=== PATIENT | female | born 1940 | race Caucasian/White ===

== ENCOUNTER 2022-07-06 14:22 | Observation (INO) | payer MEDICARE, SELFPAY ==
[2022-07-06 14:30] VITALS: BP 134/69; PULSE 54; RESP 18; TEMP 36.1; O2SAT 99; BMI 17.6
--- NOTE | 2022-07-06 14:54 | ED.RN ---
Daughter, who is deaf, utilizes the interpreter and translator for sign language. Gives hx of insurance denying home healthcare, and denies the ability of caring for the patient.
--- NOTE | 2022-07-06 15:09 | EDS_ITS ---
HPI <DINORAH Epps - Last Filed: 07/06/22 16:25> History of Present Illness Chief Complaint: Weakness Narrative Narrative: 81-year-old female with history of dementia hypertension history of falling presents to the emergency department for inability to function at home. Patient lives with her daughter who is deaf, the daughter works, and she is unable to care for her at home. Patient was recently discharged from [facility] on Saturday, they were promised 24-hour care at their house, I believe that there was a communication issue, and there was no way to help them at home. Patient is here today for transfer to a rehab center. [facility] <DINORAH Epps - Last Filed: 07/06/22 16:25> [facility] Medical History (Updated 07/06/22 @ 16:25 by DINORAH Epps) Acute kidney injury Congestive heart failure Coronary artery disease Hip fracture, left Hyperlipidemia Hypertension Impaired ambulation Malnutrition Home Medications D3-2000 2,000 u PO/SL DAILY supplement 07/06/22 [History Last Taken 07/06/22] aspirin 81 mg PO/SL DAILY blood thinner 07/06/22 [History Last Taken 07/06/22] atorvastatin 20 mg tablet 10 mg PO DAILY cholesterol 07/06/22 [History Last Taken 07/06/22] donepezil 10 mg tablet 10 mg PO DAILY alzheimers 07/06/22 [History Last Taken 07/06/22] hydralazine 10 mg tablet 10 mg PO Q8 bp 07/06/22 [History Last Taken 07/06/22] isosorbide mononitrate 60 mg tablet,extended release 24 hr 60 mg PO DAILY heart 07/06/22 [History Last Taken 07/06/22] memantine 10 mg tablet 10 mg PO BID alzheimers 07/06/22 [History Last Taken 07/06/22] nitroglycerin 0.4 mg sublingual tablet 0.4 mg sublingual PRN PRN Chest Pain 07/06/22 [History Last Taken Unknown] ondansetron 1 tab PO/SL Q8 PRN Nausea 07/06/22 [History Last Taken Unknown] ticagrelor 60 mg tablet (Brilinta) 60 mg PO BID blood thinner 07/06/22 [History Last Taken 07/06/22] Allergy/AdvReac Type Severity Reaction Status Date / Time No Known Allergies Allergy Verified 07/06/22 14:30 Social History Smoking Status: Never smoker ROS <DINORAH Epps - Last Filed: 07/06/22 16:25> ROS ED ROS Narrative Constitutional: Negative for fever, chills, weight loss, weakness Eyes: Negative for vision loss, vision change, double vision ENT: Negative for any sore throat, ear pain, congestion Cardiovascular: Negative for any chest pain, tightness, palpitations Respiratory: Negative for any cough, sputum production, hemoptysis, dyspnea, dyspnea on exertion, orthopnea Gastrointestinal: Negative for any abdominal pain, nausea, vomiting, diarrhea, constipation, blood in stool, blood in vomit : Negative for any urinary frequency, dysuria, retention, blood in urine Muscle skeletal: Negative for any muscle joint pain, stiffness, myalgias, arthralgias, neck pain, back pain. Positive right hip pain Neurological: Negative for any headache, syncope, numbness or tingling, dizziness Skin: Negative for any rashes, lumps, itching, abrasions, lacerations Psychiatric: Negative for any depression, anxiety, stress, suicidal ideation, homicidal ideation Hematologic: Negative for any easy bruising, excessive bruising, easy bleeding Allergies: Negative for any eczema, hives, rash EXAM <DINORAH Epps - Last Filed: 07/06/22 16:25> Physical Exam Narrative Exam Narrative: Vital signs reviewed. Patient is alert and orient x1, patient speaks however most of her talk is inappropriate. Entire assessment was completed with a educational sign language interpreter. HEET: Head normocephalic atraumatic, TMs clear bilaterally. Posterior pharynx is clear, moist mucous membranes. Nares clear bilaterally. Neck: Supple with no lymphadenopathy or tenderness. No signs of meningismus, negative jolt sign. Cardiac: Regular rate and rhythm no murmurs gallops or rubs, equal peripheral pulses bilaterally. Respiratory: Lungs clear to auscultation bilaterally. No chest tenderness. Abdomen: Soft, nontender, nondistended. No abdominal bruit or pulsatile masses. No hepatosplenomegaly Extremities: Patient does have pain with any movement to the left hip. No other signs of trauma. Patient is moving all other extremities without any difficulty. Neuro: Cranial nerves II through XII intact, no focal neurological deficits. Skin: Clean dry and intact with no rash, purpura, petechiae, vesicles or pustules. Backs/flank: No CVA tenderness, no midline spinal tenderness, no deformity. Psych: Normal mood and affect. No SI, HI or acute psychosis. Const Vital Signs: 07/06/22 14:30 07/06/22 14:47 Temperature 97.0 F L Temperature Source Temporal Pulse Rate 54 L Respiratory Rate 18 Respiratory Effort Normal Blood Pressure 134/69 H Blood Pressure Mean 90 Pulse Ox 99 Oxygen Delivery Method Room Air Positive well developed General Appearance ED: well developed <Dr. Joselito Cagle DO - Last Filed: 07/06/22 16:47> Physical Exam Const Vital Signs: 07/06/22 14:30 07/06/22 14:47 Temperature 97.0 F L Temperature Source Temporal Pulse Rate 54 L Respiratory Rate 18 Respiratory Effort Normal Blood Pressure 134/69 H Blood Pressure Mean 90 Pulse Ox 99 Oxygen Delivery Method Room Air MDM <DINORAH Epps - Last Filed: 07/06/22 16:25> MDM Lab Data Labs: Laboratory Results - last 24 hr 07/06/22 07/06/22 15:38 15:38 WBC 5.7 RBC 2.67 L Hgb 8.0 L Hct 25.9 L MCV 97.0 MCH 30.0 MCHC 30.9 L RDW Std Deviation 70.8 H RDW Coeff of David 20.4 H Plt Count 174 MPV 9.3 Immature Gran % (Auto) 0.400 Neut % (Auto) 70.5 H Lymph % (Auto) 15.1 L [place] % (Auto) 8.4 Eos % (Auto) 4.9 Baso % (Auto) 0.7 Absolute Neuts (auto) 4.0 Absolute Lymphs (auto) 0.86 Nucleated RBC % 0 Sodium 145 Potassium 4.0 Chloride 116 H Carbon Dioxide 25.0 Anion Gap 4 L BUN 15 Creatinine 0.74 Estim Creat Clear Calc 31.06 Est GFR (MDRD) Af Amer 96 Est GFR (MDRD) Non-Af 79 BUN/Creatinine Ratio 20.2 H Glucose 103 Calcium 8.5 Radiography Diagnostic Testing: Clinical Impression(s) from Imaging Studies Hip/Pelvis X-Ray 07/06/22 15:50 IMPRESSION: 1. Evidence of surgical repair of a now healed left femoral fracture. No evidence for acute fracture is seen. If there is continued concern, CT is offered. 2. Degenerative changes lumbar spine. 3. Evidence of surgical repair of a now healed right hip fracture. Electronically Signed: Ignacio Davis DO at 16:05 EDT Reading Location ID and State: [address] [place] [address] Tel [phone], Service support , Treatment and Re-Evaluation Narrative: Patient presents the emergency department for placement to a rehab center. Patient has dementia, patient daughter is deaf and has difficulty communicating. Patient was discharged in the hospital at [facility] 2 days ago, and she is unable to care for self at home. Social work was consulted, they will look at her insurance, and see if she is able to be placed to a rehab facility or if she needs to be admitted for further work-up and then placed. Patient appears well, patient appears nontoxic, patient is here for placement. I did speak with the attending Dr. Lizama patient will be admitted to the hospital and be placed per insurance. Patient did receive an x-ray interpreted by ER physician of the left hip, this showed evidence of surgical Is now healed left femoral fracture. Patient's laboratory values show some anemia, I am unsure if this is chronic or new. Patient's chemistries were unremarkable. Patient and family are happy with the admission. Patient is stable <Dr. Joselito Cagle DO - Last Filed: 07/06/22 16:47> [facility] Lab Data Attestation: I reviewed the patient's lab results. Labs: Laboratory Results - last 24 hr 07/06/22 07/06/22 15:38 15:38 WBC 5.7 RBC 2.67 L Hgb 8.0 L Hct 25.9 L MCV 97.0 MCH 30.0 MCHC 30.9 L RDW Std Deviation 70.8 H RDW Coeff of David 20.4 H Plt Count 174 MPV 9.3 Immature Gran % (Auto) 0.400 Neut % (Auto) 70.5 H Lymph % (Auto) 15.1 L [place] % (Auto) 8.4 Eos % (Auto) 4.9 Baso % (Auto) 0.7 Absolute Neuts (auto) 4.0 Absolute Lymphs (auto) 0.86 Nucleated RBC % 0 Sodium 145 Potassium 4.0 Chloride 116 H Carbon Dioxide 25.0 Anion Gap 4 L BUN 15 Creatinine 0.74 Estim Creat Clear Calc 31.06 Est GFR (MDRD) Af Amer 96 Est GFR (MDRD) Non-Af 79 BUN/Creatinine Ratio 20.2 H Glucose 103 Calcium 8.5 Radiography Diagnostic Testing: Clinical Impression(s) from Imaging Studies Hip/Pelvis X-Ray 07/06/22 15:50 IMPRESSION: 1. Evidence of surgical repair of a now healed left femoral fracture. No evidence for acute fracture is seen. If there is continued concern, CT is offered. 2. Degenerative changes lumbar spine. 3. Evidence of surgical repair of a now healed right hip fracture. Electronically Signed: Ignacio CoronadoonDO at 16:05 EDT Reading Location ID and State: [address] [place] [address] Tel [phone], Service support , Treatment and Re-Evaluation Narrative: Patient presents the emergency department for placement to a rehab center. Patient has dementia, patient daughter is deaf and has difficulty communicating. Patient was discharged in the hospital at [facility] 2 days ago, and she is unable to care for self at home. Social work was consulted, they will look at her insurance, and see if she is able to be placed to a rehab facility or if she needs to be admitted for further work-up and then placed. Patient appears well, patient appears nontoxic, patient is here for placement. I did speak with the attending Dr. Lizama patient will be admitted to the hospital and be placed per insurance. Patient did receive an x-ray interpreted by ER physician of the left hip, this showed evidence of surgical Is now healed left femoral fracture. Patient's laboratory values show some anemia, I am unsure if this is chronic or new. Patient's chemistries were unremarkable. Patient and family are happy with the admission. Patient is stable I performed a history and physical examination of the patient and discussed management plan with the physician senior executive assistant. I reviewed the physician senior executive assistant's note and agree with the documented findings and plan of care. Patient was recently admitted to [facility] for hip fracture and discharged home. Family states they were expecting 24-hour in-home care and notes that they are unable to care for her. Plan is social admission for placement. Joselito Cagle DO, MS Discharge Plan Dx/Rx/DC Orders Clinical Impression: Unable to care for self, History of fall, History of dementia, Anemia Disposition Disposition: Acute Care Hospital [facility]
[2022-07-06 15:48] LABS: Absolute Lymphocyte Count 0.86 X10^3/uL (0.83-4.51); Basophil# 0.04 X10^3/uL; Basophil% 0.7 % (0-1); Eosinophil# 0.28 X10^3/uL; Eosinophils% 4.9 % (0-5); Hematocrit 25.9 % (37-47); Lymphocyte # 0.86 X10^3/ul (0.83-4.51); Lymphocyte % 15.1 % (19-41); Mean Corp Hgb Conc 30.9 g/dL (32-36); Mean Platelet Vol. 9.3 fl (6.2-12.0); Monocyte# 0.48 X10^3/uL; Monocyte% 8.4 % (0-10); NRBC Flagged by Analyzer 0 % (0-5); Neutrophil # 4.03 X10^3/uL (2.7-7.7); Neutrophil % 70.5 % (47-70); POSITIVE MORPHOLOGY YES; Platelet Count 174 K/mm3 (150-450); RBC Distribution Width CV 20.4 % (11.6-14.6); RBC Distribution Width SD 70.8 fl (35.1-43.9); Red Blood Count 2.67 M/mm3 (4.2-5.4); White Blood Count 5.7 K/mm3 (4.4-11.0)
--- NOTE | 2022-07-06 15:50 | RAD_ITS ---
STUDY: X-RAY - PELVIS AND LEFT HIP REASON FOR EXAM: Female, 81 years old. Left hip fracture. TECHNIQUE: 3 views of the pelvis and hip. COMPARISON: None. FINDINGS: There is a non-specific bowel gas pattern. Normal visualized soft tissue structures. There are multiple calcified phleboliths. Vascular calcifications are noted. Degenerative changes of the lower lumbar spine. Normal bilateral iliac wings, sacroiliac joints and visualized sacrum. Normal bilateral superior and inferior pubic rami. There are degenerative changes of the pubic symphysis with articular narrowing and sclerosis. Normal bilateral ischial tuberosities is evidence of surgical The left right hip fracture without acute abnormality.. There is a medullary brennan in the left femoral shaft with a transfixing gamma nail extending into the femoral head and neck. There is no evidence of acute fracture. There is no evidence of misalignment. Normal left acetabulum. Normal left hip joint. RAD/Hip 1 view with Pelvis IMPRESSION: 1. Evidence of surgical repair of a now healed left femoral fracture. No evidence for acute fracture is seen. If there is continued concern, CT is offered. 2. Degenerative changes lumbar spine. 3. Evidence of surgical repair of a now healed right hip fracture. Electronically Signed: Ignacio Davis DO at 16:05 EDT ,
[2022-07-06 15:57] LABS: Differential Indicated SCAN CRITERIA MET
[2022-07-06 16:01] LABS: Anion Gap 4 (5-15); BUN 15 mg/dL (7-18); BUN/Creat Ratio 20.2 RATIO (10-20); Calcium,Total 8.5 mg/dL (8.5-10.1); Chloride 116 mmol/L (98-107); Creatinine, Serum 0.74 mg/dL (0.55-1.02); EST Glomerular Filtration Rate 79 mL/min (>60); Est Glom Filt Rate - Afr Amer 96 mL/min (>60); Estimated Creatinine Clearance 31.06 ml/min; Glucose 103 mg/dL (74-106); Sodium Level 145 mmol/L (136-145)
--- NOTE | 2022-07-06 16:11 | HP.PCM.HOS_ITS ---
HPI - General General Date of Admission: 07/06/22 Date of Service: 07/06/22 Chief Complaint: weakness and debility HPI Narrative HENRI GRIFFIN, is a 81 F with a PMH as outlined who presents via the ED on 07/06/2022 with a complaint of weakness and debility. She has been falling at home and unable to carry out her activities of daily living. SHe was recently in [facility] for about 5 days recently for a left hip fracture and had surger y done, and was discharged home. It appears daughter believes they were told she would have care at home, but this seemed to be a miscommunication. Patient has not been able to care for herself at home, and family is unable to care for her. Unable to do review of systems as patient is confused. History was taken from her daughter via fulfillment specialist as daughter is deaf Vitals were BP of 134/69, MD of 54, RR of 18 and temp of 97F, and she was saturating at 99% on room air. CBC showed Hb of 8, wbc of 5.7 and platelets of 174. BMP was unremarkable. XRay of the left hip showed evidence of surgical repair of a now healed left femoral fracutre with no evidence of acute fracture. She is being admitted to be managed for debility and weakness due to frequent falls, and will need placement. [facility] Medical History (Updated 07/06/22 @ 16:51 by Gaviota Casas) Acute kidney injury Congestive heart failure Coronary artery disease Dementia Hip fracture, left Hyperlipidemia Hypertension Impaired ambulation Malnutrition Home Medications D3-2000 2,000 u PO/SL DAILY supplement 07/06/22 [History Last Taken 07/06/22] aspirin 81 mg PO/SL DAILY blood thinner 07/06/22 [History Last Taken 07/06/22] atorvastatin 20 mg tablet 10 mg PO DAILY cholesterol 07/06/22 [History Last Taken 07/06/22] donepezil 10 mg tablet 10 mg PO DAILY alzheimers 07/06/22 [History Last Taken 07/06/22] hydralazine 10 mg tablet 10 mg PO Q8 bp 07/06/22 [History Last Taken 07/06/22] isosorbide mononitrate 60 mg tablet,extended release 24 hr 60 mg PO DAILY heart 07/06/22 [History Last Taken 07/06/22] memantine 10 mg tablet 10 mg PO BID alzheimers 07/06/22 [History Last Taken 07/06/22] nitroglycerin 0.4 mg sublingual tablet 0.4 mg sublingual PRN PRN Chest Pain 07/06/22 [History Last Taken Unknown] ondansetron 1 tab PO/SL Q8 PRN Nausea 07/06/22 [History Last Taken Unknown] ticagrelor 60 mg tablet (Brilinta) 60 mg PO BID blood thinner 07/06/22 [History Last Taken 07/06/22] Allergy/AdvReac Type Severity Reaction Status Date / Time No Known Allergies Allergy Verified 07/06/22 14:30 Social History Smoking Status: Never smoker ROS Review of Systems ROS Unobtainable: Denies due to encephalopathy Vital Signs Vital Signs Vital Signs: 07/06/22 14:30 07/06/22 14:47 Temperature 97.0 F L Temperature Source Temporal Pulse Rate 54 L Respiratory Rate 18 Respiratory Effort Normal Blood Pressure 134/69 H Blood Pressure Mean 90 Pulse Ox 99 Oxygen Delivery Method Room Air Weight Weight: 100 lb Body Mass Index (BMI) 17.6 Physical Exam Const alert and no apparent distress General Appearance: cooperative Orientation / Consciousness: confused HEENT normocephalic, head/scalp atraumatic, hearing grossly normal bilaterally and moist oral mucous membranes Mouth: oral and palatal mucosa normal Eyes PERRL, EOMs intact bilaterally and conjunctivae normal Neck no lymphadenopathy, supple and no JVD Resp normal respiratory effort, no retractions, no use of accessory muscles and clear to auscultation bilaterally Cardio regular rate, regular rhythm, S1 normal heart sound, S2 normal heart sound and no murmurs GI normal to inspection, nondistended, normoactive bowel sounds, soft to palpation, non-tender and non-distended Extremity normal to inspection, full ROM and no clubbing, cyanosis or edema Neuro CN's II-XII intact bilaterally, moves all extremities and no focal motor defic its Neuro Narrative: confused Sensorium / Orientation: awake and alert Motor Exam: strength 5/5 throughout Psych Psych Narrative: confused Results Lab / Micro Data Result Diagrams: 07/06/22 15:38 07/06/22 15:38 Labs: Laboratory Results - last 24 hr 07/06/22 15:38: WBC 5.7, RBC 2.67 L, Hgb 8.0 L, Hct 25.9 L, MCV 97.0, MCH 30.0, MCHC 30.9 L, RDW Std Deviation 70.8 H, RDW Coeff of David 20.4 H, Plt Count 174, MPV 9.3, Immature Gran % (Auto) 0.400, Neut % (Auto) 70.5 H, Lymph % (Auto) 15.1 L, [place] % (Auto) 8.4, Eos % (Auto) 4.9, Baso % (Auto) 0.7, Absolute Neuts (auto) 4.0, Absolute Lymphs (auto) 0.86, Nucleated RBC % 0 07/06/22 15:38: Sodium 145, Potassium 4.0, Chloride 116 H, Carbon Dioxide 25.0, Anion Gap 4 L, BUN 15, Creatinine 0.74, Estim Creat Clear Calc 31.06, Est GFR (MDRD) Af Amer 96, Est GFR (MDRD) Non-Af 79, BUN/Creatinine Ratio 20.2 H, Glucose 103, Calcium 8.5 Radiology Impression Hip/Pelvis X-Ray 07/06/22 15:50 IMPRESSION: 1. Evidence of surgical repair of a now healed left femoral fracture. No evidence for acute fracture is seen. If there is continued concern, CT is offered. 2. Degenerative changes lumbar spine. 3. Evidence of surgical repair of a now healed right hip fracture. Electronically Signed: Ignacio Davis DO at 16:05 EDT Reading Location ID and State: [address] [place] [address] Tel [phone], Service support , Assessment & Plan Assessment/Plan (1) Weakness: (2) Debility: (3) Falls: PLAN: Plan #Debility and weakness due to mechanical falls * admit to med surg * hasnt been able to carry out her activities of daily living due to weakness and debility * consult PT/OT * fall precautions * #CAD * on aspirin, brilinta and statin as well as imdur * #Hyperlipidemia: on statin #Dementia: on donepezil and memantine #Hypertension: * on hydralazine. * Appears she was on coreg and lisinopril but these were discontinued at [facility], reason unclear. DVT prophylaxis: lovenox Code status: full code * Patient's daughter counseled extensively about different types of CODE STATUS including full code, DNR CCA and DNR CCA via the sign language interpretor. * Patient elects to be full code. * Total eusk-zl-rkow time 17 minutes. Charges/Coding Visit Charges OBSV E&M: 64006 Initial observation care L2 Procedures Hospitalists Procedures: 59334 Advncd Care Plan 30 Min
[2022-07-06 17:00] LABS: Anisocytosis 1+
[2022-07-06 17:01] LABS: Differential Comment SCANNED; Neutrophil-Band 8.4 % (0-5)
--- NOTE | 2022-07-06 17:13 | CM.ED ---
Social Work Note Reason for Referral: SNF placement JAMESON Parks spoke with this worker regarding pt. Pt has dementia and pt's daughter is deaf. Pt has a hip fracture and was at [facility] and then was discharged home. Pt is at [facility] ED for SNF placement as pt's daughter cannot take care of pt. Pt's daughter works. STEPHAN reviewed pt's insurance. Pt has [place] [employer]. Pt will need PT/OT evaluations and pre-cert to be admitted to SNF. STEPHAN updated JAMESON Parks of this. Pt to be admitted to acute. Plan: Admit to Acute. Pt will need SNF placement. Asmita Flores CD MIXER, CHHA
[2022-07-06 17:26] VITALS: BMI 16.5
[2022-07-06 17:30] VITALS: BP 161/72; PULSE 64; RESP 18; TEMP 36.1; O2SAT 98
--- NOTE | 2022-07-06 17:38 | ED.RN ---
Dispo intervention not present, order was cancelled for some reason, unable to add intervention. Dr Lizama saw pt in ED, admission nurse took pt up to the floor.
[2022-07-06] MEDS: 0.9% Saline Lock 10 ML Syringe IV (17:57)
[2022-07-06] MEDS: 0.9% Normal Saline 1,000 ML 75 ML IV (17:57)
[2022-07-06 21:39] VITALS: BP 109/64; PULSE 81; RESP 18; TEMP 36.4; O2SAT 98
[2022-07-06 21:51] VITALS: BP 109/64; PULSE 81
[2022-07-06] MEDS: Memantine Hydrochloride 10 MG Tablet PO (21:51)
[2022-07-06] MEDS: hydrALAZINE 10 MG Tablet PO (21:51)
[2022-07-06] MEDS: TICAGRELOR 60 MG TABLET PO (21:54)
[2022-07-07] VITALS (7 sets, daily range): BP systolic 138–165; BP diastolic 44–79; PULSE 71–91; RESP 17–18; TEMP 36.5–37.1; O2SAT 95–98
[2022-07-07] MEDS: hydrALAZINE 10 MG Tablet PO ×3 (06:46→20:04)
[2022-07-07 07:51] LABS: Absolute Lymphocyte Count 0.79 X10^3/uL (0.83-4.51); Basophil# 0.05 X10^3/uL; Basophil% 0.9 % (0-1); Eosinophil# 0.36 X10^3/uL; Eosinophils% 6.4 % (0-5); Hematocrit 26.4 % (37-47); Hemoglobin 8.2 g/dL (12.0-15.0); Lymphocyte # 0.79 X10^3/ul (0.83-4.51); Mean Corp Hgb Conc 31.1 g/dL (32-36); Mean Corpuscular Hgb 30.7 pg (27.0-32.0); Mean Corpuscular Volume 98.9 fL (81-99); Mean Platelet Vol. 9.9 fl (6.2-12.0); Monocyte# 0.46 X10^3/uL; Monocyte% 8.2 % (0-10); NRBC Flagged by Analyzer 0 % (0-5); Neutrophil # 3.96 X10^3/uL (2.7-7.7); Neutrophil % 70.3 % (47-70); POSITIVE MORPHOLOGY YES; Platelet Count 174 K/mm3 (150-450); RBC Distribution Width CV 20.2 % (11.6-14.6); RBC Distribution Width SD 71.7 fl (35.1-43.9); Red Blood Count 2.67 M/mm3 (4.2-5.4); White Blood Count 5.6 K/mm3 (4.4-11.0)
[2022-07-07 07:56] LABS: Differential Indicated SCAN CRITERIA MET
[2022-07-07 08:04] LABS: Anion Gap 5 (5-15); BUN 16 mg/dL (7-18); BUN/Creat Ratio 22.3 RATIO (10-20); Calcium,Total 8.4 mg/dL (8.5-10.1); Chloride 116 mmol/L (98-107); Creatinine, Serum 0.72 mg/dL (0.55-1.02); EST Glomerular Filtration Rate 83 mL/min (>60); Est Glom Filt Rate - Afr Amer 100 mL/min (>60); Estimated Creatinine Clearance 28.85 ml/min; Glucose 83 mg/dL (74-106); Potassium 3.9 mmol/L (3.5-5.1); Sodium Level 145 mmol/L (136-145)
[2022-07-07 08:25] LABS: Anisocytosis 1+; Hypochromasia 1+
[2022-07-07] MEDS: Atorvastatin Calcium 10 MG Tablet PO (09:04)
[2022-07-07] MEDS: Donepezil HCl 10 MG Tablet PO (09:04)
[2022-07-07] MEDS: Isosorbide Mononitrate 60 MG Tablet PO (09:04)
[2022-07-07] MEDS: Aspirin 81 MG TAB.CHEW PO (09:04)
[2022-07-07] MEDS: Memantine Hydrochloride 10 MG Tablet PO ×2 (09:04→20:05)
[2022-07-07] MEDS: Cholecalciferol (VIT D3) 25 MCG TABLET (1,000 UNITS) 50 MCG PO (09:04)
[2022-07-07] MEDS: TICAGRELOR 60 MG TABLET PO ×2 (09:05→20:07)
[2022-07-07] MEDS: Acetaminophen 325 MG Tablet 650 MG PO ×2 (11:30→20:05)
--- NOTE | 2022-07-07 11:40 | PN.HOSP_ITS ---
Subjective Subjective Patient seen and examined. She had no complaints today and had an uneventful night. Review of systems is otherwise negative. She was noted to have a firm, nontender swelling on the left hip, at the site of surgery. Objective Data Objective Data Vital Signs: Vital Signs Temp Pulse Resp BP Pulse Ox O2 Del Method 98.4 F 83 17 150/79 H 98 Room Air 07/07/22 09:07 07/07/22 09:07 07/07/22 09:07 07/07/22 09:07 07/07/22 09:07 07/07/22 09:09 Oxygen Delivery Method Room Air Weight: 92 lb 14.4 oz Body Mass Index (BMI) 16.5 Intake & Output: Intake and Output for Last 24 Hours 07/05/22 07/06/22 07/07/22 23:59 23:59 23:59 Intake Total 843.75 / 843.75 Balance 843.75 / 843.75 Lab / Micro Data Result Diagrams: 07/07/22 06:27 07/07/22 06:27 Labs: Laboratory Results - last 24 hr 07/06/22 15:38: WBC 5.7, RBC 2.67 L, Hgb 8.0 L, Hct 25.9 L, MCV 97.0, MCH 30.0, MCHC 30.9 L, RDW Std Deviation 70.8 H, RDW Coeff of David 20.4 H, Plt Count 174, MPV 9.3, Immature Gran % (Auto) 0.400, Neut % (Auto) 70.5 H, Lymph % (Auto) 15.1 L, [place] % (Auto) 8.4, Eos % (Auto) 4.9, Baso % (Auto) 0.7, Absolute Neuts (auto) 4.0, Absolute Lymphs (auto) 0.86, Band Neutrophils % 8.4 H, Nucleated RBC % 0, Differential Comment SCANNED, Anisocytosis 1+ 07/06/22 15:38: Sodium 145, Potassium 4.0, Chloride 116 H, Carbon Dioxide 25.0, Anion Gap 4 L, BUN 15, Creatinine 0.74, Estim Creat Clear Calc 31.06, Est GFR (MDRD) Af Amer 96, Est GFR (MDRD) Non-Af 79, BUN/Creatinine Ratio 20.2 H, Glucose 103, Calcium 8.5 07/07/22 06:27: WBC 5.6, RBC 2.67 L, Hgb 8.2 L, Hct 26.4 L, MCV 98.9, MCH 30.7, MCHC 31.1 L, RDW Std Deviation 71.7 H, RDW Coeff of David 20.2 H, Plt Count 174, MPV 9.9, Immature Gran % (Auto) 0.200, Neut % (Auto) 70.3 H, Lymph % (Auto) 14.0 L, [place] % (Auto) 8.2, Eos % (Auto) 6.4 H, Baso % (Auto) 0.9, Absolute Neuts (auto) 4.0, Absolute Lymphs (auto) 0.79 L, Nucleated RBC % 0, Hypochromasia 1+, Anisocytosis 1+ 07/07/22 06:27: Sodium 145, Potassium 3.9, Chloride 116 H, Carbon Dioxide 24.0, Anion Gap 5, BUN 16, Creatinine 0.72, Estim Creat Clear Calc 28.85, Est GFR (MDRD) Af Amer 100, Est GFR (MDRD) Non-Af 83, BUN/Creatinine Ratio 22.3 H, Glucose 83, Calcium 8.4 L Radiography Diagnostic Testing: Radiology Impression Hip/Pelvis X-Ray 07/06/22 15:50 IMPRESSION: 1. Evidence of surgical repair of a now healed left femoral fracture. No evidence for acute fracture is seen. If there is continued concern, CT is offered. 2. Degenerative changes lumbar spine. 3. Evidence of surgical repair of a now healed right hip fracture. Electronically Signed: Ignacio Davis DO at 16:05 EDT Reading Location ID and State: [address] [place] [address] Tel [phone], Service support , Physical Exam Const alert and no apparent distress General Appearance: cooperative Orientation / Consciousness: confused HEENT normocephalic, head/scalp atraumatic, hearing grossly normal bilaterally and moist oral mucous membranes Head and Scalp: normocephalic Mouth: oral and palatal mucosa normal Eyes PERRL, EOMs intact bilaterally and conjunctivae normal Neck no lymphadenopathy, supple and no JVD Resp normal respiratory effort, no retractions, no use of accessory muscles and clear to auscultation bilaterally Cardio regular rate, regular rhythm, S1 normal heart sound, S2 normal heart sound and no murmurs GI normal to inspection, nondistended, normoactive bowel sounds, soft to palpation, non-tender and non-distended Extremity normal to inspection, full ROM and no clubbing, cyanosis or edema Neuro CN's II-XII intact bilaterally, moves all extremities and no focal motor deficits Neuro Narrative: confused Sensorium / Orientation: awake and alert Motor Exam: strength 5/5 throughout Psych Psych Narrative: confused Assessment & Plan Assessment/Plan (1) Weakness: (2) Debility: (3) Falls: PLAN: Plan #Debility and weakness due to mechanical falls * hasnt been able to carry out her activities of daily living due to weakness and debility * consult PT/OT * fall precautions * #Recent right femoral fracture * s/p right hip surgery at [facility] ~ 2 weeks ago * has a firm swelling on the right hip which may be seroma collection or hematoma * will get xray of the right hip. #CAD * on aspirin, brilinta and statin as well as imdur * #Hyperlipidemia: on statin #Dementia: on donepezil and memantine #Hypertension: * on hydralazine. * Appears she was on coreg and lisinopril but these were discontinued at [facility], reason unclear. DVT prophylaxis: lovenox Code status: full code * Disposition: will need placement Charges/Coding Visit Charges Inpatient E&M: 11559 Subs Hosp L2
--- NOTE | 2022-07-07 12:24 | RAD_ITS ---
STUDY: X-RAY - PELVIS AND RIGHT HIP REASON FOR EXAM: Female, 81 years old. right hip swelling TECHNIQUE: 3 views views of the pelvis and hip. COMPARISON: None. FINDINGS: Status post open reduction and internal fixation of bilateral proximal femoral fractures with intramedullary rods and interlocking nails. Fractures appear well-healed. Mild bilateral hip joint space narrowing. Mild osteitis symphysis. Surgical clips right hemipelvis. RAD/HIP, UNI W/ Pelvis 2-3 Views IMPRESSION: Status post open reduction and internal fixation of bilateral hip fractures. Osteitis symphysis. Electronically Signed: Kirill Diop MD, CATRACHITO at 12:34 EDT ,
--- NOTE | 2022-07-07 13:20 | CASEMGMT ---
Addendum entered by Asmita Shelton 07/07/22 15:20: Daughter still not at bedside. David MARIE CM Original Note: Pt is confused and daughter is deaf and not at bedside at this time. RN CARLA unable to complete KIRKLAND form at this time. David MARIE CM
--- NOTE | 2022-07-07 16:29 | CASEMGMT ---
Social Work SW called daughter to review discharge plan. Daughter Brionna is deaf so when calling it goes to an aircraft body repairer who then calls via video and signs to daughter. SW spoke w/daughter about discharge plan. Daughter in agreement with custodial referral. Daughter plans to get FMLA to care for pt at home eventually, but is agreeable to a custodial referral. SW explained will put a list of nursing homes in pt's room, asked her to review the list and let SW know on Saturday 2-3 choices where SW can send referral. Daughter states understanding. Brionna asked how long pt would be in SNF, SW explained its up to insurance but it is short term. Daughter in agreement with this, she does not want pt going to SNF for longterm. Daughter states she will be in the hospital tomorrow, and will be back Saturday at 12 after work. SW put list of senior living providers printed from the [facility] Guide, that includes quality and resource use data and is consistent w/pt's preferred geographic area, medical needs, and insurance network. The list from [facility] was compared with the list of [place] providers, and the list provided is consistent with facilities that take [place]. Plan: SNF, facility [facility]
--- NOTE | 2022-07-07 17:01 | CASEMGMT ---
As per initial admitting manager library, pt does not have LW/POA. SHAYNE Rasmussen
--- NOTE | 2022-07-07 18:00 | RAD_ITS ---
STUDY: X-RAY - PELVIS AND LEFT HIP REASON FOR EXAM: Female, 81 years old. left hip swelling TECHNIQUE: 3 views of the pelvis and hip. COMPARISON: 07/06/2022 FINDINGS: There is a non-specific bowel gas pattern. Normal visualized soft tissue structures. Normal bilateral iliac wings, sacroiliac joints and visualized sacrum. Normal bilateral superior and inferior pubic rami. Normal pubic symphysis. Normal bilateral ischial tuberosities. Healing fracture of the intertrochanteric femur with a femoral neck compression screw and intramedullary brennan. Normal acetabulum. Normal hip joint. RAD/HIP, UNI W/ Pelvis 2-3 Views IMPRESSION: No change in the healing fracture of the intertrochanteric femur after open reduction internal fixation. Electronically Signed: Kaiser Ang MD at 18:19 EDT ,
[2022-07-08] VITALS (7 sets, daily range): BP systolic 127–174; BP diastolic 66–75; PULSE 71–82; RESP 17–20; TEMP 36.5–37.3; O2SAT 97–98
[2022-07-08] MEDS: hydrALAZINE 10 MG Tablet PO ×3 (04:12→21:27)
[2022-07-08 06:09] LABS: Absolute Lymphocyte Count 0.93 X10^3/uL (0.83-4.51); Absolute Neutrophil Count 5.3 X10^3/uL (2.0-7.7); Basophil# 0.06 X10^3/uL; Basophil% 0.8 % (0-1); Eosinophil# 0.33 X10^3/uL; Eosinophils% 4.6 % (0-5); Hematocrit 26.9 % (37-47); Hemoglobin 8.5 g/dL (12.0-15.0); Lymphocyte # 0.93 X10^3/ul (0.83-4.51); Lymphocyte % 12.9 % (19-41); Mean Corp Hgb Conc 31.6 g/dL (32-36); Mean Corpuscular Hgb 30.9 pg (27.0-32.0); Mean Corpuscular Volume 97.8 fL (81-99); Mean Platelet Vol. 9.8 fl (6.2-12.0); Monocyte# 0.52 X10^3/uL; Monocyte% 7.2 % (0-10); NRBC Flagged by Analyzer 0 % (0-5); Neutrophil # 5.33 X10^3/uL (2.7-7.7); Neutrophil % 74.2 % (47-70); POSITIVE MORPHOLOGY YES; Platelet Count 193 K/mm3 (150-450); RBC Distribution Width CV 20.5 % (11.6-14.6); RBC Distribution Width SD 71.1 fl (35.1-43.9); Red Blood Count 2.75 M/mm3 (4.2-5.4); White Blood Count 7.2 K/mm3 (4.4-11.0)
[2022-07-08 06:27] LABS: Differential Indicated SCAN CRITERIA MET
[2022-07-08 06:37] LABS: Anion Gap 7 (5-15); BUN 15 mg/dL (7-18); BUN/Creat Ratio 21.9 RATIO (10-20); Calcium,Total 8.2 mg/dL (8.5-10.1); Chloride 114 mmol/L (98-107); Creatinine, Serum 0.68 mg/dL (0.55-1.02); EST Glomerular Filtration Rate 87 mL/min (>60); Est Glom Filt Rate - Afr Amer 105 mL/min (>60); Estimated Creatinine Clearance 28.85 ml/min; Glucose 92 mg/dL (74-106); Potassium 3.8 mmol/L (3.5-5.1); Sodium Level 144 mmol/L (136-145)
[2022-07-08 07:09] LABS: Anisocytosis 2+; Macrocytosis 1+
[2022-07-08] MEDS: oxyCODONE 5 MG Tablet PO (08:24)
[2022-07-08] MEDS: Acetaminophen 325 MG Tablet 650 MG PO (08:25)
[2022-07-08] MEDS: Aspirin 81 MG TAB.CHEW PO (08:27)
[2022-07-08] MEDS: Isosorbide Mononitrate 60 MG Tablet PO (08:27)
[2022-07-08] MEDS: Atorvastatin Calcium 10 MG Tablet PO (08:27)
[2022-07-08] MEDS: Memantine Hydrochloride 10 MG Tablet PO ×2 (08:27→21:26)
[2022-07-08] MEDS: Cholecalciferol (VIT D3) 25 MCG TABLET (1,000 UNITS) 50 MCG PO (08:27)
[2022-07-08] MEDS: Donepezil HCl 10 MG Tablet PO (08:27)
[2022-07-08] MEDS: TICAGRELOR 60 MG TABLET PO ×2 (08:27→21:26)
--- NOTE | 2022-07-08 10:19 | PN.HOSP_ITS ---
Subjective Subjective Patient seen and examined. She had no active complaints today and had an uneventful night. She is awaiting placement. Review of systems is otherwise negative. Objective Data Objective Data Vital Signs: Vital Signs Temp Pulse Resp BP Pulse Ox O2 Del Method 99.0 F 82 17 174/75 H 98 Room Air 07/08/22 08:31 07/08/22 08:31 07/08/22 08:31 07/08/22 08:31 07/08/22 08:31 07/08/22 08:31 Oxygen Delivery Method Room Air Weight: 92 lb 14.409 oz Body Mass Index (BMI) 16.5 Intake & Output: Intake and Output for Last 24 Hours 07/06/22 07/07/22 07/08/22 23:59 23:59 23:59 Intake Total 1083.75 / 1183.75 200 / 200 Balance 1083.75 / 1183.75 200 / 200 Lab / Micro Data Result Diagrams: 07/08/22 05:40 07/08/22 05:40 Labs: Laboratory Results - last 24 hr 07/08/22 05:40: WBC 7.2, RBC 2.75 L, Hgb 8.5 L, Hct 26.9 L, MCV 97.8, MCH 30.9, MCHC 31.6 L, RDW Std Deviation 71.1 H, RDW Coeff of David 20.5 H, Plt Count 193, MPV 9.8, Immature Gran % (Auto) 0.300, Neut % (Auto) 74.2 H, Lymph % (Auto) 12.9 L, Brooks % (Auto) 7.2, Eos % (Auto) 4.6, Baso % (Auto) 0.8, Absolute Neuts (auto) 5.3, Absolute Lymphs (auto) 0.93, Nucleated RBC % 0, Differential Comment SCANNEDE, Anisocytosis 2+, Macrocytosis 1+ 07/08/22 05:40: Sodium 144, Potassium 3.8, Chloride 114 H, Carbon Dioxide 23.0, Anion Gap 7, BUN 15, Creatinine 0.68, Estim Creat Clear Calc 28.85, Est GFR (MDRD) Af Amer 105, Est GFR (MDRD) Non-Af 87, BUN/Creatinine Ratio 21.9 H, Glucose 92, Calcium 8.2 L Radiography Diagnostic Testing: Radiology Impression Hip/Pelvis X-Ray 07/07/22 18:00 IMPRESSION: No change in the healing fracture of the intertrochanteric femur after open reduction internal fixation. Electronically Signed: Kaiser Ang MD at 18:19 EDT , Physical Exam Const alert and no apparent distress General Appearance: cooperative Orientation / Consciousness: confused HEENT normocephalic, head/scalp atraumatic, hearing grossly normal bilaterally and moist oral mucous membranes Head and Scalp: normocephalic Mouth: oral and palatal mucosa normal Eyes PERRL, EOMs intact bilaterally and conjunctivae normal Neck no lymphadenopathy, supple and no JVD Resp normal respiratory effort, no retractions, no use of accessory muscles and clear to auscultation bilaterally Cardio regular rate, regular rhythm, S1 normal heart sound, S2 normal heart sound and no murmurs GI normal to inspection, nondistended, normoactive bowel sounds, soft to palpation, non-tender and non-distended Extremity normal to inspection, full ROM and no clubbing, cyanosis or edema Extremity Narrative: mild swelling on the left hip. Neuro CN's II-XII intact bilaterally, moves all extremities and no focal motor deficits Neuro Narrative: confused Sensorium / Orientation: awake and alert Motor Exam: strength 5/5 throughout Psych Psych Narrative: confused Assessment & Plan Assessment/Plan (1) Weakness: (2) Debility: (3) Falls: PLAN: Plan #Debility and weakness due to mechanical falls * hasnt been able to carry out her activities of daily living due to weakness and debility * consult PT/OT * fall precautions * #Recent left femoral fracture * s/p left hip surgery at [facility] ~ 2 weeks ago * has a firm swelling on the left hip which may be seroma collection or hematoma; is nontender * xray of the hip was unremarkable and showed no change in the healing fracture of the intertrochanteric femur after ORIF. * #CAD * on aspirin, brilinta and statin as well as imdur * #Hyperlipidemia: on statin #Dementia: on donepezil and memantine #ANemia: * Hb is 8.5. Hb was 8 on admission * No previous baseline. May also be due to blood loss from recent surgery. * Check iron panel and start oral iron supplements. * #Hypertension: * on hydralazine. * Appears she was on coreg and lisinopril but these were discontinued at [facility], reason unclear. DVT prophylaxis: lovenox Code status: full code * Disposition: awaiting placement Charges/Coding Visit Charges Inpatient E&M: 63130 Subs Hosp L2
[2022-07-08 11:50] LABS: Ferritin 319 ng/mL (8-252); Iron 62 ug/dL (50-170); Iron Binding Capacity,Total 160 ug/dL (250-450); PERCENT IRON SATURATION 38.8 % (15.0-55.0)
--- NOTE | 2022-07-08 14:22 | NURSING ---
spoke with daughter Brionna - wanting pt to go to [facility] as 1st choice. Brionna will be in at 1230 on 06/29 to meet with STEPHAN/CARLA
[2022-07-09] VITALS (7 sets, daily range): BP systolic 151–165; BP diastolic 50–83; PULSE 75–92; RESP 16–18; TEMP 36.8–37.4; O2SAT 94–97
[2022-07-09] MEDS: hydrALAZINE 10 MG Tablet PO ×3 (04:21→21:51)
[2022-07-09 06:14] LABS: Absolute Lymphocyte Count 1.07 X10^3/uL (0.83-4.51); Absolute Neutrophil Count 5.8 X10^3/uL (2.0-7.7); Basophil# 0.05 X10^3/uL; Basophil% 0.6 % (0-1); Eosinophil# 0.31 X10^3/uL; Eosinophils% 3.9 % (0-5); Hematocrit 27.9 % (37-47); Hemoglobin 8.9 g/dL (12.0-15.0); Lymphocyte # 1.07 X10^3/ul (0.83-4.51); Lymphocyte % 13.6 % (19-41); Mean Corp Hgb Conc 31.9 g/dL (32-36); Mean Corpuscular Hgb 31.3 pg (27.0-32.0); Mean Corpuscular Volume 98.2 fL (81-99); Mean Platelet Vol. 9.8 fl (6.2-12.0); Monocyte# 0.66 X10^3/uL; Monocyte% 8.4 % (0-10); NRBC Flagged by Analyzer 0 % (0-5); Neutrophil # 5.77 X10^3/uL (2.7-7.7); Neutrophil % 73.1 % (47-70); POSITIVE MORPHOLOGY YES; Platelet Count 186 K/mm3 (150-450); RBC Distribution Width CV 20.5 % (11.6-14.6); RBC Distribution Width SD 71.6 fl (35.1-43.9); Red Blood Count 2.84 M/mm3 (4.2-5.4); White Blood Count 7.9 K/mm3 (4.4-11.0)
[2022-07-09 06:52] LABS: Differential Indicated SCAN CRITERIA MET
[2022-07-09 07:07] LABS: BUN 16 mg/dL (7-18); Creatinine, Serum 0.66 mg/dL (0.55-1.02); EST Glomerular Filtration Rate 91 mL/min (>60); Estimated Creatinine Clearance 28.85 ml/min; Glucose 99 mg/dL (74-106)
[2022-07-09 07:08] LABS: Anion Gap 5 (5-15); BUN/Creat Ratio 24.3 RATIO (10-20); Calcium,Total 8.5 mg/dL (8.5-10.1); Chloride 114 mmol/L (98-107); Est Glom Filt Rate - Afr Amer 110 mL/min (>60); Sodium Level 143 mmol/L (136-145)
[2022-07-09 07:18] LABS: Anisocytosis 2+; Polychromasia 1+
--- NOTE | 2022-07-09 07:54 | PN.HOSP_ITS ---
Subjective Subjective Follow-up on debility/recurrent falls: Patient was seen and examined. Denies any new complaints. No acute events o vernight. Objective Data Objective Data Vital Signs: Vital Signs Temp Pulse Resp BP Pulse Ox O2 Del Method 98.5 F 87 18 165/83 H 95 Room Air 07/09/22 04:16 07/09/22 04:21 07/09/22 04:16 07/09/22 04:16 07/09/22 04:16 07/09/22 04:16 Oxygen Delivery Method Room Air Weight: 42.139 kg Body Mass Index (BMI) 16.5 Intake & Output: Intake and Output for Last 24 Hours 07/07/22 07/08/22 07/09/22 23:59 23:59 23:59 Intake Total 1083.75 / 1183.75 660 / 660 0 / 0 Balance 1083.75 / 1183.75 660 / 660 0 / 0 Lab / Micro Data Result Diagrams: 07/09/22 05:50 07/09/22 05:50 Labs: Laboratory Results - last 24 hr 07/08/22 05:40: Iron 62, TIBC 160 L, Iron Saturation 38.8, Ferritin 319 H 07/09/22 05:50: WBC 7.9, RBC 2.84 L, Hgb 8.9 L, Hct 27.9 L, MCV 98.2, MCH 31.3, MCHC 31.9 L, RDW Std Deviation 71.6 H, RDW Coeff of David 20.5 H, Plt Count 186, MPV 9.8, Immature Gran % (Auto) 0.400, Neut % (Auto) 73.1 H, Lymph % (Auto) 13.6 L, Cavalier % (Auto) 8.4, Eos % (Auto) 3.9, Baso % (Auto) 0.6, Absolute Neuts (auto) 5.8, Absolute Lymphs (auto) 1.07, Nucleated RBC % 0, Polychromasia 1+, Anisocytosis 2+ 07/09/22 05:50: Sodium 143, Potassium 4.0, Chloride 114 H, Carbon Dioxide 24.0, Anion Gap 5, BUN 16, Creatinine 0.66, Estim Creat Clear Calc 28.85, Est GFR (MDRD) Af Amer 110, Est GFR (MDRD) Non-Af 91, BUN/Creatinine Ratio 24.3 H, Glucose 99, Calcium 8.5 Physical Exam Narrative Physical exam: General: Alert, Oriented x3, Cooperative, appears very frail HEENT: Atraumatic Oral: Moist Mucosa Neck: Supple Lungs: Diminished to auscultation Cardiovascular: HS I+II, regular, no murmurs Abdomen: Bowel Sounds Present, Soft, Non Tender Extremities: No edema Skin: No rashes, No breakdown Neurological: Grossly intact Psych/Mental Status: Appropriate Assessment & Plan Assessment/Plan (1) Weakness: (2) Debility: (3) Falls: PLAN: Plan 1. Acute on chronic debility, history of recurrent falls [facility] 2. Recent right femoral fracture, status post recent right hip surgery Pain is fairly controlled 3. Hypertension, uncontrolled, will start on amlodipine 5 mg daily Continue to monitor vitals 4. Rest of other chronic medical conditions including CAD/hyperlipidemia/dementia Continue on aspirin, Brilinta, statin, Imdur, donepezil and memantine 5. DVT PPx- Lovenox SC Charges/Coding Visit Charges Inpatient E&M: 03486 Subs Hosp L2
[2022-07-09] MEDS: Isosorbide Mononitrate 60 MG Tablet PO (07:58)
[2022-07-09] MEDS: Cholecalciferol (VIT D3) 25 MCG TABLET (1,000 UNITS) 50 MCG PO (07:58)
[2022-07-09] MEDS: Atorvastatin Calcium 10 MG Tablet PO (07:59)
[2022-07-09] MEDS: TICAGRELOR 60 MG TABLET PO ×2 (07:59→21:51)
[2022-07-09] MEDS: Aspirin 81 MG TAB.CHEW PO (07:59)
[2022-07-09] MEDS: Donepezil HCl 10 MG Tablet PO (07:59)
[2022-07-09] MEDS: Memantine Hydrochloride 10 MG Tablet PO ×2 (07:59→21:51)
[2022-07-09] MEDS: oxyCODONE 5 MG Tablet PO ×2 (08:05→14:40)
--- NOTE | 2022-07-09 12:16 | CASEMGMT ---
Social Work Per NurseGarcía's note over weekend, daughter chose [facility] as first choice for SNF. SW notified Lisandra at TCU. Lisandra reviewed and stated if pt does not have Covid Vaccination that she cannot accept pt due to additional cost of PPE. SW to inform the daughter when she arrives at [facility] and will get additional choices. Plan: Await pt/family choice for SNF DEONTE Kurtz
--- NOTE | 2022-07-09 13:55 | CASEMGMT ---
RN CARLA in to discuss KIRKLAND form with patient dtr as pt has confusion. Pt dtr is deaf, FRANK AGUIRRE explained KIRKLAND form via automotive tire technician via video on ipad, patient dtr voiced understanding. Pt dtr signed form and filed in chart. Pt and dtr provided with a copy of signed KIRKLAND form. Patient/dtr had no further questions or concerns at this time.
--- NOTE | 2022-07-09 13:59 | CASEMGMT ---
Social Work SW into pt room. Introduced self and role at the hospital. Pt sat in her chair beside daughter, Brionna. Brionna and STEPHAN set up ASL manager architectural service and SW inquired about pt/families choice for SNFs. Brionna reported she would like to have her mom go to TCU. SW gathered covid vaccine documents and updated [facility] at [facility]. [facility] stated [facility] is unable to provide level of care for pt with dementia. Brionna stated second choices would be [facility]) and [facility]). SW shared that [facility] has been keeping their census low due to a pending move to a new building and there is a chance pt will not be accepted for that reason. Brionna understanding. SW discussed intent to send referrals to both facilities, [facility] and [facility] and will update pt and Brionna with any news. Both understanding. [facility] updated Rylee discharge assistant professor of chemistry. Referrals to [facility] and [facility] to be sent. PLAN: [facility] vs. [facility], pending acceptance and precert DEONTE Kurtz
--- NOTE | 2022-07-09 14:23 | CASEMGMT ---
Addendum entered by Rylee Bernstein 07/09/22 15:04: Referral was sent to [facility] and Rylee told [place] never mind on referral as that was the wrong SNF choice Plan: [facility] vs [facility], Waiting Acceptance Rylee Bernstein Discharge Bone Char Puller Original Note: Discharge Bone Char Puller Rylee d/c communications assistant sent referrals via [facility] to [facility] and [facility]. Will follow up. Plan: [place] vs [facility], Waiting Acceptance Rylee Bernstein Discharge Bone Char Puller
[2022-07-09] MEDS: amLODIPine 5 MG Tablet PO (14:40)
[2022-07-10] VITALS (8 sets, daily range): BP systolic 115–164; BP diastolic 68–91; PULSE 84–90; RESP 14–18; TEMP 36.8–37; O2SAT 96–98
[2022-07-10 06:04] LABS: Absolute Lymphocyte Count 1.05 X10^3/uL (0.83-4.51); Absolute Neutrophil Count 6.5 X10^3/uL (2.0-7.7); Basophil# 0.05 X10^3/uL; Basophil% 0.6 % (0-1); Eosinophil# 0.18 X10^3/uL; Eosinophils% 2.1 % (0-5); Hematocrit 29.4 % (37-47); Hemoglobin 9.4 g/dL (12.0-15.0); Lymphocyte # 1.05 X10^3/ul (0.83-4.51); Lymphocyte % 12.2 % (19-41); Mean Corpuscular Hgb 30.9 pg (27.0-32.0); Mean Corpuscular Volume 96.7 fL (81-99); Mean Platelet Vol. 9.9 fl (6.2-12.0); Monocyte# 0.83 X10^3/uL; Monocyte% 9.6 % (0-10); NRBC Flagged by Analyzer 0 % (0-5); Neutrophil # 6.47 X10^3/uL (2.7-7.7); Neutrophil % 75.2 % (47-70); POSITIVE MORPHOLOGY YES; Platelet Count 193 K/mm3 (150-450); RBC Distribution Width SD 69.6 fl (35.1-43.9); Red Blood Count 3.04 M/mm3 (4.2-5.4); White Blood Count 8.6 K/mm3 (4.4-11.0)
[2022-07-10 06:06] LABS: Differential Indicated SCAN CRITERIA MET
[2022-07-10] MEDS: hydrALAZINE 10 MG Tablet PO ×3 (06:16→21:18)
[2022-07-10] MEDS: Acetaminophen 325 MG Tablet 650 MG PO (06:20)
[2022-07-10 06:29] LABS: ALB/GLOB Ratio 0.6 RATIO (0.9-2.4); AST(SGOT) 18 U/L (15-37); Alanine Aminotransfer ALT/SGPT 20 U/L (13-56); Albumin, Serum 2.4 g/dL (3.2-5.0); Alkaline Phosphatase 80 U/L (45-117); Anion Gap 6 (5-15); Anisocytosis 1+; BUN 13 mg/dL (7-18); Calcium,Total 8.6 mg/dL (8.5-10.1); Chloride 109 mmol/L (98-107); Creatinine, Serum 0.62 mg/dL (0.55-1.02); Differential Comment SCANNED; EST Glomerular Filtration Rate 98 mL/min (>60); Est Glom Filt Rate - Afr Amer 118 mL/min (>60); Estimated Creatinine Clearance 28.85 ml/min; Globulin 3.8 g/dL (2.2-4.2); Glucose 97 mg/dL (74-106); Hypochromasia RARE; Macrocytosis 1+; Microcytosis RARE; Potassium 4.2 mmol/L (3.5-5.1); Protein, Total 6.2 g/dL (6.4-8.2); Sodium Level 141 mmol/L (136-145)
--- NOTE | 2022-07-10 08:12 | CASEMGMT ---
Discharge Manager Quality Improvement Rylee reached out to Blanca at [facility]. Referral was sent yesterday via [facility]. Blanca never received the referral. Rylee confirm the fax # that is in [facility] and the fax # was wrong. CARLA House will talk with [facility] to have it fixed. Rylee sent referral via fax. Rylee called [facility] and left a voicemail. Will follow up Plan: [facility] vs [facility], Waiting Acceptance Rylee Bernstein Discharge Manager Quality Improvement
--- NOTE | 2022-07-10 09:10 | CASEMGMT ---
Discharge Cashier Office Discharge Cashier Office received a call from Blanca at [facility]. Patient has been accepted at [facility]. Blanca will start pre-cert. STEPHAN Lerma notified. Plan: [facility], Waiting pre-cert. Rylee Bernstein Discharge Cashier Office
[2022-07-10] MEDS: Isosorbide Mononitrate 60 MG Tablet PO (09:16)
[2022-07-10] MEDS: Donepezil HCl 10 MG Tablet PO (09:16)
[2022-07-10] MEDS: Atorvastatin Calcium 10 MG Tablet PO (09:16)
[2022-07-10] MEDS: Memantine Hydrochloride 10 MG Tablet PO ×2 (09:17→21:18)
[2022-07-10] MEDS: Aspirin 81 MG TAB.CHEW PO (09:17)
[2022-07-10] MEDS: Cholecalciferol (VIT D3) 25 MCG TABLET (1,000 UNITS) 50 MCG PO (09:17)
[2022-07-10] MEDS: amLODIPine 5 MG Tablet PO (09:17)
[2022-07-10] MEDS: TICAGRELOR 60 MG TABLET PO ×2 (09:18→21:18)
--- NOTE | 2022-07-10 10:16 | CASEMGMT ---
Addendum entered by Maricruz Rodriguez 07/10/22 10:28: SW called [facility] to inquire about referral. Spoke with Brake Machine Operator who stated they are not accepting ANY patients at this time so pt cannot come to their facility. didactic program in dietetics director stated when pt's daughter calls she will also inform her of this information. [facility], [facility] precert. Original Note: Social Work SW called pt's daughter to inform that there has been no response from [facility] ([facility]). Sw also informed that pt has been accepted at [facility] and they would be able to take pt today. Pt's daughter expressed frustration and disappointment and stated she would be calling [facility] to discuss this with them herself. SW explained via ASL field servicer on the phone that it was important to continue this process moving along as pt has been in the hospital for several days. SW explained pt is medically ready to leave and that insurance approval could take several days which would extend her mother's stay in the hospital. Pt's daughter did not appear to understand this and requested this SW wait while she contacts [facility] to discuss with them about her mother's acceptance at [facility] facility. PLAN: [facility] vs. [facility] DEONTE Kurtz
--- NOTE | 2022-07-10 11:59 | TREXTCAR_ITS ---
Diet Diet Order/Speech Therapy: 07/07/22 12:08 Diet: Regular - General Food consistency:: Regular Liquid Consistency:: Regular/Thin Is pt able to select menu?: No Diet Comments: serve each item in individual containers to help minimize food thrown Routine Orders/Code Status Suppository Type: Dulcolax 10mg Suppository Frequency: Daily PRN Routine Lab Work: CBC (within 3 days) and - (CMP within 3 days) Wound(s) left hip, healing surgical wound: Wound Type: Surgical Incision bilat le: Wound Type: Abrasion buttocks: Wound Type: Pressure Injury Therapies Weight Bearing: Weight bearing as tolerated Physical Therapy: Eval and Treat Occupational Therapy: Eval and Treat Problem/Diagnosis (1) Weakness: Status: Acute Code(s): R53.1 - Weakness (2) Debility: Status: Acute Code(s): R53.81 - Other malaise (3) Falls: Status: Acute Code(s): W19.XXXA - Unspecified fall, initial encounter Allergies/Procedures Done in Hospital Allergies No Known Allergies Allergy (Verified 07/06/22 14:30) Procedures: None Type of Care/Length of Stay Estimated LOS: Convalescent Care Less Than 30 days Type of Care Needed: Skilled Rehab Potential: Good Prognosis: Good Additional Orders/Day of Discharge Day of Discharge: 07/10/22 Dietary and Speech Recommendations Dietitian Recommendations/Changes: Will continue regular diet; ensure enlive 120 mL 4x/day w/ medpass for additional calories/protein if consumed Discharge Plan Admission Admit Date/Time: 07/06/22 16:25 Primary Reason for Your Visit: Debility, recent left hip fracture Attending Provider: Jaky Chavarria Primary Care Provider: Arpita Blevins Consulting Providers: Danielle Lizama Discharge Orders/Prescriptions Prescriptions: New amlodipine 5 mg Tablet 5 mg PO DAILY Qty: 0 0RF Ensure Enlive 0.08 gram-1.5 kcal/mL Liquid 120 ml PO 4X/DAY Qty: 0 0RF Continued hydralazine 10 mg tablet 10 mg PO Q8 atorvastatin 20 mg tablet 10 mg PO DAILY Label Comments: TAKE 1/2 (ONE-HALF) TABLET BY MOUTH ONCE DAILY donepezil 10 mg tablet 10 mg PO DAILY isosorbide mononitrate 60 mg tablet extended release 24 hr 60 mg PO DAILY Label Comments: TAKE 1 TABLET BY MOUTH TWICE DAILY nitroglycerin 0.4 mg tablet, sublingual 0.4 mg sublingual PRN PRN (Reason: Chest Pain) memantine 10 mg tablet 10 mg PO BID Label Comments: TAKE 1 TABLET BY MOUTH TWICE DAILY Brilinta 60 mg tablet 60 mg PO BID D3-2000 2,000 u PO/SL DAILY aspirin 81 mg PO/SL DAILY ondansetron 1 tab PO/SL Q8 PRN (Reason: Nausea) Referrals / Follow Up: Arpita Blevins MD [Primary Care Provider] - Disposition Disposition (needs filled in before D/C Order can be placed): Shelter Facility
--- NOTE | 2022-07-10 13:05 | CHAPLAIN ---
Type of Pastoral Visit _x__ Initial Visit ___ Follow-up Visit ___ On-call Visit ___ General Patient Visit ___ Spiritual Assessment ___ Family Conference ___ Bereavement ___ Rapid Response ___ Code Blue ___ Other (describe below) Pastoral Care Referral From _x__ Patient ___ Family ___ Nurse ___ Physician ___ Acoustical Tile Drill Press Operator ___ Wheat And Oats Flake Miller ___ Other (describe below) Sacrament/Intervention _x__ Active listening ___ Anointing ___ Mandaen ___ Bereavement ___ Communion ___ Natalee exploration ___ ___ Life review _x__ Prayer ___ Reconciliation ___ Sacrament of Sick _x__ Supportive presence ___ Wedding ___ Other (describe below) Pastoral Comments patient welcomes this shingle weaver to sit with her for awhile; pt has lunch tray but has only eaten a little bit; pt encouraged to eat but she turns up her nose and does so again later when asked again to eat; pt speaks of her family but the children and grandchildren are not available in this area; pt says she does not need anything but would welcome a prayer; when asked how to pray for her, the patient mentioned that she would like to see her children
--- NOTE | 2022-07-10 13:45 | CASEMGMT ---
Social Work SW called pt's daughter, Brionna, via telephone and communicated that this SW spoke to the italian lecturer at [facility] ([facility]) regarding pt referral. SW explained [facility] is unable to accept pt at this time. Brionna was upset but accepted that [facility] is next choice. SW explained now insurance will have to approve before pt can discharge there. Brionna understanding. PLAN: [facility], pending precert DEONTE Kurtz
--- NOTE | 2022-07-10 14:32 | CASEMGMT ---
Social Work SW placed copied page from [facility] documenting dates that pt received Covid vaccine. DEONTE Kurtz
--- NOTE | 2022-07-10 15:07 | PCM.PN.HOSP ---
Subjective Subjective Follow-up on debility/recurrent falls: Patient was seen and examined. No acute events overnight. Objective Data Objective Data Vital Signs: Vital Signs Temp Pulse Resp BP Pulse Ox O2 Del Method 98.5 F 85 18 115/91 H 97 Room Air 07/10/22 13:56 07/10/22 13:58 07/10/22 13:56 07/10/22 13:58 07/10/22 13:56 07/10/22 14:17 Oxygen Delivery Method Room Air Weight: 42.139 kg Body Mass Index (BMI) 16.5 Intake & Output: Intake and Output for Last 24 Hours 07/08/22 07/09/22 07/10/22 23:59 23:59 23:59 Intake Total 660 / 660 450 / 900 1450 / 1450 Balance 660 / 660 450 / 900 1450 / 1450 Lab / Micro Data Result Diagrams: 07/10/22 05:18 07/10/22 05:18 Labs: Laboratory Results - last 24 hr 07/10/22 05:18: WBC 8.6, RBC 3.04 L, Hgb 9.4 L, Hct 29.4 L, MCV 96.7, MCH 30.9, MCHC 32.0, RDW Std Deviation 69.6 H, RDW Coeff of David 20.0 H, Plt Count 193, MPV 9.9, Immature Gran % (Auto) 0.300, Neut % (Auto) 75.2 H, Lymph % (Auto) 12.2 L, [place]ney % (Auto) 9.6, Eos % (Auto) 2.1, Baso % (Auto) 0.6, Absolute Neuts (auto) 6.5, Absolute Lymphs (auto) 1.05, Nucleated RBC % 0, Differential Comment SCANNED, Hypochromasia RARE, Anisocytosis 1+, Microcytosis RARE, Macrocytosis 1+ 07/10/22 05:18: Sodium 141, Potassium 4.2, Chloride 109 H, Carbon Dioxide 26.0, Anion Gap 6, BUN 13, Creatinine 0.62, Estim Creat Clear Calc 28.85, Est GFR (MDRD) Af Amer 118, Est GFR (MDRD) Non-Af 98, BUN/Creatinine Ratio 21.0 H, Glucose 97, Calcium 8.6, Total Bilirubin 1.10 H, AST 18, ALT 20, Alkaline Phosphatase 80, Total Protein 6.2 L, Albumin 2.4 L, Globulin 3.8, Albumin/Globulin Ratio 0.6 L Radiography Diagnostic Testing: Radiology Impression Hip/Pelvis X-Ray 07/07/22 12:24 IMPRESSION: Status post open reduction and internal fixation of bilateral hip fractures. Osteitis symphysis. Electronically Signed: Kirill Diop MD, CATRACHITO at 12:34 EDT , Hip/Pelvis X-Ray 07/07/22 18:00 IMPRESSION: No change in the healing fracture of the intertrochanteric femur after open reduction internal fixation. Electronically Signed: Kaiser Ang MD at 18:19 EDT , Physical Exam Narrative Physical exam: General: Alert, Oriented x3, Cooperative, appears very frail HEENT: Atraumatic Oral: Moist Mucosa Neck: Supple Lungs: Diminished to auscultation Cardiovascular: HS I+II, regular, no murmurs Abdomen: Bowel Sounds Present, Soft, Non Tender Extremities: No edema Skin: No rashes, No breakdown Neurological: Grossly intact Psych/Mental Status: Appropriate Assessment & Plan Assessment/Plan (1) Weakness: (2) Debility: (3) Falls: PLAN: Plan 1. Acute on chronic debility, history of recurrent falls Awaiting discharge to residential facility 2. Recent right femoral fracture, status post recent right hip surgery Pain is fairly controlled 3. Hypertension, uncontrolled, will start on amlodipine 5 mg daily Continue to monitor vitals 4. Rest of other chronic medical conditions including CAD/hyperlipidemia/dementia Continue on aspirin, Brilinta, statin, Imdur, donepezil and memantine 5. DVT PPx- Lovenox SC Charges/Coding Visit Charges Inpatient E&M: 10203 Subs Hosp L2
[2022-07-10] MEDS: Menthol/Lanolin/Calamine/Znox 113 GM Tube 1 APPLIC TOPICAL (22:38)
[2022-07-11] VITALS (11 sets, daily range): BP systolic 118–170; BP diastolic 61–94; PULSE 73–93; RESP 16; TEMP 36.7–37.1; O2SAT 95–98
[2022-07-11] MEDS: hydrALAZINE 10 MG Tablet PO ×3 (05:40→21:21)
[2022-07-11] MEDS: Aspirin 81 MG TAB.CHEW PO (07:28)
[2022-07-11] MEDS: Memantine Hydrochloride 10 MG Tablet PO ×2 (09:26→21:22)
[2022-07-11] MEDS: Isosorbide Mononitrate 60 MG Tablet PO (09:26)
[2022-07-11] MEDS: amLODIPine 5 MG Tablet PO (09:26)
[2022-07-11] MEDS: Menthol/Lanolin/Calamine/Znox 113 GM Tube 1 APPLIC TOPICAL ×4 (09:26→21:21)
[2022-07-11] MEDS: Donepezil HCl 10 MG Tablet PO (09:26)
[2022-07-11] MEDS: Atorvastatin Calcium 10 MG Tablet PO (09:26)
[2022-07-11] MEDS: Cholecalciferol (VIT D3) 25 MCG TABLET (1,000 UNITS) 50 MCG PO (09:26)
[2022-07-11] MEDS: TICAGRELOR 60 MG TABLET PO ×2 (09:27→21:21)
--- NOTE | 2022-07-11 10:04 | PCM.PN.HOSP ---
Subjective Subjective Follow-up on debility/recurrent falls: Patient was seen and examined. No acute events overnight. Objective Data Objective Data Vital Signs: Vital Signs Temp Pulse Resp BP Pulse Ox O2 Del Method 98.1 F 84 16 163/72 H 96 Room Air 07/11/22 08:22 07/11/22 08:22 07/11/22 08:22 07/11/22 08:22 07/11/22 08:22 07/11/22 08:22 Oxygen Delivery Method Room Air Weight: 42.139 kg Body Mass Index (BMI) 16.5 Intake & Output: Intake and Output for Last 24 Hours 07/09/22 07/10/22 07/11/22 23:59 23:59 23:59 Intake Total 450 / 900 1450 / 1700 450 / 450 Balance 450 / 900 1450 / 1700 450 / 450 Lab / Micro Data Result Diagrams: 07/10/22 05:18 07/10/22 05:18 Physical Exam Narrative Physical exam: General: Alert, Oriented x3, Cooperative, appears very frail HEENT: Atraumatic Oral: Moist Mucosa Neck: Supple Lungs: Diminished to auscultation Cardiovascular: HS I+II, regular, no murmurs Abdomen: Bowel Sounds Present, Soft, Non Tender Extremities: No edema Skin: No rashes, No breakdown Neurological: Grossly intact Psych/Mental Status: Appropriate Assessment & Plan Assessment/Plan (1) Weakness: (2) Debility: (3) Falls: PLAN: Plan 1. Acute on chronic debility, history of recurrent falls Awaiting discharge to assisted facility 2. Recent right femoral fracture, status post recent right hip surgery 3. Hypertension, uncontrolled, will start on amlodipine 5 mg daily Continue to monitor vitals 4. Rest of other chronic medical conditions including CAD/hyperlipidemia/dementia Continue on aspirin, Brilinta, statin, Imdur, donepezil and memantine 5. DVT PPx- Lovenox SC Charges/Coding Visit Charges Inpatient E&M: 92412 Subs Hosp L2
[2022-07-11] MEDS: Acetaminophen 325 MG Tablet 650 MG PO ×2 (10:53→21:22)
[2022-07-12] VITALS (8 sets, daily range): BP systolic 117–127; BP diastolic 53–64; PULSE 72–87; RESP 15–18; TEMP 36.6–36.7; O2SAT 96–98
[2022-07-12 02:51] LABS: Bedside Glucose 114 mg/dL (74-106)
[2022-07-12] MEDS: hydrALAZINE 10 MG Tablet PO ×3 (05:16→22:05)
[2022-07-12 06:13] LABS: Basophil# 0.03 X10^3/uL; Basophil% 0.4 % (0-1); Eosinophils% 2.9 % (0-5); Hematocrit 29.1 % (37-47); Lymphocyte % 11.6 % (19-41); Mean Corp Hgb Conc 30.9 g/dL (32-36); Mean Corpuscular Hgb 30.1 pg (27.0-32.0); Mean Corpuscular Volume 97.3 fL (81-99); Mean Platelet Vol. 10.2 fl (6.2-12.0); Monocyte# 0.85 X10^3/uL; Monocyte% 12.3 % (0-10); NRBC Flagged by Analyzer 0 % (0-5); Neutrophil # 4.99 X10^3/uL (2.7-7.7); Neutrophil % 72.1 % (47-70); POSITIVE MORPHOLOGY YES; Platelet Count 184 K/mm3 (150-450); RBC Distribution Width CV 18.7 % (11.6-14.6); RBC Distribution Width SD 65.7 fl (35.1-43.9); Red Blood Count 2.99 M/mm3 (4.2-5.4); White Blood Count 6.9 K/mm3 (4.4-11.0)
[2022-07-12 06:14] LABS: Differential Indicated SCAN CRITERIA MET
[2022-07-12 06:30] LABS: Anisocytosis 1+; Differential Comment SCANNED; Macrocytosis RARE; Microcytosis RARE
[2022-07-12 06:48] LABS: ALB/GLOB Ratio 0.5 RATIO (0.9-2.4); AST(SGOT) 40 U/L (15-37); Alanine Aminotransfer ALT/SGPT 38 U/L (13-56); Albumin, Serum 2.1 g/dL (3.2-5.0); Alkaline Phosphatase 73 U/L (45-117); Anion Gap 5 (5-15); BUN 22 mg/dL (7-18); BUN/Creat Ratio 37.8 RATIO (10-20); Calcium,Total 8.4 mg/dL (8.5-10.1); Chloride 112 mmol/L (98-107); Creatinine, Serum 0.58 mg/dL (0.55-1.02); EST Glomerular Filtration Rate 105 mL/min (>60); Est Glom Filt Rate - Afr Amer 127 mL/min (>60); Estimated Creatinine Clearance 28.85 ml/min; Globulin 3.9 g/dL (2.2-4.2); Glucose 110 mg/dL (74-106); Potassium 3.9 mmol/L (3.5-5.1); Sodium Level 142 mmol/L (136-145)
[2022-07-12] MEDS: Cholecalciferol (VIT D3) 25 MCG TABLET (1,000 UNITS) 50 MCG PO (09:54)
[2022-07-12] MEDS: Memantine Hydrochloride 10 MG Tablet PO ×2 (09:54→22:06)
[2022-07-12] MEDS: Atorvastatin Calcium 10 MG Tablet PO (09:54)
[2022-07-12] MEDS: Aspirin 81 MG TAB.CHEW PO (09:54)
[2022-07-12] MEDS: amLODIPine 5 MG Tablet PO (09:54)
[2022-07-12] MEDS: Donepezil HCl 10 MG Tablet PO (09:54)
[2022-07-12] MEDS: Isosorbide Mononitrate 60 MG Tablet PO (09:54)
[2022-07-12] MEDS: TICAGRELOR 60 MG TABLET PO ×2 (09:55→22:06)
[2022-07-12] MEDS: Menthol/Lanolin/Calamine/Znox 113 GM Tube 1 APPLIC TOPICAL ×4 (09:55→22:06)
--- NOTE | 2022-07-12 10:25 | CASEMGMT ---
Discharge Tube Cutter Rylee joe banking assistant called Blanca at [facility]. Pre-cert has NOT been obtained yet. STEPHAN Yanez has been notified. Plan: [facility] Home, Waiting Pre-cert. Rylee Bernstein Discharge Tube Cutter
--- NOTE | 2022-07-12 10:56 | PCM.PN.HOSP ---
Subjective Subjective Follow-up on debility/recurrent falls: Patient was seen and examined.? No acute events overnight. Patient denies any acute complaints. Objective Data Objective Data Vital Signs: Vital Signs Temp Pulse Resp BP Pulse Ox O2 Del Method 97.9 F 74 15 125/53 H 96 Room Air 07/12/22 05:14 07/12/22 05:16 07/12/22 05:14 07/12/22 05:16 07/12/22 05:14 07/12/22 05:14 Oxygen Delivery Method Room Air Weight: 42.139 kg Body Mass Index (BMI) 16.5 Intake & Output: Intake and Output for Last 24 Hours 07/10/22 07/11/22 07/12/22 23:59 23:59 23:59 Intake Total 1450 / 1700 1750 / 1750 300 / 300 Balance 1450 / 1700 1750 / 1750 300 / 300 Lab / Micro Data Result Diagrams: 07/12/22 06:00 07/12/22 06:00 Labs: Laboratory Results - last 24 hr 07/12/22 02:30: POC Glucose 114 H 07/12/22 06:00: WBC 6.9, RBC 2.99 L, Hgb 9.0 L, Hct 29.1 L, MCV 97.3, MCH 30.1, MCHC 30.9 L, RDW Std Deviation 65.7 H, RDW Coeff of David 18.7 H, Plt Count 184, MPV 10.2, Immature Gran % (Auto) 0.700, Neut % (Auto) 72.1 H, Lymph % (Auto) 11.6 L, [place] % (Auto) 12.3 H, Eos % (Auto) 2.9, Baso % (Auto) 0.4, Absolute Neuts (auto) 5.0, Absolute Lymphs (auto) 0.80 L, Nucleated RBC % 0, Differential Comment SCANNED, Anisocytosis 1+, Microcytosis RARE, Macrocytosis RARE 07/12/22 06:00: Sodium 142, Potassium 3.9, Chloride 112 H, Carbon Dioxide 25.0, Anion Gap 5, BUN 22 H, Creatinine 0.58, Estim Creat Clear Calc 28.85, Est GFR (MDRD) Af Amer 127, Est GFR (MDRD) Non-Af 105, BUN/Creatinine Ratio 37.8 H, Glucose 110 H, Calcium 8.4 L, Total Bilirubin 0.70, AST 40 H, ALT 38, Alkaline Phosphatase 73, Total Protein 6.0 L, Albumin 2.1 L, Globulin 3.9, Albumin/Globulin Ratio 0.5 L Physical Exam Narrative Physical exam: General: Alert, Oriented x3, Cooperative, appears very frail HEENT: Atraumatic Oral: Moist Mucosa Neck: Supple Lungs: Diminished to auscultation Cardiovascular: HS I+II, regular, no murmurs Abdomen: Bowel Sounds Present, Soft, Non Tender Extremities: No edema Skin: No rashes, No breakdown Neurological: Grossly intact Psych/Mental Status: Appropriate Assessment & Plan Assessment/Plan (1) Weakness: (2) Debility: (3) Falls: PLAN: Plan 1. Acute on chronic debility, history of recurrent falls Awaiting discharge to long-term facility 2. Recent right femoral fracture, status post recent right hip surgery 3. Hypertension, better controlled, continue on amlodipine 4. Rest of other chronic medical conditions including CAD/hyperlipidemia/dementia Continue on aspirin, Brilinta, statin, Imdur, donepezil and memantine 5. DVT PPx- Lovenox SC Charges/Coding Visit Charges Inpatient E&M: 67305 Subs Hosp L2
[2022-07-13] VITALS (8 sets, daily range): BP systolic 120–149; BP diastolic 51–75; PULSE 73–86; RESP 16–18; TEMP 36.4–36.8; O2SAT 96–98
[2022-07-13] MEDS: hydrALAZINE 10 MG Tablet PO ×3 (05:44→20:06)
[2022-07-13] MEDS: Donepezil HCl 10 MG Tablet PO (07:39)
[2022-07-13] MEDS: Memantine Hydrochloride 10 MG Tablet PO ×2 (07:39→20:07)
[2022-07-13] MEDS: Isosorbide Mononitrate 60 MG Tablet PO (07:39)
[2022-07-13] MEDS: Cholecalciferol (VIT D3) 25 MCG TABLET (1,000 UNITS) 50 MCG PO (07:39)
[2022-07-13] MEDS: amLODIPine 5 MG Tablet PO (07:40)
[2022-07-13] MEDS: Aspirin 81 MG TAB.CHEW PO (07:40)
[2022-07-13] MEDS: TICAGRELOR 60 MG TABLET PO ×2 (07:40→20:06)
[2022-07-13] MEDS: Atorvastatin Calcium 10 MG Tablet PO (07:40)
[2022-07-13] MEDS: Menthol/Lanolin/Calamine/Znox 113 GM Tube 1 APPLIC TOPICAL ×4 (07:40→20:07)
[2022-07-13] MEDS: Acetaminophen 325 MG Tablet 650 MG PO (07:43)
--- NOTE | 2022-07-13 08:39 | CASEMGMT ---
Social work SW called [facility] to check on precert, no precert yet attained. They will call as soon as they hear anything back from [place]. SHAYNE Rsamussen
--- NOTE | 2022-07-13 09:30 | PCM.PN.HOSP ---
Subjective Subjective Follow-up on debility/recurrent falls: Patient was seen and examined.? No acute events overnight.? Still waiting on insurance precertification for discharge to long-term facility Objective Data Objective Data Vital Signs: Vital Signs Temp Pulse Resp BP Pulse Ox O2 Del Method 98.3 F 76 16 149/64 H 98 Room Air 07/13/22 08:51 07/13/22 08:51 07/13/22 08:51 07/13/22 08:51 07/13/22 08:51 07/13/22 08:51 Oxygen Delivery Method Room Air Weight: 42.139 kg Body Mass Index (BMI) 16.5 Intake & Output: Intake and Output for Last 24 Hours 07/11/22 07/12/22 07/13/22 23:59 23:59 23:59 Intake Total 1750 / 1750 420 / 420 120 / 120 Balance 1750 / 1750 420 / 420 120 / 120 Lab / Micro Data Result Diagrams: 07/12/22 06:00 07/12/22 06:00 Physical Exam Narrative Physical exam: General: Alert, Oriented x3, Cooperative, appears very frail HEENT: Atraumatic Oral: Moist Mucosa Neck: Supple Lungs: Diminished to auscultation Cardiovascular: HS I+II, regular, no murmurs Abdomen: Bowel Sounds Present, Soft, Non Tender Extremities: No edema Skin: No rashes, No breakdown Neurological: Grossly intact Psych/Mental Status: Appropriate Assessment & Plan Assessment/Plan (1) Weakness: (2) Debility: (3) Falls: PLAN: Plan 1. Acute on chronic debility, history of recurrent falls Awaiting discharge to long-term facility 2. Recent right femoral fracture, status post recent right hip surgery 3. Hypertension, better controlled, continue on amlodipine 4. Rest of other chronic medical conditions including CAD/hyperlipidemia/dementia Continue on aspirin, Brilinta, statin, Imdur, donepezil and memantine 5. DVT PPx- Lovenox SC Charges/Coding Visit Charges Inpatient E&M: 03937 [facility] Hosp L1
--- NOTE | 2022-07-13 10:11 | CASEMGMT ---
Discharge Project Estimator Blanca from [facility] called. Patricio switched over to a new system so, things are being difficult. Blanca is accepting and is positive [facility] will get pre-cert on patient. Blanca stated patient can come today without obtaining pre-cert. STEPHAN Alcantara has been notified. Plan: [facility] Home Rylee Bernstein Discharge Project Estimator
--- NOTE | 2022-07-13 10:45 | CASEMGMT ---
Addendum entered by Maricruz Rodriguez 07/13/22 10:58: STEPHAN received call back from pt's daughter, Brionna. STEPHAN explained the situation to Brionna and explained the options regarding [facility]. Brionna stated the family is not financially capable of private paying for the SNF should the pt be denied precert by insurance. Brionna stated she would like her mother to remain at [facility] until insurance has given precert. STEPHAN called Viviana at [facility] to update and inform that pt and pt's family will wait for precert to be obtained. Blanca voiced understanding. PLAN: [facility], Pending Precert DEONTE Kurtz Original Note: Social Work SW called [facility] to discuss option for pt after being notified facility will accept pt today without obtaining precert. STEPHAN asked if precert is denied who will be expected to cover cost. Blanca at [facility] stated if pt comes today without precert and then gets denied the family can private pay and use medicare part b for therapy coverage. STEPHAN informed Blanca of intent to discuss this option with pt's daughter Brionna Moore. Blanca voiced understanding. STEPHAN attempted to call Brionna Moore, pt's daughter, to inform of situation and information regarding delay in pre authorization from insurance. Brionna did not answer the phone. STEPHAN was unable to leave a message with Brionna's medical laboratory technician services at this time. DEONTE Kurtz
[2022-07-13] MEDS: Ensure Plus High Protein 120 ML LIQUID PO (20:07)
[2022-07-14] VITALS (8 sets, daily range): BP systolic 130–152; BP diastolic 48–93; PULSE 64–88; RESP 16–18; TEMP 36.3–36.8; O2SAT 95–100
[2022-07-14] MEDS: hydrALAZINE 10 MG Tablet PO ×3 (05:35→21:29)
[2022-07-14] MEDS: Aspirin 81 MG TAB.CHEW PO (08:44)
[2022-07-14] MEDS: Cholecalciferol (VIT D3) 25 MCG TABLET (1,000 UNITS) 50 MCG PO (08:44)
[2022-07-14] MEDS: Menthol/Lanolin/Calamine/Znox 113 GM Tube 1 APPLIC TOPICAL ×3 (08:45→21:31)
[2022-07-14] MEDS: Memantine Hydrochloride 10 MG Tablet PO ×2 (08:45→21:30)
[2022-07-14] MEDS: Donepezil HCl 10 MG Tablet PO (08:45)
[2022-07-14] MEDS: amLODIPine 5 MG Tablet PO (08:45)
[2022-07-14] MEDS: Isosorbide Mononitrate 60 MG Tablet PO (08:45)
[2022-07-14] MEDS: TICAGRELOR 60 MG TABLET PO ×2 (08:45→21:28)
[2022-07-14] MEDS: Atorvastatin Calcium 10 MG Tablet PO (08:45)
--- NOTE | 2022-07-14 11:17 | PCM.PN.HOSP ---
Subjective Subjective Follow-up on debility/recurrent falls: Patient was seen and examined.? No acute events overnight.? Still waiting on insurance precertification for discharge to [facility] facility Objective Data Objective Data Vital Signs: Vital Signs Temp Pulse Resp BP Pulse Ox O2 Del Method 98.3 F 85 18 152/93 H 100 Room Air 07/14/22 08:29 07/14/22 08:29 07/14/22 08:29 07/14/22 08:29 07/14/22 08:29 07/14/22 08:30 Oxygen Delivery Method Room Air Weight: 42.139 kg Body Mass Index (BMI) 16.5 Intake & Output: Intake and Output for Last 24 Hours 07/12/22 07/13/22 07/14/22 23:59 23:59 23:59 Intake Total 420 / 420 820 / 820 Balance 420 / 420 820 / 820 Lab / Micro Data Result Diagrams: 07/12/22 06:00 07/12/22 06:00 Physical Exam Narrative Physical exam: General: Alert, Oriented x3, Cooperative, appears very frail HEENT: Atraumatic Oral: Moist Mucosa Neck: Supple Lungs: Diminished to auscultation Cardiovascular: HS I+II, regular, no murmurs Abdomen: Bowel Sounds Present, Soft, Non Tender Extremities: No edema Skin: No rashes, No breakdown Neurological: Grossly intact Psych/Mental Status: Appropriate Assessment & Plan Assessment/Plan (1) Weakness: (2) Debility: (3) Falls: PLAN: Plan 1. Acute on chronic debility, history of recurrent falls Awaiting discharge to [facility] facility 2. Recent right femoral fracture, status post recent right hip surgery 3. Hypertension, better controlled, continue on amlodipine 4. Rest of other chronic medical conditions including CAD/hyperlipidemia/dementia Continue on aspirin, Brilinta, statin, Imdur, donepezil and memantine 5. DVT PPx- Lovenox SC Charges/Coding Visit Charges Inpatient E&M: 09787 Subs Hosp L2
[2022-07-14] MEDS: Ensure Plus High Protein 120 ML LIQUID PO (13:14)
[2022-07-15 04:00] VITALS: BP 139/68; PULSE 79; RESP 18; TEMP 36.4; O2SAT 97
[2022-07-15 04:18] VITALS: BP 139/68; PULSE 79
[2022-07-15] MEDS: hydrALAZINE 10 MG Tablet PO (04:18)
[2022-07-15 07:28] VITALS: BP 149/60; PULSE 83; RESP 16; TEMP 36.4; O2SAT 100
[2022-07-15] MEDS: Memantine Hydrochloride 10 MG Tablet PO (08:42)
[2022-07-15] MEDS: Aspirin 81 MG TAB.CHEW PO (08:43)
[2022-07-15] MEDS: Isosorbide Mononitrate 60 MG Tablet PO (08:43)
[2022-07-15] MEDS: TICAGRELOR 60 MG TABLET PO (08:43)
[2022-07-15] MEDS: Atorvastatin Calcium 10 MG Tablet PO (08:43)
[2022-07-15] MEDS: amLODIPine 5 MG Tablet PO (08:44)
[2022-07-15] MEDS: Donepezil HCl 10 MG Tablet PO (08:44)
[2022-07-15] MEDS: Cholecalciferol (VIT D3) 25 MCG TABLET (1,000 UNITS) 50 MCG PO (08:44)
[2022-07-15] MEDS: Menthol/Lanolin/Calamine/Znox 113 GM Tube 1 APPLIC TOPICAL (08:45)
[2022-07-15] MEDS: Ensure Plus High Protein 120 ML LIQUID PO (09:14)
--- NOTE | 2022-07-15 10:12 | PCM.DC.SUM ---
Providers Date of Admission: 07/06/22 Date of Discharge: 07/15/22 Primary Care Physician: Dr. Arpita Blevins MD Reason For Visit: DEBILKITY AND WEAKNESS, MECHANICAL FALLS Diagnosis Discharge Diagnosis (1) Weakness: Status: Acute Code(s): R53.1 - Weakness (2) Debility: Status: Acute Code(s): R53.81 - Other malaise (3) Falls: Status: Acute Code(s): W19.XXXA - Unspecified fall, initial encounter Plan 1. Acute on chronic debility 2. Recurrent falls 3. Recent right femoral fracture, status post recent right hip surgery 4. Hypertension 5. CAD 6. Hyperlipidemia 7. Dementia Medications at Discharge Home Medications D3-2000 2,000 u PO/SL DAILY supplement 07/06/22 aspirin 81 mg PO/SL DAILY blood thinner 07/06/22 atorvastatin 20 mg tablet 10 mg PO DAILY cholesterol 07/06/22 donepezil 10 mg tablet 10 mg PO DAILY alzheimers 07/06/22 hydralazine 10 mg tablet 10 mg PO Q8 bp 07/06/22 isosorbide mononitrate 60 mg tablet,extended release 24 hr 60 mg PO DAILY heart 07/06/22 memantine 10 mg tablet 10 mg PO BID alzheimers 07/06/22 nitroglycerin 0.4 mg sublingual tablet 0.4 mg sublingual PRN PRN Chest Pain 07/06/22 ondansetron 1 tab PO/SL Q8 PRN Nausea 07/06/22 ticagrelor 60 mg tablet (Brilinta) 60 mg PO BID blood thinner 07/06/22 amlodipine 5 mg tablet 5 mg PO DAILY #0 tabs 07/10/22 food supplemt, lactose-reduced 0.08 gram-1.5 kcal/mL oral liquid (Ensure Enlive) 120 ml PO 4X/DAY #0 mL 07/10/22 food supplemt, lactose-reduced 0.08 gram-1.5 kcal/mL oral liquid (Ensure Plus High Protein) 120 ml PO 4X/DAY #0 mL 07/15/22 menthol 0.44 %-zinc oxide 20.6 % topical ointment (Calmoseptine) 1 applic topical 4X/DAY #0 grams 07/15/22 Hospital Course Operations None Procedures None Summary of Care Provided Minutes Spent on Discharge: 40 Hospital Course: 81-year-old female with multiple comorbidities who recently had left hip replacement for hip fracture. Patient was discharged home and she was unable to take care of herself. Patient was brought back to the emergency room. Her vitals were stable. X-ray of the left hip shows surgical repair of a nonhealed left femoral fracture with no evidence of acute fracture. Patient was admitted for placement for subacute rehab. Patient's hospital stay was unremarkable. She had high blood pressure that improved with amlodipine. Patient's hospital course was prolonged awaiting for insurance precertification for discharge to alf facility. At the time of discharge, there was no new complaints. No acute event. Physical Exam Narrative Physical exam: General: Alert, Oriented x3, Cooperative, appears very frail HEENT: Atraumatic Oral: Moist Mucosa Neck: Supple Lungs: Diminished to auscultation Cardiovascular: HS I+II, regular, no murmurs Abdomen: Bowel Sounds Present, Soft, Non Tender Extremities: No edema Skin: No rashes, No breakdown Neurological: Grossly intact Psych/Mental Status: Appropriate Weight / BMI Weight Weight: 42.139 kg Body Mass Index (BMI) 16.5 ABG / Lab / Microbiology Data Result Diagrams: 07/12/22 06:00 07/12/22 06:00 Microbiology: Microbiology 07/15/22 04:00 Nasal Secretion SARS-CoV-2 Antigen (Rapid) - Final D/C Instructions Discharge Diet: No restrictions Meaningful Use Info Meaningful Use Diagnoses (Choose all that apply): None applicable Discharge Plan Admission Admit Date/Time: 07/06/22 16:25 Primary Reason for Your Visit: Debility, recent left hip fracture Attending Provider: Jaky Chavarria Primary Care Provider: Arpita Blevins Consulting Providers: Danielle Lizama Discharge Orders/Prescriptions Prescriptions: New amlodipine 5 mg Tablet 5 mg PO DAILY Qty: 0 0RF Ensure Enlive 0.08 gram-1.5 kcal/mL Liquid 120 ml PO 4X/DAY Qty: 0 0RF menthol-zinc oxide [Calmoseptine] 0.44-20.6 % Ointment 1 applic topical 4X/DAY Qty: 0 0RF Protocol: *Topical Application Instructions APPLICATION INSTRUCTIONS: Bilateral Buttocks Ensure Plus High Protein 0.08 gram-1.5 kcal/mL Liquid 120 ml PO 4X/DAY Qty: 0 0RF Continued hydralazine 10 mg tablet 10 mg PO Q8 atorvastatin 20 mg tablet 10 mg PO DAILY Label Comments: TAKE 1/2 (ONE-HALF) TABLET BY MOUTH ONCE DAILY donepezil 10 mg tablet 10 mg PO DAILY isosorbide mononitrate 60 mg tablet extended release 24 hr 60 mg PO DAILY Label Comments: TAKE 1 TABLET BY MOUTH TWICE DAILY nitroglycerin 0.4 mg tablet, sublingual 0.4 mg sublingual PRN PRN (Reason: Chest Pain) memantine 10 mg tablet 10 mg PO BID Label Comments: TAKE 1 TABLET BY MOUTH TWICE DAILY Brilinta 60 mg tablet 60 mg PO BID D3-2000 2,000 u PO/SL DAILY aspirin 81 mg PO/SL DAILY ondansetron 1 tab PO/SL Q8 PRN (Reason: Nausea) Referrals / Follow Up: Arpita Blevins MD [Primary Care Provider] - Disposition Disposition (needs filled in before D/C Order can be placed): [facility] Facility Charges/Coding Visit Charges OBSV E&M: 43995 Observation care discharge
== END 2022-07-15 12:00 | disposition skilled nursing facility (03) ==
LOC: ED 16:35 → MS3 17:07
PROVIDERS: Nurse Practitioner; Admitting Provider Student in an Organized Health Care Education/Training Program; Emergency Provider Emergency Medicine; PCP Internal Medicine; Visit Provider Internal Medicine
DX: R53.1 Weakness (principal); F03.90 Unspecified dementia, unspecified severity, without behavioral disturbance, psychotic disturbance, mood disturbance, and anxiety; I11.0 Hypertensive heart disease with heart failure; I50.9 Heart failure, unspecified; R53.81 Other malaise; I25.10 Atherosclerotic heart disease of native coronary artery without angina pectoris; E78.5 Hyperlipidemia, unspecified; R29.6 Repeated falls; Z79.899 Other long term (current) drug therapy; Z79.82 Long term (current) use of aspirin; D64.9 Anemia, unspecified
CPT/HCPCS: 36415; 73501; 73502; 80048; 80053; 82728; 82962; 83540; 83550; 85025; 87426; 96360; 96361; 97110; 97162; 97166; 97530; 97535; 97803; 99218; 99282; J7030; A4216; G0378

== ENCOUNTER → 2022-08-20 | Outpatient (REF) | payer MEDICARE, SELFPAY ==
[2022-08-20 09:30] LABS: Hemoglobin 8.9 g/dL (12.0-15.0); Mean Corp Hgb Conc 30.7 g/dL (32-36); Mean Corpuscular Hgb 29.2 pg (27.0-32.0); Mean Corpuscular Volume 95.1 fL (81-99); Mean Platelet Vol. 11.8 fl (6.2-12.0); Platelet Count 134 K/mm3 (150-450); RBC Distribution Width CV 16.1 % (11.6-14.6); RBC Distribution Width SD 56.2 fl (35.1-43.9); Red Blood Count 3.05 M/mm3 (4.2-5.4); White Blood Count 5.4 K/mm3 (4.4-11.0)
[2022-08-20 10:17] LABS: ALB/GLOB Ratio 0.7 RATIO (0.9-2.4); AST(SGOT) 8 U/L (15-37); Alanine Aminotransfer ALT/SGPT 13 U/L (13-56); Albumin, Serum 2.3 g/dL (3.2-5.0); Alkaline Phosphatase 57 U/L (45-117); Anion Gap 6 (5-15); BUN 12 mg/dL (7-18); BUN/Creat Ratio 15.4 RATIO (10-20); Chloride 114 mmol/L (98-107); Cholesterol 82 mg/dL (200); Creatinine, Serum 0.78 mg/dL (0.55-1.02); EST Glomerular Filtration Rate 75 mL/min (>60); Est Glom Filt Rate - Afr Amer 91 mL/min (>60); Globulin 3.5 g/dL (2.2-4.2); Glucose 94 mg/dL (74-106); High Density Lipoprotein 36 mg/dL; Potassium 3.5 mmol/L (3.5-5.1); Protein, Total 5.8 g/dL (6.4-8.2); Sodium Level 146 mmol/L (136-145); Triglycerides 59 mg/dL; Very Low Density Lipoprotein 12 mg/dL (5-40)
== END ==
LOC: OLS.ACH 05:00
PROVIDERS: PCP Internal Medicine
DX: F02.82 Dementia in other diseases classified elsewhere, unspecified severity, with psychotic disturbance (principal); I25.10 Atherosclerotic heart disease of native coronary artery without angina pectoris; E78.5 Hyperlipidemia, unspecified
CPT/HCPCS: 36415; 80053; 80061; 84443; 85027

== ENCOUNTER → 2022-08-30 | Outpatient (REF) | payer MEDICARE, SELFPAY ==
[2022-08-30 09:35] LABS: Hematocrit 39.9 % (37-47); Hemoglobin 12.9 g/dL (12.0-15.0); Mean Corp Hgb Conc 32.3 g/dL (32-36); Mean Corpuscular Hgb 29.6 pg (27.0-32.0); Mean Corpuscular Volume 91.5 fL (81-99); Mean Platelet Vol. 11.7 fl (6.2-12.0); Platelet Count 163 K/mm3 (150-450); RBC Distribution Width CV 15.5 % (11.6-14.6); RBC Distribution Width SD 52.9 fl (35.1-43.9); Red Blood Count 4.36 M/mm3 (4.2-5.4); White Blood Count 8.5 K/mm3 (4.4-11.0)
[2022-08-30 10:00] LABS: ALB/GLOB Ratio 0.6 RATIO (0.9-2.4); AST(SGOT) 17 U/L (15-37); Alanine Aminotransfer ALT/SGPT 13 U/L (13-56); Albumin, Serum 2.5 g/dL (3.2-5.0); Alkaline Phosphatase 60 U/L (45-117); Anion Gap 8 (5-15); BUN 23 mg/dL (7-18); BUN/Creat Ratio 36.2 RATIO (10-20); Calcium,Total 9.2 mg/dL (8.5-10.1); Chloride 108 mmol/L (98-107); Creatinine, Serum 0.64 mg/dL (0.55-1.02); EST Glomerular Filtration Rate 95 mL/min (>60); Est Glom Filt Rate - Afr Amer 115 mL/min (>60); Glucose 84 mg/dL (74-106); Protein, Total 6.5 g/dL (6.4-8.2); Sodium Level 142 mmol/L (136-145)
== END ==
LOC: OLS.ACH 06:00
PROVIDERS: PCP Internal Medicine; Visit Provider Family Medicine
DX: G30.1 Alzheimer's disease with late onset (principal); F29 Unspecified psychosis not due to a substance or known physiological condition; F02.82 Dementia in other diseases classified elsewhere, unspecified severity, with psychotic disturbance; D64.9 Anemia, unspecified
CPT/HCPCS: 36415; 80053; 85027

== ENCOUNTER 2022-12-01 16:50 | Inpatient (IN) | payer MEDICARE, MEDICAID, SELFPAY ==
[2022-12-01] VITALS (7 sets, daily range): BP systolic 162–197; BP diastolic 76–91; PULSE 63–70; RESP 15–24; TEMP 36.6–36.8; O2SAT 94–95; BMI 17.3; BMI 15.6
--- NOTE | 2022-12-01 16:56 | CT_ITS ---
INDICATION: Changed mental status EXAMINATION: CT BRAIN - CT Head or Brain W/O Contrast Injection TECHNIQUE: Multiple axial images were obtained of the head without intravenous contrast. A radiation dose optimization technique was used for this scan. IV Contrast dosage and agent: None. COMPARISON: None FINDINGS: BRAIN PARENCHYMA: No intra- or extra-axial hemorrhage. No evidence of acute infarct. No intracranial mass or mass effect. There is preservation of the [place]/white matter interface. Moderate subcortical and periventricular white matter hypoattenuation. Posterior fossa structures are unremarkable. CSF SPACES: Ex vacuo ventricular dilation is out of proportion to global cerebral volume loss. Time lateral ventricles. Basal cisterns are patent. CALVARIUM, SKULL BASE, PARANASAL SINUSES AND MASTOID AIR CELLS: Clear. No discrete lytic or blastic abnormalities. ORBITS: Both globes, extraocular muscles, optic nerves and retrobulbar fat appear unremarkable. ASPECTS Score for Acute Strokes: 10 CT/Brain/Head without Contrast IMPRESSION: Findings suspicious for normal pressure hydrocephalus. Electronically Signed: Fuentes Cruz MD at 17:58 EST ,
--- NOTE | 2022-12-01 16:57 | EKG12_ITS ---
Test Reason : GENERAL ILLNESS Blood Pressure : / mmHG Vent. Rate : 069 BPM Atrial Rate : 000 BPM P-R Int : 000 ms QRS Dur : 096 ms QT Int : 416 ms P-R-T Axes : 000 -12 173 degrees QTc Int : 445 ms Atrial fibrillation with premature ventricular or aberrantly conducted complexes Minimal voltage criteria for LVH, may be normal variant ( Robert product ) Anterior infarct , age undetermined ST & T wave abnormality, consider lateral ischemia Abnormal ECG Confirmed by NICOLETTE HANKINS, MACIE ([id number]), newspaper copy editor GENNY MONAE ([id number]) on 12/03/2022 10:49:03 AM Referred By: Confirmed By:MACIE WILL MD
--- NOTE | 2022-12-01 17:01 | EX.ED.DYSGE1 ---
HPI History of Present Illness Chief Complaint: General Illness Informant: patient and family Narrative Narrative: There is minimal if any history per patient. The only answer I can get her to give is no when I ask her if she has pain. History is through her daughter. I am waiting to get translation software for [place]ene[place] sign language so I can get more details from her daughter. However, her daughter can tell me that she sees her mom daily. It sounds like she has been coughing with feeding meals for the last few days. Today her mother is looking and leaning more to the left when she normally looks straight ahead. There is report that it might have been painful to turn her having head pain but I am not sure about that. I will get more information with university counselor. In either case, her mother is not acting at her baseline. This sounds like it is new since yesterday. EMS talked to the staff at the facility. The nurse who was taking care of this patient has never seen her before so cannot comment on her baseline. This was history obtained directly through EMS. I do note that the patient appears to be in atrial fibrillation yet we do not see a diagnosis of this on her [facility] chart. Review of systems is essentially unobtainable at this time as the patient answers minimal if any questions. Nurse at [facility] was not familiar with this patient directly. [facility] Medical History Acute kidney injury Congestive heart failure Coronary artery disease Dementia Hip fracture, left Hyperlipidemia Hypertension Impaired ambulation Malnutrition Home Medications aspirin 81 mg PO/SL DAILY blood thinner 07/06/22 [History Last Taken 07/06/22] donepezil 10 mg tablet 10 mg PO QHS alzheimers 07/06/22 [History Last Taken 07/06/22] hydralazine 10 mg tablet 10 mg PO TID bp 07/06/22 [History Last Taken 07/06/22] isosorbide mononitrate 60 mg tablet,extended release 24 hr 60 mg PO DAILY heart 07/06/22 [History Last Taken 07/06/22] memantine 10 mg tablet 10 mg PO BID alzheimers 07/06/22 [History Last Taken 07/06/22] nitroglycerin 0.4 mg sublingual tablet 0.4 mg sublingual PRN PRN Chest Pain 07/06/22 [History Last Taken Unknown] ondansetron 1 tab PO/SL Q8 PRN Nausea 07/06/22 [History Last Taken Unknown] atorvastatin 10 mg tablet 10 mg PO QHS 12/01/22 [History Last Taken Unknown] cholecalciferol (vitamin D3) 50 mcg (2,000 unit) capsule 50 mcg PO DAILY 12/01/22 [History Last Taken Unknown] divalproex 125 mg capsule,delayed release sprinkle 125 mg PO BID 12/01/22 [History Last Taken Unknown] lisinopril 20 mg tablet 20 mg PO QHS 12/01/22 [History Last Taken Unknown] naproxen 500 mg tablet 500 mg PO Q12H PRN PRN Pain 12/01/22 [History Last Taken Unknown] Allergy/AdvReac Type Severity Reaction Status Date / Time No Known Allergies Allergy Verified 12/01/22 16:51 Social History Smoking Status: Former smoker ROS ROS ED ROS Narrative Unobtainable as the patient is essentially nonverbal. The only question she will answer is if she is in pain to which she says no. I asked her twice and she was consistent in this answer. EXAM Physical Exam Const Vital Signs: 12/01/22 16:51 12/01/22 18:07 12/01/22 19:54 Temperature 97.8 F Temperature Source Oral Pulse Rate 67 64 Respiratory Rate 22 H 15 Respiratory Effort Normal Respiratory Pattern Normal Blood Pressure 179/91 H 189/85 H Blood Pressure Mean 120 119 Pulse Ox 95 94 Oxygen Delivery Method Room Air Room Air Constitutional Narrative: Patient is thin but not cachectic. She does not look to be in any distress or discomfort. She does tend to have her head turned toward her left side. HEENT Reports dry mucous membranes HEENT Narrative: Mildly dry mucous membranes Mouth ED: Yes dry mucous membranes Mouth: dry mucous membranes Eyes General Eye ED: Negative for pale conjunctiva or scleral icterus Neck no JVD Neck Narrative: I did not get any pain with motion. Chest Wall inspection of chest normal Chest Narrative: No pacemaker noted. No tenderness. Resp normal respiratory effort and clear to auscultation bilaterally Cardio regular rate Rhythm: abnormal rhythm other (Her rate is overall controlled old but does appear to be irregular and likely atrial fibrillation with occasional PVCs on the monitor.) GI normal to inspection, nondistended, normoactive bowel sounds, non-tender and non-distended Palpation: soft; Negative for tender Back/Spine no CVA tenderness MDM MDM MDM Narrative Medical decision making narrative: Since the patient has dementia and cannot answer many questions, I needed to have an independent historian. The patient's daughter is here. I also spoke with the daughter using a [place]enegrin design leader. The daughter states that her mom has been more lethargic and less energetic and less herself for 4 days. She really does not walk due to dementia and hip fractures. But she is normally more alert and talking. She has not been doing this for about 4 days. The daughter spoke with nurses. They deny any new medications or medication effect. She knows no history of diarrhea or vomiting or fevers. There has been a cough recently but its been mild. Today the daughter noticed that the patient seems to be leaning more towards the left. But there is no focal weakness of her extremities. This history was important as there is very little available through the patient. My independent interpretation of the patient's single view chest x-ray shows infiltrative or increased density process on the left with likely effusion. Final reading is similar. Radiology reading of CT of the head is suspicious for normal pressure hydrocephalus. I added CT scan of the chest because of the findings on x-ray. CT does show what is suspicious for aspiration and you can see material in the left mainstem bronchus. She has atelectatic collapse distal to that and effusion larger on the left than the right. Her CBC shows no elevation of her count. Hemoglobin is normal. Electrolytes liver function test overall look relatively normal. Glucose has minimal elevations at 115. BUN is just slightly high at 20 troponin is negative. Valproic acid level was not elevated. Urine was a little bit cloudy but there is 0-5 white cells and negative nitrites. This is not a good indication of UTI. I discussed the case with pulmonology director speech language, Dr. Garner. He recommended admission, Unasyn antibiotic and percussion vest to see if this will clear. If not they may need to do bronchoscopy. I explained this to the daughter again using translation software. I also discussed the case with hospitalist. Lab Data Attestation: I reviewed the patient's lab results. Labs: Laboratory Results - last 24 hr 12/01/22 12/01/22 12/01/22 17:18 17:18 17:18 WBC 7.7 RBC 4.77 Hgb 13.1 Hct 42.6 MCV 89.3 MCH 27.5 MCHC 30.8 L RDW Std Deviation 63.0 H RDW Coeff of David 19.7 H Plt Count 209 MPV 9.9 Immature Gran % (Auto) 0.400 Neut % (Auto) 70.4 H Lymph % (Auto) 16.1 L [place] % (Auto) 8.6 Eos % (Auto) 3.8 Baso % (Auto) 0.7 Absolute Neuts (auto) 5.4 Absolute Lymphs (auto) 1.24 Nucleated RBC % 0 Sodium 145 Potassium 4.0 Chloride 114 H Carbon Dioxide 26.0 Anion Gap 5 BUN 20 H Creatinine 0.91 Estim Creat Clear Calc 32.76 Est GFR (MDRD) Af Amer 76 Est GFR (MDRD) Non-Af 62 BUN/Creatinine Ratio 21.9 H Glucose 115 H Calcium 8.6 Total Bilirubin 0.60 AST 34 ALT 34 Alkaline Phosphatase 85 Troponin I High Sens 40 Total Protein 6.6 Albumin 2.2 L Globulin 4.4 H Albumin/Globulin Ratio 0.5 L Urine Color Urine Clarity Urine pH Ur Specific [place] Urine Protein Urine Glucose (UA) Urine Ketones Urine Occult Blood Urine Nitrite Urine Bilirubin Urine Urobilinogen Ur Leukocyte Esterase Urine RBC Urine WBC Ur Squamous Epith Cells Amorphous Sediment Urine Bacteria Urine Mucus Valproic Acid 12 L 12/01/22 18:00 WBC RBC Hgb Hct MCV MCH MCHC RDW Std Deviation RDW Coeff of David Plt Count MPV Immature Gran % (Auto) Neut % (Auto) Lymph % (Auto) [place] % (Auto) Eos % (Auto) Baso % (Auto) Absolute Neuts (auto) Absolute Lymphs (auto) Nucleated RBC % Sodium Potassium Chloride Carbon Dioxide Anion Gap BUN Creatinine Estim Creat Clear Calc Est GFR (MDRD) Af Amer Est GFR (MDRD) Non-Af BUN/Creatinine Ratio Glucose Calcium Total Bilirubin AST ALT Alkaline Phosphatase Troponin I High Sens Total Protein Albumin Globulin Albumin/Globulin Ratio Urine Color Yellow Urine Clarity Cloudy Urine pH 6.5 Ur Specific [place] 1.015 Urine Protein 15 H Urine Glucose (UA) Normal Urine Ketones Negative Urine Occult Blood 10 H Urine Nitrite Negative Urine Bilirubin Negative Urine Urobilinogen 1 H Ur Leukocyte Esterase 100 H Urine RBC 0-5 SEEN Urine WBC 0-5 SEEN Ur Squamous Epith Cells 10-25 SEEN Amorphous Sediment 1+ Urine Bacteria 2+ Urine Mucus 0 SEEN Valproic Acid Radiography Diagnostic Testing: Clinical Impression(s) from Imaging Studies Brain CT 12/01/22 16:56 IMPRESSION: Findings suspicious for normal pressure hydrocephalus. Electronically Signed: Fuentes Cruz MD at 17:58 EST , Chest X-Ray 12/01/22 17:22 IMPRESSION: Left lung pneumonia/pleural effusion. Electronically Signed: Fuentes Cruz MD at 17:38 EST , Chest CT 12/01/22 19:19 IMPRESSION: Aspiration to the left main bronchus with complete left lower lobe atelectatic collapse and left greater than right pleural effusions. Partially visualized L2 fracture. Electronically Signed: Fuentes Cruz MD at 20:02 EST , EKG Initial EKG: Comments: My independent interpretation of EKG done for irregular rate shows atrial fibrillation but controlled rate at 69. There is occasional PVC. Nonspecific ST and T wave changes but no convincing evidence for acute IA. Changes are diffuse. QRS duration and QTc are normal. I looked for and found no old EKGs available for comparison. Discharge Plan Dx/Rx/DC Orders Clinical Impression: Aspiration pneumonia, NPH (normal pressure hydrocephalus), Lethargy Disposition Disposition: Acute Care Hospital [facility]
--- NOTE | 2022-12-01 17:22 | RAD_ITS ---
INDICATION: Cough, ?aspiration EXAMINATION/TECHNIQUE: X-RAY - XR Chest 1 View COMPARISON: None. FINDINGS: LINES/DEVICES: None. LUNGS: Diffuse left lung infiltrates/pleural effusion with apical sparing. The right lung appears clear. MEDIASTINUM AND CARDIOVASCULAR STRUCTURES: Cardiac silhouette not enlarged. Central airways and mediastinal contour are unremarkable. RAD/Chest 1 View (Portable) IMPRESSION: Left lung pneumonia/pleural effusion. Electronically Signed: Fuentes Cruz MD at 17:38 EST ,
[2022-12-01 17:34] LABS: Absolute Lymphocyte Count 1.24 X10^3/uL (0.83-4.51); Absolute Neutrophil Count 5.4 X10^3/uL (2.0-7.7); Basophil# 0.05 X10^3/uL; Basophil% 0.7 % (0-1); Eosinophil# 0.29 X10^3/uL; Eosinophils% 3.8 % (0-5); Hematocrit 42.6 % (37-47); Hemoglobin 13.1 g/dL (12.0-15.0); Lymphocyte # 1.24 X10^3/ul (0.83-4.51); Lymphocyte % 16.1 % (19-41); Mean Corp Hgb Conc 30.8 g/dL (32-36); Mean Corpuscular Hgb 27.5 pg (27.0-32.0); Mean Corpuscular Volume 89.3 fL (81-99); Mean Platelet Vol. 9.9 fl (6.2-12.0); Monocyte# 0.66 X10^3/uL; Monocyte% 8.6 % (0-10); NRBC Flagged by Analyzer 0 % (0-5); Neutrophil # 5.41 X10^3/uL (2.7-7.7); Neutrophil % 70.4 % (47-70); Platelet Count 209 K/mm3 (150-450); RBC Distribution Width CV 19.7 % (11.6-14.6); Red Blood Count 4.77 M/mm3 (4.2-5.4); White Blood Count 7.7 K/mm3 (4.4-11.0)
[2022-12-01 17:59] LABS: Valproic Acid (Depakene) Level 12 ug/mL (50-100)
[2022-12-01 18:04] LABS: ALB/GLOB Ratio 0.5 RATIO (0.9-2.4); AST(SGOT) 34 U/L (15-37); Alanine Aminotransfer ALT/SGPT 34 U/L (13-56); Albumin, Serum 2.2 g/dL (3.2-5.0); Alkaline Phosphatase 85 U/L (45-117); Anion Gap 5 (5-15); BUN 20 mg/dL (7-18); BUN/Creat Ratio 21.9 RATIO (10-20); Calcium,Total 8.6 mg/dL (8.5-10.1); Chloride 114 mmol/L (98-107); Creatinine, Serum 0.91 mg/dL (0.55-1.02); EST Glomerular Filtration Rate 62 mL/min (>60); Est Glom Filt Rate - Afr Amer 76 mL/min (>60); Estimated Creatinine Clearance 32.76 ml/min; Globulin 4.4 g/dL (2.2-4.2); Glucose 115 mg/dL (74-106); Protein, Total 6.6 g/dL (6.4-8.2); Sodium Level 145 mmol/L (136-145); Troponin-I HS 40 pg/mL (3.0-54.0)
[2022-12-01 18:14] LABS: Mucous, Urine 0 SEEN /hpf (<or=2+)
[2022-12-01 18:22] LABS: Color, Urine Yellow (Yellow); Glucose, Dipstick Normal (Normal); Ketone-Dipstick Negative (Negative); Leukocyte Esterase-Dipstick 100 /ul (Negative); Nitrite-Dipstick Negative (Negative); Occult Blood-Urine 10 /ul (Negative); Protein-Dipstick 15 mg/dl (Negative); Specific Gravity, Urine 1.015 (1.002-1.030); Urine Bilirubin Dipstick Negative (Negative); Urine Clarity Cloudy (Clear); Urine Urobilinogen 1 mg/dl (Normal); Urine pH 6.5 (5.0 - 8.0)
[2022-12-01 18:43] LABS: Red Blood Cells-Urine 0-5 SEEN /hpf (0-5); Squamous Epithelial Cells - UA 10-25 SEEN /hpf (5-10)
[2022-12-01 18:44] LABS: Bacteria 2+ /hpf (None Seen); White Blood Cells 0-5 SEEN /hpf (0-5)
[2022-12-01 18:45] LABS: Amorphous Sediment 1+
--- NOTE | 2022-12-01 19:19 | CT_ITS ---
INDICATION: Pneumonia. Effusion EXAMINATION: CT CHEST WITHOUT CONTRAST - CT Chest W/O Contrast Injection TECHNIQUE: Helically acquired images were obtained of the chest. A radiation dose optimization technique was used for this scan. IV Contrast dosage and agent: None. COMPARISON: Same day chest x-ray FINDINGS: LUNGS, PLEURA AND LARGE AIRWAYS: Large left pleural effusion with complete atelectatic collapse of the left lower lobe. Debris throughout the left main bronchus without aeration of the lower lobe airway. Small right pleural effusion with overlying atelectasis. THYROID: No thyroid lesions. HEART AND PERICARDIUM: Mild cardiomegaly. No pericardial effusion. CORONARY ARTERIES: Coronary artery calcification is seen. VESSELS: Thoracic aorta is not dilated. MEDIASTINUM AND ERROL: No mediastinal or hilar adenopathy. Esophagus is unremarkable. No hiatal hernia. UPPER ABDOMEN: Prior cholecystectomy. BONES: L2 superior endplate fracture partially visualized. CT/Chest without Contrast IMPRESSION: Aspiration to the left main bronchus with complete left lower lobe atelectatic collapse and left greater than right pleural effusions. Partially visualized L2 fracture. Electronically Signed: Fuentes Cruz MD at 20:02 EST ,
[2022-12-01] MEDS: hydrALAZINE 20 MG/ML Vial 5 MG IV (20:51)
--- NOTE | 2022-12-01 21:01 | HP.PCM.HOS_ITS ---
HPI - General General Date of Admission: 12/01/22 Date of Service: 12/01/22 Chief Complaint: Somnolence HPI Narrative HENRI GRIFFIN, is a 82 F who presents from the long term because she has been somnolent for the past 4 days. Patient has been less energetic less talkative and less interactive. She has been sleeping all the time. Also for the past 3 to 4 days before presentation the patient has been coughing. She has been coughing with eating. Reportedly patient was leaning over to her left side. Reportedly patient complained of pain and it was thought that patient has pain at her left torso. History was obtained from emergency department doctor and patient's 2 daughter as patient is not contributing to history secondary to history of dementia and also being less interactive recently. One daughter is Brionna Moore ([phone]) who is deaf and whose phone call goes through an consulting actuary. Brionna Moore is the first medical power of contract attorney. Second power of contract attorney is Jo Mclaughlin ([phone]) who is an ICU nurse. Clarification of medication valproic acid: Per patient's daughter Ale Mclaughlin when patient's dementia began she was having behavior issues and she was placed on valproic acid. Her daughter, Ale Mclaughlin has been trying to get medical staff take patient of valproic acid since patient is not combative at this time and she feels that valproic acid actually makes patient's somnolent and unable to talk. Of note patient had L2 fracture and ever since she has been bedbound at the long term. At the emergency department patient was found to have atrial fibrillation. Per daughter who is an ICU nurse she is on the day atrial fibrillation is new. In the past month prior to presentation patient's has been on antibiotic [facility] Medical History (Updated 12/01/22 @ 21:[address] Anthony Foss MD) Acute kidney injury Congestive heart failure Coronary artery disease Dementia Hip fracture, left Hyperlipidemia Hypertension Impaired ambulation Malnutrition Home Medications aspirin 81 mg PO/SL DAILY blood thinner 07/06/22 [History Last Taken 07/06/22] donepezil 10 mg tablet 10 mg PO QHS alzheimers 07/06/22 [History Last Taken 07/06/22] hydralazine 10 mg tablet 10 mg PO TID bp 07/06/22 [History Last Taken 07/06/22] isosorbide mononitrate 60 mg tablet,extended release 24 hr 60 mg PO DAILY heart 07/06/22 [History Last Taken 07/06/22] memantine 10 mg tablet 10 mg PO BID alzheimers 07/06/22 [History Last Taken 07/06/22] nitroglycerin 0.4 mg sublingual tablet 0.4 mg sublingual PRN PRN Chest Pain [History Last Taken Unknown] ondansetron 1 tab PO/SL Q8 PRN Nausea 07/06/22 [History Last Taken Unknown] atorvastatin 10 mg tablet 10 mg PO QHS 12/01/22 [History Last Taken Unknown] cholecalciferol (vitamin D3) 50 mcg (2,000 unit) capsule 50 mcg PO DAILY 12/01/22 [History Last Taken Unknown] divalproex 125 mg capsule,delayed release sprinkle 125 mg PO BID 12/01/22 [History Last Taken Unknown] lisinopril 20 mg tablet 20 mg PO QHS 12/01/22 [History Last Taken Unknown] naproxen 500 mg tablet 500 mg PO Q12H PRN PRN Pain 12/01/22 [History Last Taken Unknown] Allergy/AdvReac Type Severity Reaction Status Date / Time No Known Allergies Allergy Verified 12/01/22 16:51 Family History (Updated 12/01/22 @ 22:[address] Anthony Foss MD) Other CVA (cerebral vascular accident) Hypertension Surgical History (Updated 12/01/22 @ 22:[address] Anthony Foss MD) History of hip surgery Social History Smoking Status: Former smoker ROS ROS Narrative Pertinent positives and pertinent negatives that could be provided by patient's family is as noted in HPI. All other systems were reviewed patient's family did not know or they were negative. Vital Signs Vital Signs Vital Signs: 12/01/22 16:51 12/01/22 18:07 12/01/22 19:54 Temperature 97.8 F Temperature Source Oral Pulse Rate 67 64 Respiratory Rate 22 H 15 Respiratory Effort Normal Respiratory Pattern Normal Blood Pressure 179/91 H 189/85 H Blood Pressure Mean 120 119 Pulse Ox 95 94 Oxygen Delivery Method Room Air Room Air 12/01/22 20:57 Temperature 97.8 F Temperature Source Oral Pulse Rate 63 Respiratory Rate 18 Respiratory Effort Respiratory Pattern Blood Pressure 197/76 H Blood Pressure Mean 116 Pulse Ox 94 Oxygen Delivery Method Room Air Weight Weight: 44.3 kg Body Mass Index (BMI) 17.3 Physical Exam Narrative Physical exam: General: Cachectic Head: Normocephalic, atraumatic, no tenderness Eyes: Vision is grossly intact. EOMI ENT, no trauma, dry mucous membranes, no rhinorrhea Neck: Nontender, No thyromegaly. CVS: Irregularly irregular rate and rhythm. S1-S2 present. No murmur, gallop or rub. Respiratory : Diminished respiration, chest wall nontender, no wheezing Abdomen: Soft, nontender, nondistended, normal bowel sounds, no masses : Deferred Extremities: No edema or cyanosis. Skin: Normal color, no trauma, abrasions Neuro: Alert, moans when turned. Psychiatry: Normal mood. Normal affect. Not depressed. Not anxious. Results Lab / Micro Data Attestation: I reviewed the patient's lab results. Result Diagrams: 12/01/22 17:18 12/01/22 17:18 Labs: Laboratory Results - last 24 hr 12/01/22 17:18: WBC 7.7, RBC 4.77, Hgb 13.1, Hct 42.6, MCV 89.3, MCH 27.5, MCHC 30.8 L, RDW Std Deviation 63.0 H, RDW Coeff of [place]va[place] 19.7 H, Plt Count 209, MPV 9.9, Immature Gran % (Auto) 0.400, Neut % (Auto) 70.4 H, Lymph % (Auto) 16.1 L, [place] % (Auto) 8.6, Eos % (Auto) 3.8, Baso % (Auto) 0.7, Absolute Neuts (auto) 5.4, Absolute Lymphs (auto) 1.24, Nucleated RBC % 0 12/01/22 17:18: Sodium 145, Potassium 4.0, Chloride 114 H, Carbon Dioxide 26.0, Anion Gap 5, BUN 20 H, Creatinine 0.91, Estim Creat Clear Calc 32.76, Est GFR (MDRD) Af Amer 76, Est GFR (MDRD) Non-Af 62, BUN/Creatinine Ratio 21.9 H, Glucose 115 H, Calcium 8.6, Total Bilirubin 0.60, AST 34, ALT 34, Alkaline Phosphatase 85, Troponin I High Sens 40, Total Protein 6.6, Albumin 2.2 L, Globulin 4.4 H, Albumin/Globulin Ratio 0.5 L 12/01/22 17:18: Valproic Acid 12 L 12/01/22 18:00: Urine Color Yellow, Urine Clarity Cloudy, Urine pH 6.5, Ur Specific [place] 1.015, Urine Protein 15 H, Urine Glucose (UA) Normal, Urine Ketones Negative, Urine Occult Blood 10 H, Urine Nitrite Negative, Urine Bilirubin Negative, Urine Urobilinogen 1 H, Ur Leukocyte Esterase 100 H, Urine RBC 0-5 SEEN, Urine WBC 0-5 SEEN, Ur Squamous Epith Cells 10-25 SEEN, Amorphous Sediment 1+, Urine Bacteria 2+, Urine Mucus 0 SEEN Micro: Microbiology 12/01/22 16:03 Nasal Secretion SARS-CoV-2 & FLU Antigen (Rapid) - Final Radiology Impression Brain CT 12/01/22 16:56 IMPRESSION: Findings suspicious for normal pressure hydrocephalus. Electronically Signed: Fuentes Cruz MD at 17:58 EST Reading Location ID and State: [address] [place] [address] Tel , Service support , Chest X-Ray 12/01/22 17:22 IMPRESSION: Left lung pneumonia/pleural effusion. Electronically Signed: Fuentes Cruz MD at 17:38 EST Reading Location ID and State: [facility] / [place] Tel , Service support , Chest CT 12/01/22 19:19 IMPRESSION: Aspiration to the left main bronchus with complete left lower lobe atelectatic collapse and left greater than right pleural effusions. Partially visualized L2 fracture. Electronically Signed: Fuentes Cruz MD at 20:02 EST , Assessment & Plan Assessment/Plan (1) Aspiration into airway: QUALIFIERS: Encounter type: initial encounter Qualified Code(s): T17.908A - Unspecified foreign body in respiratory tract, part unspecified causing other injury, initial encounter (2) Afib: QUALIFIERS: Atrial fibrillation type: unspecified Qualified Code(s): I48.91 - Unspecified atrial fibrillation (3) Hypercoagulability due to atrial fibrillation: (4) Debility: (5) Protein calorie malnutrition: QUALIFIERS: Protein-calorie malnutrition severity: severe Qualified Code(s): E43 - Unspecified severe protein-calorie malnutrition (6) Aspiration pneumonia: (7) NPH (normal pressure hydrocephalus): PLAN: Plan Aspiration pneumonia Chest x-ray was independently interpreted. I agree with radiologist interpretation of left lung pneumonia/pleural effusion. Impression of chest CT by radiologist:Aspiration to the left main bronchus with complete left lower lobe atelectatic collapse and left greater than right pleural effusions. Partially visualized L2 fracture. Emergency Department doctor discussed the case with a bank credit card collection clerk and patient will be started on Unasyn. Unasyn ordered. Also advised therapy recommended. If vest therapy does not help dislodge aspirate bank credit card collection clerk will consider bronchoscopy. Pulmonology consulted. CBC showed white count of 7.7, trend Newly diagnosed A. fib/hypercoagulable due to atrial fibrillation Place on PCU on telemetry Rate is controlled. Obtain echo [id number] 2 score is not low. Heparin drip started. Discussed with patient's daughter who is an ICU nurse and she is open to oral anticoagulation on discharge. Potassium is normal. Check magnesium. Check TSH. Of note TSH on 08/20/2022 was 1.60 and T3 on 07/18/2022 was 0.35. Severe protein calorie malnutrition BMI of 17.3 kg per metered squared. Cachectic. At this time patient is n.p.o. because of aspiration pneumonia. When speech clears patient could consider nutrition consult. Dehydration Patient with BUN of 20. At baseline her BUN is 12-16. Dry mucous membrane. Maintenance LR hydration ordered. Chronic hyperchloremia Stable Debility PT OT to work with patient. Possible normal pressure hydrocephalus Brain CT interpreted by radiologist as findings patient was for normal pressure hydrocephalus. At this point treat for aspiration pneumonia. Patient can follow-up outpatient with neurosurgery upon discharge if family interested for further work-up and evaluation. DVT prophylaxis: Not indicated as patient has been started on heparin drip for new onset A. fib. Charges/Coding Visit Charges Inpatient E&M: 39305 Init Hosp L3
--- NOTE | 2022-12-01 21:56 | ED.RN ---
JAN MIKE AUSTIN GIVEN NURSE REPORT AND INFORMED OF PT'S ADMISSION TO PCU ROOM # 119
--- NOTE | 2022-12-01 22:32 | ECHOD_ITS ---
Reason For Study: Afib, Aflutter Procedure This was a 2D Doppler, Color Flow transthoracic echocardiogram. Did not use Definity due to elevated PAP. Exam performed portable in patient room. Left Ventricle Normal LV size. Mild concentric left ventricular hypertrophy. Left ventricular systolic function is normal. The estimated ejection fraction is 55 %. Mild segmental systolic dysfunction (see wall motion). No regional wall motion abnormalities noted. Right Ventricle Normal RV size. Normal systolic function. Atria Normal left atrium. Normal right atrium. Mitral Valve Mild diffuse mitral valve thickening. Mild (1+) eccentric mitral valve insufficiency. Tricuspid Valve Normal tricuspid valve. Moderate (2+) tricuspid valve insufficiency. Pulmonary artery systolic pressure is 76 mmHg. Moderate pulmonary hypertension. Aortic Valve Trisinus/trileaflet aortic valve. Mild focal aortic valve calcification. Mild (1+) aortic valve insufficiency. Pulmonic Valve Normal pulmonic valve. Great Vessels Normal aortic root. The pulmonary artery is normal size. Normal inferior vena cava. Pericardium/Pleural Trivial pericardial effusion. Moderate size left pleural effusion. MMode/2D Measurements & Calculations LVIDd: 4.0 cm IVSd: 1.4 cm Ao root diam: 2.6 cm LVIDs: 2.6 cm LVPWd: 1.2 cm RVDd: 3.6 cm FS: 33.2 % LAV(MOD-bp): 58.4 ml LVAd ap4: 21.5 cm2 SV(MOD-sp4): 28.7 ml LAV(MOD-bp) Indexed: 43.9 ml/m2 LVLd ap4: 7.2 cm LAV(MOD-sp2): 56.1 ml EDV(MOD-sp4): 53.3 ml LAV(MOD-sp4): 56.6 ml EDV(sp4-el): 54.7 ml LVAs ap4: 14.8 cm2 LVLs ap4: 7.2 cm ESV(MOD-sp4): 24.6 ml ESV(sp4-el): 25.9 ml EF(MOD-sp4): 53.8 % EF(sp4-el): 52.6 % SV(sp4-el): 28.8 ml LA A4 area: 19.5 cm2 LA dimension(2D): 4.4 cm RA A4 area: 15.2 cm2 Doppler Measurements & Calculations MV E max liane: 101.6 cm/sec Ao V2 max: 127.4 cm/sec AI max liane: 430.6 cm/sec Ao max P.5 mmHg AI max P.2 mmHg Ao V2 mean: 88.7 cm/sec Ao mean P.5 mmHg AI dec slope: 221.4 cm/sec2 Ao V2 VTI: 24.6 cm AI P1/2t: 569.6 msec LV V1 max: 89.5 cm/sec PA V2 max: 118.9 cm/sec PI end-d liane: 183.8 cm/sec LV V1 max P.2 mmHg TR max liane: 416.7 cm/sec TR max P.4 mmHg ECHO/Echo Complete Interpretation Summary Normal LV size. Mild concentric left ventricular hypertrophy. Left ventricular systolic function is normal. The estimated ejection fraction is 55 %. Mild diffuse mitral valve thickening. Pulmonary artery systolic pressure is 76 mmHg. Moderate pulmonary hypertension. Ordering Physician: Anthony Foss Referring Physician: Arpita Blevins Performed By: Odilia Boyle, LUCILA, RVT
[2022-12-01] MEDS: Nitroglycerin Oint 1 INCH PACKET 0.5 INCH TD (23:16)
[2022-12-01] MEDS: Lactated Ringers 1,000 ML 75 ML IV (23:20)
[2022-12-02] VITALS (16 sets, daily range): BP systolic 142–188; BP diastolic 66–92; PULSE 65–70; RESP 16–20; TEMP 36.4–36.6; O2SAT 92–96
[2022-12-02 00:11] LABS: Partial Thromboplast Time 36.4 Seconds (24.1-36.2)
[2022-12-02 00:24] LABS: International Normalized Ratio 1.2; Prothrombin Time (Protime)PT. 15.2 SECONDS (11.7-14.9)
[2022-12-02] MEDS: HEPARIN/D5w 25,000 UNITS 25,000 UNITS/250 ML IV.SOLN. 7 UNITS CONT INF (00:28)
[2022-12-02] MEDS: Heparin Injection (Vial) 5,000 UNIT/ML VIAL 3500 UNIT IV (00:29)
[2022-12-02] MEDS: 0.9% Saline Lock 10 ML Syringe IV (05:16)
[2022-12-02] MEDS: hydrALAZINE 20 MG/ML Vial 5 MG IV ×2 (05:25→11:49)
[2022-12-02 06:54] LABS: Absolute Lymphocyte Count 1.41 X10^3/uL (0.83-4.51); Absolute Neutrophil Count 4.5 X10^3/uL (2.0-7.7); Basophil# 0.06 X10^3/uL; Basophil% 0.9 % (0-1); Eosinophil# 0.39 X10^3/uL; Eosinophils% 5.7 % (0-5); Hematocrit 41.5 % (37-47); Hemoglobin 12.9 g/dL (12.0-15.0); Lymphocyte # 1.41 X10^3/ul (0.83-4.51); Lymphocyte % 20.5 % (19-41); Mean Corp Hgb Conc 31.1 g/dL (32-36); Mean Corpuscular Hgb 27.7 pg (27.0-32.0); Mean Corpuscular Volume 89.2 fL (81-99); Mean Platelet Vol. 10.2 fl (6.2-12.0); Monocyte# 0.56 X10^3/uL; Monocyte% 8.1 % (0-10); NRBC Flagged by Analyzer 0 % (0-5); Neutrophil # 4.45 X10^3/uL (2.7-7.7); Neutrophil % 64.5 % (47-70); POSITIVE MORPHOLOGY YES; Platelet Count 179 K/mm3 (150-450); RBC Distribution Width CV 20.1 % (11.6-14.6); Red Blood Count 4.65 M/mm3 (4.2-5.4); White Blood Count 6.9 K/mm3 (4.4-11.0)
[2022-12-02 07:00] LABS: Differential Indicated SCAN CRITERIA MET
[2022-12-02 07:18] LABS: Anion Gap 7 (5-15); BUN 16 mg/dL (7-18); BUN/Creat Ratio 26.2 RATIO (10-20); Calcium,Total 8.5 mg/dL (8.5-10.1); Chloride 113 mmol/L (98-107); Creatinine, Serum 0.61 mg/dL (0.55-1.02); EST Glomerular Filtration Rate 99 mL/min (>60); Est Glom Filt Rate - Afr Amer 120 mL/min (>60); Estimated Creatinine Clearance 26.98 ml/min; Glucose 87 mg/dL (74-106); Potassium 3.7 mmol/L (3.5-5.1); Sodium Level 144 mmol/L (136-145); Thyroid Stim Hormone (TSH) 0.71 uIU/mL (0.358-3.74)
[2022-12-02 07:27] LABS: Anisocytosis 2+; Differential Comment SCANNED; Macrocytosis 1+; Microcytosis 1+; Polychromasia RARE
--- NOTE | 2022-12-02 08:02 | PN.HOSP_ITS ---
Subjective Subjective Follow-up on acute hypoactive metabolic encephalopathy: Patient was seen and examined. She is lethargic. No acute events. She is currently on room air. Objective Data Objective Data Vital Signs: Vital Signs Temp Pulse Resp BP Pulse Ox O2 Del Method 97.5 F L 68 16 158/85 H 95 Room Air 12/02/22 05:10 12/02/22 05:25 12/02/22 05:10 12/02/22 06:39 12/02/22 05:10 12/02/22 05:10 Oxygen Delivery Method Room Air Weight: 40.1 kg Body Mass Index (BMI) 15.6 Intake & Output: Intake and Output for Last 24 Hours 11/30/22 12/01/22 12/02/22 23:59 23:59 23:59 Intake Total 112 / 112 112 / 112 Output Total 0 / 0 Balance 112 / 112 112 / 112 Lab / Micro Data Result Diagrams: 12/02/22 06:38 12/02/22 06:38 Labs: Laboratory Results - last 24 hr 12/01/22 17:18: WBC 7.7, RBC 4.77, Hgb 13.1, Hct 42.6, MCV 89.3, MCH 27.5, MCHC 30.8 L, RDW Std Deviation 63.0 H, RDW Coeff of David 19.7 H, Plt Count 209, MPV 9.9, Immature Gran % (Auto) 0.400, Neut % (Auto) 70.4 H, Lymph % (Auto) 16.1 L, [place] % (Auto) 8.6, Eos % (Auto) 3.8, Baso % (Auto) 0.7, Absolute Neuts (auto) 5.4, Absolute Lymphs (auto) 1.24, Nucleated RBC % 0 12/01/22 17:18: Sodium 145, Potassium 4.0, Chloride 114 H, Carbon Dioxide 26.0, Anion Gap 5, BUN 20 H, Creatinine 0.91, Estim Creat Clear Calc 32.76, Est GFR (MDRD) Af Amer 76, Est GFR (MDRD) Non-Af 62, BUN/Creatinine Ratio 21.9 H, Glucose 115 H, Calcium 8.6, Total Bilirubin 0.60, AST 34, ALT 34, Alkaline Phosphatase 85, Troponin I High Sens 40, Total Protein 6.6, Albumin 2.2 L, Globulin 4.4 H, Albumin/Globulin Ratio 0.5 L 12/01/22 17:18: Valproic Acid 12 L 12/01/22 17:18: Magnesium 2.0 12/01/22 18:00: Urine Color Yellow, Urine Clarity Cloudy, Urine pH 6.5, Ur Specific [place] 1.015, Urine Protein 15 H, Urine Glucose (UA) Normal, Urine Ketones Negative, Urine Occult Blood 10 H, Urine Nitrite Negative, Urine Bilirubin Negative, Urine Urobilinogen 1 H, Ur Leukocyte Esterase 100 H, Urine RBC 0-5 SEEN, Urine WBC 0-5 SEEN, Ur Squamous Epith Cells 10-25 SEEN, Amorphous Sediment 1+, Urine Bacteria 2+, Urine Mucus 0 SEEN 12/01/22 23:40: APTT 36.4 H 12/01/22 23:40: PT 15.2 H, INR 1.2 12/02/22 06:38: WBC 6.9, RBC 4.65, Hgb 12.9, Hct 41.5, MCV 89.2, MCH 27.7, MCHC 31.1 L, RDW Std Deviation 63.0 H, RDW Coeff of David 20.1 H, Plt Count 179, MPV 10.2, Immature Gran % (Auto) 0.300, Neut % (Auto) 64.5, Lymph % (Auto) 20.5, [place] % (Auto) 8.1, Eos % (Auto) 5.7 H, Baso % (Auto) 0.9, Absolute Neuts (auto) 4.5, Absolute Lymphs (auto) 1.41, Nucleated RBC % 0, Differential Comment SCANNED, Polychromasia RARE, Anisocytosis 2+, Microcytosis 1+, Macrocytosis 1+ 12/02/22 06:38: Sodium 144, Potassium 3.7, Chloride 113 H, Carbon Dioxide 24.0, Anion Gap 7, BUN 16, Creatinine 0.61, Estim Creat Clear Calc 26.98, Est GFR (MDRD) Af Amer 120, Est GFR (MDRD) Non-Af 99, BUN/Creatinine Ratio 26.2 H, Glucose 87, Calcium 8.5, TSH 0.71 Micro: Microbiology 12/01/22 16:03 Nasal Secretion SARS-CoV-2 & FLU Antigen (Rapid) - Final Radiography Diagnostic Testing: Radiology Impression Brain CT 12/01/22 16:56 IMPRESSION: Findings suspicious for normal pressure hydrocephalus. Electronically Signed: Fuentes Cruz MD at 17:58 EST , Chest X-Ray 12/01/22 17:22 IMPRESSION: Left lung pneumonia/pleural effusion. Electronically Signed: Fuentes Cruz MD at 17:38 EST , Chest CT 12/01/22 19:19 IMPRESSION: Aspiration to the left main bronchus with complete left lower lobe atelectatic collapse and left greater than right pleural effusions. Partially visualized L2 fracture. Electronically Signed: Fuentes Cruz MD at 20:02 EST , Physical Exam Narrative Physical exam: General: Lethargic, on room air, cooperative HEENT: Atraumatic Oral: Moist Mucosa Neck: Supple Lungs: Diminished to auscultation Cardiovascular: HS I+II, regular, no murmurs Abdomen: Bowel Sounds Present, Soft, Non Tender Extremities: No edema Skin: No rashes, No breakdown Neurological: Grossly intact Psych/Mental Status: Appropriate Assessment & Plan Assessment/Plan (1) Protein calorie malnutrition: QUALIFIERS: Protein-calorie malnutrition severity: severe Qualified Code(s): E43 - Unspecified severe protein-calorie malnutrition (2) Aspiration into airway: QUALIFIERS: Encounter type: initial encounter Qualified Code(s): T17.908A - Unspecified foreign body in respiratory tract, part unspecified causing other injury, initial encounter PLAN: Plan 1. Acute aspiration pneumonia, not on room air CTA chest showed left main bronchus would complete left lower lobe atelectatic collapse, left greater than right pleural effusions Chest X-ray shows left lung pneumonia Continue on IV Unasyn. Speech therapy consulted, kept NPO, MBBS planned - depending on results of MBBS, if not improved, consider Hospice 2. A. fib, newly diagnosed, rate controlled, TSH is normal Continue on heparin drip 3. Severe protein-calorie malnutrition, BMI 17.3, flame cutting supervisor consulted 4. Hypertension, uncontrolled 5. Dementia, advanced, CT brain shows probable NPH Will need to discuss further with family on treatment options for NPH and whether patient is a suitable surgical candidate 6. DVT PPx- Heparin drip Charges/Coding Visit Charges Inpatient E&M: 56297 Subs Hosp L3
--- NOTE | 2022-12-02 09:20 | CON.PCM.CC_ITS ---
Assessment & Plan Assessment/Plan (1) Aspiration into airway: QUALIFIERS: Encounter type: initial encounter Qualified Code(s): T17.908A - Unspecified foreign body in respiratory tract, part unspecified causing other injury, initial encounter (2) Protein calorie malnutrition: QUALIFIERS: Protein-calorie malnutrition severity: severe Qualified Code(s): E43 - Unspecified severe protein-calorie malnutrition (3) Afib: QUALIFIERS: Atrial fibrillation type: unspecified Qualified Code(s): I48.91 - Unspecified atrial fibrillation PLAN: Plan RECOMMENDATIONS: 1. N.p.o. with speech evaluation 2. Initiate vest therapy 3. Obtain chest x-ray in the morning 4. Possible bronchoscopy tomorrow pending chest x-ray results 5. Consider evaluation of goals of therapy 6. Continue empiric antibiotics for now IMPRESSIONS: 1. Possible aspiration pneumonia Patient was some debris in the left lower lobe. This does not appear to be solid, but has led to some atelectasis. Patient is not having any leukocytosis, fever or hypoxia. Patient does have a reasonable cough at this time. It is possible this may respond to conservative therapy. Would continue to keep patient n.p.o. We will add vest therapy. Obtain chest x-ray tomorrow. If patient persists in lower lobe atelectasis, bronchoscopy may be necessary. This would require discontinuation of the heparin drip. Patient will need to be evaluated by speech therapy prior to reinitiation of any feeds despite malnutrition. We will continue with antibiotics pending outcome of conservative therapy. 2. New diagnosis of A. fib Echocardiogram has been ordered. Patient is currently on a heparin drip. This will need to be stopped prior to any bronchoscopy or intervention. Patient appears to be tolerating this well. Patient does have a nonfocal exam. 3. Advanced age/debility/history of falls/dementia Complicates care, management, recovery and prognosis. Patient is currently a full code. We will need to see how speech therapy goes, but long- term prognosis is relatively poor. May need to discuss changing CODE STATUS or placement of a PEG to allow for aggressive therapy. HPI Consult Data Date of Consult: 12/02/22 HPI Narrative Reason for Consultation: Abnormal CT HPI Narrative: HENRI GRIFFIN is an 82 F, with past medical history listed below, who presents to [facility] 12/01/2022 secondary to general illness. Patient reportedly lives in an ECF and her daughter visits her daily. Patient had started to be noted to be coughing with meals for the last few days. Patient also reportedly had been seen leaning to the left more often. For this reason, EMS was called to evaluate the patient. In the ER, patient was afebrile, but hypertensive at 189/85. Patient was saturating well on room air, but tachypneic at 22 breaths/min initially. Laboratory work-up was relatively unremarkable except for an elevated glucose of 115 and a valproate level of 12. UA was unremarkable for UTI. A CT of the head was obtained and was suggestive of possible normal pressure hydrocephalus. Chest x-ray had shown left lower lobe infiltrate with possible pleural effusion. A subsequent CT scan of the chest showed debris in the left mainstem bronchus with atelectasis of left lower lobe. Patient was admitted to the hospital for further evaluation. Since being in the hospital, patient has remained stable. Patient is not requiring any supplemental oxygen. Nursing had reported patient is having a stronger cough, but no obvious production. Vest therapy was not initiated overnight. Family was not at the bedside to provide additional information. Patient is unable to provide any review of systems secondary to mental status. [facility] Medical History Acute kidney injury Congestive heart failure Coronary artery disease Dementia Hip fracture, left Hyperlipidemia Hypertension Impaired ambulation Malnutrition Home Medications aspirin 81 mg PO/SL DAILY blood thinner 07/06/22 [History Last Taken 07/06/22] donepezil 10 mg tablet 10 mg PO QHS alzheimers 07/06/22 [History Last Taken 07/06/22] hydralazine 10 mg tablet 10 mg PO TID bp 07/06/22 [History Last Taken 07/06/22] isosorbide mononitrate 60 mg tablet,extended release 24 hr 60 mg PO DAILY heart 07/06/22 [History Last Taken 07/06/22] memantine 10 mg tablet 10 mg PO BID alzheimers 07/06/22 [History Last Taken 07/06/22] nitroglycerin 0.4 mg sublingual tablet 0.4 mg sublingual PRN PRN Chest Pain 07/06/22 [History Last Taken Unknown] ondansetron 1 tab PO/SL Q8 PRN Nausea 07/06/22 [History Last Taken Unknown] atorvastatin 10 mg tablet 10 mg PO QHS 12/01/22 [History Last Taken Unknown] cholecalciferol (vitamin D3) 50 mcg (2,000 unit) capsule 50 mcg PO DAILY 12/01/22 [History Last Taken Unknown] divalproex 125 mg capsule,delayed release sprinkle 125 mg PO BID 12/01/22 [History Last Taken Unknown] lisinopril 20 mg tablet 20 mg PO QHS 12/01/22 [History Last Taken Unknown] naproxen 500 mg tablet 500 mg PO Q12H PRN PRN Pain 12/01/22 [History Last Taken Unknown] Allergy/AdvReac Type Severity Reaction Status Date / Time No Known Allergies Allergy Verified 12/01/22 16:51 Family History Other CVA (cerebral vascular accident) Hypertension Surgical History History of hip surgery Social History Smoking Status: Former smoker ROS Review of Systems ROS Unobtainable: due to mental status Physical Exam Const alert Constitutional Narrative: Makes eye contact and coughs frequently. General Appearance: frail HEENT normocephalic and head/scalp atraumatic Eyes PERRL, EOMs intact bilaterally and conjunctivae normal Eyes Narrative: Slight scleral injection Neck full ROM Resp Effort and Inspection: actively coughing moist and rattling; Negative for labored or uses accessory muscles Auscultation: diminished lung sounds left lower; Negative for rales, rhonchi or wheezes Cardio regular rate, S1 normal heart sound, S2 normal heart sound, no murmurs, no rub and no gallops GI normal to inspection, nondistended, normoactive bowel sounds Extremity no clubbing, cyanosis or edema Neuro CN's II-XII intact bilaterally and no focal motor deficits Neuro Narrative: No facial droop appreciated Psych Mood & Affect: flat affect Medical Records Data Attestation: I reviewed the patient's medical records Lab / Micro Data Attestation: I reviewed the patient's lab results. Result Diagrams: 12/02/22 06:38 12/02/22 06:38 Labs: Laboratory Results - last 24 hr 12/01/22 17:18: WBC 7.7, RBC 4.77, Hgb 13.1, Hct 42.6, MCV 89.3, MCH 27.5, MCHC 30.8 L, RDW Std Deviation 63.0 H, RDW Coeff of David 19.7 H, Plt Count 209, MPV 9.9, Immature Gran % (Auto) 0.400, Neut % (Auto) 70.4 H, Lymph % (Auto) 16.1 L, [place] % (Auto) 8.6, Eos % (Auto) 3.8, Baso % (Auto) 0.7, Absolute Neuts (auto) 5.4, Absolute Lymphs (auto) 1.24, Nucleated RBC % 0 12/01/22 17:18: Sodium 145, Potassium 4.0, Chloride 114 H, Carbon Dioxide 26.0, Anion Gap 5, BUN 20 H, Creatinine 0.91, Estim Creat Clear Calc 32.76, Est GFR (MDRD) Af Amer 76, Est GFR (MDRD) Non-Af 62, BUN/Creatinine Ratio 21.9 H, Glucose 115 H, Calcium 8.6, Total Bilirubin 0.60, AST 34, ALT 34, Alkaline Phosphatase 85, Troponin I High Sens 40, Total Protein 6.6, Albumin 2.2 L, Globulin 4.4 H, Albumin/Globulin Ratio 0.5 L 12/01/22 17:18: Valproic Acid 12 L 12/01/22 17:18: Magnesium 2.0 12/01/22 18:00: Urine Color Yellow, Urine Clarity Cloudy, Urine pH 6.5, Ur Specific [place] 1.015, Urine Protein 15 H, Urine Glucose (UA) Normal, Urine Ketones Negative, Urine Occult Blood 10 H, Urine Nitrite Negative, Urine Bilirubin Negative, Urine Urobilinogen 1 H, Ur Leukocyte Esterase 100 H, Urine RBC 0-5 SEEN, Urine WBC 0-5 SEEN, Ur Squamous Epith Cells 10-25 SEEN, Amorphous Sediment 1+, Urine Bacteria 2+, Urine Mucus 0 SEEN 12/01/22 23:40: APTT 36.4 H 12/01/22 23:40: PT 15.2 H, INR 1.2 12/02/22 06:38: WBC 6.9, RBC 4.65, Hgb 12.9, Hct 41.5, MCV 89.2, MCH 27.7, MCHC 31.1 L, RDW Std Deviation 63.0 H, RDW Coeff of David 20.1 H, Plt Count 179, MPV 10.2, Immature Gran % (Auto) 0.300, Neut % (Auto) 64.5, Lymph % (Auto) 20.5, [place] % (Auto) 8.1, Eos % (Auto) 5.7 H, Baso % (Auto) 0.9, Absolute Neuts (auto) 4.5, Absolute Lymphs (auto) 1.41, Nucleated RBC % 0, Differential Comment SCANNED, Polychromasia RARE, Anisocytosis 2+, Microcytosis 1+, Macrocytosis 1+ 12/02/22 06:38: Sodium 144, Potassium 3.7, Chloride 113 H, Carbon Dioxide 24.0, Anion Gap 7, BUN 16, Creatinine 0.61, Estim Creat Clear Calc 26.98, Est GFR (MDRD) Af Amer 120, Est GFR (MDRD) Non-Af 99, BUN/Creatinine Ratio 26.2 H, Glucose 87, Calcium 8.5, TSH 0.71 Micro: Microbiology 12/01/22 16:03 Nasal Secretion SARS-CoV-2 & FLU Antigen (Rapid) - Final Radiology Impression Brain CT 12/01/22 16:56 IMPRESSION: Findings suspicious for normal pressure hydrocephalus. Electronically Signed: Fuentes Cruz MD at 17:58 EST , Chest X-Ray 12/01/22 17:22 IMPRESSION: Left lung pneumonia/pleural effusion. Electronically Signed: Fuentes Cruz MD at 17:38 EST , Chest CT 12/01/22 19:19 IMPRESSION: Aspiration to the left main bronchus with complete left lower lobe atelectatic collapse and left greater than right pleural effusions. Partially visualized L2 fracture. Electronically Signed: Fuentes Cruz MD at 20:02 EST Reading Location ID and State: [facility] / [place] Tel , Service support , Charges/Coding Visit Charges Inpatient E&M: 12202 Init Hosp L3
[2022-12-02 09:50] LABS: Partial Thromboplast Time 92.8 Seconds (24.1-36.2)
[2022-12-02] MEDS: Nitroglycerin Oint 1 INCH PACKET 0.5 INCH TD ×2 (10:08→22:30)
[2022-12-02] MEDS: Lactated Ringers 1,000 ML 75 ML IV (11:48)
[2022-12-02 18:00] LABS: Partial Thromboplast Time 47.1 Seconds (24.1-36.2)
[2022-12-02] MEDS: hydrALAZINE 20 MG/ML Vial 10 MG IV (18:00)
[2022-12-02] MEDS: Heparin Injection (Vial) 5,000 UNIT/ML VIAL IV (18:36)
--- NOTE | 2022-12-02 20:03 | CPS ---
Pt has an okay cough, not real strong but enough to move mucus but not expectorate. Pt coughed multiple times during vest treatment. It was difficult to get the vest wrap around her but was able to do so with the help of Suleman. Vest was done for just over 15 minutes. Pt tolerated well.
[2022-12-03] VITALS (13 sets, daily range): BP systolic 157–192; BP diastolic 62–90; PULSE 60–82; RESP 16–18; TEMP 36.3–36.9; O2SAT 95–97; BMI 15.6
[2022-12-03] MEDS: Lactated Ringers 1,000 ML 100 ML IV ×3 (00:27→23:13)
--- NOTE | 2022-12-03 03:19 | CPS ---
Vest not done, Pt sleeping.
[2022-12-03] MEDS: hydrALAZINE 20 MG/ML Vial 10 MG IV ×3 (04:26→23:35)
[2022-12-03 06:08] LABS: Absolute Neutrophil Count 4.5 X10^3/uL (2.0-7.7); Basophil# 0.07 X10^3/uL; Eosinophil# 0.26 X10^3/uL; Eosinophils% 3.8 % (0-5); Hematocrit 42.6 % (37-47); Lymphocyte % 20.7 % (19-41); Mean Corp Hgb Conc 30.5 g/dL (32-36); Mean Corpuscular Hgb 27.2 pg (27.0-32.0); Mean Corpuscular Volume 89.1 fL (81-99); Mean Platelet Vol. 9.6 fl (6.2-12.0); Monocyte% 7.4 % (0-10); NRBC Flagged by Analyzer 0 % (0-5); Neutrophil # 4.52 X10^3/uL (2.7-7.7); Neutrophil % 66.8 % (47-70); POSITIVE MORPHOLOGY YES; Platelet Count 184 K/mm3 (150-450); RBC Distribution Width CV 20.6 % (11.6-14.6); RBC Distribution Width SD 65.6 fl (35.1-43.9); Red Blood Count 4.78 M/mm3 (4.2-5.4); White Blood Count 6.8 K/mm3 (4.4-11.0)
[2022-12-03 06:31] LABS: Partial Thromboplast Time 51.3 Seconds (24.1-36.2)
[2022-12-03] MEDS: Heparin Injection (Vial) 5,000 UNIT/ML VIAL IV (06:38)
[2022-12-03 06:41] LABS: ALB/GLOB Ratio 0.5 RATIO (0.9-2.4); AST(SGOT) 32 U/L (15-37); Alanine Aminotransfer ALT/SGPT 25 U/L (13-56); Albumin, Serum 2.1 g/dL (3.2-5.0); Alkaline Phosphatase 74 U/L (45-117); Anion Gap 9 (5-15); BUN 14 mg/dL (7-18); BUN/Creat Ratio 24.3 RATIO (10-20); Calcium,Total 8.8 mg/dL (8.5-10.1); Chloride 112 mmol/L (98-107); Creatinine, Serum 0.58 mg/dL (0.55-1.02); EST Glomerular Filtration Rate 106 mL/min (>60); Est Glom Filt Rate - Afr Amer 128 mL/min (>60); Estimated Creatinine Clearance 26.98 ml/min; Globulin 4.1 g/dL (2.2-4.2); Glucose 74 mg/dL (74-106); Potassium 3.8 mmol/L (3.5-5.1); Protein, Total 6.2 g/dL (6.4-8.2); Sodium Level 143 mmol/L (136-145)
[2022-12-03 06:51] LABS: Differential Indicated SCAN CRITERIA MET
[2022-12-03 07:03] LABS: Anisocytosis 2+
[2022-12-03] MEDS: Nitroglycerin Oint 1 INCH PACKET 0.5 INCH TD ×2 (09:08→23:14)
--- NOTE | 2022-12-03 09:51 | PN.CC_ITS ---
Assessment & Plan Assessment/Plan (1) Aspiration into airway: QUALIFIERS: Encounter type: initial encounter Qualified Code(s): T17.908A - Unspecified foreign body in respiratory tract, part unspecified causing other injury, initial encounter PLAN: Plan RECOMMENDATIONS: 1. Continue empiric antimicrobials. 2. Maintain aspiration precautions. Dietary advancement per speech therapy. 3. Continue vest therapy as tolerated. 4. Obtain follow-up chest x-ray. 5. No current indication for bronchoscopy. IMPRESSIONS: 1. Aspiration pneumonia The patient presented to the hospital with findings noted on chest imaging concerning for aspiration pneumonia and associated effusion. Despite this, the patient has remained remarkably stable from a respiratory perspective on room air. The patient does have a strong cough and is able to expectorate. Plan to continue supportive measures including vest therapy and empiric antimicrobials. Will obtain follow-up chest x-ray today. Nevertheless, at the present time, I do not see an indication for bronchoscopy. I would, however, advise continuation of aspiration precautions and cautious dietary advancement per speech therapy. 2. New onset atrial fibrillation/advanced age/debility/history of dementia Complicates care, management, recovery and prognosis. Continue supportive measures. Okay from my perspective to transition from heparin to Eliquis or Xarelto. This note was generated with Supportie dictation software. It may contain incorrect words, spelling, and punctuation that were not noted in checking the note before signing. Subjective Subjective The patient was seen and examined at the bedside this morning. Events from the last 24 hours have been reviewed. The patient is currently afebrile, hemodynamically stable and maintaining appropriate oxygen saturations on room air. The patient continues to have a strong cough. Her daughter was present at the bedside this morning. The patient has been tolerant of vest therapy. Objective Data Objective Data The patient's most recent lab work, culture data and imaging studies have all been personally reviewed. Urine culture was positive for alpha hemolytic Streptococcus. Vital Signs: Vital Signs Temp Pulse Resp BP Pulse Ox O2 Del Method 97.3 F L 69 16 157/78 H 96 Room Air 12/03/22 09:05 12/03/22 09:08 12/03/22 09:05 12/03/22 09:08 12/03/22 09:05 12/03/22 09:05 Oxygen Delivery Method Room Air Weight: 88 lb 6.486 oz Body Mass Index (BMI) 15.6 Intake & Output: Intake and Output for Last 24 Hours 12/01/22 12/02/22 12/03/22 23:59 23:59 23:59 Intake Total 112 / 112 2382.47 / 2382.47 308.93 / 308.93 Output Total 0 / 0 600 / 600 150 / 150 Balance 112 / 112 1782.47 / 1782.47 158.93 / 158.93 Medical Nutrition Assessment Dietitian: Malnutrition Criteria Met Start: 12/02/22 14:15 Freq: Status: Active Protocol: Document 12/02/22 14:15 RMA (Rec: 12/02/22 14:16 RMA [id number]) Nutrition Malnutrition Evidence of Malnutrition Exists Yes Malnutrition (severe): Chronic Evidenced By Suboptimal Energy Intake ( Severe),Weight Loss (Moderate) ,Physical Changes (Severe) Intake Problem Inadequate Oral Intake Etiology related to swallowing difficulty Signs/Symptoms as evidenced by NPO Status Active Problem Clinical Problem Chronic Disease or Condition Related Malnutrition Etiology Severe protein-calorie malnutrition in the context of chronic disease and debility related to inadequate oral intake and swallowing difficulty Signs/Symptoms as evidenced by wt loss~5% x 4 -5 months, BMI 15.7, current NPO status, oral intake prior to admission meeting less than 50% estimated nutrition needs x 4-6 months, moderate to severe muscle/fat wasting in the face, clavicle, orbitals and temporal regions Status Active Problem Recommendation Dietitian Recommendations/Changes Recommend liberalized regular diet with ONS as diet able to safely advance PO per MARKET PRESIDENT evaluation. Enteral Nutrition Support if unsafe for PO diet. MBS pending; planned for tomorrow. Lab / Micro Data Attestation: I reviewed the patient's lab results. Result Diagrams: 12/03/22 06:01 12/03/22 06:01 Labs: Laboratory Results - last 24 hr 12/02/22 17:35: APTT 47.1 H 12/03/22 00:35: APTT 68.0 H 12/03/22 06:01: WBC 6.8, RBC 4.78, Hgb 13.0, Hct 42.6, MCV 89.1, MCH 27.2, MCHC 30.5 L, RDW Std Deviation 65.6 H, RDW Coeff of David 20.6 H, Plt Count 184, MPV 9.6, Immature Gran % (Auto) 0.300, Neut % (Auto) 66.8, Lymph % (Auto) 20.7, [place] % (Auto) 7.4, Eos % (Auto) 3.8, Baso % (Auto) 1.0, Absolute Neuts (auto) 4.5, Absolute Lymphs (auto) 1.40, Nucleated RBC % 0, Anisocytosis 2+ 12/03/22 06:01: Sodium 143, Potassium 3.8, Chloride 112 H, Carbon Dioxide 22.0, Anion Gap 9, BUN 14, Creatinine 0.58, Estim Creat Clear Calc 26.98, Est GFR (MDRD) Af Amer 128, Est GFR (MDRD) Non-Af 106, BUN/Creatinine Ratio 24.3 H, Glucose 74, Calcium 8.8, Total Bilirubin 1.00, AST 32, ALT 25, Alkaline Phosphatase 74, Total Protein 6.2 L, Albumin 2.1 L, Globulin 4.1, Albumin/Globulin Ratio 0.5 L 12/03/22 06:01: APTT 51.3 H Micro: Microbiology 12/01/22 18:00 Urine, Catheterized Urine Culture - Preliminary Alpha Hemolytic Streptococcus 12/01/22 16:03 Nasal Secretion SARS-CoV-2 & FLU Antigen (Rapid) - Final Physical Exam Const alert and no apparent distress General Appearance: cooperative and frail HEENT normocephalic and head/scalp atraumatic Eyes PERRL, EOMs intact bilaterally and conjunctivae normal Neck supple General: trachea midline Chest inspection of chest normal Resp Effort and Inspection: actively coughing Auscultation: diminished lung sounds; Negative for rales, rhonchi or wheezes Cardio regular rate and regular rhythm GI normal to inspection, nondistended, normoactive bowel sounds Extremity no clubbing, cyanosis or edema Skin no rashes or lesions noted Neuro no focal motor deficits Psych Mood & Affect: flat affect Charges/Coding Visit Charges Inpatient E&M: 01470 Subs Hosp L2
--- NOTE | 2022-12-03 11:06 | CASEMGMT ---
Addendum entered by Mary Najera 12/03/22 11:17: SW spoke with Andra at [facility] and patient does not need a pre-cert to return. Mary Najera FUEL RETROFITTING TECHNICIANAntolin SALAZAR Original Note: STEPHAN called patient's daughter Jo ([phone]). STEPHAN introduced self and role at [facility]. Jo confirmed the plan is for patient to return to [facility] at discharge. STEPHAN faxed updates to [facility]. STEPHAN will also check with [facility] to see if patient will need a pre-cert to return. Plan: Return to [facility] Mary Najera FUEL RETROFITTING TECHNICIANAntolin SALAZAR
--- NOTE | 2022-12-03 11:29 | PN.HOSP_ITS ---
Subjective Subjective Follow-up aspiration pneumonia An 82-year-old lady resident is an ECF admitted with increasing lethargy. CT of the chest obtained on admission demonstrated Aspiration to the left main bronchus with complete left lower lobe atelectatic collapse and left greater than right pleural effusions.. Admitted to monitored bed for subsequent management Objective Data Objective Data Vital Signs: Vital Signs Temp Pulse Resp BP Pulse Ox O2 Del Method 97.3 F L 69 16 157/78 H 96 Room Air 12/03/22 09:05 12/03/22 09:08 12/03/22 09:05 12/03/22 09:08 12/03/22 09:05 12/03/22 10:43 Oxygen Delivery Method Room Air Weight: 40.1 kg Body Mass Index (BMI) 15.6 Intake & Output: Intake and Output for Last 24 Hours 12/01/22 12/02/22 12/03/22 23:59 23:59 23:59 Intake Total 112 / 112 2382.47 / 2382.47 308.93 / 308.93 Output Total 0 / 0 600 / 600 150 / 150 Balance 112 / 112 1782.47 / 1782.47 158.93 / 158.93 Medical Nutrition Assessment Dietitian: Malnutrition Criteria Met Start: 12/02/22 14:15 Freq: Status: Active Protocol: Document 12/02/22 14:15 RMA (Rec: 12/02/22 14:16 RMA [id number]) Nutrition Malnutrition Evidence of Malnutrition Exists Yes Malnutrition (severe): Chronic Evidenced By Suboptimal Energy Intake ( Severe),Weight Loss (Moderate) ,Physical Changes (Severe) Intake Problem Inadequate Oral Intake Etiology related to swallowing difficulty Signs/Symptoms as evidenced by NPO Status Active Problem Clinical Problem Chronic Disease or Condition Related Malnutrition Etiology Severe protein-calorie malnutrition in the context of chronic disease and debility related to inadequate oral intake and swallowing difficulty Signs/Symptoms as evidenced by wt loss~5% x 4 -5 months, BMI 15.7, current NPO status, oral intake prior to admission meeting less than 50% estimated nutrition needs x 4-6 months, moderate to severe muscle/fat wasting in the face, clavicle, orbitals and temporal regions Status Active Problem Recommendation Dietitian Recommendations/Changes Recommend liberalized regular diet with ONS as diet able to safely advance PO per GOLF BALL TRIMMER evaluation. Enteral Nutrition Support if unsafe for PO diet. MBS pending; planned for tomorrow. Lab / Micro Data Result Diagrams: 12/03/22 06:01 12/03/22 06:01 Labs: Laboratory Results - last 24 hr 12/02/22 17:35: APTT 47.1 H 12/03/22 00:35: APTT 68.0 H 12/03/22 06:01: WBC 6.8, RBC 4.78, Hgb 13.0, Hct 42.6, MCV 89.1, MCH 27.2, MCHC 30.5 L, RDW Std Deviation 65.6 H, RDW Coeff of David 20.6 H, Plt Count 184, MPV 9.6, Immature Gran % (Auto) 0.300, Neut % (Auto) 66.8, Lymph % (Auto) 20.7, [place] % (Auto) 7.4, Eos % (Auto) 3.8, Baso % (Auto) 1.0, Absolute Neuts (auto) 4.5, Absolute Lymphs (auto) 1.40, Nucleated RBC % 0, Anisocytosis 2+ 12/03/22 06:01: Sodium 143, Potassium 3.8, Chloride 112 H, Carbon Dioxide 22.0, Anion Gap 9, BUN 14, Creatinine 0.58, Estim Creat Clear Calc 26.98, Est GFR (MDRD) Af Amer 128, Est GFR (MDRD) Non-Af 106, BUN/Creatinine Ratio 24.3 H, Glucose 74, Calcium 8.8, Total Bilirubin 1.00, AST 32, ALT 25, Alkaline Phosphatase 74, Total Protein 6.2 L, Albumin 2.1 L, Globulin 4.1, Albumin/Globulin Ratio 0.5 L 12/03/22 06:01: APTT 51.3 H Micro: Microbiology 12/01/22 18:00 Urine, Catheterized Urine Culture - Final Aerococcus viridans. 12/01/22 16:03 Nasal Secretion SARS-CoV-2 & FLU Antigen (Rapid) - Final Physical Exam Narrative GENERAL: cooperative HEENT: Atraumatic; normocephalic EYES; Anicteric, Normal Conjunctiva NECK; supple, normal thyroid, RESPIRATORY: Diminished to auscultation CARDIOVASCULAR: Irregular S1 S2, GI: soft, normoactive bowel sounds, : No Renal angle tenderness; EXTREMITIES: No edema, no clubbing, MUSCULOSKELETAL: no muscle wasting NEURO: Awake; no lateralizing signs. SKIN: No Rash PSYCH; Flat affect Assessment & Plan Assessment/Plan (1) Protein calorie malnutrition: QUALIFIERS: Protein-calorie malnutrition severity: severe Qualified Code(s): E43 - Unspecified severe protein-calorie malnutrition (2) Aspiration into airway: QUALIFIERS: Encounter type: initial encounter Qualified Code(s): T17.908A - Unspecified foreign body in respiratory tract, part unspecified causing other injury, initial encounter PLAN: Plan An 82-year-old lady resident is an ECF admitted with increasing lethargy. CT of the chest obtained on admission demonstrated Aspiration to the left main bronchus with complete left lower lobe atelectatic collapse and left greater than right pleural effusions.. Admitted to monitored bed for subsequent management 1. Acute aspiration pneumonia, ? Patient managed with Unasyn as well as supplemental oxygen was kept n.p.o. underwent modified barium studies. Adjusted per recommendations from speech therapy 2. New onset A. fib ? Rate controlled patient was on heparin drip discontinued started on Eliquis after discussion with patient's daughter 3. Essential hypertension ? Blood pressure uncontrolled patient is currently on as needed hydralazine please on scheduled amlodipine in addition to hydralazine as already ordered 4.. Severe protein-calorie malnutrition, BMI 17.3, This is evidenced by patient's low BMI, suboptimal energy intake, weight loss and physical changes this is a result of patient chronic medical conditions. Consult placed to dietitian 5. Dementia, advanced, CT brain shows probable NPH Supportive care for now patient not a good candidate for any surgical intervention 6. DVT prophylaxis ? Started on Eliquis Time spent in the patient's overall evaluation,decision-making process, review of diagnostic data, adjustment of management, discussion with other providers, nursing nursing and ancillary staff involved in patient's care documentation, 38 Minutes Charges/Coding Visit Charges Inpatient E&M: 05667 Subs Hosp L2
--- NOTE | 2022-12-03 12:00 | RAD_ITS ---
STUDY: X-RAY CHEST REASON FOR EXAM: Female, 82 years old. Aspiration pna TECHNIQUE: Single AP portable view of the chest. COMPARISON: Comparison is made with prior study dated 12/01/2022. FINDINGS: EKG electrodes are seen. Residual small left pleural effusion with left lower lobe infiltrate. There has been a moderate degree of improved aeration at the left lung base as compared to prior study. Persistent blunting of the left costophrenic angle. Normal size heart. Normal mediastinum and tulio. Normal visualized pulmonary arteries. There is atherosclerotic calcification of the aortic arch with tortuosity. Normal visualized thoracic spine. Normal visualized ribs, clavicles, and shoulders. There is no demonstrated abnormality of the visualized soft tissue structures of the upper abdomen. RAD/Chest 1 View (Portable) IMPRESSION: Persistent left lower lobe infiltrate and small left effusion although there has been a moderate degree of improved aeration at the left lung base as compared to prior study. Electronically Signed: Mikal Bowman MD at 14:58 EST ,
[2022-12-03 12:15] LABS: Partial Thromboplast Time 61.4 Seconds (24.1-36.2)
--- NOTE | 2022-12-03 12:18 | SP.MBSS_ITS ---
Modified Barium Swallow - Patient Information Study Date: 12/03/22 Study Time: 09:28 Direct Billable Minutes: 140 Total Minutes procedure & reportin Diagnosis: Aspiration PNA (J69.0) Referring Physician: Morgan Villareal Reason for Referral: Objectively assess swallow function, assess risk for aspiration, and determine recommendations for least restrictive diet textures and compensatory strategies to improve safety of swallow. Medical History: Neila Stevens is a 82-year-old female who presented to [facility] because she has been somnolent for the past 4 days. Patient has been less energetic less talkative and less interactive. She has been sleeping all the time. Also for the past 3 to 4 days before presentation the patient has been coughing. She has been coughing with eating. Reportedly patient was leaning over to her left side. Reportedly patient complained of pain and it was thought that patient has pain at her left torso. Pt has PMH including dementia, KURT, CHF, CAD, L hip fracture, HLD, HTN, and malnutrition. Pt was admitted to PCU for management of aspiration PNA amongst other comorbidities, including protein calorie malnutrition. Pt was evaluated at bedside by ST and recommended to remain NPO prior to participation in MBSS to assess swallow function, aspiration risk, and determine recommendations for safest, LRD textures. Pt's daughter and medical POA, Brionna, present for MBSS. Brionna noted she has observed coughing with oral intake at the pen[facility], especially if her mother is fed quickly. She is deaf - all communication and education between PUBLIC INFORMATION SPECIALIST, PUBLIC INFORMATION SPECIALIST student, and pt's daughter was completed via writing or ASL. Current Diet Ordered: NPO Dentition: Upper Dentures, Missing Teeth Mental Status: Impaired - hx of dementia Respiratory Status: Oxygenating on Room Air - Penetration-Aspiration Scale Penetration-Aspiration Scale: OBJECTIVE ASSESSMENT OF SWALLOW FUNCTION (QUANTITATIVE ? PER TRIAL): PENETRATION / ASPIRATION SCALE (GRIMM): 1 = does not enter airway 2 = enters airway/above vocal folds/ejected 3 = enters airway/above vocal folds/not ejected 4 = enters airway/contacts vocal folds/ejected 5 = enters airway/contacts vocal folds/not ejected 6 = enters airway/below vocal folds/ejected 7 = enters airway/below vocal folds/not ejected despite effort 8 = enters airway/below vocal folds/no effort VIDEOFLOROSCOPIC SCALE SCORE (GRIMM): Grade I = aspiration of material that has penetrated into the laryngeal vestibule, intact cough reflex Grade II = aspiration < 10 % of the bolus, intact cough reflex Grade III = aspiration of < 10 % of the bolus, reduced cough reflex or aspiration of > 10 % of the bolus, intact cough reflex Grade IV = aspiration of > 10 % of the bolus, reduced cough reflex - Penetration-Aspiration Scale Score Thin Liquid via teaspoon Result: 7= enters airways/below vocal folds/not ejected despite effort - trace aspiration Thin Liquid via sequential sips from cup Result: 1= does not enter airway Bright Thick Liquid via sequential sips from cup Result: 1= does not enter airway Pudding via teaspoon Result: 1= does not enter airway 1/4 Cookie Result: 1= does not enter airway Thin Liquid via sequential sips from straw Result: 3= enters airways/above vocal folds/not ejected Thin Liquid via sequential sips from cup Trial 2 Result: 3= enters airways/above vocal folds/not ejected Cued Small Sip Thin Cup Sequential Result: 5= enters airways/contacts vocal folds/not ejected Bright Thick Liquid via sequential sips from cup Trial 2 Result: 3= enters airways/above vocal folds/not ejected - post prandial aspiration of previous trial Bright Thick Liquid via teaspoon Result: 1= does not enter airway Bright Thick Liquid via teaspoon Trial 2 Result: 1= does not enter airway - Oral Phase Labial Seal: Interlabial escape, no progression to anterior lip Tongue Control During Bolus Hold: Posterior escape of less than half of bolus Bolus Preparation/Mastication: Disorganized chewing/mashing with solid pieces of bolus unchewed Bolus Transport/Lingual Motion: Delayed initiation of tongue motion Oral Residue: Residue collection on oral structures - Pharyngeal Phase Initiation of Pharyngeal Swallow: Bolus head at posterior laryngeal surgace of epiglottis Soft Palate Elevation: No bolus between soft palate and pharyngeal wall Laryngeal Elevation: Comp. Superior move thyroid cart w/comp. apprx arytenoid cart-epig pet Anterior Hyoid Excursion: Partial anterior movement Epiglottic Movement: Complete inversion Laryngeal Vestibule Closure at Height of Swallow: Incomplete; narrow column of air/contrast in laryngeal vestibule Pharyngeal Stripping Wave: Present - complete Pharyngoesophageal Segment Opening: Complete distension and complete duration; no obstruction of flow Tongue Base Retraction: Narrow column of contrast between tongue base & post. pharyngeal wall Pharyngeal Residue: Collection of residue within or on pharyngeal structures - Esophageal Phase Esophageal Clearance: Complete clearance - Diagnosis/Impression Diagnosis: Moderate oropharyngeal dysphagia (R13.12) Impression: The oral phase is primarily marked by... -Decreased bolus control with <1/2 of the bolus spilling posteriorly to the posterior surface of the epiglottis prior to swallow onset observed with thin liquids especially. -Delayed tongue motion for A-P transport. -Decreased mastication abilities with portion of 1/4 cookie bolus appearing un- chewed. The pharyngeal phase is primarily marked by... -Decreased airway closure during the swallow due to mildly decreased anterior hyoid excursion and mildly decreased laryngeal elevation. -Mildly decreased tongue base retraction with resulting mild pharyngeal residues in the vallecula after the swallow, primarily seen with large sips. -Aspiration of thin by tsp during the swallow and post prandial aspiration of thin via sequential cup. Laryngeal penetration of thin by straw, thin by cup, and nectar thick liquid by cup, which did not reliably eject from the laryngeal vestibule after the swallow. The patient is at increased risk for post prandial aspiration of contrast remaining in the laryngeal vestibule. The patient demonstrated quick rate of intake of liquids throughout the study despite verbal cues. Will recommend liquids by tsp to control bolus size and rate. - Recommendations Diet: Mechanical Soft Textures - Minced and moist textures (IDDSI Level 5), Bright-thick Liquids Compensatory Strategies: Small Bites, Liquid by Teaspoon Only, Slow Rate, Alternate bites/solids and sips/liquids, Sitting upright Supervision: Total Feed Recommend Repeat Modified Barium Swallow: TBD Need for Skilled Speech Therapy Services: Yes Comment: Will recommend the patient for dysphagia therapy at current level of care and upon discharge to SNF to address deficits in oropharyngeal swallow function. Will recommend the patient for oropharyngeal strengthening to improve lingual strength, laryngeal elevation, hyoid excursion, and tongue base retraction (lingual resistance exercises, CTAR, effortful swallow, Nola). The patient and staff would benefit from education regarding diet recommendations and recommended compensatory strategies. If deemed clinically appropriate by treating PUBLIC INFORMATION SPECIALIST, would consider the patient for trials of soft and bite size textures with PUBLIC INFORMATION SPECIALIST only to consider the patient for diet advancement of solids. Education Completed: 1. Described result of evaluation., 4. Family/caregivers understand evaluation & agree w/ goals & tx plan. - Daughter educated in results and recommendations of MBSS via writing and ASL., 6. Family/caregivers demonstrate recommended strategies., 7. Pt requires further education on strateg ies & risks. - Status Active ST Patient: Active - Contact Information [facility] Speech Therapy:: Amee Martinez M.A. [facility]-PUBLIC INFORMATION SPECIALIST Speech-Language Pathologist [facility] [address] [place] [address] [email or web address] [phone] 12/03/22 14:29
[2022-12-03] MEDS: Menthol/Lanolin/Calamine/Znox 113 GM Tube 1 APPLIC TOPICAL (23:06)
[2022-12-03] MEDS: APIXABAN 5 MG TABLET PO (23:36)
[2022-12-04] VITALS (17 sets, daily range): BP systolic 159–202; BP diastolic 52–106; PULSE 57–67; RESP 15–16; TEMP 36.3–36.9; O2SAT 94–97
[2022-12-04] MEDS: Menthol/Lanolin/Calamine/Znox 113 GM Tube 1 APPLIC TOPICAL ×3 (06:01→22:38)
[2022-12-04] MEDS: APIXABAN 5 MG TABLET PO ×2 (09:50→22:37)
[2022-12-04] MEDS: Nitroglycerin Oint 1 INCH PACKET 0.5 INCH TD ×2 (09:50→22:37)
--- NOTE | 2022-12-04 09:54 | PCM.PN.HOSP ---
Subjective Subjective Follow-up pneumonia and hypertension ? Patient seen currently off oxygen. Her blood pressure is however markedly elevated. Patient started on scheduled hydralazine as well as beta-blockers. Objective Data Objective Data Vital Signs: Vital Signs Temp Pulse Resp BP Pulse Ox O2 Del Method 97.8 F 57 L 16 199/52 H 97 Room Air 12/04/22 04:00 12/04/22 04:00 12/04/22 04:00 12/04/22 04:00 12/04/22 04:00 12/04/22 04:00 Oxygen Delivery Method Room Air Weight: 40.1 kg Body Mass Index (BMI) 15.6 Intake & Output: Intake and Output for Last 24 Hours 12/02/22 12/03/22 12/04/22 23:59 23:59 23:59 Intake Total 2382.47 / 2382.47 2698.53 / 2698.53 112 / 112 Output Total 600 / 600 350 / 450 400 / 400 Balance 1782.47 / 1782.47 2348.53 / 2248.53 -288 / -288 Medical Nutrition Assessment Dietitian: Malnutrition Criteria Met Start: 12/02/22 14:15 Freq: Status: Active Protocol: Document 12/02/22 14:15 RMA (Rec: 12/02/22 14:16 RMA [id number]) Nutrition Malnutrition Evidence of Malnutrition Exists Yes Malnutrition (severe): Chronic Evidenced By Suboptimal Energy Intake ( Severe),Weight Loss (Moderate) ,Physical Changes (Severe) Intake Problem Inadequate Oral Intake Etiology related to swallowing difficulty Signs/Symptoms as evidenced by NPO Status Active Problem Clinical Problem Chronic Disease or Condition Related Malnutrition Etiology Severe protein-calorie malnutrition in the context of chronic disease and debility related to inadequate oral intake and swallowing difficulty Signs/Symptoms as evidenced by wt loss~5% x 4 -5 months, BMI 15.7, current NPO status, oral intake prior to admission meeting less than 50% estimated nutrition needs x 4-6 months, moderate to severe muscle/fat wasting in the face, clavicle, orbitals and temporal regions Status Active Problem Recommendation Dietitian Recommendations/Changes Recommend liberalized regular diet with ONS as diet able to safely advance PO per ENVIRONMENTAL SCIENCES PROFESSOR evaluation. Enteral Nutrition Support if unsafe for PO diet. MBS pending; planned for tomorrow. Lab / Micro Data Result Diagrams: 12/03/22 06:01 12/03/22 06:01 Labs: Laboratory Results - last 24 hr 12/03/22 11:50: APTT 61.4 H Micro: Microbiology 12/01/22 18:00 Urine, Catheterized Urine Culture - Final Aerococcus viridans. 12/01/22 16:03 Nasal Secretion SARS-CoV-2 & FLU Antigen (Rapid) - Final Radiography Diagnostic Testing: Radiology Impression Echocardiogram 12/01/22 22:32 Interpretation Summary Normal LV size. Mild concentric left ventricular hypertrophy. Left ventricular systolic function is normal. The estimated ejection fraction is 55 %. Mild diffuse mitral valve thickening. Pulmonary artery systolic pressure is 76 mmHg. Moderate pulmonary hypertension. Ordering Physician: Anthony Foss Referring Physician: Arpita Blevins Performed By: Odilia Boyle, LILIACS, RVT Chest X-Ray 12/03/22 12:00 IMPRESSION: Persistent left lower lobe infiltrate and small left effusion although there has been a moderate degree of improved aeration at the left lung base as compared to prior study. Electronically Signed: Mikal Bowman MD at 14:58 EST Reading Location ID and State: [address] [place] [address] , Service support , Physical Exam Narrative GENERAL: cooperative HEENT: Atraumatic; normocephalic EYES; Anicteric, Normal Conjunctiva NECK; supple, normal thyroid, RESPIRATORY: Diminished to auscultation CARDIOVASCULAR: Irregular S1 S2, GI: soft, normoactive bowel sounds, : No Renal angle tenderness; EXTREMITIES: No edema, no clubbing, MUSCULOSKELETAL: no muscle wasting NEURO: Awake; no lateralizing signs. SKIN: No Rash PSYCH; Flat affect Assessment & Plan Assessment/Plan (1) Protein calorie malnutrition: QUALIFIERS: Protein-calorie malnutrition severity: severe Qualified Code(s): E43 - Unspecified severe protein-calorie malnutrition (2) Aspiration into airway: QUALIFIERS: Encounter type: initial encounter Qualified Code(s): T17.908A - Unspecified foreign body in respiratory tract, part unspecified causing other injury, initial encounter PLAN: Plan An 82-year-old lady resident is an ECF admitted with increasing lethargy. CT of the chest obtained on admission demonstrated Aspiration to the left main bronchus with complete left lower lobe atelectatic collapse and left greater than right pleural effusions.. Admitted to monitored bed for subsequent management 1. Acute aspiration pneumonia, ? Patient managed with Unasyn as well as supplemental oxygen was kept n.p.o. underwent modified barium studies. Adjusted per recommendations from speech therapy 12/04/2022; patient seen continues to improve clinically currently not on supplemental oxygen 2. New onset A. fib ? Rate controlled patient was on heparin drip discontinued started on Eliquis after discussion with patient's daughter 3. Essential hypertension ? Blood pressure uncontrolled patient is currently on as needed hydralazine please on scheduled amlodipine in addition to hydralazine as already ordered ? 12/04/2022; blood pressure control still not optimal added scheduled hydralazine as well as metoprolol 4.. Severe protein-calorie malnutrition, BMI 17.3, This is evidenced by patient's low BMI, suboptimal energy intake, weight loss and physical changes this is a result of patient chronic medical conditions. Consult placed to dietitian 5. Dementia, advanced, CT brain shows probable NPH Supportive care for now patient not a good candidate for any surgical intervention 6. DVT prophylaxis ? Started on Eliquis Time spent in the patient's overall evaluation,decision-making process, review of diagnostic data, adjustment of management, discussion with other providers, nursing nursing and ancillary staff involved in patient's care documentation, 38 Minutes Charges/Coding Visit Charges Inpatient E&M: 18600 Subs Hosp L2
[2022-12-04] MEDS: 0.9% Saline Lock 10 ML Syringe IV ×2 (09:57→18:33)
[2022-12-04] MEDS: hydrALAZINE 20 MG/ML Vial 10 MG IV ×2 (09:57→18:33)
--- NOTE | 2022-12-04 10:53 | PN.CC_ITS ---
Assessment & Plan Assessment/Plan (1) Aspiration into airway: QUALIFIERS: Encounter type: initial encounter Qualified Code(s): T17.908A - Unspecified foreign body in respiratory tract, part unspecified causing other injury, initial encounter PLAN: Plan RECOMMENDATIONS: 1. Continue antimicrobials to complete 10-day treatment course. 2. Maintain aspiration precautions. Dietary advancement per speech therapy. 3. Continue vest therapy as tolerated. 4. No current indication for bronchoscopy. 5. Given improving respiratory status, will sign off. Please call with any additional questions. IMPRESSIONS: 1. Aspiration pneumonia The patient presented to the hospital with findings noted on chest imaging concerning for aspiration pneumonia and associated effusion. Despite this, the patient has remained remarkably stable from a respiratory perspective on room air. The patient does have a strong cough and is able to expectorate. Plan to continue supportive measures including vest therapy and empiric antimicrobials. Follow-up chest x-ray revealed improved aeration in the left lower lobe. Therefore, I do not see any indication for bronchoscopy. Plan to continue aspiration precautions with dietary advancement per speech therapy. 2. New onset atrial fibrillation/advanced age/debility/history of dementia Complicates care, management, recovery and prognosis. Continue supportive measures. This note was generated with [employer]igned dictation software. It may contain incorrect words, spelling, and punctuation that were not noted in checking the note before signing. Subjective Subjective The patient was seen and examined at the bedside this morning. Events from the last 24 hours have been reviewed. The patient is currently afebrile, hemodynamically stable and maintaining appropriate oxygen saturations on room air. Although the patient's respiratory status remains stable. Her blood pressure is significantly elevated this morning. Her daughter is present at the bedside. Objective Data Objective Data The patient's most recent lab work, culture data and imaging studies have all been personally reviewed. Vital Signs: Vital Signs Temp Pulse Resp BP Pulse Ox O2 Del Method 97.7 F L 62 15 202/106 H 97 Room Air 12/04/22 10:12/04/22 10:12/04/22 10:00 12/04/22 10:00 12/04/22 10:12/04/22 10:00 Oxygen Delivery Method Room Air Weight: 88 lb 6.486 oz Body Mass Index (BMI) 15.6 Intake & Output: Intake and Output for Last 24 Hours 12/02/22 12/03/22 12/04/22 23:59 23:59 23:59 Intake Total 2382.47 / 2382.47 2698.53 / 2698.53 112 / 112 Output Total 600 / 600 350 / 450 400 / 400 Balance 1782.47 / 1782.47 2348.53 / 2248.53 -288 / -288 Medical Nutrition Assessment Dietitian: Malnutrition Criteria Met Start: 12/02/22 14:15 Freq: Status: Active Protocol: Document 12/02/22 14:15 RMA (Rec: 12/02/22 14:16 RMA [id number]) Nutrition Malnutrition Evidence of Malnutrition Exists Yes Malnutrition (severe): Chronic Evidenced By Suboptimal Energy Intake ( Severe),Weight Loss (Moderate) ,Physical Changes (Severe) Intake Problem Inadequate Oral Intake Etiology related to swallowing difficulty Signs/Symptoms as evidenced by NPO Status Active Problem Clinical Problem Chronic Disease or Condition Related Malnutrition Etiology Severe protein-calorie malnutrition in the context of chronic disease and debility related to inadequate oral intake and swallowing difficulty Signs/Symptoms as evidenced by wt loss~5% x 4 -5 months, BMI 15.7, current NPO status, oral intake prior to admission meeting less than 50% estimated nutrition needs x 4-6 months, moderate to severe muscle/fat wasting in the face, clavicle, orbitals and temporal regions Status Active Problem Recommendation Dietitian Recommendations/Changes Recommend liberalized regular diet with ONS as diet able to safely advance PO per [employer]NER evaluation. Enteral Nutrition Support if unsafe for PO diet. MBS pending; planned for tomorrow. Lab / Micro Data Attestation: I reviewed the patient's lab results. Result Diagrams: 12/03/22 06:01 12/03/22 06:01 Labs: Laboratory Results - last 24 hr 12/03/22 11:50: APTT 61.4 H Micro: Microbiology 12/01/22 18:00 Urine, Catheterized Urine Culture - Final Aerococcus viridans. 12/01/22 16:03 Nasal Secretion SARS-CoV-2 & FLU Antigen (Rapid) - Final Radiography Diagnostic Testing: Radiology Impression Echocardiogram 12/01/22 22:32 Interpretation Summary Normal LV size. Mild concentric left ventricular hypertrophy. Left ventricular systolic function is normal. The estimated ejection fraction is 55 %. Mild diffuse mitral valve thickening. Pulmonary artery systolic pressure is 76 mmHg. Moderate pulmonary hypertension. Ordering Physician: Anthony Foss Referring Physician: Arpita Blevins Performed By: Odilia Boyle, LUCILA, RVT Chest X-Ray 12/03/22 12:00 IMPRESSION: Persistent left lower lobe infiltrate and small left effusion although there has been a moderate degree of improved aeration at the left lung base as compared to prior study. Electronically Signed: Mikal Bowman MD at 14:58 EST , Physical Exam Const alert and no apparent distress General Appearance: cooperative and frail HEENT normocephalic and head/scalp atraumatic Eyes PERRL, EOMs intact bilaterally and conjunctivae normal Neck supple General: trachea midline Chest inspection of chest normal Resp Auscultation: diminished lung sounds; Negative for rales, rhonchi or wheezes Cardio regular rate and regular rhythm GI normal to inspection, nondistended, normoactive bowel sounds Extremity no clubbing, cyanosis or edema Skin no rashes or lesions noted Neuro no focal motor deficits Psych Mood & Affect: flat affect Charges/Coding Visit Charges Inpatient E&M: 74343 Subs Hosp L2
[2022-12-04] MEDS: Metoprolol Tartrate 25 MG Tablet PO ×2 (10:57→22:38)
[2022-12-04] MEDS: hydrALAZINE 50 MG Tablet PO ×4 (10:57→22:38)
[2022-12-04] MEDS: Lactated Ringers 1,000 ML 100 ML IV ×2 (12:38→23:15)
[2022-12-05] VITALS (12 sets, daily range): BP systolic 122–192; BP diastolic 62–117; PULSE 55–68; RESP 15–16; TEMP 36.3–36.9; O2SAT 93–95
[2022-12-05] MEDS: Menthol/Lanolin/Calamine/Znox 113 GM Tube 1 APPLIC TOPICAL ×2 (05:44→18:34)
--- NOTE | 2022-12-05 08:37 | PCM.PN.HOSP ---
Subjective Subjective Follow-up elevated blood pressure Patient seen currently off oxygen. Overall blood pressure control improved. Patient be assessed for possible discharge Objective Data Objective Data Vital Signs: Vital Signs Temp Pulse Resp BP Pulse Ox O2 Del Method 97.5 F L 68 16 157/96 H 94 Room Air 12/05/22 03:00 12/05/22 03:00 12/05/22 03:00 12/05/22 03:00 12/05/22 03:00 12/05/22 07:45 Oxygen Delivery Method Room Air Weight: 40.1 kg Body Mass Index (BMI) 15.6 Intake & Output: Intake and Output for Last 24 Hours 12/03/22 12/04/22 12/05/22 23:59 23:59 23:59 Intake Total 2698.53 / 2698.53 2336 / 2361 249 / 249 Output Total 350 / 450 900 / 1200 700 / 700 Balance 2348.53 / 2248.53 1436 / 1161 -451 / -451 Medical Nutrition Assessment Dietitian: Malnutrition Criteria Met Start: 12/02/22 14:15 Freq: Status: Active Protocol: Document 12/02/22 14:15 RMA (Rec: 12/02/22 14:16 RMA [id number]) Nutrition Malnutrition Evidence of Malnutrition Exists Yes Malnutrition (severe): Chronic Evidenced By Suboptimal Energy Intake ( Severe),Weight Loss (Moderate) ,Physical Changes (Severe) Intake Problem Inadequate Oral Intake Etiology related to swallowing difficulty Signs/Symptoms as evidenced by NPO Status Active Problem Clinical Problem Chronic Disease or Condition Related Malnutrition Etiology Severe protein-calorie malnutrition in the context of chronic disease and debility related to inadequate oral intake and swallowing difficulty Signs/Symptoms as evidenced by wt loss~5% x 4 -5 months, BMI 15.7, current NPO status, oral intake prior to admission meeting less than 50% estimated nutrition needs x 4-6 months, moderate to severe muscle/fat wasting in the face, clavicle, orbitals and temporal regions Status Active Problem Recommendation Dietitian Recommendations/Changes Recommend liberalized regular diet with ONS as diet able to safely advance PO per [employer] E[employer]ICIAN evaluation. Enteral Nutrition Support if unsafe for PO diet. MBS pending; planned for tomorrow. Lab / Micro Data Result Diagrams: 12/03/22 06:01 12/03/22 06:01 Micro: Microbiology 12/01/22 18:00 Urine, Catheterized Urine Culture - Final Aerococcus viridans. 12/01/22 16:03 Nasal Secretion SARS-CoV-2 & FLU Antigen (Rapid) - Final Physical Exam Narrative GENERAL: cooperative HEENT: Atraumatic; normocephalic EYES; Anicteric, Normal Conjunctiva NECK; supple, normal thyroid, RESPIRATORY: Diminished to auscultation CARDIOVASCULAR: Irregular S1 S2, GI: soft, normoactive bowel sounds, : No Renal angle tenderness; EXTREMITIES: No edema, no clubbing, MUSCULOSKELETAL: no muscle wasting NEURO: Awake; no lateralizing signs. SKIN: No Rash PSYCH; Flat affect Assessment & Plan Assessment/Plan (1) Protein calorie malnutrition: QUALIFIERS: Protein-calorie malnutrition severity: severe Qualified Code(s): E43 - Unspecified severe protein-calorie malnutrition (2) Aspiration into airway: QUALIFIERS: Encounter type: initial encounter Qualified Code(s): T17.908A - Unspecified foreign body in respiratory tract, part unspecified causing other injury, initial encounter PLAN: Plan An 82-year-old lady resident is an ECF admitted with increasing lethargy. CT of the chest obtained on admission demonstrated Aspiration to the left main bronchus with complete left lower lobe atelectatic collapse and left greater than right pleural effusions.. Admitted to monitored bed for subsequent management 1. Acute aspiration pneumonia, ? Patient managed with Unasyn as well as supplemental oxygen was kept n.p.o. underwent modified barium studies. Adjusted per recommendations from speech therapy 12/04/2022; patient seen continues to improve clinically currently not on supplemental oxygen 2. New onset A. fib ? Rate controlled patient was on heparin drip discontinued started on Eliquis after discussion with patient's daughter 3. Essential hypertension ? Blood pressure uncontrolled patient is currently on as needed hydralazine please on scheduled amlodipine in addition to hydralazine as already ordered ? 12/04/2022; blood pressure control still not optimal added scheduled hydralazine as well as metoprolol 4.. Severe protein-calorie malnutrition, BMI 17.3, This is evidenced by patient's low BMI, suboptimal energy intake, weight loss and physical changes this is a result of patient chronic medical conditions. Consult placed to dietitian 5. Dementia, advanced, CT brain shows probable NPH Supportive care for now patient not a good candidate for any surgical intervention 6. DVT prophylaxis ? Started on Eliquis Time spent in the patient's overall evaluation,decision-making process, review of diagnostic data, adjustment of management, discussion with other providers, nursing nursing and ancillary staff involved in patient's care documentation, 38 Minutes Charges/Coding Visit Charges Inpatient E&M: 02717 Subs Hosp L2
--- NOTE | 2022-12-05 08:41 | PCM.TXEXTCAR ---
Diet Diet Order/Speech Therapy: 12/03/22 10:22 Diet: Cardiac - Heart Healthy Food consistency:: Mechanical (Minced/Moist) Liquid Consistency:: [place]/Mildly Thick Is pt able to select menu?: No Diet Comments: Liquids by tsp only, TOTAL FEED to ensure use of strategies, SLOW RATE Routine Orders/Code Status Code Status: Full Code Therapies Physical Therapy: Eval and Treat Occupational Therapy: Eval and Treat Speech Therapy: Eval and Treat Problem/Diagnosis (1) Protein calorie malnutrition: Status: Acute Code(s): E46 - Unspecified protein-calorie malnutrition (2) Aspiration into airway: Status: Acute Code(s): T17.908A - Unspecified foreign body in respiratory tract, part unspecified causing other injury, initial encounter Plan An 82-year-old lady resident is an F admitted with increasing lethargy. CT of the chest obtained on admission demonstrated Aspiration to the left main bronchus with complete left lower lobe atelectatic collapse and left greater than right pleural effusions.. Admitted to monitored bed for subsequent management 1. Acute aspiration pneumonia, ? Patient managed with Unasyn as well as supplemental oxygen was kept n.p.o. underwent modified barium studies. Adjusted per recommendations from speech therapy 12/04/2022; patient seen continues to improve clinically currently not on supplemental oxygen 2. New onset A. fib ? Rate controlled patient was on heparin drip discontinued started on Eliquis after discussion with patient's daughter 3. Essential hypertension ? Blood pressure uncontrolled patient is currently on as needed hydralazine please on scheduled amlodipine in addition to hydralazine as already ordered ? 12/04/2022; blood pressure control still not optimal added scheduled hydralazine as well as metoprolol 4.. Severe protein-calorie malnutrition, BMI 17.3, This is evidenced by patient's low BMI, suboptimal energy intake, weight loss and physical changes this is a result of patient chronic medical conditions. Consult placed to dietitian 5. Dementia, advanced, CT brain shows probable NPH Supportive care for now patient not a good candidate for any surgical intervention 6. DVT prophylaxis ? Started on Eliquis Time spent in the patient's overall evaluation,decision-making process, review of diagnostic data, adjustment of management, discussion with other providers, nursing nursing and ancillary staff involved in patient's care documentation, 38 Minutes Allergies/Procedures Done in Hospital Allergies No Known Allergies Allergy (Verified 12/01/22 16:51) Type of Care/Length of Stay Estimated LOS: Convalescent Care Less Than 30 days Type of Care Needed: Skilled Rehab Potential: Good Prognosis: Good Additional Orders/Day of Discharge Day of Discharge: 12/05/22 Dietary and Speech Recommendations Dietitian Recommendations/Changes: Recommend liberalized regular diet with ONS as diet able to safely advance PO per [employer]GER evaluation. Enteral Nutrition Support if unsafe for PO diet. MBS pending; planned for tomorrow. Speech Linguistic Eval Summary: Pt oriented to name and day/month. Pt did not answer when asked about her age, current year or where she is. Discharge Plan Admission Admit Date/Time: 12/01/22 20:38 Attending Provider: Morgan Villareal Primary Care Provider: Arpita Blevins Consulting Providers: Renan Garner ; Anthony Foss ; Jaky Chavarria Discharge Orders/Prescriptions Prescriptions: New amlodipine 10 mg Tablet 10 mg PO DAILY Qty: 0 0RF Eliquis 5 mg Tablet 5 mg PO BID Qty: 0 0RF hydralazine 50 mg Tablet 50 mg PO 4X/DAY Qty: 0 0RF amoxicillin-pot clavulanate [Augmentin] 500-125 mg tablet 1 tab PO BID Qty: 20 0RF Continued donepezil 10 mg tablet 10 mg PO QHS isosorbide mononitrate 60 mg tablet extended release 24 hr 60 mg PO DAILY Label Comments: TAKE 1 TABLET BY MOUTH TWICE DAILY nitroglycerin 0.4 mg tablet, sublingual 0.4 mg sublingual PRN PRN (Reason: Chest Pain) memantine 10 mg tablet 10 mg PO BID Label Comments: TAKE 1 TABLET BY MOUTH TWICE DAILY aspirin 81 mg PO/SL DAILY ondansetron 1 tab PO/SL Q8 PRN (Reason: Nausea) atorvastatin 10 mg tablet 10 mg PO QHS lisinopril 20 mg tablet 20 mg PO QHS divalproex 125 mg capsule, delayed rel sprinkle 125 mg PO BID cholecalciferol (vitamin D3) 50 mcg (2,000 unit) Capsule 50 mcg PO DAILY Discontinued hydralazine 10 mg tablet 10 mg PO TID naproxen 500 mg tablet 500 mg PO Q12H PRN PRN (Reason: Pain) Referrals / Follow Up: Arpita Blevins MD [Primary Care Provider] - Disposition Disposition (needs filled in before D/C Order can be placed): Senior Living Facility (1) Protein calorie malnutrition Qualifiers: Protein-calorie malnutrition severity: severe Qualified Code(s): E43 - Unspecified severe protein-calorie malnutrition (2) Aspiration into airway Qualifiers: Encounter type: initial encounter Qualified Code(s): T17.908A - Unspecified foreign body in respiratory tract, part unspecified causing other injury, initial encounter
--- NOTE | 2022-12-05 08:51 | PCM.DC.SUM ---
Providers Date of Admission: 12/01/22 Date of Discharge: 12/05/22 Primary Care Physician: Dr. Arpita Blevins MD Consultations 12/01/22 22:32 Consult: Director Of Customer Service / Pulmonary Medicine Routine Consulting Provider: Renan Garner Reason for Consult: Aspiration pneumonia EMERGENT Consult: No MD Notified: Yes Date Notified: 12/02/22 Time Notified: 06:07 Method of Notification: Text Reason For Visit: ASPIRATION PNEUMONIA Diagnosis Discharge Diagnosis (1) Protein calorie malnutrition: Status: Acute Code(s): E46 - Unspecified protein-calorie malnutrition Qualifiers: Protein-calorie malnutrition severity: severe Qualified Code(s): E43 - Unspecified severe protein-calorie malnutrition (2) Aspiration into airway: Status: Acute Code(s): T17.908A - Unspecified foreign body in respiratory tract, part unspecified causing other injury, initial encounter Qualifiers: Encounter type: initial encounter Qualified Code(s): T17.908A - Unspecified foreign body in respiratory tract, part unspecified causing other injury, initial encounter Plan An 82-year-old lady resident is an ECF admitted with increasing lethargy. CT of the chest obtained on admission demonstrated Aspiration to the left main bronchus with complete left lower lobe atelectatic collapse and left greater than right pleural effusions.. Admitted to monitored bed for subsequent management 1. Acute aspiration pneumonia, ? Patient managed with Unasyn as well as supplemental oxygen was kept n.p.o. underwent modified barium studies. Adjusted per recommendations from speech therapy 12/04/2022; patient seen continues to improve clinically currently not on supplemental oxygen 2. New onset A. fib ? Rate controlled patient was on heparin drip discontinued started on Eliquis after discussion with patient's daughter 3. Essential hypertension ? Blood pressure uncontrolled patient is currently on as needed hydralazine please on scheduled amlodipine in addition to hydralazine as already ordered ? 12/04/2022; blood pressure control still not optimal added scheduled hydralazine as well as metoprolol 4.. Severe protein-calorie malnutrition, BMI 17.3, This is evidenced by patient's low BMI, suboptimal energy intake, weight loss and physical changes this is a result of patient chronic medical conditions. Consult placed to dietitian 5. Dementia, advanced, CT brain shows probable NPH Supportive care for now patient not a good candidate for any surgical intervention 6. DVT prophylaxis ? Started on Eliquis Time spent in the patient's overall evaluation,decision-making process, review of diagnostic data, adjustment of management, discussion with other providers, nursing nursing and ancillary staff involved in patient's care documentation, 38 Minutes Medications at Discharge Home Medications aspirin 81 mg PO/SL DAILY blood thinner 07/06/22 donepezil 10 mg tablet 10 mg PO QHS alzheimers 07/06/22 isosorbide mononitrate 60 mg tablet,extended release 24 hr 60 mg PO DAILY heart 07/06/22 memantine 10 mg tablet 10 mg PO BID alzheimers 07/06/22 nitroglycerin 0.4 mg sublingual tablet 0.4 mg sublingual PRN PRN Chest Pain 07/06/22 ondansetron 1 tab PO/SL Q8 PRN Nausea 07/06/22 atorvastatin 10 mg tablet 10 mg PO QHS 12/01/22 cholecalciferol (vitamin D3) 50 mcg (2,000 unit) capsule 50 mcg PO DAILY 12/01/22 divalproex 125 mg capsule,delayed release sprinkle 125 mg PO BID 12/01/22 lisinopril 20 mg tablet 20 mg PO QHS 12/01/22 amlodipine 10 mg tablet 10 mg PO DAILY #0 tabs 12/05/22 amoxicillin 500 mg-potassium clavulanate 125 mg tablet (Augmentin) 1 tab PO BID #20 tabs 12/05/22 apixaban 5 mg tablet (Eliquis) 5 mg PO BID #0 tabs 12/05/22 hydralazine 50 mg tablet 50 mg PO 4X/DAY #0 tabs 12/05/22 Hospital Course Summary of Care Provided Minutes Spent on Discharge: 38 Physical Exam Narrative GENERAL: cooperative HEENT: Atraumatic; normocephalic EYES; Anicteric, Normal Conjunctiva NECK; supple, normal thyroid, RESPIRATORY: Diminished to auscultation CARDIOVASCULAR: Irregular S1 S2, GI: soft, normoactive bowel sounds, : No Renal angle tenderness; EXTREMITIES: No edema, no clubbing, MUSCULOSKELETAL: no muscle wasting NEURO: Awake; no lateralizing signs. SKIN: No Rash PSYCH; Flat affect Medical Records Data Medical Nutrition Assessment Dietitian: Malnutrition Criteria Met Start: 12/02/22 14:15 Freq: Status: Active Protocol: Document 12/02/22 14:15 RMA (Rec: 12/02/22 14:16 RMA [id number]) Nutrition Malnutrition Evidence of Malnutrition Exists Yes Malnutrition (severe): Chronic Evidenced By Suboptimal Energy Intake ( Severe),Weight Loss (Moderate) ,Physical Changes (Severe) Intake Problem Inadequate Oral Intake Etiology related to swallowing difficulty Signs/Symptoms as evidenced by NPO Status Active Problem Clinical Problem Chronic Disease or Condition Related Malnutrition Etiology Severe protein-calorie malnutrition in the context of chronic disease and debility related to inadequate oral intake and swallowing difficulty Signs/Symptoms as evidenced by wt loss~5% x 4 -5 months, BMI 15.7, current NPO status, oral intake prior to admission meeting less than 50% estimated nutrition needs x 4-6 months, moderate to severe muscle/fat wasting in the face, clavicle, orbitals and temporal regions Status Active Problem Recommendation Dietitian Recommendations/Changes Recommend liberalized regular diet with ONS as diet able to safely advance PO per [employer] P[employer]ER evaluation. Enteral Nutrition Support if unsafe for PO diet. MBS pending; planned for tomorrow. Weight / BMI Weight Weight: 40.1 kg Body Mass Index (BMI) 15.6 ABG / Lab / Microbiology Data Result Diagrams: 12/03/22 06:01 12/03/22 06:01 Microbiology: Microbiology 12/01/22 18:00 Urine, Catheterized Urine Culture - Final Aerococcus viridans. 12/01/22 16:03 Nasal Secretion SARS-CoV-2 & FLU Antigen (Rapid) - Final D/C Instructions Discharge Diet: No restrictions Discharge Activity: Return to Normal Activity Call your doctor if you observe: Fever of 101 or Higher, Shortness of breath, Fainting spells and Chest pain Meaningful Use Info Meaningful Use Diagnoses (Choose all that apply): None applicable Discharge Plan Admission Admit Date/Time: 12/01/22 20:38 Attending Provider: Morgan Villareal Primary Care Provider: Arpita Blevins Consulting Providers: Renan Garner ; Anthony Foss ; Jaky Chavarria Discharge Orders/Prescriptions Prescriptions: New amlodipine 10 mg Tablet 10 mg PO DAILY Qty: 0 0RF Eliquis 5 mg Tablet 5 mg PO BID Qty: 0 0RF hydralazine 50 mg Tablet 50 mg PO 4X/DAY Qty: 0 0RF amoxicillin-pot clavulanate [Augmentin] 500-125 mg tablet 1 tab PO BID Qty: 20 0RF Continued donepezil 10 mg tablet 10 mg PO QHS isosorbide mononitrate 60 mg tablet extended release 24 hr 60 mg PO DAILY Label Comments: TAKE 1 TABLET BY MOUTH TWICE DAILY nitroglycerin 0.4 mg tablet, sublingual 0.4 mg sublingual PRN PRN (Reason: Chest Pain) memantine 10 mg tablet 10 mg PO BID Label Comments: TAKE 1 TABLET BY MOUTH TWICE DAILY aspirin 81 mg PO/SL DAILY ondansetron 1 tab PO/SL Q8 PRN (Reason: Nausea) atorvastatin 10 mg tablet 10 mg PO QHS lisinopril 20 mg tablet 20 mg PO QHS divalproex 125 mg capsule, delayed rel sprinkle 125 mg PO BID cholecalciferol (vitamin D3) 50 mcg (2,000 unit) Capsule 50 mcg PO DAILY Discontinued hydralazine 10 mg tablet 10 mg PO TID naproxen 500 mg tablet 500 mg PO Q12H PRN PRN (Reason: Pain) Referrals / Follow Up: Arpita Blevins MD [Primary Care Provider] - Disposition Disposition (needs filled in before D/C Order can be placed): [facility] Charges/Coding Visit Charges Inpatient E&M: 91702 Disch Hosp >30min
--- NOTE | 2022-12-05 09:16 | CASEMGMT ---
Addendum entered by Mary Najera 12/05/22 11:55: Per RN patient's discharge is on hold. STEPHAN called [facility] and spoke with Irvin letting him know this information. Mary Najera [employer] TREE FARMERAntolin SALAZAR Original Note: Per physician patient is ready for discharge. STEPHAN called [facility] and notified Andra. Andra asked SW to send orders to [phone]. SW sent orders. Physician spoke with patient's daughter regarding discharge. Mary Najera TEA TREE FARMERAntolin SALAZAR
[2022-12-05] MEDS: hydrALAZINE 50 MG Tablet PO ×3 (09:22→18:33)
[2022-12-05] MEDS: Nitroglycerin Oint 1 INCH PACKET 0.5 INCH TD (09:23)
[2022-12-05] MEDS: APIXABAN 5 MG TABLET PO (09:23)
[2022-12-05] MEDS: Metoprolol Tartrate 25 MG Tablet PO (09:23)
[2022-12-05] MEDS: amLODIPine 10 MG Tablet PO (09:23)
[2022-12-05] MEDS: Lactated Ringers 1,000 ML 100 ML IV (09:30)
--- NOTE | 2022-12-05 10:58 | PHA.DC.MR ---
Pharmacy Service has performed discharge medication reconciliation for this patient. The patient's discharge medication list was reviewed for discrepancies and discrepancies were resolved. Home Medications aspirin 81 mg PO/SL DAILY blood thinner 07/06/22 donepezil 10 mg tablet 10 mg PO QHS alzheimers 07/06/22 isosorbide mononitrate 60 mg tablet,extended release 24 hr 60 mg PO DAILY heart 07/06/22 memantine 10 mg tablet 10 mg PO BID alzheimers 07/06/22 nitroglycerin 0.4 mg sublingual tablet 0.4 mg sublingual PRN PRN Chest Pain 07/06/22 ondansetron 1 tab PO/SL Q8 PRN Nausea 07/06/22 atorvastatin 10 mg tablet 10 mg PO QHS 12/01/22 cholecalciferol (vitamin D3) 50 mcg (2,000 unit) capsule 50 mcg PO DAILY 12/01/22 divalproex 125 mg capsule,delayed release sprinkle 125 mg PO BID 12/01/22 lisinopril 20 mg tablet 20 mg PO QHS 12/01/22 amlodipine 10 mg tablet 10 mg PO DAILY #0 tabs 12/05/22 amoxicillin 500 mg-potassium clavulanate 125 mg tablet (Augmentin) 1 tab PO BID #20 tabs 12/05/22 apixaban 5 mg tablet (Eliquis) 5 mg PO BID #0 tabs 12/05/22 hydralazine 50 mg tablet 50 mg PO 4X/DAY #0 tabs 12/05/22
[2022-12-05] MEDS: hydrALAZINE 20 MG/ML Vial 10 MG IV (11:33)
[2022-12-05] MEDS: 0.9% Saline Lock 10 ML Syringe IV (11:34)
--- NOTE | 2022-12-05 15:09 | CASEMGMT ---
STEPHAN called Andra at [facility] and let her know patient will be discharged today. STEPHAN sent PT/OT/ST information to [facility] via fax and [facility]. STEPHAN arranged for patient to get picked up at 7p via cot. STEPHAN sent COVID test and pharmacy picking tech time of 7p to [facility] via [facility]. STEPHAN notified RN and devulcanizer charger. Plan: d/c back to [facility] under intermediate level of care. Physicians transported via cot. Mary SALAZAR
--- NOTE | 2022-12-05 16:17 | NURSING ---
Report called to Bianka Hays
== END 2022-12-05 18:57 | disposition skilled nursing facility (03) | DRG 177 ==
LOC: ED 20:44 → MS3 21:11 → PCU 23:38
PROVIDERS: Internal Medicine; Admitting Provider Hospitalist; Emergency Provider Emergency Medicine; PCP Internal Medicine; Visit Provider Internal Medicine
DX: J69.0 Pneumonitis due to inhalation of food and vomit (principal); E43 Unspecified severe protein-calorie malnutrition; G93.41 Metabolic encephalopathy; G91.2 (Idiopathic) normal pressure hydrocephalus; D68.69 Other thrombophilia; J90 Pleural effusion, not elsewhere classified; J98.11 Atelectasis; Z68.1 Body mass index [BMI] 19.9 or less, adult; E86.0 Dehydration; E87.8 Other disorders of electrolyte and fluid balance, not elsewhere classified; F03.90 Unspecified dementia, unspecified severity, without behavioral disturbance, psychotic disturbance, mood disturbance, and anxiety; I48.91 Unspecified atrial fibrillation; I10 Essential (primary) hypertension; E78.5 Hyperlipidemia, unspecified; I25.10 Atherosclerotic heart disease of native coronary artery without angina pectoris; R53.81 Other malaise; R29.6 Repeated falls; Z74.01 Bed confinement status; Z79.01 Long term (current) use of anticoagulants; Z79.82 Long term (current) use of aspirin; Z79.899 Other long term (current) drug therapy; Z87.891 Personal history of nicotine dependence
CPT/HCPCS: 36415; 70450; 71045; 71250; 74230; 80048; 80053; 80164; 81001; 83735; 84443; 84484; 85025; 85610; 85730; 87077; 87086; 87088; 87426; 87428; 92526; 92610; 92611; 93005; 93306; 94667; 94668; 97110; 97162; 97166; 97530; 97535; 97802; 97803; 99285; J7120; A4216; J0295

== ENCOUNTER 2023-01-20 14:10 | Observation (INO) | payer MEDICARE, MEDICAID, SELFPAY ==
[2023-01-20] VITALS (11 sets, daily range): BP systolic 110–147; BP diastolic 47–62; PULSE 50–60; RESP 13–20; TEMP 35.9–36.9; O2SAT 97–99; BMI 17.9; BMI 16.5
--- NOTE | 2023-01-20 14:38 | CT_ITS ---
STUDY: CT BRAIN WITHOUT CONTRAST REASON FOR EXAM: Female, 82 years old. Altered mental status. RADIATION DOSAGE (If Supplied By Facility): CTDIvol = ( 44.99 ) mGy, DLP = ( 812.98 ) mGycm TECHNIQUE: Transaxial CT imaging of the brain was performed without administration of intravenous contrast material. Individualized dose optimization techniques were used for this CT. COMPARISON: December 01, 2022. FINDINGS: Normal soft tissue structures. Normal calvarium. There is moderate cerebral atrophy with widening of the extra-axial spaces and ventricular dilatation. The ventricular dilatation is slightly greater than expected for the degree of cerebral atrophy. There are areas of decreased attenuation within the white matter tracts of the supratentorial brain, consistent with microvascular disease changes. There are small punctate calcifications of the basal ganglia which are seen in the aging brain as a normal variant. Normal brainstem. Normal cerebellum. There is no intracranial hemorrhage. There are no findings of an acute ischemic infarction. Normal visualized paranasal sinuses. CT/Brain/Head without Contrast IMPRESSION: 1. Stable dilatation of the ventricles. Question NPH. 2. Chronic involutional changes without evidence of acute intracranial or calvarial abnormality. No major interval change. Electronically Signed: Ignacio Davis DO at 16:28 EDT Reading Location ID and State: [address] [place] [address] Tel [phone], Service support ,
[2023-01-20 15:00] LABS: Absolute Lymphocyte Count 1.47 X10^3/uL (0.83-4.51); Absolute Neutrophil Count 6.5 X10^3/uL (2.0-7.7); Basophil# 0.02 X10^3/uL; Basophil% 0.2 % (0-1); Eosinophil# 0.02 X10^3/uL; Eosinophils% 0.2 % (0-5); Hematocrit 36.2 % (37-47); Hemoglobin 11.2 g/dL (12.0-15.0); Lymphocyte # 1.47 X10^3/ul (0.83-4.51); Lymphocyte % 16.8 % (19-41); Mean Corp Hgb Conc 30.9 g/dL (32-36); Mean Corpuscular Hgb 29.2 pg (27.0-32.0); Mean Corpuscular Volume 94.5 fL (81-99); Mean Platelet Vol. 11.1 fl (6.2-12.0); Monocyte# 0.67 X10^3/uL; Monocyte% 7.7 % (0-10); NRBC Flagged by Analyzer 0 % (0-5); Neutrophil # 6.54 X10^3/uL (2.7-7.7); Neutrophil % 74.8 % (47-70); Platelet Count 159 K/mm3 (150-450); RBC Distribution Width CV 15.5 % (11.6-14.6); RBC Distribution Width SD 53.8 fl (35.1-43.9); Red Blood Count 3.83 M/mm3 (4.2-5.4); White Blood Count 8.8 K/mm3 (4.4-11.0)
[2023-01-20 15:05] LABS: International Normalized Ratio 1.5; Prothrombin Time (Protime)PT. 17.4 SECONDS (11.7-14.9)
--- NOTE | 2023-01-20 15:16 | RAD_ITS ---
EXAM: XR LEFT FOOT COMPLETE, 3 OR MORE VIEWS CLINICAL INDICATION: infection hindfoot TECHNIQUE: Frontal, lateral and oblique views of the left foot. This report was created using [employer] report generation technology. COMPARISON: None. FINDINGS: BONES/JOINTS: The bones are diffusely osteopenic. No acute fracture. No subluxation. Normal alignment. Preservation of the joint space. No sclerotic or destructive changes observed. SOFT TISSUES: Unremarkable. No soft tissue swelling or gas. No radiopaque foreign body. VASCULATURE: Diffuse vascular calcifications. RAD/Foot min 3 Views IMPRESSION: 1. The bones are diffusely osteopenic. 2. Diffuse vascular calcifications. 3. No acute abnormality. Electronically Signed: Maxwell Morin MD at 15:51 EDT ,
--- NOTE | 2023-01-20 15:16 | RAD_ITS ---
rScriptor Unformatted Report Format: Options: n 2i act cap dr fenton wm wcta sl lj Gender: Female Age: 82 years Exam: XR Chest 1 View Comparison: 12/03/2022. History: fever Contrast: Radiation: CTDIvol = mGy, DLP = mGy-cm. Stable mild cardiomegaly. Left retrocardiac opacity medially with obscured left hemidiaphragm. Impression. An area of consolidation or atelectasis cannot be excluded. Impression. Stable cardiomegaly. Electronically Signed: Maxwell Morin MD at 15:39 EDT , RAD/Chest 1 View (Portable) IMPRESSION: undefined
[2023-01-20 15:21] LABS: ALB/GLOB Ratio 0.6 RATIO (0.9-2.4); AST(SGOT) 29 U/L (15-37); Alanine Aminotransfer ALT/SGPT 27 U/L (13-56); Albumin, Serum 2.5 g/dL (3.2-5.0); Alkaline Phosphatase 76 U/L (45-117); Anion Gap 8 (5-15); BUN 20 mg/dL (7-18); BUN/Creat Ratio 29.6 RATIO (10-20); Calcium,Total 8.7 mg/dL (8.5-10.1); Chloride 111 mmol/L (98-107); Creatinine, Serum 0.68 mg/dL (0.55-1.02); EST Glomerular Filtration Rate 89 mL/min (>60); Est Glom Filt Rate - Afr Amer 107 mL/min (>60); Estimated Creatinine Clearance 27.93 ml/min; Globulin 4.3 g/dL (2.2-4.2); Glucose 175 mg/dL (74-106); Potassium 3.4 mmol/L (3.5-5.1); Protein, Total 6.8 g/dL (6.4-8.2); Sodium Level 146 mmol/L (136-145); Troponin-I HS 64 pg/mL (3.0-54.0)
--- NOTE | 2023-01-20 15:30 | EX.ED.DYSGE1 ---
HPI History of Present Illness Chief Complaint: Alt LOC Informant: family (daughter) Narrative Narrative: Patient presents for altered level of consciousness. She has severe dementia and is in a longterm, staff saw her this morning at her baseline, daughter came in and found her altered, staff checked her and she had a fever of 100.6. History is significantly limited due to the patient's dementia and confusion, but she is alert and has no complaints right now. [facility] Medical History A-fib Acute kidney injury Congestive heart failure Coronary artery disease Dementia Hip fracture, left Hyperlipidemia Hypertension Impaired ambulation Malnutrition Home Medications donepezil 10 mg tablet 10 mg PO QHS alzheimers 07/06/22 [History Last Taken 07/06/22] isosorbide mononitrate 60 mg tablet,extended release 24 hr 60 mg PO DAILY heart 07/06/22 [History Last Taken 07/06/22] memantine 10 mg tablet 10 mg PO BID alzheimers 07/06/22 [History Last Taken 07/06/22] nitroglycerin 0.4 mg sublingual tablet 0.4 mg sublingual PRN PRN Chest Pain 07/06/22 [History Last Taken Unknown] ondansetron 1 tab PO/SL Q8 PRN Nausea 07/06/22 [History Last Taken Unknown] atorvastatin 10 mg tablet 10 mg PO QHS 12/01/22 [History Last Taken Unknown] cholecalciferol (vitamin D3) 50 mcg (2,000 unit) capsule 50 mcg PO DAILY 12/01/22 [History Last Taken Unknown] lisinopril 20 mg tablet 20 mg PO QHS 12/01/22 [History Last Taken Unknown] amlodipine 10 mg tablet 10 mg PO DAILY #0 tabs 12/05/22 [Rx Last Taken Unknown] hydralazine 50 mg tablet 50 mg PO 4X/DAY #0 tabs 12/05/22 [Rx Last Taken Unknown] apixaban 5 mg tablet (Eliquis) 2.5 mg PO BID 01/20/23 [History Last Taken Unknown] aspirin 81 mg tablet 81 mg PO DAILY 01/20/23 [History Last Taken Unknown] venlafaxine 75 mg capsule,extended release 24 hr (Effexor XR) 75 mg PO DAILY 01/20/23 [History Last Taken Unknown] Allergy/AdvReac Type Severity Reaction Status Date / Time No Known Allergies Allergy Verified 01/20/23 14:10 Family History Other CVA (cerebral vascular accident) Hypertension Surgical History History of hip surgery Stented coronary artery Social History Smoking Status: Former smoker ROS ROS ED Cardiovascular Cardiovascular: Denies chest pain Respiratory/Chest Respiratory/Chest: Denies dyspnea Gastrointestinal Gastrointestinal: Denies abdominal pain or nausea Neurologic Neurologic: Denies headache(s) EXAM Physical Exam Const Vital Signs: 01/20/23 14:14 01/20/23 14:16 01/20/23 14:33 Temperature 96.9 F L 96.9 F L Temperature Source Temporal Temporal Pulse Rate 55 L 55 L Respiratory Rate 16 16 Respiratory Effort Normal Non-Labored Blood Pressure 132/60 H 132/60 H Blood Pressure Mean 84 84 Pulse Ox 97 97 Oxygen Delivery Method Room Air Room Air 01/20/23 15:00 01/20/23 16:00 Temperature 97.0 F L 97.0 F L Temperature Source Temporal Core Pulse Rate 52 L 54 L Respiratory Rate 13 17 Respiratory Effort Blood Pressure 110/47 L 134/50 H Blood Pressure Mean 68 78 Pulse Ox 99 98 Oxygen Delivery Method Room Air Room Air Positive well nourished and well developed General Appearance ED: well developed and NAD HEENT Reports moist mucous membranes normocephalic and atraumatic Eyes PERRL and EOMs intact bilaterally Neck full ROM and supple Resp normal respiratory effort and clear to auscultation bilaterally Cardio regular rate, regular rhythm and no murmurs GI non-tender and non-distended Auscultation: normoactive bowel sounds Palpation: soft Back/Spine no CVA tenderness General Back: other FROM Extremity Extremity Narrative: Minor traumatic abrasions that are either acute or subacute on the left strong without any bony tenderness or signs of infection. They appear to be partial skin tears no repair needed or indicated. There are some old bruises and scabs on the right strong with some erythema that goes up to about the knee at the medial aspect which is nontender and blanching. No palpable cords or edema distally in either leg. There is a healing nonulcerated wound lateral right knee that had a dressing around it no discharge on the dressing, no erythema or tenderness. There is a separate wound that does have discharge on the dressing and some surrounding erythema and mild tenderness and mild ulceration of the wound at the lateral aspect of the left posterior hindfoot. No lymphangitis or abscess. Able to passively move all 4 extremities, as well as some active motion as well without any pain to any joints or limitation. No deformities or shortening of the lower extremities. General Extremety ED: Negative for edema, pulses abnormal or tenderness General Extremity: Negative for edema or pulses abnormal Neuro CN's II-XII intact bilaterally and no sensory deficits noted Neuro Narrative: Moving everything symmetrically. Very confused. Answers some questions with yes or no answers such as do you have pain in your chest but other times gives me a blank stare and does not respond verbally. Sensorium / Orientation: awake, alert and orientation impaired Motor Exam: strength 5/5 throughout Skin Skin Narrative: See extremity exam. No wounds seen elsewhere. Sepsis Attestation Sepsis Attestation: Sepsis Ruled Out MDM MDM MDM Narrative Medical decision making narrative: Discussed with the daughter who is deaf, I needed a superintendent oil field drilling in order to communicate with her. She states she has a history of urinary infections in the past. The patient is a full code according to the paperwork that accompanies her and the daughter. As I discussed with her, we are obtaining a septic work-up in addition to a CT of the head because she apparently had some type of minor injury to her left leg and I do not know if she fell today or not. The CT images appear unremarkable for anything acute, she does have some ventriculomegaly. Radiology interpreted it as possible NPH, she does appear to have a history of this in the EMR. I agree with their interpretation. Left foot x-rays 3 views show no signs of acute bony abnormality or subcutaneous tracking emphysema, radiology in agreement with that as well. Labs are noted, her urine appears to be infected this was sent for culture and she was started on Rocephin, this could be the source of her altered mental status, although her troponin is slightly elevated as well. The last time she had a troponin measurement it was within normal limits, and her creatinine was higher than it is today. For this reason I think admitting her would be the most appropriate course of action given that she is full code. Her EKG shows nothing acute, and she is not able to provide any history about whether she had chest pain earlier or not. History & Record Review Discussion w/independent historian: Patient, Family and Other (SNF) Additional record(s) reviewed:: Other (snf records and medications including Eliquis for atrial fibrillation) Lab Data Attestation: I reviewed the patient's lab results. Labs: Laboratory Results - last 24 hr 01/20/23 01/20/23 01/20/23 14:25 14:25 14:25 WBC 8.8 RBC 3.83 L Hgb 11.2 L Hct 36.2 L MCV 94.5 MCH 29.2 MCHC 30.9 L RDW Std Deviation 53.8 H RDW Coeff of David 15.5 H Plt Count 159 MPV 11.1 Immature Gran % (Auto) 0.300 Neut % (Auto) 74.8 H Lymph % (Auto) 16.8 L [place] % (Auto) 7.7 Eos % (Auto) 0.2 Baso % (Auto) 0.2 Absolute Neuts (auto) 6.5 Absolute Lymphs (auto) 1.47 Nucleated RBC % 0 PT 17.4 H INR 1.5 APTT 39.0 H Sodium 146 H Potassium 3.4 L Chloride 111 H Carbon Dioxide 27.0 Anion Gap 8 BUN 20 H Creatinine 0.68 Estim Creat Clear Calc 27.93 Est GFR (MDRD) Af Amer 107 Est GFR (MDRD) Non-Af 89 BUN/Creatinine Ratio 29.6 H Glucose 175 H Lactic Acid Calcium 8.7 Total Bilirubin 0.40 AST 29 ALT 27 Alkaline Phosphatase 76 Troponin I High Sens 64 H Total Protein 6.8 Albumin 2.5 L Globulin 4.3 H Albumin/Globulin Ratio 0.6 L Urine Color Urine Clarity Urine pH Ur Specific [place] Urine Protein Urine Glucose (UA) Urine Ketones Urine Occult Blood Urine Nitrite Urine Bilirubin Urine Urobilinogen Ur Leukocyte Esterase Urine RBC Urine WBC Ur Squamous Epith Cells Urine Bacteria Urine Mucus Urine Yeast 01/20/23 01/20/23 15:30 15:54 WBC RBC Hgb Hct MCV MCH MCHC RDW Std Deviation RDW Coeff of David Plt Count MPV Immature Gran % (Auto) Neut % (Auto) Lymph % (Auto) [place] % (Auto) Eos % (Auto) Baso % (Auto) Absolute Neuts (auto) Absolute Lymphs (auto) Nucleated RBC % PT INR APTT Sodium Potassium Chloride Carbon Dioxide Anion Gap BUN Creatinine Estim Creat Clear Calc Est GFR (MDRD) Af Amer Est GFR (MDRD) Non-Af BUN/Creatinine Ratio Glucose Lactic Acid 1.6 Calcium Total Bilirubin AST ALT Alkaline Phosphatase Troponin I High Sens Total Protein Albumin Globulin Albumin/Globulin Ratio Urine Color Yellow Urine Clarity Sl. Cloudy Urine pH 5.0 Ur Specific [place] 1.020 Urine Protein 30 H Urine Glucose (UA) Normal Urine Ketones Negative Urine Occult Blood 50 H Urine Nitrite Negative Urine Bilirubin Negative Urine Urobilinogen 1 H Ur Leukocyte Esterase 500 H Urine RBC 0 SEEN Urine WBC 50-100 SEEN Ur Squamous Epith Cells 5-10 SEEN Urine Bacteria 2+ Urine Mucus 0 SEEN Urine Yeast 2+ Radiography Chest X-Ray - ED: 1 View, Read by ED Physician, Cardiomegaly and No Infiltrates Diagnostic Testing: Clinical Impression(s) from Imaging Studies Brain CT 01/20/23 14:38 IMPRESSION: 1. Stable dilatation of the ventricles. Question NPH. 2. Chronic involutional changes without evidence of acute intracranial or calvarial abnormality. No major interval change. Electronically Signed: Ignacio Davis DO at 16:28 EDT Reading Location ID and State: [address] [place] [address] Tel [phone], Service support , Chest X-Ray 01/20/23 15:16 IMPRESSION: undefined Foot X-Ray 01/20/23 15:16 IMPRESSION: 1. The bones are diffusely osteopenic. 2. Diffuse vascular calcifications. 3. No acute abnormality. Electronically Signed: Maxwell Morin MD at 15:51 EDT Reading Location ID and State: [facility] [place] Tel , Service support , Radiologist interpretation reviewed Rhythm Strip Rhythm Strip: Sinus Rhythm Rate: 60 Ectopy: None EKG Initial EKG: Attestation: I personally reviewed and interpreted this EKG as follows: Interpretation: No Acute Injury Pattern and Sinus Bradycardia Discharge Plan Triage Chief Complaint: Alt LOC ED Provider: Gopi Toribio Dx/Rx/DC Orders Clinical Impression: Acute encephalopathy, Urinary tract infection, Elevated troponin Prescriptions: No Action donepezil 10 mg tablet 10 mg PO QHS isosorbide mononitrate 60 mg tablet extended release 24 hr 60 mg PO DAILY Label Comments: TAKE 1 TABLET BY MOUTH TWICE DAILY nitroglycerin 0.4 mg tablet, sublingual 0.4 mg sublingual PRN PRN (Reason: Chest Pain) memantine 10 mg tablet 10 mg PO BID Label Comments: TAKE 1 TABLET BY MOUTH TWICE DAILY ondansetron 1 tab PO/SL Q8 PRN (Reason: Nausea) atorvastatin 10 mg tablet 10 mg PO QHS lisinopril 20 mg tablet 20 mg PO QHS cholecalciferol (vitamin D3) 50 mcg (2,000 unit) Capsule 50 mcg PO DAILY amlodipine 10 mg Tablet 10 mg PO DAILY Qty: 0 0RF hydralazine 50 mg Tablet 50 mg PO 4X/DAY Qty: 0 0RF aspirin 81 mg Tablet 81 mg PO DAILY Eliquis 5 mg tablet 2.5 mg PO BID venlafaxine [Effexor XR] 75 mg Capsule,Extended Release 24hr 75 mg PO DAILY Primary Care Provider: Fuentes Vergara Referrals: Fuentes Vergara MD [Primary Care Provider] - Disposition Disposition: Acute Care Hospital [facility]
[2023-01-20] MEDS: 0.9% Normal Saline 1,000 ML 150 ML IV ×2 (15:34→22:02)
[2023-01-20 15:37] LABS: Mucous, Urine 0 SEEN /hpf (<or=2+); Red Blood Cells-Urine 0 SEEN /hpf (0-5)
[2023-01-20 15:55] LABS: Color, Urine Yellow (Yellow); Glucose, Dipstick Normal (Normal); Ketone-Dipstick Negative (Negative); Leukocyte Esterase-Dipstick 500 /ul (Negative); Nitrite-Dipstick Negative (Negative); Occult Blood-Urine 50 /ul (Negative); Protein-Dipstick 30 mg/dl (Negative); Urine Bilirubin Dipstick Negative (Negative); Urine Clarity Sl. Cloudy (Clear); Urine Urobilinogen 1 mg/dl (Normal)
[2023-01-20 16:02] LABS: Bacteria 2+ /hpf (None Seen); Squamous Epithelial Cells - UA 5-10 SEEN /hpf (5-10); White Blood Cells 50-100 SEEN /hpf (0-5); Yeast-Urine 2+ /hpf (None Seen)
[2023-01-20 16:28] LABS: Lactic Acid 1.6 mmol/L (0.4-1.9)
[2023-01-20] MEDS: Ceftriaxone 1 GM/50 ML BAG IV (16:54)
--- NOTE | 2023-01-20 17:50 | HP.PCM.HOS_ITS ---
HPI - General General Date of Admission: 01/20/23 Date of Service: 01/20/23 Chief Complaint: AMS HPI Narrative HENRI GRIFFIN, is a 82 F with a history of dementia, NPH, A-fib, falls who presented to [facility] from [facility] after it was noted that she was more altered today. Reportedly fine in the morning but then more confused throughout the day and reportedly had 100.[address] head okay, left foot wound noted in ED. In ED white blood cell count 8.8, hemoglobin 11.2, sodium 146, potassium 3.4, BUN 20, troponin 64, UA suggestive of UTI. Hospitalist consulted for admission for altered mental status, failure to thrive, generalized weakness, UTI. Family not at bedside at the time of evaluation, patient wakes up and would squeeze hand on command but would not answer verbally with questions. Unable to obtain further history from patient. [facility] Medical History A-fib Acute kidney injury Congestive heart failure Coronary artery disease Dementia Hip fracture, left Hyperlipidemia Hypertension Impaired ambulation Malnutrition Home Medications donepezil 10 mg tablet 10 mg PO QHS alzheimers 07/06/22 [History Last Taken 07/06/22] isosorbide mononitrate 60 mg tablet,extended release 24 hr 60 mg PO DAILY heart 07/06/22 [History Last Taken 07/06/22] memantine 10 mg tablet 10 mg PO BID alzheimers 07/06/22 [History Last Taken 07/06/22] nitroglycerin 0.4 mg sublingual tablet 0.4 mg sublingual PRN PRN Chest Pain 07/06/22 [History Last Taken Unknown] ondansetron 1 tab PO/SL Q8 PRN Nausea 07/06/22 [History Last Taken Unknown] atorvastatin 10 mg tablet 10 mg PO QHS 12/01/22 [History Last Taken Unknown] cholecalciferol (vitamin D3) 50 mcg (2,000 unit) capsule 50 mcg PO DAILY 12/01/22 [History Last Taken Unknown] lisinopril 20 mg tablet 20 mg PO QHS 12/01/22 [History Last Taken Unknown] amlodipine 10 mg tablet 10 mg PO DAILY #0 tabs 12/05/22 [Rx Last Taken Unknown] hydralazine 50 mg tablet 50 mg PO 4X/DAY #0 tabs 12/05/22 [Rx Last Taken Unknown] apixaban 5 mg tablet (Eliquis) 2.5 mg PO BID 01/20/23 [History Last Taken Unknown] aspirin 81 mg tablet 81 mg PO DAILY 01/20/23 [History Last Taken Unknown] venlafaxine 75 mg capsule,extended release 24 hr (Effexor XR) 75 mg PO DAILY 01/20/23 [History Last Taken Unknown] Allergy/AdvReac Type Severity Reaction Status Date / Time No Known Allergies Allergy Verified 01/20/23 14:10 Family History Other CVA (cerebral vascular accident) Hypertension Surgical History History of hip surgery Stented coronary artery Social History Smoking Status: Former smoker ROS ROS Narrative Unable to obtain ROS secondary to mental status Vital Signs Vital Signs Vital Signs: 01/20/23 14:14 01/20/23 14:16 01/20/23 14:33 Temperature 96.9 F L 96.9 F L Temperature Source Temporal Temporal Pulse Rate 55 L 55 L Respiratory Rate 16 16 Respiratory Effort Normal Non-Labored Blood Pressure 132/60 H 132/60 H Blood Pressure Mean 84 84 Pulse Ox 97 97 Oxygen Delivery Method Room Air Room Air 01/20/23 15:00 01/20/23 16:00 01/20/23 17:00 Temperature 97.0 F L 97.0 F L 96.8 F L Temperature Source Temporal Core Axillary Pulse Rate 52 L 54 L 60 Respiratory Rate 13 17 20 H Respiratory Effort Blood Pressure 110/47 L 134/50 H 127/52 H Blood Pressure Mean 68 78 77 Pulse Ox 99 98 98 Oxygen Delivery Method Room Air Room Air Room Air Weight Weight: 41.5 kg Body Mass Index (BMI) 17.9 Physical Exam Narrative General: Wakes up, would not answer orientation questions HEENT: Atraumatic, normocephalic Eyes: Anicteric, normal conjunctiva, extraocular movements grossly intact Neck: Supple Respiratory: Clear to auscultation bilaterally, normal respiratory effort Cardiovascular: Heart rate occasionally in 40s to 50s GI: Soft, nondistended Extremities: No edema Musculoskeletal: Moving all extremities Neuro: No overt focal neurological deficits Skin: Small wound on left heel Psych: Unable to cooperate secondary to mental status Results Lab / Micro Data Result Diagrams: 01/20/23 14:25 01/20/23 14:25 Labs: Laboratory Results - last 24 hr 01/20/23 14:25: WBC 8.8, RBC 3.83 L, Hgb 11.2 L, Hct 36.2 L, MCV 94.5, MCH 29.2, MCHC 30.9 L, RDW Std Deviation 53.8 H, RDW Coeff of David 15.5 H, Plt Count 159, MPV 11.1, Immature Gran % (Auto) 0.300, Neut % (Auto) 74.8 H, Lymph % (Auto) 16.8 L, [place] % (Auto) 7.7, Eos % (Auto) 0.2, Baso % (Auto) 0.2, Absolute Neuts (auto) 6.5, Absolute Lymphs (auto) 1.47, Nucleated RBC % 0 01/20/23 14:25: PT 17.4 H, INR 1.5, APTT 39.0 H 01/20/23 14:25: Sodium 146 H, Potassium 3.4 L, Chloride 111 H, Carbon Dioxide 27.0, Anion Gap 8, BUN 20 H, Creatinine 0.68, Estim Creat Clear Calc 27.93, Est GFR (MDRD) Af Amer 107, Est GFR (MDRD) Non-Af 89, BUN/Creatinine Ratio 29.6 H, Glucose 175 H, Calcium 8.7, Total Bilirubin 0.40, AST 29, ALT 27, Alkaline Phosphatase 76, Troponin I High Sens 64 H, Total Protein 6.8, Albumin 2.5 L, Globulin 4.3 H, Albumin/Globulin Ratio 0.6 L 01/20/23 15:30: Urine Color Yellow, Urine Clarity Sl. Cloudy, Urine pH 5.0, Ur Specific [place] 1.020, Urine Protein 30 H, Urine Glucose (UA) Normal, Urine Ketones Negative, Urine Occult Blood 50 H, Urine Nitrite Negative, Urine Bilirubin Negative, Urine Urobilinogen 1 H, Ur Leukocyte Esterase 500 H, Urine RBC 0 SEEN, Urine WBC 50-100 SEEN, Ur Squamous Epith Cells 5-10 SEEN, Urine Bacteria 2+, Urine Mucus 0 SEEN, Urine Yeast 2+ 01/20/23 15:54: Lactic Acid 1.6 Rhythm Strip Rhythm Strip: Sinus Rhythm Rate: 60 Ectopy: None Radiology Impression Brain CT 01/20/23 14:38 IMPRESSION: 1. Stable dilatation of the ventricles. Question NPH. 2. Chronic involutional changes without evidence of acute intracranial or calvarial abnormality. No major interval change. Electronically Signed: Ignacio Davis DO at 16:28 EDT , Chest X-Ray 01/20/23 15:16 IMPRESSION: undefined Foot X-Ray 01/20/23 15:16 IMPRESSION: 1. The bones are diffusely osteopenic. 2. Diffuse vascular calcifications. 3. No acute abnormality. Electronically Signed: Maxwell Morin MD at 15:51 EDT , Assessment & Plan Assessment/Plan (1) Weakness: (2) Debility: (3) Unable to care for self: PLAN: Plan #Altered mental status on chronic dementia -Previous CTs of the head suspicious for NPH, present CT overall appears similar reports chronic changes -Likely exacerbated by UTI -We will treat with Rocephin and will give fluids while she appears mildly v olume depleted -Hold memantine as this is likely an helpful in the short-term and patient is altered -Hold donepezil as heart rate somewhat low and this can contribute to bradycardia #Left foot wound -No erythema or active drainage -Foot x-ray demonstrated osteopenia and diffuse vascular calcifications no other abnormality -Wound care consult #Concern for UTI -UA suggestive of UTI -Urine and blood cultures sent -We will treat with Rocephin at this time #NSTEMI likely type II -Suspect this is type II, will trend and monitor on telemetry -Echo ordered, most recent echo with EF of 55% and moderate pulmonary hypertension with PASP 76 #History of atrial fibrillation -On Eliquis chronically, will continue #DVT ppx: On Eliquis Kym Rivera MD Time spent in the patient's overall evaluation,decision-making process, review of diagnostic data, adjustment of management, discussion with other providers, nursing nursing and ancillary staff involved in patient's care documentation, 60 minutes Charges/Coding Visit Charges Inpatient E&M: 82464 Init Hosp L2
[2023-01-20] MEDS: Potassium Chloride 10mEq/100mL 10 MEQ/100 ML IV.SOLN. 100 MEQ IV BOLUS ×3 (21:20→22:54)
[2023-01-20] MEDS: Lactated Ringers 1,000 ML 100 ML IV (23:00)
[2023-01-21 00:17] LABS: Troponin-I HS 43 pg/mL (3.0-54.0)
[2023-01-21 05:00] VITALS: BP 155/71; PULSE 61; RESP 18; TEMP 36.2; O2SAT 98
[2023-01-21 05:39] VITALS: BMI 16.5
--- NOTE | 2023-01-21 08:19 | PN.HOSP_ITS ---
Reason for Visit Reason for Visit: Diagnoses Weakness (01/20/23) Other malaise (01/20/23) Other specified health status (01/20/23) Subjective Subjective Does not speak to me. Objective Data Objective Data Vital Signs: Vital Signs Temp Pulse Resp BP Pulse Ox O2 Del Method 36.2 C L 61 18 155/71 H 98 Room Air 01/21/23 05:00 01/21/23 05:00 01/21/23 05:00 01/21/23 05:00 01/21/23 05:00 01/21/23 05:00 Oxygen Delivery Method Room Air Weight: 39.8 kg Body Mass Index (BMI) 16.5 Intake & Output: Intake and Output for Last 24 Hours 01/19/23 01/20/23 01/21/23 22:59 23:59 23:59 Intake Total 856.67 / 856.67 Output Total 350 / 350 Balance 506.67 / 506.67 Lab / Micro Data Result Diagrams: 01/21/23 08:15 01/21/23 08:15 Labs: Laboratory Results - last 24 hr 01/20/23 14:25: WBC 8.8, RBC 3.83 L, Hgb 11.2 L, Hct 36.2 L, MCV 94.5, MCH 29.2, MCHC 30.9 L, RDW Std Deviation 53.8 H, RDW Coeff of David 15.5 H, Plt Count 159, MPV 11.1, Immature Gran % (Auto) 0.300, Neut % (Auto) 74.8 H, Lymph % (Auto) 16.8 L, [place]idalgo % (Auto) 7.7, Eos % (Auto) 0.2, Baso % (Auto) 0.2, Absolute Neuts (auto) 6.5, Absolute Lymphs (auto) 1.47, Nucleated RBC % 0 01/20/23 14:25: PT 17.4 H, INR 1.5, APTT 39.0 H 01/20/23 14:25: Sodium 146 H, Potassium 3.4 L, Chloride 111 H, Carbon Dioxide 27.0, Anion Gap 8, BUN 20 H, Creatinine 0.68, Estim Creat Clear Calc 27.93, Est GFR (MDRD) Af Amer 107, Est GFR (MDRD) Non-Af 89, BUN/Creatinine Ratio 29.6 H, Glucose 175 H, Calcium 8.7, Total Bilirubin 0.40, AST 29, ALT 27, Alkaline Phosphatase 76, Troponin I High Sens 64 H, Total Protein 6.8, Albumin 2.5 L, Chelsey bulin 4.3 H, Albumin/Globulin Ratio 0.6 L 01/20/23 15:30: Urine Color Yellow, Urine Clarity Sl. Cloudy, Urine pH 5.0, Ur Specific Mesa 1.020, Urine Protein 30 H, Urine Glucose (UA) Normal, Urine Ketones Negative, Urine Occult Blood 50 H, Urine Nitrite Negative, Urine Bilirubin Negative, Urine Urobilinogen 1 H, Ur Leukocyte Esterase 500 H, Urine R BC 0 SEEN, Urine WBC 50-100 SEEN, Ur Squamous Epith Cells 5-10 SEEN, Urine Bacteria 2+, Urine Mucus 0 SEEN, Urine Yeast 2+ 01/20/23 15:54: Lactic Acid 1.6 01/20/23 23:48: Troponin I High Sens 43 Radiography Diagnostic Testing: Radiology Impression Brain CT 01/20/23 14:38 IMPRESSION: 1. Stable dilatation of the ventricles. Question NPH. 2. Chronic involutional changes without evidence of acute intracranial or calvarial abnormality. No major interval change. Electronically Signed: Ignacio Davis DO at 16:28 EDT Reading Location ID and State: [address] [place] [address] Tel [phone], Service support , Chest X-Ray 01/20/23 15:16 IMPRESSION: undefined Foot X-Ray 01/20/23 15:16 IMPRESSION: 1. The bones are diffusely osteopenic. 2. Diffuse vascular calcifications. 3. No acute abnormality. Electronically Signed: Maxwell Morin MD at 15:51 EDT , Rhythm Strip Rhythm Strip: Sinus Rhythm Rate: 60 Ectopy: None Physical Exam Const Constitutional Narrative: awake. establishes eye contact. Resp normal respiratory effort, no retractions, no use of accessory muscles and clear to auscultation bilaterally Cardio regular rate, regular rhythm, S1 normal heart sound and S2 normal heart sound GI normal to inspection, nondistended, normoactive bowel sounds, soft to palpation, non-tender and non-distended Neuro oriented x3, CN's II-XII intact bilaterally, moves all extremities and no focal motor deficits Assessment & Plan Assessment/Plan (1) Encephalopathy: PLAN: Altered mental status on chronic dementia -Previous CTs of the head suspicious for NPH, present CT overall appears similar reports chronic changes. -Likely exacerbated by UTI -We will treat with Rocephin and will give fluids while she appears mildly volume depleted -Hold memantine as this is likely an helpful in the short-term and patient is altered -Hold donepezil as heart rate somewhat low and this can contribute to bradycardia Through [facility]: head CT 09/19/2022: report showed global volume loss with moderate chronic small vessel ischemic disease. Progress notes from July, August and September mention advanced dementia. Had been hospitalized in a [facility] hospital in July. CT 06/05/2022: lateral and 3rd ventricles are enlarged but configuration suggest central white matter volume loss. (2) UTI (urinary tract infection): PLAN: on CTX follow up UCx (3) Debility: PLAN: PT OT eval and treat (4) Wound of foot: PLAN: Left foot wound -No erythema or active drainage -Foot x-ray demonstrated osteopenia and diffuse vascular calcifications no other abnormality -Wound care consult (5) Elevated troponin: PLAN: troponin peaked at 64. Suspect type II event follow up echocardiogram. if WMA, then consult cardiology. PLAN: Plan Chronic conditions: * History of atrial fibrillation -On Eliquis chronically, will continue #DVT ppx: On Eliquis Charges/Coding Visit Charges Inpatient E&M: 88255 Subs Hosp L2
[2023-01-21 08:25] LABS: Absolute Neutrophil Count 4.3 X10^3/uL (2.0-7.7); Basophil# 0.03 X10^3/uL; Basophil% 0.5 % (0-1); Eosinophil# 0.09 X10^3/uL; Eosinophils% 1.5 % (0-5); Hematocrit 36.2 % (37-47); Hemoglobin 11.3 g/dL (12.0-15.0); Lymphocyte % 18.2 % (19-41); Mean Corp Hgb Conc 31.2 g/dL (32-36); Mean Corpuscular Hgb 29.4 pg (27.0-32.0); Mean Corpuscular Volume 94.3 fL (81-99); Mean Platelet Vol. 10.6 fl (6.2-12.0); Monocyte# 0.47 X10^3/uL; Monocyte% 7.8 % (0-10); NRBC Flagged by Analyzer 0 % (0-5); Neutrophil # 4.33 X10^3/uL (2.7-7.7); Neutrophil % 71.7 % (47-70); Platelet Count 131 K/mm3 (150-450); RBC Distribution Width CV 15.1 % (11.6-14.6); RBC Distribution Width SD 52.4 fl (35.1-43.9); Red Blood Count 3.84 M/mm3 (4.2-5.4)
[2023-01-21 08:41] LABS: ALB/GLOB Ratio 0.6 RATIO (0.9-2.4); AST(SGOT) 45 U/L (15-37); Alanine Aminotransfer ALT/SGPT 39 U/L (13-56); Albumin, Serum 2.3 g/dL (3.2-5.0); Alkaline Phosphatase 74 U/L (45-117); Anion Gap 5 (5-15); BUN 19 mg/dL (7-18); BUN/Creat Ratio 39.1 RATIO (10-20); Calcium,Total 8.6 mg/dL (8.5-10.1); Chloride 114 mmol/L (98-107); Creatinine, Serum 0.49 mg/dL (0.55-1.02); EST Glomerular Filtration Rate 129 mL/min (>60); Est Glom Filt Rate - Afr Amer 156 mL/min (>60); Estimated Creatinine Clearance 26.78 ml/min; Glucose 100 mg/dL (74-106); Potassium 3.9 mmol/L (3.5-5.1); Protein, Total 6.3 g/dL (6.4-8.2); Sodium Level 146 mmol/L (136-145)
--- NOTE | 2023-01-21 09:53 | WOUNDNOTE ---
wound photo: right buttock
--- NOTE | 2023-01-21 09:54 | WOUNDNOTE ---
wound photo: left lower leg
--- NOTE | 2023-01-21 09:54 | WOUNDNOTE ---
wound photo: left heel
[2023-01-21] MEDS: Ceftriaxone 1 GM/50 ML BAG IV (11:08)
[2023-01-21 11:10] VITALS: BP 135/56; PULSE 56; RESP 18; TEMP 36.5; O2SAT 96
--- NOTE | 2023-01-21 12:18 | CASEMGMT ---
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 Updates were sent to [facility] via [facility]. Plan:d/c back to [facility]. Mary SALAZAR
--- NOTE | 2023-01-21 13:31 | CASEMGMT ---
FRANK AGUIRRE updated by STEPHAN that family was interesting in information on Palliative Care. RN CM in to patient's room and provided daughter with pamphlet from [facility]. Family to discuss, CM to follow up with family if they would like referral placed. CM will continue to follow this patient and plan for a safe discharge.
--- NOTE | 2023-01-21 14:02 | CASEMGMT ---
SW spoke with patient's daughters. SW asked if the plan is for patient to return to [facility]. They were not sure. They are very unhappy with [facility] and they have tried talking with them. SWprovided them with a list of?custodial facility providers including quality and resource use data and consistent with patient?s preferred geographic region, medical needs, and insurance network were provided from the [facility] Guide. SW gave them [facility] and [facility] per their request. SW left a message with [facility] to see if patient has used all of her skilled days. Mary Najera MOLD DRESSER MARIE
--- NOTE | 2023-01-21 14:35 | ECHOD_ITS ---
Reason For Study: Elevated Troponins Procedure This was a 2D Doppler, Color Flow transthoracic echocardiogram. Exam performed portable in patient room. Left Ventricle Normal LV size. Left ventricular systolic function is normal. The estimated ejection fraction is 55 %. Segmental dysfunction with preserved ejection fraction (see wall motion). Septal [place] : Akinetic. [place] : Hypokinetic. Lateral [place] : Akinetic. Right Ventricle Normal RV size. Normal systolic function. Atria The left atrium is mildly enlarged. The right atrium is mildly enlarged. Mitral Valve There is mild to moderate mitral annular calcification. Mild-Moderate (1-2+) eccentric mitral valve insufficiency. Tricuspid Valve Normal tricuspid valve. Mild to moderate (1-2+) tricuspid valve insufficiency. Pulmonary artery systolic pressure is 50 mmHg. Moderate pulmonary hypertension. Aortic Valve Trisinus/trileaflet aortic valve. Mild (1+) aortic valve insufficiency. Great Vessels Normal aortic root. The pulmonary artery is normal size. Normal inferior vena cava. Pericardium/Pleural No pericardial effusion. MMode/2D Measurements & Calculations LVIDd: 3.6 cm IVSd: 1.1 cm LA dimension: 4.6 cm LVIDs: 2.9 cm LVPWd: 0.99 cm RVDd: 3.7 cm FS: 20.5 % LAV(MOD-bp): 65.9 ml LA A4 area: 22.7 cm2 RA A4 area: 19.9 cm2 LAV(MOD-bp) Indexed: 49.7 ml/m2 LAV(MOD-sp2): 53.1 ml LAV(MOD-sp4): 67.6 ml Doppler Measurements & Calculations MV E max rolando: 113.2 cm/sec Lat Peak E' Rolando: 9.2 cm/sec Med Peak E' Rolando: 6.2 cm/sec E/E' lat: 12.4 E/E' med: 18.3 Ao V2 max: 137.4 cm/sec AI max rolando: 410.4 cm/sec LV V1 max: 109.8 cm/sec Ao max P.6 mmHg AI max P.4 mmHg LV V1 max P.8 mmHg Ao V2 mean: 90.6 cm/sec LV V1 mean P.3 mmHg Ao mean P.8 mmHg AI dec slope: 234.6 cm/sec2 LV V1 mean: 69.9 cm/sec Ao V2 VTI: 29.3 cm AI P1/2t: 512.4 msec LV V1 VTI: 23.2 cm AV (velocity ratio): 0.79 MR max rolando: 465.2 cm/sec PA V2 max: 94.1 cm/sec PI dec slope: 281.6 cm/sec2 MR max P.6 mmHg MR mean rolando: 374.4 cm/sec MR mean P.8 mmHg MR VTI: 165.5 cm TR max rolando: 346.1 cm/sec TR max P.9 mmHg ECHO/Echo Complete Interpretation Summary Normal LV size. Left ventricular systolic function is normal. The estimated ejection fraction is 55 %. The left atrium is mildly enlarged. Mild-Moderate (1-2+) eccentric mitral valve insufficiency. Pulmonary artery systolic pressure is 50 mmHg. Moderate pulmonary hypertension. Compared to previous study, the left ventricular systolic function is the same. . Ordering Physician: Fredy Goodrich Referring Physician: Fuentes Vergara Performed By: Lex Sorto RCS
--- NOTE | 2023-01-21 15:28 | CASEMGMT ---
Patient has not used all of her Medicare days. Per Aimee she has only used 5 days. SW let patient's daughter know this information. Their choices were as follows: [facility], [facility], and [facility]. SW will send referrals once therapy has seen patient. Mary SALAZAR
--- NOTE | 2023-01-21 15:35 | CHAPLAIN ---
Type of Pastoral Visit _x__ Initial Visit ___ Follow-up Visit ___ On-call Visit ___ General Patient Visit ___ Spiritual Assessment ___ Family Conference ___ Bereavement ___ Rapid Response ___ Code Blue ___ Other (describe below) Pastoral Care Referral From _x__ Patient _x__ Family ___ Nurse ___ Physician ___ Manager Brand ___ Manager New Product ___ Other (describe below) Sacrament/Intervention _x__ Active listening ___ Anointing ___ Tenriism ___ Bereavement ___ Communion ___ Natalee exploration ___ _x__ Life review _x__ Prayer ___ Reconciliation ___ Sacrament of Sick _x__ Supportive presence ___ Wedding ___ Other (describe below) Pastoral Comments patient is awake with two daughters are bedside; pt is [place] and one daughter is deaf; offer of support; other daughter gives report on what is happening and that decisions are being made to move pt to a different ECF; pt is pleasant but does not appear to comprehend some of the conversation or how to answer some questions; family welcomes presence and prayer
[2023-01-21 17:10] VITALS: BP 149/75; PULSE 62; RESP 17; TEMP 37.3; O2SAT 97
[2023-01-21] MEDS: Juven (unflavored) Packet 1 PACKET PO (18:32)
[2023-01-21] MEDS: Atorvastatin Calcium 10 MG Tablet PO (22:23)
[2023-01-21] MEDS: Lisinopril 20 MG Tablet PO (22:23)
[2023-01-21] MEDS: APIXABAN 2.5 MG TABLET (WCH) PO (22:24)
[2023-01-21 23:10] VITALS: BP 152/70; PULSE 70; RESP 17; TEMP 36.6; O2SAT 97
[2023-01-22 05:00] VITALS: BP 142/74; PULSE 67; RESP 18; TEMP 36.8; O2SAT 97
[2023-01-22 06:00] VITALS: BMI 16.5
--- NOTE | 2023-01-22 07:51 | PCM.PN.HOSP ---
Reason for Visit Reason for Visit: Diagnoses Encephalopathy, unspecified (01/20/23) Urinary tract infection, site not specified (01/20/23) Weakness (01/20/23) Other malaise (01/20/23) Other specified abnormalities of plasma proteins (01/20/23) Unspecified open wound, unspecified foot, initial encounter (01/20/23) Other specified health status (01/20/23) Subjective Subjective More verbal today. Denies complaints. Objective Data Objective Data Vital Signs: Vital Signs Temp Pulse Resp BP Pulse Ox O2 Del Method 36.8 C 67 18 142/74 H 97 Room Air 01/22/23 05:00 01/22/23 05:00 01/22/23 05:00 01/22/23 05:00 01/22/23 05:00 01/22/23 05:00 Oxygen Delivery Method Room Air Weight: 39.6 kg Body Mass Index (BMI) 16.5 Intake & Output: Intake and Output for Last 24 Hours 01/20/23 01/21/23 01/22/23 23:59 23:59 23:59 Intake Total 1166.67 / 1166.67 Output Total 575 / 935 460 / 460 Balance 591.67 / 231.67 -460 / -460 Medical Nutrition Assessment Dietitian: Malnutrition Criteria Met Start: 01/21/23 13:48 Freq: Status: Active Protocol: Document 01/21/23 13:48 RMA (Rec: 01/21/23 13:48 RMA [id number]) Nutrition Malnutrition Evidence of Malnutrition Exists Yes Malnutrition (severe): Chronic Evidenced By Suboptimal Energy Intake ( Severe),Weight Loss (Severe), Physical Changes (Severe) Intake Problem Increased Nutrient Needs (specify) Etiology for protein related to increased demands for wound healing Signs/Symptoms as evidenced by R buttocks and L heel pressure injuries Status Active Problem Clinical Problem Chronic Disease or Condition Related Malnutrition Etiology Severe protein-calorie malnutrition in the context of chronic disease and debility related to swallowing difficulty and inadequate oral intake Signs/Symptoms as evidenced by BMI 16.6, 5% wt loss x past 6 months, need for mechanically altered food and thickened liquids, severe muscle wasting and fat depletion in the clavicle, arms, legs, orbitals and temporal region and oral intake meeting less than 50% of estimated nutrition needs x past 6 months Status Active Problem Recommendation Dietitian Recommendations/Changes Continue regular (no therapeutic diet restrictions) diet with consistency/texture as per BALANCE TRUING INSPECTOR. Will add Benton BID for wound healing. Will add ensure pudding TID w/ meals as tolerated. Strongly suggest consideration of enteral nutrition support as PO is unlikely to meet estimated nutrition needs, to prevent further weight loss and to promote wound healing. Lab / Micro Data Result Diagrams: 01/21/23 08:15 01/21/23 08:15 Labs: Laboratory Results - last 24 hr 01/21/23 08:15: WBC 6.0, RBC 3.84 L, Hgb 11.3 L, Hct 36.2 L, MCV 94.3, MCH 29.4, MCHC 31.2 L, RDW Std Deviation 52.4 H, RDW Coeff of David 15.1 H, Plt Count 131 L, MPV 10.6, Immature Gran % (Auto) 0.300, Neut % (Auto) 71.7 H, Lymph % (Auto) 18.2 L, Taliaferro % (Auto) 7.8, Eos % (Auto) 1.5, Baso % (Auto) 0.5, Absolute Neuts (auto) 4.3, Absolute Lymphs (auto) 1.10, Nucleated RBC % 0 01/21/23 08:15: Sodium 146 H, Potassium 3.9, Chloride 114 H, Carbon Dioxide 27.0, Anion Gap 5, BUN 19 H, Creatinine 0.49 L, Estim Creat Clear Calc 26.78, Est GFR (MDRD) Af Amer 156, Est GFR (MDRD) Non-Af 129, BUN/Creatinine Ratio 39.1 H, Glucose 100, Calcium 8.6, Total Bilirubin 0.40, AST 45 H, ALT 39, Alkaline Phosphatase 74, Total Protein 6.3 L, Albumin 2.3 L, Globulin 4.0, Albumin/Globulin Ratio 0.6 L Radiography Diagnostic Testing: Radiology Impression Echocardiogram 01/21/23 14:35 Interpretation Summary Normal LV size. Left ventricular systolic function is normal. The estimated ejection fraction is 55 %. The left atrium is mildly enlarged. Mild-Moderate (1-2+) eccentric mitral valve insufficiency. Pulmonary artery systolic pressure is 50 mmHg. Moderate pulmonary hypertension. Compared to previous study, the left ventricular systolic function is the same.. Ordering Physician: Fredy Goodrich Referring Physician: Fuentes Vergara Performed By: Lex Sorto RCS Rhythm Strip Rhythm Strip: Sinus Rhythm Rate: 60 Ectopy: None Physical Exam Const alert and no apparent distress Constitutional Narrative: Tells me that she is fine. Answers other questions appropriately but does not really elaborate. HEENT head/scalp atraumatic and moist oral mucous membranes Resp normal respiratory effort, no retractions, no use of accessory muscles and clear to auscultation bilaterally Cardio regular rate, regular rhythm, S1 normal heart sound and S2 normal heart sound GI normal to inspection, nondistended, normoactive bowel sounds, soft to palpation and non-tender Assessment & Plan Assessment/Plan (1) Encephalopathy: PLAN: Variable. Patient has periods where she is better than others. Looking back through previous records through [facility] she also did this as well. Altered mental status on chronic dementia -Previous CTs of the head suspicious for NPH, present CT overall appears similar reports chronic changes. -Likely exacerbated by UTI -We will treat with Rocephin and will give fluids while she appears mildly volume depleted -Hold memantine as this is likely an helpful in the short-term and patient is altered -Hold donepezil as heart rate somewhat low and this can contribute to bradycardia Through [facility]: head CT 09/19/2022: report showed global volume loss with moderate chronic small vessel ischemic disease. Progress notes from July, August and September mention advanced dementia. [facility] in [facility]. CT 06/05/2022: lateral and 3rd ventricles are enlarged but configuration suggest central white matter volume loss. (2) UTI (urinary tract infection): PLAN: on CTX follow up UCx (previous culture + for Aerococcus viridans) Culture showing mixed specimen. We will DC the ceftriaxone and start Macrobid. (3) Debility: PLAN: PT OT eval and treat (4) Wound of foot: PLAN: Left foot wound -No erythema or active drainage -Foot x-ray demonstrated osteopenia and diffuse vascular calcifications no other abnormality -Wound care consult (5) Elevated troponin: PLAN: troponin peaked at 64. Suspect type II event echo: EF 55%, Moderate PH. PLAN: Plan Chronic conditions: History of atrial fibrillation -On Eliquis chronically, will continue DVT ppx: On Eliquis Disposition: to SNF pending insurance authroization. Charges/Coding Visit Charges Inpatient E&M: 99075 Subs Hosp L2
--- NOTE | 2023-01-22 09:09 | CASEMGMT ---
STEPHAN sent referrals to [facility], and [facility] via [facility]. Await responses. Mary Najera TECHNOLOGY SPECIALIST MARIE
--- NOTE | 2023-01-22 09:14 | CASEMGMT ---
Addendum entered by Mary Najera 01/22/23 09:27: [facility] is reviewing referral. Mary SALAZAR Original Note: [facility] is reviewing referral. [facility] declined patient as they have no availability. Mary SALAZAR
[2023-01-22 10:21] VITALS: BP 137/57; PULSE 55; RESP 18; TEMP 36.8; O2SAT 97
[2023-01-22] MEDS: APIXABAN 2.5 MG TABLET (WCH) PO ×2 (10:21→22:09)
[2023-01-22] MEDS: Aspirin 81 MG TAB.CHEW PO (10:21)
[2023-01-22] MEDS: Juven (unflavored) Packet 1 PACKET PO ×2 (10:22→17:59)
--- NOTE | 2023-01-22 10:44 | CASEMGMT ---
[facility] [place] has skilled beds, but they have a list for their termite helper care. [facility] [place] accepted patient. SW called patient's daughter Jo and left her a voice mail letting her know this information and requesting a return phone call. Mary Najera AREA OPERATIONS DIRECTORAntolin SALAZAR
--- NOTE | 2023-01-22 11:30 | CASEMGMT ---
STEPHAN also called patient's other daughter Brionna and left a message for her with the communications designer. STEPHAN then received a return call from patient's daughter Jo. STEPHAN let Jo know about the 3 facilities they chose. She was going to talk with her sister and they will be in to [facility] soon. Mary SALAZAR
--- NOTE | 2023-01-22 12:47 | CASEMGMT ---
STEPHAN received a phone call from patient's daughter Jo. Jo said they looked at [facility] [place], but there is no outside courtyard to take patient. They are going to tour [facility]. Jo also asked STEPHAN to send a referral to [facility]. STEPHNA said SW will do this. STEPHAN also explained SW needs a facility before the end of the day today as patient is ready for discharge and we still need insurance authorization. Jo said they are doing their best. STEPHAN sent a referral to [facility]. Mary SALAZAR
--- NOTE | 2023-01-22 14:18 | CASEMGMT ---
Addendum entered by Mary Najera 01/22/23 14:25: [facility] accept patient and will start pre-cert. Mary SALAZAR Original Note: SW spoke with patient's daughters and they would like to go with [facility] [place]. Patient's daughter Jo asked about changing patient's [place] to straight Medicare. SW provided her with information on [facility] Health Insurance Information Program. SW asked Fre[facility] at [facility] [place] to please start pre-cert. Plan: [facility] pending insurance approval. Mary SALAZAR
--- NOTE | 2023-01-22 14:21 | CASEMGMT ---
STEPHAN called [facility] and spoke with Lizbeth. STEPHAN let Lizbeth know that patient is going to a different facility at discharge. STEPHAN also called Aimee with [facility] and let her know patient will not be returning to [facility] as she will be going to a different facility. Mary SALAZAR
[2023-01-22 16:45] VITALS: BP 150/71; PULSE 63; RESP 20; TEMP 36.9; O2SAT 97
[2023-01-22 22:03] VITALS: BP 145/71; PULSE 69; RESP 18; TEMP 36.6; O2SAT 95
[2023-01-22] MEDS: Atorvastatin Calcium 10 MG Tablet PO (22:08)
[2023-01-22] MEDS: Lisinopril 20 MG Tablet PO (22:08)
[2023-01-22] MEDS: Nitrofurantoin Macrocrystals 100 MG Capsule PO (22:09)
[2023-01-23] VITALS (8 sets, daily range): BP systolic 128–185; BP diastolic 60–98; PULSE 50–73; RESP 16–18; TEMP 36.4–37.4; O2SAT 93–98; BMI 16.6
[2023-01-23] MEDS: hydrALAZINE 50 MG Tablet PO ×2 (05:02→21:47)
--- NOTE | 2023-01-23 08:21 | PN.HOSP_ITS ---
Reason for Visit Reason for Visit: Diagnoses Encephalopathy, unspecified (01/20/23) Urinary tract infection, site not specified (01/20/23) Weakness (01/20/23) Other malaise (01/20/23) Other specified abnormalities of plasma proteins (01/20/23) Unspecified open wound, unspecified foot, initial encounter (01/20/23) Other specified health status (01/20/23) Subjective Subjective Sleeping. Objective Data Objective Data Vital Signs: Vital Signs Temp Pulse Resp BP Pulse Ox O2 Del Method 37.1 C 72 18 134/78 H 93 Room Air 01/23/23 06:30 01/23/23 06:30 01/23/23 06:30 01/23/23 06:30 01/23/23 06:30 01/23/23 06:30 Oxygen Delivery Method Room Air Weight: 39.9 kg Body Mass Index (BMI) 16.6 Intake & Output: Intake and Output for Last 24 Hours 01/21/23 01/22/23 01/23/23 23:59 23:59 23:59 Intake Total 1166.67 / 1166.67 920 / 920 Output Total 575 / 935 1110 / 1110 650 / 650 Balance 591.67 / 231.67 -190 / -190 -650 / -650 Medical Nutrition Assessment Dietitian: Malnutrition Criteria Met Start: 01/21/23 13:48 Freq: Status: Active Protocol: Document 01/21/23 13:48 RMA (Rec: 01/21/23 13:48 RMA [id number]) Nutrition Malnutrition Evidence of Malnutrition Exists Yes Malnutrition (severe): Chronic Evidenced By Suboptimal Energy Intake ( Severe),Weight Loss (Severe), Physical Changes (Severe) Intake Problem Increased Nutrient Needs (specify) Etiology for protein related to increased demands for wound healing Signs/Symptoms as evidenced by R buttocks and L heel pressure injuries Status Active Problem Clinical Problem Chronic Disease or Condition Related Malnutrition Etiology Severe protein-calorie malnutrition in the context of chronic disease and debility related to swallowing difficulty and inadequate oral intake Signs/Symptoms as evidenced by BMI 16.6, 5% wt loss x past 6 months, need for mechanically altered food and thickened liquids, severe muscle wasting and fat depletion in the clavicle, arms, legs, orbitals and temporal region and oral intake meeting less than 50% of estimated nutrition needs x past 6 months Status Active Problem Recommendation Dietitian Recommendations/Changes Continue regular (no therapeutic diet restrictions) diet with consistency/texture as per BUFFING WHEEL INSPECTOR. Will add Benton BID for wound healing. Will add ensure pudding TID w/ meals as tolerated. Strongly suggest consideration of enteral nutrition support as PO is unlikely to meet estimated nutrition needs, to prevent further weight loss and to promote wound healing. Lab / Micro Data Result Diagrams: 01/21/23 08:15 01/21/23 08:15 Micro: Microbiology 01/20/23 15:30 Urine Catheter - Rivas Urine Culture - Final Mixed Gram Pos & Gram Neg Org Rhythm Strip Rhythm Strip: Sinus Rhythm Rate: 60 Ectopy: None Physical Exam Const Constitutional Narrative: Sleeping with arms crossed on her chest. Did not awake or open her eyes to verbal or tactile stimuli. Resp normal respiratory effort, no retractions, no use of accessory muscles and clear to auscultation bilaterally Cardio regular rate, regular rhythm, S1 normal heart sound and S2 normal heart sound GI normal to inspection, nondistended, normoactive bowel sounds, soft to palpation, non-tender and non-distended Extremity normal to inspection Assessment & Plan Assessment/Plan (1) Encephalopathy: PLAN: Variable. Patient has periods where she is better than others. Looking back through previous records through [facility] she also did this as well. Altered mental status on chronic dementia -Previous CTs of the head suspicious for NPH, present CT overall appears similar reports chronic changes. -Likely exacerbated by UTI -We will treat with Rocephin and will give fluids while she appears mildly volume depleted -Hold memantine as this is likely an helpful in the short-term and patient is altered -Hold donepezil as heart rate somewhat low and this can contribute to bradycardia Through [facility]: head CT 09/19/2022: report showed global volume loss with moderate chronic small vessel ischemic disease. Progress notes from July, August and September mention advanced dementia. Had been hospitalized in a [facility] hospital in July. CT 06/05/2022: lateral and 3rd ventricles are enlarged but configuration suggest central white matter volume loss. (2) UTI (urinary tract infection): PLAN: on CTX follow up UCx (previous culture + for Aerococcus viridans) Culture showing mixed specimen. We will DC the ceftriaxone and start Macrobid. (3) Debility: PLAN: PT OT eval and treat (4) Wound of foot: PLAN: Left foot wound -No erythema or active drainage -Foot x-ray demonstrated osteopenia and diffuse vascular calcifications no other abnormality -Wound care consult (5) Elevated troponin: PLAN: troponin peaked at 64. Suspect type II event echo: EF 55%, Moderate PH. PLAN: Plan Chronic conditions: * History of atrial fibrillation -On Eliquis chronically, will continue DVT ppx: On Eliquis Disposition: to SNF pending insurance authroization. Charges/Coding Visit Charges Inpatient E&M: 42042 Subs Hosp L2
--- NOTE | 2023-01-23 10:02 | TREXTCAR_ITS ---
Diet Diet Order/Speech Therapy: 01/21/23 10:09 Diet: Regular - General Food consistency:: Mechanical (Minced/Moist) Liquid Consistency:: [place]/Mildly Thick Type of Dietary Supplement:: Ensure Pudding TID Is pt able to select menu?: No Diet Comments: No straws, TOTAL FEED to ensure slow rate, meds crushed in Routine Orders/Code Status Code Status: Full Code Wound(s) LEFT HEEL: Wound Type: Pressure Injury Dressing Change: well padded dressing LEFT ABREU: Wound Type: skin tears Dressing Change: Adaptic COCCYX: Wound Type: Pressure Injury right buttock: Wound Type: Pressure Injury Dressing Change: Mepilex Rt elbow: Wound Type: Skin Tear Dressing Change: Adaptic with dry dressing Therapies Weight Bearing: Full weight bearing Physical Therapy: Eval and Treat Occupational Therapy: Eval and Treat Speech Therapy: Eval and Treat Problem/Diagnosis (1) Encephalopathy: Status: Acute Code(s): G93.40 - Encephalopathy, unspecified Plan: Variable. Patient has periods where she is better than others. Looking back through previous records through [facility] she also did this as well. Altered mental status on chronic dementia -Previous CTs of the head suspicious for NPH, present CT overall appears similar reports chronic changes. -Likely exacerbated by UTI -We will treat with Rocephin and will give fluids while she appears mildly volume depleted -Hold memantine as this is likely an helpful in the short-term and patient is altered -Hold donepezil as heart rate somewhat low and this can contribute to bradycardia Through [facility]: head CT 09/19/2022: report showed global volume loss with moderate chronic small vessel ischemic disease. Progress notes from July, August and September mention advanced dementia. Had been hospitalized in a [facility] hospital in July. CT 06/05/2022: lateral and 3rd ventricles are enlarged but configuration suggest central white matter volume loss. (2) UTI (urinary tract infection): Status: Acute Code(s): N39.0 - Urinary tract infection, site not specified Plan: on CTX follow up UCx (previous culture + for Aerococcus viridans) Culture showing mixed specimen. We will DC the ceftriaxone and start Macrobid. (3) Debility: Status: Acute Code(s): R53.81 - Other malaise Plan: PT OT eval and treat (4) Wound of foot: Status: Acute Code(s): S91.309A - Unspecified open wound, unspecified foot, initial encounter Plan: Left foot wound -No erythema or active drainage -Foot x-ray demonstrated osteopenia and diffuse vascular calcifications no other abnormality -Wound care consult (5) Elevated troponin: Status: Acute Code(s): R77.8 - Other specified abnormalities of plasma proteins Plan: troponin peaked at 64. Suspect type II event echo: EF 55%, Moderate PH. Plan Chronic conditions: * History of atrial fibrillation -On Eliquis chronically, will continue DVT ppx: On Eliquis Disposition: to SNF pending insurance authroization. Allergies/Procedures Done in Hospital Allergies No Known Allergies Allergy (Verified 01/20/23 14:10) Type of Care/Length of Stay Estimated LOS: More Than 30 Days Type of Care Needed: Intermediate Rehab Potential: None Prognosis: None Additional Orders/Day of Discharge Day of Discharge: 01/23/23 Dietary and Speech Recommendations Dietitian Recommendations/Changes: Continue regular (no therapeutic diet restrictions) diet with consistency/texture as per TROUBLE SHOOTER. Will add Benton BID for wound healing. Will add ensure pudding TID w/ meals as tolerated. Strongly suggest consideration of enteral nutrition support as PO is unlikely to meet estimated nutrition needs, to prevent further weight loss and to promote wound healing. Discharge Plan Admission Admit Date/Time: 01/20/23 18:43 Primary Reason for Your Visit: encephalopathy Attending Provider: Fredy Goodrich Primary Care Provider: Fuentes Vergara Consulting Providers: Kym Rivera Discharge Orders/Prescriptions Prescriptions: New nitrofurantoin monohyd/m-cryst 100 mg Capsule 100 mg PO BID Qty: 6 0RF Benton (with collagen) 7-7-1.5 gram Powder In Packet 1 packet PO BIDCM Qty: 0 0RF Continued donepezil 10 mg tablet 10 mg PO QHS isosorbide mononitrate 60 mg tablet extended release 24 hr 60 mg PO DAILY Label Comments: TAKE 1 TABLET BY MOUTH TWICE DAILY nitroglycerin 0.4 mg tablet, sublingual 0.4 mg sublingual PRN PRN (Reason: Chest Pain) memantine 10 mg tablet 10 mg PO BID Label Comments: TAKE 1 TABLET BY MOUTH TWICE DAILY ondansetron 1 tab PO/SL Q8 PRN (Reason: Nausea) atorvastatin 10 mg tablet 10 mg PO QHS lisinopril 20 mg tablet 20 mg PO QHS cholecalciferol (vitamin D3) 50 mcg (2,000 unit) Capsule 50 mcg PO DAILY amlodipine 10 mg Tablet 10 mg PO DAILY Qty: 0 0RF hydralazine 50 mg Tablet 50 mg PO 4X/DAY Qty: 0 0RF aspirin 81 mg Tablet 81 mg PO DAILY Eliquis 5 mg tablet 2.5 mg PO BID venlafaxine [Effexor XR] 75 mg Capsule,Extended Release 24hr 75 mg PO DAILY Referrals / Follow Up: Fuentes Vergara MD [Primary Care Provider] - Within 2 Weeks Disposition Disposition (needs filled in before D/C Order can be placed): [facility]
[2023-01-23] MEDS: Nitrofurantoin Macrocrystals 100 MG Capsule PO ×2 (12:01→21:21)
[2023-01-23] MEDS: Aspirin 81 MG TAB.CHEW PO (12:01)
[2023-01-23] MEDS: APIXABAN 2.5 MG TABLET (WCH) PO ×2 (12:01→21:21)
[2023-01-23] MEDS: amLODIPine 10 MG Tablet PO (14:28)
[2023-01-23] MEDS: Isosorbide Mononitrate 60 MG Tablet PO (14:28)
[2023-01-23] MEDS: Lisinopril 20 MG Tablet PO (21:21)
[2023-01-23] MEDS: Atorvastatin Calcium 10 MG Tablet PO (21:21)
[2023-01-24 04:05] VITALS: BP 162/68; PULSE 54; RESP 16; TEMP 36.4; O2SAT 98
[2023-01-24 04:22] VITALS: BMI 16.5
[2023-01-24 06:18] VITALS: BP 137/82; PULSE 50; RESP 15; TEMP 36.4; O2SAT 98
[2023-01-24 08:27] VITALS: PULSE 50
[2023-01-24] MEDS: Juven (unflavored) Packet 1 PACKET PO (08:27)
[2023-01-24] MEDS: APIXABAN 2.5 MG TABLET (WCH) PO (08:27)
[2023-01-24] MEDS: Aspirin 81 MG TAB.CHEW PO (08:27)
[2023-01-24] MEDS: Venlafaxine XR 75 MG Capsule PO (08:27)
[2023-01-24] MEDS: hydrALAZINE 50 MG Tablet PO ×2 (08:27→13:40)
[2023-01-24] MEDS: amLODIPine 10 MG Tablet PO (08:28)
[2023-01-24] MEDS: Isosorbide Mononitrate 60 MG Tablet PO (08:28)
[2023-01-24] MEDS: Nitrofurantoin Macrocrystals 100 MG Capsule PO (08:28)
--- NOTE | 2023-01-24 09:01 | CASEMGMT ---
STEPHAN spoke with Freida at [facility] and she has not heard from insurance. STEPHAN will send updates to [facility]. Mary Najera RESEARCH MICROBIOLOGIST MARIE
--- NOTE | 2023-01-24 09:05 | PN.HOSP_ITS ---
Reason for Visit Reason for Visit: Diagnoses Encephalopathy, unspecified (01/20/23) Urinary tract infection, site not specified (01/20/23) Weakness (01/20/23) Other malaise (01/20/23) Other specified abnormalities of plasma proteins (01/20/23) Unspecified open wound, unspecified foot, initial encounter (01/20/23) Other specified health status (01/20/23) Subjective Subjective Non verbal. Objective Data Objective Data Vital Signs: Vital Signs Temp Pulse Resp BP Pulse Ox O2 Del Method 36.4 C L 50 L 15 137/82 H 98 Room Air 01/24/23 06:18 01/24/23 08:27 01/24/23 06:18 01/24/23 06:18 01/24/23 06:18 01/24/23 06:18 Oxygen Delivery Method Room Air Weight: 39.8 kg Body Mass Index (BMI) 16.5 Intake & Output: Intake and Output for Last 24 Hours 01/22/23 01/23/23 01/24/23 23:59 23:59 23:59 Intake Total 920 / 920 440 / 440 Output Total 1110 / 1110 1300 / 1300 250 / 250 Balance -190 / -190 -860 / -860 -250 / -250 Medical Nutrition Assessment Dietitian: Malnutrition Criteria Met Start: 01/21/23 13:48 Freq: Status: Active Protocol: Document 01/21/23 13:48 RMA (Rec: 01/21/23 13:48 RMA [id number]) Nutrition Malnutrition Evidence of Malnutrition Exists Yes Malnutrition (severe): Chronic Evidenced By Suboptimal Energy Intake ( Severe),Weight Loss (Severe), Physical Changes (Severe) Intake Problem Increased Nutrient Needs (specify) Etiology for protein related to increased demands for wound healing Signs/Symptoms as evidenced by R buttocks and L heel pressure injuries Status Active Problem Clinical Problem Chronic Disease or Condition Related Malnutrition Etiology Severe protein-calorie malnutrition in the context of chronic disease and debility related to swallowing difficulty and inadequate oral intake Signs/Symptoms as evidenced by BMI 16.6, 5% wt loss x past 6 months, need for mechanically altered food and thickened liquids, severe muscle wasting and fat depletion in the clavicle, arms, legs, orbitals and temporal region and oral intake meeting less than 50% of estimated nutrition needs x past 6 months Status Active Problem Recommendation Dietitian Recommendations/Changes Continue regular (no therapeutic diet restrictions) diet with consistency/texture as per PROCESSING SPECIALIST. Will add Benton BID for wound healing. Will add ensure pudding TID w/ meals as tolerated. Strongly suggest consideration of enteral nutrition support as PO is unlikely to meet estimated nutrition needs, to prevent further weight loss and to promote wound healing. Lab / Micro Data Result Diagrams: 01/21/23 08:15 01/21/23 08:15 Micro: Microbiology 01/20/23 14:57 Blood Culture (Wb) - Left Hand Blood Culture - Preliminary No growth in 48 hours. 01/20/23 14:25 Blood Culture (Wb) - Anticubital Right Blood Culture - Preliminary No growth in 48 hours. 01/20/23 15:30 Urine Catheter - Rivas Urine Culture - Final Mixed Gram Pos & Gram Neg Org Rhythm Strip Rhythm Strip: Sinus Rhythm Rate: 60 Ectopy: None Physical Exam Const Constitutional Narrative: Opens eyes and establishes eye contact but does not speak to me today. Resp normal respiratory effort, no retractions, no use of accessory muscles and clear to auscultation bilaterally Cardio regular rate, regular rhythm, S1 normal heart sound and S2 normal heart sound GI normal to inspection, nondistended, normoactive bowel sounds, soft to palpation, non-tender and non-distended Assessment & Plan Assessment/Plan (1) Encephalopathy: PLAN: Variable. Patient has periods where she is better than others. Looking back through previous records through [facility] she also did this as well. Altered mental status on chronic dementia -Previous CTs of the head suspicious for NPH, present CT overall appears similar reports chronic changes. -Likely exacerbated by UTI -We will treat with Rocephin and will give fluids while she appears mildly volume depleted -Hold memantine as this is likely an helpful in the short-term and patient is altered -Hold donepezil as heart rate somewhat low and this can contribute to bradycardia Through [facility]: head CT 09/19/2022: report showed global volume loss with moderate chronic small vessel ischemic disease. Progress notes from July, August and September mention advanced dementia. Had been hospitalized in a [facility] hospital in July. CT 06/05/2022: lateral and 3rd ventricles are enlarged but configuration suggest central white matter volume loss. (2) UTI (urinary tract infection): PLAN: on CTX follow up UCx (previous culture + for Aerococcus viridans) Culture showing mixed specimen. We will DC the ceftriaxone and start Macrobid. (3) Debility: PLAN: PT OT eval and treat (4) Wound of foot: PLAN: Left foot wound -No erythema or active drainage -Foot x-ray demonstrated osteopenia and diffuse vascular calcifications no other abnormality -Wound care consult (5) Elevated troponin: PLAN: troponin peaked at 64. Suspect type II event echo: EF 55%, Moderate PH. PLAN: Plan Chronic conditions: * History of atrial fibrillation -On Eliquis chronically, will continue DVT ppx: On Eliquis Disposition: to SNF
[2023-01-24 11:48] VITALS: BP 154/70; PULSE 50; RESP 18; TEMP 36.7; O2SAT 98
--- NOTE | 2023-01-24 12:11 | CASEMGMT ---
Patient was denied by insurance for skilled level of care. Patient will go on her Medicaid. STEPHAN called patient's daughter Jo and let her know this information. Jo is in the process of changing patient's insurance from [employer] to [employer]. STEPHAN explained that February 09 when patient switches to [address] can try and skill patient. STEPHAN let Jo know patient will go today. Jo thanked STEPHAN for letting her know. STEPHAN will obtain a level of care from [facility] since patient is changing facilities. Mary Najera POLICE RECORDS CLERKAntolin SALAZAR
--- NOTE | 2023-01-24 12:35 | CASEMGMT ---
SW sent all necessary information to [facility] to obtain a level of care. Mary Najera SOURCING COORDINATOR MARIE
--- NOTE | 2023-01-24 13:36 | CASEMGMT ---
Saúl's rose marie pad is at [facility]. STEPHAN called [facility] and spoke with Amrik. STEPHAN let Amrik know that their rose marie pad is on Progressive Care Unit. Amrik said he will send someone today vs tomorrow to pick it up. STEPHAN notified community youth secretary. Mary Najera MARBLE MASON MARIE
[2023-01-24 13:40] VITALS: BP 122/68; PULSE 55
--- NOTE | 2023-01-24 13:59 | DS.PCM_ITS ---
Providers Date of Admission: 01/20/23 Primary Care Physician: Dr. Fuentes Vergara MD Consultations 01/20/23 22:17 Consult: Onc/Wound/complaint evaluation supervisor Routine Comment: Reason for Consult:: left heel ulcer Reason For Visit: AMS Diagnosis Discharge Diagnosis (1) Encephalopathy: Status: Acute Code(s): G93.40 - Encephalopathy, unspecified Plan: Variable. Patient has periods where she is better than others. Looking back through previous records through [facility] she also did this as well. Altered mental status on chronic dementia -Previous CTs of the head suspicious for NPH, present CT overall appears similar reports chronic changes. -Likely exacerbated by UTI -We will treat with Rocephin and will give fluids while she appears mildly volume depleted -Hold memantine as this is likely an helpful in the short-term and patient is altered -Hold donepezil as heart rate somewhat low and this can contribute to bradycardia Through [facility]: head CT 09/19/2022: report showed global volume loss with moderate chronic small vessel ischemic disease. Progress notes from July, August and September mention advanced dementia. Had been hospitalized in a [facility] in July. CT 06/05/2022: lateral and 3rd ventricles are enlarged but configuration suggest central white matter volume loss. (2) UTI (urinary tract infection): Status: Acute Code(s): N39.0 - Urinary tract infection, site not specified Plan: on CTX follow up UCx (previous culture + for Aerococcus viridans) Culture showing mixed specimen. We will DC the ceftriaxone and start Macrobid. (3) Debility: Status: Acute Code(s): R53.81 - Other malaise Plan: PT OT eval and treat (4) Wound of foot: Status: Acute Code(s): S91.309A - Unspecified open wound, unspecified foot, initial encounter Plan: Left foot wound -No erythema or active drainage -Foot x-ray demonstrated osteopenia and diffuse vascular calcifications no other abnormality -Wound care consult (5) Elevated troponin: Status: Acute Code(s): R77.8 - Other specified abnormalities of plasma proteins Plan: troponin peaked at 64. Suspect type II event echo: EF 55%, Moderate PH. Plan Chronic conditions: * History of atrial fibrillation -On Eliquis chronically, will continue DVT ppx: On Eliquis Disposition: to SNF Medications at Discharge Home Medications donepezil 10 mg tablet 10 mg PO QHS alzheimers 07/06/22 isosorbide mononitrate 60 mg tablet,extended release 24 hr 60 mg PO DAILY heart 07/06/22 memantine 10 mg tablet 10 mg PO BID alzheimers 07/06/22 nitroglycerin 0.4 mg sublingual tablet 0.4 mg sublingual PRN PRN Chest Pain 07/06/22 ondansetron 1 tab PO/SL Q8 PRN Nausea 07/06/22 atorvastatin 10 mg tablet 10 mg PO QHS 12/01/22 cholecalciferol (vitamin D3) 50 mcg (2,000 unit) capsule 50 mcg PO DAILY 12/01/22 lisinopril 20 mg tablet 20 mg PO QHS 12/01/22 amlodipine 10 mg tablet 10 mg PO DAILY #0 tabs 12/05/22 hydralazine 50 mg tablet 50 mg PO 4X/DAY #0 tabs 12/05/22 apixaban 5 mg tablet (Eliquis) 2.5 mg PO BID 01/20/23 aspirin 81 mg tablet 81 mg PO DAILY 01/20/23 venlafaxine 75 mg capsule,extended release 24 hr (Effexor XR) 75 mg PO DAILY 01/20/23 arginine 7 gram-glutam 7 gram-CaHMB 1.5 [id number] oral pwd pkt (Benton (with collagen)) 1 packet PO BIDCM #0 ea 01/23/23 nitrofurantoin monohydrate/macrocrystals 100 mg capsule 100 mg PO BID #6 caps 01/23/23 Hospital Course Operations None Procedures None Summary of Care Provided Hospital Course: 82-year-old female presents with confusion. Patient has a history of dementia. CAT scan was concerning for NPH but findings appear similar to prior images. Patient also has a prior history of dementia diagnosed at outside hospitals. Patient's mental status waxes and wanes but overall she has been nonverbal for the most part during her hospitalization. Patient had a urinary tract infection that was polymicrobial. Patient was changed over to Macrobid to complete through the . Family was upset with prior shelter and requested another. Try to get insurance authorization for the but denied by insurance for skilled care. She will go on Medicaid. It took several days to get this denial. Medical Records Data Medical Nutrition Assessment Dietitian: Malnutrition Criteria Met Start: 01/21/23 13:48 Freq: Status: Active Protocol: Document 01/21/23 13:48 RMA (Rec: 01/21/23 13:48 RMA [id number]) Nutrition Malnutrition Evidence of Malnutrition Exists Yes Malnutrition (severe): Chronic Evidenced By Suboptimal Energy Intake ( Severe),Weight Loss (Severe), Physical Changes (Severe) Intake Problem Increased Nutrient Needs (specify) Etiology for protein related to increased demands for wound healing Signs/Symptoms as evidenced by R buttocks and L heel pressure injuries Status Active Problem Clinical Problem Chronic Disease or Condition Related Malnutrition Etiology Severe protein-calorie malnutrition in the context of chronic disease and debility related to swallowing difficulty and inadequate oral intake Signs/Symptoms as evidenced by BMI 16.6, 5% wt loss x past 6 months, need for mechanically altered food and thickened liquids, severe muscle wasting and fat depletion in the clavicle, arms, legs, orbitals and temporal region and oral intake meeting less than 50% of estimated nutrition needs x past 6 months Status Active Problem Recommendation Dietitian Recommendations/Changes Continue regular (no therapeutic diet restrictions) diet with consistency/texture as per BANANA EXPERT. Will add Benton BID for wound healing. Will add ensure pudding TID w/ meals as tolerated. Strongly suggest consideration of enteral nutrition support as PO is unlikely to meet estimated nutrition needs, to prevent further weight loss and to promote wound healing. Weight / BMI Weight Weight: 39.8 kg Body Mass Index (BMI) 16.5 ABG / Lab / Microbiology Data Result Diagrams: 01/21/23 08:15 01/21/23 08:15 Microbiology: Microbiology 01/20/23 14:57 Blood Culture (Wb) - Left Hand Blood Culture - Preliminary No growth in 48 hours. 01/20/23 14:25 Blood Culture (Wb) - Anticubital Right Blood Culture - Preliminary No growth in 48 hours. 01/20/23 15:30 Urine Catheter - Rivas Urine Culture - Final Mixed Gram Pos & Gram Neg Org Meaningful Use Info Meaningful Use Diagnoses (Choose all that apply): None applicable Discharge Plan Admission Admit Date/Time: 01/20/23 18:43 Primary Reason for Your Visit: encephalopathy Attending Provider: Fredy Goodrich Primary Care Provider: Fuentes Vergara Consulting Providers: Kym Rivera Discharge Orders/Prescriptions Prescriptions: New nitrofurantoin monohyd/m-cryst 100 mg Capsule 100 mg PO BID Qty: 6 0RF Benton (with collagen) 7-7-1.5 gram Powder In Packet 1 packet PO BIDCM Qty: 0 0RF Continued donepezil 10 mg tablet 10 mg PO QHS isosorbide mononitrate 60 mg tablet extended release 24 hr 60 mg PO DAILY Label Comments: TAKE 1 TABLET BY MOUTH TWICE DAILY nitroglycerin 0.4 mg tablet, sublingual 0.4 mg sublingual PRN PRN (Reason: Chest Pain) memantine 10 mg tablet 10 mg PO BID Label Comments: TAKE 1 TABLET BY MOUTH TWICE DAILY ondansetron 1 tab PO/SL Q8 PRN (Reason: Nausea) atorvastatin 10 mg tablet 10 mg PO QHS lisinopril 20 mg tablet 20 mg PO QHS cholecalciferol (vitamin D3) 50 mcg (2,000 unit) Capsule 50 mcg PO DAILY amlodipine 10 mg Tablet 10 mg PO DAILY Qty: 0 0RF hydralazine 50 mg Tablet 50 mg PO 4X/DAY Qty: 0 0RF aspirin 81 mg Tablet 81 mg PO DAILY Eliquis 5 mg tablet 2.5 mg PO BID venlafaxine [Effexor XR] 75 mg Capsule,Extended Release 24hr 75 mg PO DAILY Referrals / Follow Up: Fuentes Vergara MD [Primary Care Provider] - Within 2 Weeks Disposition Disposition (needs filled in before D/C Order can be placed): Detention Facility Charges/Coding Visit Charges Inpatient E&M: 74894 Disch Hosp
--- NOTE | 2023-01-24 15:03 | CASEMGMT ---
STEPHAN received a message from Heather at [facility]. Heather said patient has had a [facility] admission and she will need the PASRR and further review information that the long term received from the psych unit. STEPHAN called [facility] and patient came to them 10-17-22 from [facility]. The PASRR SW had was from 07-15-22 and patient was sent to [facility] ([facility]). STEPHAN called [facility] and spoke with Kristen regarding patient. Patient was at [facility] from 07-15-22 to 07-27-22 at which time she was discharged home with her daughter. [facility] then got a call from [facility] and [facility] re-admitted patient from 08-06 to 09-06 at which time patient was sent to [facility]. STEPHAN asked Kristen to send STEPHAN the PASRR and further review information they received from the psych unit. Kristen will find the documents in [facility] records and send to STEPHAN. STEPHAN placed a call to [facility] and left a message requesting a return call. STEPHAN called Heather at [facility] and left her a message letting her know STEPHAN is working on obtaining this information. Mary Najera COMMITTEE MEMBER MEDICAL BILLING AND CODING SPECIALIST
--- NOTE | 2023-01-24 16:36 | CASEMGMT ---
STEPHAN spoke with Heather at [facility]. She gave SW the phone number to [facility] to obtain the PASRR and further review. STEPHAN called Asmita at [facility] and she emailed the information to STEPHAN. STEPHAN spoke with Meggan at [facility] and patient was never with them. SW reviewed the PASRR that was emailed to STEPHAN and it was [facility]. STEPHAN called Alisson at [facility] and patient came to them from [facility] 09-13-22 to 10-17. 10-17 she was discharged to [facility]. SW forwarded the PASRR's and reviews to Hetaher at [facility]. SW also called her and gave her the timeline for patient's admissions to the various nursing homes. STEPHAN called Phys[facility] and arranged for patient to get picked up at [facility] via cot. STEPHAN called patient's daughter Brionna 2 time with no answer or voice mail. STEPHAN called patient's other daughter Jo and left her a voice mail with clam picker time. Jo then called STEPHAN back and STEPHAN told her this information. RN, office secretary, and Freida at [facility] were updated. SW received level of care and it was forwarded to Freida [facility] via [facility] and a copy was also placed in patient's chart. Plan: d/c to [facility] under intermediate level of care. Physicians will transport via cot. Mary SALAZAR
--- NOTE | 2023-01-24 16:57 | NURSING ---
attempt to call report to [facility] twice. No answer.
--- NOTE | 2023-01-24 17:26 | NURSING ---
report called to Jaci KINCAID at the [facility]. Transport in room with pt at this time.
== END 2023-01-24 17:32 | disposition skilled nursing facility (03) | DRG 689 ==
LOC: ED 17:15 → PCU 18:57
PROVIDERS: Admitting Provider Internal Medicine; Emergency Provider Emergency Medicine; PCP Family Medicine
DX: N39.0 Urinary tract infection, site not specified (principal); L89.622 Pressure ulcer of left heel, stage 2; E43 Unspecified severe protein-calorie malnutrition; F03.90 Unspecified dementia, unspecified severity, without behavioral disturbance, psychotic disturbance, mood disturbance, and anxiety; I48.91 Unspecified atrial fibrillation; I21.A1 Myocardial infarction type 2; G93.41 Metabolic encephalopathy; Z68.1 Body mass index [BMI] 19.9 or less, adult; I10 Essential (primary) hypertension; E78.5 Hyperlipidemia, unspecified; I25.10 Atherosclerotic heart disease of native coronary artery without angina pectoris; R53.81 Other malaise; R29.6 Repeated falls; R62.7 Adult failure to thrive; Z95.5 Presence of coronary angioplasty implant and graft; Z79.01 Long term (current) use of anticoagulants; Z79.82 Long term (current) use of aspirin; Z79.899 Other long term (current) drug therapy; Z87.891 Personal history of nicotine dependence
CPT/HCPCS: 36415; 51702; 70450; 71045; 73630; 80053; 81001; 83605; 84484; 85025; 85610; 85730; 87040; 87086; 87088; 87426; 92526; 92610; 93005; 93306; 94668; 96361; 96365; 96366; 96367; 97162; 97166; 97530; 97535; 97802; 99221; 99252; 99285; J7030; J7040; J7120; A4216; G0378; G0463

== ENCOUNTER 2023-07-02 04:08 | Emergency (ER) | payer MEDICARE, MEDICAID, SELFPAY ==
[2023-07-02 04:10] VITALS: BP 100/69; PULSE 65; RESP 17; TEMP 36.6; O2SAT 96; BMI 19.2
--- NOTE | 2023-07-02 04:26 | CT_ITS ---
STUDY: CT BRAIN WITHOUT CONTRAST REASON FOR EXAM: Female, 82 years old. Fall RADIATION DOSAGE (If Supplied By Facility): CTDIvol = ( 44.99 ) mGy, DLP = ( 829.85 ) mGycm TECHNIQUE: Transaxial CT imaging of the brain was performed without administration of intravenous contrast material. Individualized dose optimization techniques were used for this CT. COMPARISON: January 20, 2023 FINDINGS: Normal soft tissue structures. Normal calvarium. There is calcification of the bilateral vertebral arteries. There is calcification of the bilateral cavernous carotid arteries. There is mild cerebral atrophy with widening of the extra-axial spaces and ventricular dilatation. There are areas of decreased attenuation within the white matter tracts of the supratentorial brain, consistent with microvascular disease changes. There are small punctate calcifications of the basal ganglia which are seen in the aging brain as a normal variant. Normal brainstem. There is mild cerebellar atrophy. There is no intracranial hemorrhage. There are no findings of an acute ischemic infarction. Normal visualized paranasal sinuses. There is chronic appearing right side depression of the zygomatic arch. CT/Brain/Head without Contrast IMPRESSION: Mild atrophy no visualized acute hemorrhage infarct or edema or significant change since the prior study. Electronically Signed: Apolonia Espinoza MD at 5:13 EDT Reading Location ID and State: [facility] / [place] Tel , Service support ,
--- NOTE | 2023-07-02 04:34 | ED.VIS.FALL ---
HPI HPI - Fall History of Present Illness Chief Complaint: Fall Informant: patient, EMS and SNF Narrative Narrative: Patient presents around 4 AM after a fall, found on the floor next to her bed at the long-term she resides in. Apparently nursing who gave report stated they had seen her in bed about half an hour before this, so it had not been long. She is nonambulatory at baseline and has dementia, alert and oriented to person only and at baseline according to EMS report from nurses. Patient denies having any pain anywhere. She is on Eliquis and a full code. According to nursing at the long-term, they were not suspicious of her having any significant injury, but sent her due to daughter's request. [facility] Medical History A-fib Acute kidney injury Afib Anemia Congestive heart failure Coronary artery disease Dementia Hip fracture, left History of dementia History of fall Hyperlipidemia Hypertension Impaired ambulation Malnutrition Protein calorie malnutrition Home Medications donepezil 10 mg tablet 10 mg PO QHS alzheimers 07/06/22 [History Last Taken 07/06/22] isosorbide mononitrate 60 mg tablet,extended release 24 hr 60 mg PO DAILY heart 07/06/22 [History Last Taken 07/06/22] memantine 10 mg tablet 10 mg PO BID alzheimers 07/06/22 [History Last Taken 07/06/22] nitroglycerin 0.4 mg sublingual tablet 0.4 mg sublingual PRN PRN Chest Pain 07/06/22 [History Last Taken Unknown] atorvastatin 10 mg tablet 10 mg PO QHS 12/01/22 [History Last Taken Unknown] cholecalciferol (vitamin D3) 50 mcg (2,000 unit) capsule 50 mcg PO DAILY 12/01/22 [History Last Taken Unknown] lisinopril 20 mg tablet 20 mg PO QHS 12/01/22 [History Last Taken Unknown] amlodipine 10 mg tablet 10 mg PO DAILY #0 tabs 12/05/22 [Rx Last Taken Unknown] apixaban 5 mg tablet (Eliquis) 2.5 mg PO BID 01/20/23 [History Last Taken Unknown] venlafaxine 75 mg capsule,extended release 24 hr (Effexor XR) 75 mg PO DAILY 01/20/23 [History Last Taken Unknown] buspirone 7.5 mg tablet 7.5 mg PO TID 07/02/23 [History Last Taken Unknown] escitalopram oxalate 10 mg tablet 10 mg PO DAILY 07/02/23 [History Last Taken Unknown] hydralazine 50 mg tablet 50 mg PO TID 07/02/23 [History Last Taken Unknown] Allergy/AdvReac Type Severity Reaction Status Date / Time No Known Allergies Allergy Verified 07/02/23 04:21 Family History Other CVA (cerebral vascular accident) Hypertension Surgical History History of hip surgery Stented coronary artery Social History Smoking Status: Former smoker ROS ROS ED Review of Systems ROS Unobtainable: other Details: Very limited ROS due to dementia Cardiovascular Cardiovascular: Denies chest pain Respiratory/Chest Respiratory/Chest: Denies dyspnea Gastrointestinal Gastrointestinal: Denies abdominal pain or nausea Musculoskeletal Musculoskeletal: Denies back pain or neck pain Neurologic Neurologic: Denies headache(s) EXAM Physical Exam Const Vital Signs: 07/02/23 04:10 07/02/23 04:16 Temperature 97.8 F Temperature Source Temporal Pulse Rate 65 Respiratory Rate 17 Blood Pressure 100/69 Blood Pressure Mean 79 Pulse Ox 96 Oxygen Delivery Method Room Air Room Air Positive well nourished and well developed General Appearance ED: well developed and NAD HEENT Reports TM's clear and nasal mucous membranes and turbinates normal atraumatic Face and Sinus: Negative for facial tenderness Tympanic Membrane ED: Yes TM's clear Eyes PERRL and EOMs intact bilaterally Visual Acuity: other Other Details: no entrapment or pain with extraocular movements Neck full ROM and supple General: Negative for tenderness Chest Wall inspection of chest normal and palpation of chest normal Chest: symmetrical chest wall rise; Negative for crepitus or tenderness Resp normal respiratory effort and clear to auscultation bilaterally Percussion: other equal BS bilat Cardio Rate: regular rate Rhythm: regular rhythm GI normal to inspection, nondistended, normoactive bowel sounds, soft to palpation and non-tender Back/Spine normal ROM Cervical Spine: Negative for cervical spine tenderness Thoracic Spine / Upper Back: Negative for thoracic spinal tenderness Lumbar Spine / Lower Back: Negative for lumbar spinal tenderness Extremity normal to inspection and full ROM Extremity Narrative: No reproducible tenderness, all joints ranged without any pain times all 4 extremities. There is a minor abrasion in the right lateral pelvis, proximal to the hip, there is no tenderness there. General Extremety ED: Negative for tenderness Neuro CN's II-XII intact bilaterally, moves all extremities, no focal motor deficits and no sensory deficits noted Neuro Narrative: Keenly alert. Laughing, giggling, normal speech, confused but at baseline mental status see above. Rachel Coma Scale: document GCS findings Spontaneous Obeys Commands Oriented 15 Sensorium / Orientation: awake, alert, oriented to person and orientation impaired Skin no wounds Lesions: no lesions Rashes: no rashes Trauma: abrasion MDM MDM MDM Narrative Medical decision making narrative: She does not have any signs of head trauma, and denies a headache right now but she is anticoagulated and was sent to CT to rule out subdural hematoma no other signs of injury. It is negative. The rest of her exam is very benign, I do not think she needs any other emergent studies or imaging right now, plan [facility] Radiography Diagnostic Testing: Clinical Impression(s) from Imaging Studies Brain CT 07/02/23 04:26 IMPRESSION: Mild atrophy no visualized acute hemorrhage infarct or edema or significant change since the prior study. Electronically Signed: Apolonia Espinoza MD at 5:13 EDT Reading Location ID and State: [address] [place] [address] Tel , Service support , My interpretation of the CT agrees with that of the radiologist. Discharge Plan Triage Chief Complaint: Fall ED Provider: Gopi Toribio Dx/Rx/DC Orders Clinical Impression: Accidental fall from bed Instructions: ED Mechanical Fall Prescriptions: No Action donepezil 10 mg tablet 10 mg PO QHS isosorbide mononitrate 60 mg tablet extended release 24 hr 60 mg PO DAILY Patient Comments: TAKE 1 TABLET BY MOUTH TWICE DAILY nitroglycerin 0.4 mg tablet, sublingual 0.4 mg sublingual PRN PRN (Reason: Chest Pain) memantine 10 mg tablet 10 mg PO BID Patient Comments: TAKE 1 TABLET BY MOUTH TWICE DAILY atorvastatin 10 mg tablet 10 mg PO QHS lisinopril 20 mg tablet 20 mg PO QHS cholecalciferol (vitamin D3) 50 mcg (2,000 unit) Capsule 50 mcg PO DAILY amlodipine 10 mg Tablet 10 mg PO DAILY Qty: 0 0RF Eliquis 5 mg tablet 2.5 mg PO BID venlafaxine [Effexor XR] 75 mg Capsule,Extended Release 24hr 75 mg PO DAILY buspirone 7.5 mg tablet 7.5 mg PO TID escitalopram oxalate 10 mg tablet 10 mg PO DAILY hydralazine 50 mg Tablet 50 mg PO TID Stand Alone Forms: ED Work / School Excuse Primary Care Provider: Fuentes Vergara Referrals: Fuentes Vergara MD [Primary Care Provider] - As Needed Activity Restrictions/Additional Instructions: Head CT negative, no other evidence of injury. Disposition Disposition: Shelter Facility
--- NOTE | 2023-07-02 05:29 | ED.RN ---
Report called to the [facility].
== END 2023-07-02 05:30 | disposition skilled nursing facility (03) ==
PROVIDERS: Emergency Provider Emergency Medicine; PCP Family Medicine; Visit Provider Emergency Medicine
DX: S70.211A Abrasion, right hip, initial encounter (principal); F03.90 Unspecified dementia, unspecified severity, without behavioral disturbance, psychotic disturbance, mood disturbance, and anxiety; I11.0 Hypertensive heart disease with heart failure; I50.9 Heart failure, unspecified; I48.91 Unspecified atrial fibrillation; I25.10 Atherosclerotic heart disease of native coronary artery without angina pectoris; E78.5 Hyperlipidemia, unspecified; Z79.899 Other long term (current) drug therapy; Z79.01 Long term (current) use of anticoagulants; W19.XXXA Unspecified fall, initial encounter; Z95.5 Presence of coronary angioplasty implant and graft; Z87.891 Personal history of nicotine dependence
CPT/HCPCS: 70450; 99284

== ENCOUNTER 2023-09-28 23:59 | Inpatient (IN) | payer MEDICARE, MEDICAID, SELFPAY ==
[2023-09-29] VITALS (20 sets, daily range): BP systolic 102–139; BP diastolic 50–82; PULSE 83–114; RESP 18–28; TEMP 36.1–37.5; O2SAT 96–99; BMI 16.2; BMI 15.7
--- NOTE | 2023-09-29 00:11 | EKG12_ITS ---
Test Reason : DYSRHYTHMIA Blood Pressure : / mmHG Vent. Rate : 106 BPM Atrial Rate : 111 BPM P-R Int : 208 ms QRS Dur : 082 ms QT Int : 322 ms P-R-T Axes : 091 065 236 degrees QTc Int : 427 ms Sinus tachycardia T wave abnormality, consider inferolateral ischemia Abnormal ECG Confirmed by NICOLETTE HANKINS, MACIE ([id number]), market editor GENNY MONAE ([id number]) on 10/02/2023 12:42:36 PM Referred By: Confirmed By:MACIE WILL MD
--- NOTE | 2023-09-29 00:15 | ED.VIS.GI ---
HPI HPI - GI History of Present Illness Chief Complaint: GI Bleed Informant: EMS, SNF and other Narrative Narrative: The patient presents with bright red blood per rectum. This sounds like she has had some episodes today but I do not know if it was going on prior. She evidently has not been eating drinking is as active the last few days. She evidently is bedbound. All motion and lifting is with a Schuyler lift. She has dementia and she is not able to add to her history or review of systems at all. She is reportedly at her baseline mentally right now. This note was generated with [employer] software. It may contain incorrect words, spelling, and punctuation that were not noted in review of the chart prior to signing. [facility] Medical History (Updated 09/29/23 @ 03:[address] Clifton Og MD) Acute kidney injury Afib Anemia Congestive heart failure Coronary artery disease Dementia Hip fracture, left History of dementia History of fall Hyperlipidemia Hypertension Impaired ambulation Malnutrition Protein calorie malnutrition Home Medications isosorbide mononitrate 60 mg tablet,extended release 24 hr 60 mg PO DAILY heart 07/06/22 [History Last Taken 09/28/23] memantine 10 mg tablet 10 mg PO BID alzheimers 07/06/22 [History Last Taken 09/28/23] nitroglycerin 0.4 mg sublingual tablet 0.4 mg sublingual PRN PRN Chest Pain 07/06/22 [History Last Taken Unknown] atorvastatin 10 mg tablet 10 mg PO QHS 12/01/22 [History Last Taken 09/28/23] cholecalciferol (vitamin D3) 50 mcg (2,000 unit) capsule 50 mcg PO DAILY 12/01/22 [History Last Taken 09/28/23] lisinopril 20 mg tablet 20 mg PO QHS 12/01/22 [History Last Taken 09/28/23] amlodipine 10 mg tablet 10 mg PO DAILY #0 tabs 12/05/22 [Rx Last Taken 09/28/23] apixaban 5 mg tablet (Eliquis) 2.5 mg PO BID 01/20/23 [History Last Taken 09/28/23] venlafaxine 75 mg capsule,extended release 24 hr (Effexor XR) 75 mg PO DAILY 01/20/23 [History Last Taken 09/28/23] hydralazine 50 mg tablet 50 mg PO TID 07/02/23 [History Last Taken 09/28/23] divalproex 125 mg tablet,delayed release 125 mg PO TID 09/29/23 [History Last Taken 09/28/23] Allergy/AdvReac Type Severity Reaction Status Date / Time No Known Allergies Allergy Verified 09/29/23 00:00 Family History Other CVA (cerebral vascular accident) Hypertension Surgical History History of hip surgery Stented coronary artery Social History Smoking Status: Former smoker ROS ROS ED ROS Narrative Please see history of present illness. Due to patient's mental status dementia I am not able to get any useful review of systems other than that which is presented in the history initially. EXAM Physical Exam Narrative Exam Narrative: CONSTITUTIONAL: Patient is nontoxic in appearance. The patient looks comfortable. Not look notably pale. HEENT: No notable trauma. Mucous membranes moist. No sinus tenderness. No indication of pain with swallowing. EYES: No conjunctival injection. Was are both quite small at a millimeter or less. Left does almost look slightly smaller. Her conjunctive a does not look notably pale. CARDIOVASCULAR: Regular rate. Regular rhythm appears to be in atrial fibrillation on the monitor. No notable murmur. No JVD. RESPIRATORY: No respiratory distress. Breathing is unlabored. No wheezes. No rhonchi. No rales. No pain with a deep breath. Rations are normal at 96% on room air. GASTROINTESTINAL: Not distended. Bowel sounds are normal. No tenderness. No guarding. No rebound. No palpable mass. No bruit. GENITOURINARY: No tenderness over the bladder. No CVA tenderness. Overall benign abdomen. She does have signs of what is likely a cholecystectomy scar from the past in the right upper quadrant. She also has signs of a small scar near remnants of the umbilicus. MUSCULOSKELETAL: Atraumatic. No peripheral edema. No cord. NEUROLOGICAL: Patient is alert and was to recognize her name. I cannot get her to answer any significant questions. SKIN: No noted rashes. No diaphoresis. No notable pallor. PSYCHIATRIC: Patient is calm. Mood is appropriate. Const Vital Signs: 09/29/23 00:00 09/29/23 01:58 09/29/23 02:08 Temperature 97 F L 97 F L Temperature Source Temporal Temporal Pulse Rate 97 102 H 102 H Respiratory Rate 28 H 21 H 27 H Blood Pressure 115/65 122/70 H 117/67 Blood Pressure Mean 81 87 83 Pulse Ox 96 97 97 Oxygen Delivery Method Room Air Room Air Room Air MDM MDM MDM Narrative Medical decision making narrative: Patient does not have a fever. She does have a elevated white count. She has elevated lactate. Some of this may be due to his significant dehydration. But I have added IV fluids. We are adding blood cultures and antibiotics. I note that her bladder is large on her CT. We will do a cath UA as I am concerned for possibility of UTI. Further physical with nurse in attendance shows a darker brown slightly liquid stool but no gross blood. I did send off Hemoccult. But it is not black stool either. CBC shows a high white count at 39.4. Mild elevation in hemoglobin is 16.4 likely due to dehydration and hemoconcentration. Patient's electrolytes show slightly high sodium at 147. She has an acute kidney injury with creatinine of 2.55 and a BUN of 90. This creatinine is about 5 times her baseline of 0.5. By reports she has not been eating or drinking much for the last few days. Liver function test are not showing any marked abnormalities. Lactic acid is high at 5.9. Renal was grossly dark and almost purulent. Final UA is pending. But clinically this appears to be UTI. My independent interpretation of the patient's CT of the abdomen shows no sign of acute process. Her bladder did look somewhat large on the scan. Final reading is pending. Final reading shows no acute process but does show stone up in the kidney. Other changes as recorded. [place] with the patient's decreased p.o. intake, worsening weakness, high white count, acute kidney injury, elevated lactate, grossly infected urine she will be admitted. Her Hemoccult did come back positive but she is grossly negative for any blood and her hemoglobin is not dropped. With the patient's elevated lactate white count and signs of infection we will give her 30 cc/kg. This is just under 1500 cc due to her overall low weight. Lab Data Attestation: I reviewed the patient's lab results. Labs: Laboratory Results - last 24 hr 09/29/23 09/29/23 00:46 02:51 WBC 39.4 H* RBC 5.70 H Hgb 16.4 H Hct 54.0 H MCV 94.7 MCH 28.8 MCHC 30.4 L RDW Std Deviation 54.0 H RDW Coeff of David 15.5 H Plt Count 272 MPV 12.0 Immature Gran % (Auto) 1.000 H Neut % (Auto) 90.1 H Lymph % (Auto) 2.1 L [place] % (Auto) 6.4 Eos % (Auto) 0.0 Baso % (Auto) 0.4 Absolute Neuts (auto) 35.5 H Absolute Lymphs (auto) 0.82 L Nucleated RBC % 0 Differential Comment SCANNED Diff Path Review March Sodium 147 H Potassium 3.9 Chloride 113 H Carbon Dioxide 21.0 Anion Gap 13 BUN 90 H Creatinine 2.55 H Estim Creat Clear Calc 11.43 Est GFR (MDRD) Af Amer 23 L Est GFR (MDRD) Non-Af 19 L BUN/Creatinine Ratio 35.3 H Glucose 156 H Lactic Acid 5.9 H* Calcium 10.7 H Total Bilirubin 0.30 AST 48 H ALT 28 Alkaline Phosphatase 107 Total Protein 8.7 H Albumin 3.5 Globulin 5.2 H Albumin/Globulin Ratio 0.7 L Urine Color Brown Urine Clarity Turbid Urine pH 5.0 Ur Specific [place] 1.020 Urine Protein 100 H Urine Glucose (UA) Normal Urine Ketones 5 H Urine Occult Blood 250 H Urine Nitrite Positive H Urine Bilirubin 1 H Urine Urobilinogen 1 H Ur Leukocyte Esterase 500 H Blood Type A NEGATIVE Antibody Screen POSITIVE Radiography Diagnostic Testing: Clinical Impression(s) from Imaging Studies Abdomen/Pelvis CT 09/29/23 00:39 IMPRESSION: 1. 3.5 mm nonobstructing calyceal calculus at the posterior aspect of the right lower renal pole. 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 2. Otherwise, no acute or inflammatory disease or bowel obstruction. Electronically Signed: Richi Miller MD at 2:45 EST , EKG Initial EKG: Comments: My independent interpretation of the patient's EKG shows sinus rhythm with tachycardic rate at 106. This does appear to be sinus rhythm occasional PAC. No PVCs. Nonspecific ST and T wave change but no sign of acute infarction. DC interval is long showing slight first-degree AV block. QRS duration and QTc are normal. Management Discussion w/another healthcare provider: Hospitalist Discharge Plan Triage Chief Complaint: GI Bleed ED Provider: Clifton Og Dx/Rx/DC Orders Clinical Impression: KURT (acute kidney injury), Urinary tract infection, Leukocytosis, Acidosis, lactic Prescriptions: No Action isosorbide mononitrate 60 mg tablet extended release 24 hr 60 mg PO DAILY Patient Comments: TAKE 1 TABLET BY MOUTH TWICE DAILY nitroglycerin 0.4 mg tablet, sublingual 0.4 mg sublingual PRN PRN (Reason: Chest Pain) memantine 10 mg tablet 10 mg PO BID Patient Comments: TAKE 1 TABLET BY MOUTH TWICE DAILY atorvastatin 10 mg tablet 10 mg PO QHS lisinopril 20 mg tablet 20 mg PO QHS cholecalciferol (vitamin D3) 50 mcg (2,000 unit) Capsule 50 mcg PO DAILY amlodipine 10 mg Tablet 10 mg PO DAILY Qty: 0 0RF Eliquis 5 mg tablet 2.5 mg PO BID venlafaxine [Effexor XR] 75 mg Capsule,Extended Release 24hr 75 mg PO DAILY hydralazine 50 mg Tablet 50 mg PO TID divalproex 125 mg tablet,delayed release (DR/EC) 125 mg PO TID Primary Care Provider: Fuentes Vergara Referrals: Fuentes Vergara MD [Primary Care Provider] -
--- NOTE | 2023-09-29 00:39 | CT_ITS ---
EXAM: CT ABDOMEN AND PELVIS WITHOUT INTRAVENOUS CONTRAST CLINICAL INDICATION: pain TECHNIQUE: Helically acquired images were obtained of the abdomen and pelvis without intravenous contrast. CTDIvol = ( 6.37 ) mGy, DLP = ( 295.29 ) mGycm This CT exam was performed using one or more of the following dose reduction techniques: automated exposure control, adjustment of the mA and/or kV according to patient size, and/or use of iterative reconstruction technique. COMPARISON: No relevant prior studies available. FINDINGS: LOWER THORAX: See below. ABDOMEN: LIVER: Unremarkable. Homogeneous. GALLBLADDER AND BILE DUCTS: Prior cholecystectomy. No intra- or extrahepatic biliary ductal dilation. PANCREAS: Unremarkable. No focal cystic mass. SPLEEN: Unremarkable. Normal size without focal cystic or solid mass. ADRENALS: Unremarkable. No nodules. KIDNEYS AND URETERS: 3.5 mm nonobstructing calyceal calculus at the posterior aspect of the right lower renal pole. 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 No other renal abnormalities. STOMACH AND BOWEL: Unremarkable. No focal inflammatory change. No inflammatory or obstructive changes of bowel. PELVIS: APPENDIX: No evidence of acute appendicitis. BLADDER: Bladder is distended and otherwise unremarkable. REPRODUCTIVE: Unremarkable as visualized. No adnexal masses. ABDOMEN and PELVIS: INTRAPERITONEAL SPACE: Unremarkable. No free air or free fluid. BONES/JOINTS: Status post ORIF of both hips with no hardware complications or failure. Degenerative changes pelvis and spine. No unusual lytic or sclerotic lesions of bone. Specifically, no acute or healing fracture or malalignment. SOFT TISSUES: Unremarkable. No discrete abdominal or pelvic wall hernia. VASCULATURE: Multivessel calcific coronary arteriolosclerosis. No aortic aneurysm. LYMPH NODES: Unremarkable. No enlarged lymph nodes. CT/Abdomen/Pelvis without Cont IMPRESSION: 1. 3.5 mm nonobstructing calyceal calculus at the posterior aspect of the right lower renal pole. 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 2. Otherwise, no acute or inflammatory disease or bowel obstruction. Electronically Signed: Richi Miller MD at 2:45 EST ,
[2023-09-29 01:05] LABS: Absolute Lymphocyte Count 0.82 X10^3/uL (0.83-4.51); Absolute Neutrophil Count 35.5 X10^3/uL (2.0-7.7); Basophil# 0.14 X10^3/uL; Basophil% 0.4 % (0-1); Eosinophil# 0.01 X10^3/uL; Hemoglobin 16.4 g/dL (12.0-15.0); Lymphocyte # 0.82 X10^3/ul (0.83-4.51); Lymphocyte % 2.1 % (19-41); Mean Corp Hgb Conc 30.4 g/dL (32-36); Mean Corpuscular Hgb 28.8 pg (27.0-32.0); Mean Corpuscular Volume 94.7 fL (81-99); Monocyte% 6.4 % (0-10); NRBC Flagged by Analyzer 0 % (0-5); Neutrophil % 90.1 % (47-70); POSITIVE COUNT YES; POSITIVE DIFFERENTIAL YES; Platelet Count 272 K/mm3 (150-450); RBC Distribution Width CV 15.5 % (11.6-14.6)
[2023-09-29 01:08] LABS: Differential Indicated SCAN CRITERIA MET; White Blood Count 39.4 K/mm3 (4.4-11.0)
[2023-09-29 01:41] LABS: ALB/GLOB Ratio 0.7 RATIO (0.9-2.4); AST(SGOT) 48 U/L (15-37); Alanine Aminotransfer ALT/SGPT 28 U/L (13-56); Albumin, Serum 3.5 g/dL (3.2-5.0); Alkaline Phosphatase 107 U/L (45-117); Anion Gap 13 (5-15); BUN 90 mg/dL (7-18); BUN/Creat Ratio 35.3 RATIO (10-20); Calcium,Total 10.7 mg/dL (8.5-10.1); Chloride 113 mmol/L (98-107); Creatinine, Serum 2.55 mg/dL (0.55-1.02); EST Glomerular Filtration Rate 19 mL/min (>60); Est Glom Filt Rate - Afr Amer 23 mL/min (>60); Estimated Creatinine Clearance 11.43 ml/min; Globulin 5.2 g/dL (2.2-4.2); Glucose 156 mg/dL (74-106); Potassium 3.9 mmol/L (3.5-5.1); Protein, Total 8.7 g/dL (6.4-8.2); Sodium Level 147 mmol/L (136-145)
[2023-09-29 01:58] LABS: Lactic Acid 5.9 mmol/L (0.4-1.9)
[2023-09-29] MEDS: 0.9% Normal Saline (1000mL) 1,000 ML 999 ML IV (02:07)
--- NOTE | 2023-09-29 02:08 | ED.RN ---
PT DIFFICULT ACCESS, IV WILL NOT DRAW, LAB CALLED FOR BLOOD.
[2023-09-29 02:26] LABS: Differential Comment SCANNED
[2023-09-29 03:02] LABS: Mucous, Urine 0 SEEN /hpf (<or=2+)
[2023-09-29] MEDS: Ceftriaxone 1 GM/50 ML BAG IV ×2 (03:03→20:51)
[2023-09-29 03:08] LABS: Color, Urine Brown (Yellow); Glucose, Dipstick Normal (Normal); Ketone-Dipstick 5 mg/dl (Negative); Leukocyte Esterase-Dipstick 500 /ul (Negative); Nitrite-Dipstick Positive (Negative); Occult Blood-Urine 250 /ul (Negative); Protein-Dipstick 100 mg/dl (Negative); Urine Clarity Turbid (Clear); Urine Urobilinogen 1 mg/dl (Normal)
[2023-09-29 03:13] LABS: Urine Bilirubin Dipstick 1 mg/dL (Negative)
[2023-09-29 03:16] LABS: Bacteria 4+ /hpf (None Seen); Red Blood Cells-Urine > 100 SEEN /hpf (0-5); Squamous Epithelial Cells - UA 5-10 SEEN /hpf (5-10); White Blood Cells >100 SEEN /hpf (0-5)
--- NOTE | 2023-09-29 04:15 | PCM.HP.STD ---
HPI - General General Date of Admission: 09/29/23 Date of Service: 09/29/23 Chief Complaint: anorexia HPI Narrative HENRI GRIFFIN, is a 83 F with a significant history of dementia who lives at [facility] presenting because she is not eating nor drinking. Further, reportedly patient has had bright red blood per rectum. Per emergency department doctor who did rectal exams patient stool was brown with no gross blood. However occult blood returned positive. [facility] Medical History Acute kidney injury Afib Anemia Congestive heart failure Coronary artery disease Dementia Hip fracture, left History of dementia History of fall Hyperlipidemia Hypertension Impaired ambulation Malnutrition Protein calorie malnutrition Home Medications isosorbide mononitrate 60 mg tablet,extended release 24 hr 60 mg PO DAILY heart 07/06/22 [History Last Taken 09/28/23] memantine 10 mg tablet 10 mg PO BID alzheimers 07/06/22 [History Last Taken 09/28/23] nitroglycerin 0.4 mg sublingual tablet 0.4 mg sublingual PRN PRN Chest Pain 07/06/22 [History Last Taken Unknown] atorvastatin 10 mg tablet 10 mg PO QHS 12/01/22 [History Last Taken 09/28/23] cholecalciferol (vitamin D3) 50 mcg (2,000 unit) capsule 50 mcg PO DAILY 12/01/22 [History Last Taken 09/28/23] lisinopril 20 mg tablet 20 mg PO QHS 12/01/22 [History Last Taken 09/28/23] amlodipine 10 mg tablet 10 mg PO DAILY #0 tabs 12/05/22 [Rx Last Taken 09/28/23] apixaban 5 mg tablet (Eliquis) 2.5 mg PO BID 01/20/23 [History Last Taken 09/28/23] venlafaxine 75 mg capsule,extended release 24 hr (Effexor XR) 75 mg PO DAILY 01/20/23 [History Last Taken 09/28/23] hydralazine 50 mg tablet 50 mg PO TID 07/02/23 [History Last Taken 09/28/23] divalproex 125 mg tablet,delayed release 125 mg PO TID 09/29/23 [History Last Taken 09/28/23] Allergy/AdvReac Type Severity Reaction Status Date / Time No Known Allergies Allergy Verified 09/29/23 00:00 Family History Other CVA (cerebral vascular accident) Hypertension Surgical History History of hip surgery Stented coronary artery Social History Smoking Status: Former smoker ROS ROS Narrative Pertinent positives and pertinent negatives as noted in HPI. All other systems were reviewed and are negative Vital Signs Vital Signs Vital Signs: 09/29/23 00:00 09/29/23 01:58 09/29/23 02:08 Temperature 97 F L 97 F L Temperature Source Temporal Temporal Pulse Rate 97 102 H 102 H Respiratory Rate 28 H 21 H 27 H Blood Pressure 115/65 122/70 H 117/67 Blood Pressure Mean 81 87 83 Pulse Ox 96 97 97 Oxygen Delivery Method Room Air Room Air Room Air Weight Weight: 44.1 kg Body Mass Index (BMI) 16.2 Physical Exam Narrative Physical exam: General: Cachectic, lying in bed in a position. Head: Normocephalic, atraumatic. Eyes: Vision is grossly intact. EOMI ENT: Poor dentition. Does not open mouth wide enough for inspection. Neck: Nontender, No thyromegaly. CVS: Tachycardia and rhythm. S1-S2 present. No murmur, gallop or rub. Respiratory : Diminished breathing, chest wall nontender Abdomen: Soft, nontender, nondistended, normal bowel sounds, no masses : Deferred Back: Nontender, no CVA tenderness. Extremities: Nontender full range of motion, no trauma Skin: Normal color, no trauma, abrasions Neuro: Alert, confused Psychiatry: Normal mood. Normal affect. Results Lab / Micro Data 09/29/23 00:46 09/29/23 00:46 Labs: Laboratory Results - last 24 hr 09/29/23 00:46: WBC 39.4 H*, RBC 5.70 H, Hgb 16.4 H, Hct 54.0 H, MCV 94.7, MCH 28.8, MCHC 30.4 L, RDW Std Deviation 54.0 H, RDW Coeff of David 15.5 H, Plt Count 272, MPV 12.0, Immature Gran % (Auto) 1.000 H, Neut % (Auto) 90.1 H, Lymph % (Auto) 2.1 L, [place] % (Auto) 6.4, Eos % (Auto) 0.0, Baso % (Auto) 0.4, Absolute Neuts (auto) 35.5 H, Absolute Lymphs (auto) 0.82 L, Nucleated RBC % 0, Differential Comment SCANNED, Diff Path Review March, Sodium 147 H, Potassium 3.9, Chloride 113 H, Carbon Dioxide 21.0, Anion Gap 13, BUN 90 H, Creatinine 2.55 H, Estim Creat Clear Calc 11.43, Est GFR (MDRD) Af Amer 23 L, Est GFR (MDRD) Non-Af 19 L, BUN/Creatinine Ratio 35.3 H, Glucose 156 H, Lactic Acid 5.9 H*, Calcium 10.7 H, Total Bilirubin 0.30, AST 48 H, ALT 28, Alkaline Phosphatase 107, Total Protein 8.7 H, Albumin 3.5, Globulin 5.2 H, Albumin/Globulin Ratio 0.7 L, Blood Type A NEGATIVE, Antibody Screen POSITIVE 09/29/23 02:51: Urine Color Brown, Urine Clarity Turbid, Urine pH 5.0, Ur Specific [place] 1.020, Urine Protein 100 H, Urine Glucose (UA) Normal, Urine Ketones 5 H, Urine Occult Blood 250 H, Urine Nitrite Positive H, Urine Bilirubin 1 H, Urine Urobilinogen 1 H, Ur Leukocyte Esterase 500 H, Urine RBC > 100 SEEN, Urine WBC >100 SEEN, Ur Squamous Epith Cells 5-10 SEEN, Urine Bacteria 4+, Urine Mucus 0 SEEN Micro: Microbiology 09/29/23 02:10 Stool Stool Occult Blood (CHERELLE) - Final Occult Blood Positive Imagaing Radiology Impression Abdomen/Pelvis CT 09/29/23 00:39 IMPRESSION: 1. 3.5 mm nonobstructing calyceal calculus at the posterior aspect of the right lower renal pole. 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 2. Otherwise, no acute or inflammatory disease or bowel obstruction. Electronically Signed: Richi Miller MD at 2:45 EST , Assessment & Plan Assessment/Plan (1) Acidosis, lactic: (2) Leukocytosis: QUALIFIERS: Leukocytosis type: unspecified Qualified Code(s): D72.829 - Elevated white blood cell count, unspecified (3) KURT (acute kidney injury): (4) Septic shock: (5) Septic shock: PLAN: Plan The patient presented with sepsis due to (UTI) with acute sepsis related organ dysfunction as evidenced by (kurt with creanine more than ). SIRS criteria: Temperature more than 100.9 Fahrenheit or less than 96.8 Fahrenheit Respiratory rate more than 20 (highest 28 for patient) Heart rate more than 90 (highest 102 for patients) WBC of 39,400 organ dysfunction: SBP less than 90 or MAP less than 65. Lactic acid of 5.9. Creatinine of 2.55 with baseline of around 0.6. Receive IV fluids by septic shock protocol. Trend lactic acid. Urinalysis abnormal. Started on ceftriaxone. Follow urine culture and blood culture. Dehydration Patient with elevated BUN and creatinine. Also with elevated sodium and chloride. Maintenance normal saline hydration ordered. Positive occult stools Stopped Eliquis. Protonix ordered. Debility/failure to thrive Continue treatment for UTI and then can consider PT, OT and speech. DVT prophylaxis: SCDs ordered. Sepsis Attestation Sepsis Alert: Yes Sepsis Attestation: Agree w/Sepsis Date exam was performed: 09/29/23 Time exam was performed: 05:00 Possible Source of Sepsis: Genitourinary Fluid Resuscitation Fluid resuscitation indicated?: Yes Charges/Coding Visit Charges Inpatient E&M: 93741 Init Hosp L3
[2023-09-29 04:55] LABS: Reflex Lactate? Y
[2023-09-29] MEDS: 0.9% Normal Saline (500mL Bag) 500 ML 999 ML IV (05:55)
[2023-09-29 06:51] LABS: Absolute Lymphocyte Count 0.69 X10^3/uL (0.83-4.51); Absolute Neutrophil Count 23.2 X10^3/uL (2.0-7.7); Basophil% 0.4 % (0-1); Eosinophil# 0.01 X10^3/uL; Hematocrit 39.7 % (37-47); Hemoglobin 11.3 g/dL (12.0-15.0); Lymphocyte # 0.69 X10^3/ul (0.83-4.51); Lymphocyte % 2.7 % (19-41); Mean Corp Hgb Conc 28.5 g/dL (32-36); Mean Corpuscular Hgb 29.4 pg (27.0-32.0); Mean Corpuscular Volume 103.1 fL (81-99); Monocyte# 1.83 X10^3/uL; NRBC Flagged by Analyzer 0 % (0-5); Neutrophil # 23.17 X10^3/uL (2.7-7.7); Neutrophil % 89.2 % (47-70); POSITIVE DIFFERENTIAL YES; Platelet Count 137 K/mm3 (150-450); RBC Distribution Width CV 15.4 % (11.6-14.6); RBC Distribution Width SD 58.7 fl (35.1-43.9); Red Blood Count 3.85 M/mm3 (4.2-5.4)
[2023-09-29 06:53] LABS: Differential Indicated SCAN CRITERIA MET
[2023-09-29] MEDS: 0.9% Normal Saline (1000mL) 1,000 ML 75 ML IV ×2 (07:04→19:23)
[2023-09-29 07:27] LABS: Lactic Acid 1.8 mmol/L (0.4-1.9)
[2023-09-29 07:30] LABS: Anion Gap 8 (5-15); BUN 70 mg/dL (7-18); Calcium,Total 7.1 mg/dL (8.5-10.1); Chloride 126 mmol/L (98-107); Creatinine, Serum 1.32 mg/dL (0.55-1.02); EST Glomerular Filtration Rate 41 mL/min (>60); Est Glom Filt Rate - Afr Amer 49 mL/min (>60); Estimated Creatinine Clearance 21.44 ml/min; Glucose 98 mg/dL (74-106); Sodium Level 153 mmol/L (136-145)
--- NOTE | 2023-09-29 07:36 | PN.HOSP_ITS ---
Reason for Visit Reason for Visit: Diagnoses Sepsis, unspecified organism (09/29/23) Elevated white blood cell count, unspecified (09/29/23) Acidosis, unspecified (09/29/23) Acute kidney failure, unspecified (09/29/23) Severe sepsis with septic shock (09/29/23) Subjective Subjective Awake but minimally verbal. Does not respond to any my questions, including telling her name. Was able to tell nursing pretty clearly to get away from her. But otherwise, has been just been very confused. Objective Data Objective Data Vital Signs: Vital Signs Temp Pulse Resp BP Pulse Ox O2 Del Method 36.2 C L 90 25 H 114/55 L 96 Room Air 09/29/23 06:15 09/29/23 06:45 09/29/23 06:45 09/29/23 06:45 09/29/23 06:45 09/29/23 06:45 Oxygen Delivery Method Room Air Weight: 42.8 kg Body Mass Index (BMI) 15.7 Intake & Output: Intake and Output for Last 24 Hours 09/27/23 09/28/23 09/29/23 23:59 23:59 23:59 Intake Total 1550 / 1550 Output Total 550 / 550 Balance 1000 / 1000 Lab / Micro Data 09/29/23 06:40 09/29/23 06:40 Labs: Laboratory Results - last 24 hr 09/29/23 00:46: WBC 39.4 H*, RBC 5.70 H, Hgb 16.4 H, Hct 54.0 H, MCV 94.7, MCH 28.8, MCHC 30.4 L, RDW Std Deviation 54.0 H, RDW Coeff of David 15.5 H, Plt Count 272, MPV 12.0, Immature Gran % (Auto) 1.000 H, Neut % (Auto) 90.1 H, Lymph % (Auto) 2.1 L, [place] % (Auto) 6.4, Eos % (Auto) 0.0, Baso % (Auto) 0.4, Absolute Neuts (auto) 35.5 H, Absolute Lymphs (auto) 0.82 L, Nucleated RBC % 0, Differential Comment SCANNED, Diff Path Review March, Sodium 147 H, Potassium 3.9, Chloride 113 H, Carbon Dioxide 21.0, Anion Gap 13, BUN 90 H, Creatinine 2.55 H, Estim Creat Clear Calc 11.43, Est GFR (MDRD) Af Amer 23 L, Est GFR (MDRD) Non-Af 19 L, BUN/Creatinine Ratio 35.3 H, Glucose 156 H, Lactic Acid 5.9 H*, Calcium 10.7 H, Total Bilirubin 0.30, AST 48 H, ALT 28, Alkaline Phosphatase 107, Total Protein 8.7 H, Albumin 3.5, Globulin 5.2 H, Albumin/Globulin Ratio 0.7 L, Blood Type A NEGATIVE, Antibody Screen POSITIVE 09/29/23 02:51: Urine Color Brown, Urine Clarity Turbid, Urine pH 5.0, Ur Specific [place] 1.020, Urine Protein 100 H, Urine Glucose (UA) Normal, Urine Ketones 5 H, Urine Occult Blood 250 H, Urine Nitrite Positive H, Urine Bilirubin 1 H, Urine Urobilinogen 1 H, Ur Leukocyte Esterase 500 H, Urine RBC > 100 SEEN, Urine WBC >100 SEEN, Ur Squamous Epith Cells 5-10 SEEN, Urine Bacteria 4+, Urine Mucus 0 SEEN 09/29/23 06:40: WBC 26.0 H, RBC 3.85 L, Hgb 11.3 L, Hct 39.7, MCV 103.1 H D, MCH 29.4, MCHC 28.5 L D, RDW Std Deviation 58.7 H, RDW Coeff of David 15.4 H, Plt Count 137 L, MPV 11.0, Immature Gran % (Auto) 0.700, Neut % (Auto) 89.2 H, Lymph % (Auto) 2.7 L, [place] % (Auto) 7.0, Eos % (Auto) 0.0, Baso % (Auto) 0.4, Absolute Neuts (auto) 23.2 H, Absolute Lymphs (auto) 0.69 L, Nucleated RBC % 0, Sodium 153 H, Potassium 3.0 L, Chloride 126 H, Carbon Dioxide 19.0 L, Anion Gap 8, BUN 70 H, Creatinine 1.32 H, Estim Creat Clear Calc 21.44, Est GFR (MDRD) Af Amer 49 L, Est GFR (MDRD) Non-Af 41 L, BUN/Creatinine Ratio 53.0 H, Glucose 98, Lactic Acid 1.8, Calcium 7.1 L Micro: Microbiology 09/29/23 02:10 Stool Stool Occult Blood (CHERELLE) - Final Occult Blood Positive Radiography Diagnostic Testing: Radiology Impression Abdomen/Pelvis CT 09/29/23 00:39 IMPRESSION: 1. 3.5 mm nonobstructing calyceal calculus at the posterior aspect of the right lower renal pole. 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 2. Otherwise, no acute or inflammatory disease or bowel obstruction. Electronically Signed: Richi Miller MD at 2:45 EST , Physical Exam Const no apparent distress Orientation / Consciousness: confused HEENT head/scalp atraumatic and moist oral mucous membranes Eyes PERRL Resp normal respiratory effort, no retractions, no use of accessory muscles and clear to auscultation bilaterally Cardio regular rate, regular rhythm, S1 normal heart sound and S2 normal heart sound GI normal to inspection, nondistended, normoactive bowel sounds Extremity normal to inspection Neuro moves all extremities and no focal motor deficits Sensorium / Orientation: awake Assessment & Plan Assessment/Plan (1) Sepsis: PLAN: POA: SIRS 4/4 (see Dr. Hicks's note for criteria) plus organ dysfunctio n complicated by organ dysfunction with KURT. qSOFA on admission of 2 with encephalopathy and RR of 28. 2/2 UTI. Received 2 liters of IVF yesterday. Blood and urine cultures pending No documented hypotension to substantiate septic shock The admitting physician consulted [facility]. [facility] has not seen. Being the patient does not require critical care management at this time, we will discontinue the consult. (2) Urinary tract infection: QUALIFIERS: Hematuria presence: without hematuria Urinary tract infection type: acute cystitis Qualified Code(s): N30.00 - Acute cystitis w ithout hematuria PLAN: Unclear organism. On CTX. Adjust abx accordingly to final culture results. (3) Leukocytosis: QUALIFIERS: Leukocytosis type: unspecified Qualified Code(s): D72.829 - Elevated white blood cell count, unspecified PLAN: 2/2 above. Dramatic elevation on admission, but improving. Continue to monitor. (4) KURT (acute kidney injury): PLAN: Likely prerenal from dehydration. Improved with IVF. Monitor Hold lisinopril (5) GI bleed: PLAN: Noted rectal bleeding with heme positive stools. Hemoglobin dropped, but I do not suspect that this is due to the GI bleed, but at least a component of dehydration with hemoconcentration as her current hemoglobin is consistent with her chronic levels. Monitor for now. Hold apixaban (6) Debility: PLAN: PT OT eval and treat (7) Encephalopathy: PLAN: Metabolic secondary to sepsis, UTI in a patient with dementia. Supportive management Avoid potentiating medications. Patient unable to swallow safely at this time. Speech therapy to evaluate. PLAN: Plan Chronic medical conditions: * Dementia, afib, HFpEF, HTN, HLP: complicate care and recovery. Continue home medications as able VTE prophylaxis: SCDs ordered. Charges/Coding Visit Charges Inpatient E&M: 65102 [facility] Hosp L3
[2023-09-29 08:53] LABS: Differential Comment SCANNED
[2023-09-29] MEDS: CHLORHEXIDINE GLUC 2% CLOTH 1 EACH TOWELETTE TOPICAL (10:45)
[2023-09-29] MEDS: 0.9% Normal Saline (250mL Bag) 250 ML 15 ML IV (11:31)
[2023-09-29] MEDS: Potassium Chloride 10mEq/100mL 10 MEQ/100 ML IV.SOLN. 100 MEQ IV BOLUS ×4 (11:51→15:32)
[2023-09-29] MEDS: Menthol/Lanolin/Calamine/Znox 113 GM Tube 1 APPLIC TOPICAL ×2 (13:06→20:50)
[2023-09-30] VITALS (12 sets, daily range): BP systolic 93–150; BP diastolic 44–77; PULSE 82–115; RESP 14–22; TEMP 37–37.7; O2SAT 96–99; BMI 16.1
[2023-09-30] MEDS: Menthol/Lanolin/Calamine/Znox 113 GM Tube 1 APPLIC TOPICAL ×3 (05:27→20:32)
[2023-09-30 06:14] LABS: Anion Gap 6 (5-15); BUN 63 mg/dL (7-18); BUN/Creat Ratio 63.9 RATIO (10-20); Calcium,Total 8.7 mg/dL (8.5-10.1); Chloride 130 mmol/L (98-107); Creatinine, Serum 0.99 mg/dL (0.55-1.02); EST Glomerular Filtration Rate 57 mL/min (>60); Est Glom Filt Rate - Afr Amer 69 mL/min (>60); Estimated Creatinine Clearance 29.38 ml/min; Glucose 88 mg/dL (74-106); Potassium 4.1 mmol/L (3.5-5.1); Sodium Level 157 mmol/L (136-145)
[2023-09-30] MEDS: 0.9% Normal Saline (1000mL) 1,000 ML 75 ML IV (06:53)
[2023-09-30] MEDS: Dextrose 5%-Water (1000mL Bag) 1,000 ML 75 ML IV ×2 (07:50→20:33)
[2023-09-30 08:33] LABS: Absolute Lymphocyte Count 1.01 X10^3/uL (0.83-4.51); Absolute Neutrophil Count 24.7 X10^3/uL (2.0-7.7); Basophil# 0.15 X10^3/uL; Basophil% 0.5 % (0-1); Differential Indicated SCAN CRITERIA MET; Eosinophil# 0.02 X10^3/uL; Eosinophils% 0.1 % (0-5); Hematocrit 46.9 % (37-47); Lymphocyte # 1.01 X10^3/ul (0.83-4.51); Lymphocyte % 3.7 % (19-41); Mean Corp Hgb Conc 29.9 g/dL (32-36); Mean Corpuscular Hgb 28.9 pg (27.0-32.0); Mean Corpuscular Volume 96.7 fL (81-99); Mean Platelet Vol. 12.6 fl (6.2-12.0); Monocyte# 1.37 X10^3/uL; NRBC Flagged by Analyzer 0 % (0-5); Neutrophil # 24.74 X10^3/uL (2.7-7.7); Neutrophil % 89.8 % (47-70); POSITIVE DIFFERENTIAL YES; Platelet Count 161 K/mm3 (150-450); RBC Distribution Width CV 15.7 % (11.6-14.6); RBC Distribution Width SD 56.1 fl (35.1-43.9); Red Blood Count 4.85 M/mm3 (4.2-5.4); White Blood Count 27.5 K/mm3 (4.4-11.0)
--- NOTE | 2023-09-30 09:11 | PN.HOSP_ITS ---
Subjective Subjective No issues overnight. Not really responding to verbal stimuli though she is alert Objective Data Objective Data Vital Signs: Vital Signs Temp Pulse Resp BP Pulse Ox O2 Del Method 98.6 F 87 18 150/57 H 98 Room Air 09/30/23 08:00 09/30/23 08:00 09/30/23 08:00 09/30/23 08:00 09/30/23 08:00 09/30/23 08:00 Oxygen Delivery Method Room Air Weight: 97 lb 0.054 oz Body Mass Index (BMI) 16.1 Intake & Output: Intake and Output for Last 24 Hours 09/29/23 09/30/23 10/01/23 03:59 03:59 03:59 Intake Total 50 / 50 2880.25 / 2880.25 935.0 / 935.0 Output Total 1000 / 1000 450 / 450 Balance 50 / 50 1880.25 / 1880.25 485.0 / 485.0 Medical Nutrition Assessment Dietitian: Malnutrition Criteria Met Start: 09/29/23 09:25 Freq: Status: Active Protocol: Document 09/29/23 09:26 (Rec: 09/29/23 09:26 [id number]) Nutrition Malnutrition Evidence of Malnutrition Exists Yes Malnutrition (severe): Chronic Evidenced By Suboptimal Energy Intake ( Severe),Physical Changes ( Severe) Clinical Problem Chronic Disease or Condition Related Malnutrition Etiology severe chronic malnutrition related to inadequate energy intake Signs/Symptoms as evidenced by estimated PO intake meeting <50% of estimated energy needs> 3 months, Severe muscle wasting/ fat loss evident per physical exam in orbital, clavicle, acromion, and temporal areas, BMI 15.7 Status Active Problem Recommendation Dietitian Recommendations/Changes recommend regular diet- texture/consistency per BOARDING MOTHER; fortified foods, ensure plus high protein 120mL 4x/day w/ medpass when appropriate for PO intake. Lab / Micro Data 09/30/23 04:45 09/30/23 04:45 Labs: Laboratory Results - last 24 hr 09/29/23 00:46: Antibody Screen POSITIVE, Antibody Identification ANTI-C 09/29/23 00:46: Antibody Identification Cancelled, Antigen Identification C ANTIGEN - NEGATIVE, Crossmatch See Detail 09/29/23 08:10: Antibody Screen POSITIVE, Antibody Identification ANTI-C 09/30/23 04:45: WBC 27.5 H, RBC 4.85, Hgb 14.0, Hct 46.9, MCV 96.7 D, MCH 28.9, MCHC 29.9 L, RDW Std Deviation 56.1 H, RDW Coeff of David 15.7 H, Plt Count 161, MPV 12.6 H, Immature Gran % (Auto) 0.900, Neut % (Auto) 89.8 H, Lymph % (Auto) 3.7 L, [place] % (Auto) 5.0, Eos % (Auto) 0.1, Baso % (Auto) 0.5, Absolute Neuts (auto) 24.7 H, Absolute Lymphs (auto) 1.01, Nucleated RBC % 0, Differential Comment COMMENT, Sodium 157 H, Potassium 4.1, Chloride 130 H*, Carbon Dioxide 21.0, Anion Gap 6, BUN 63 H, Creatinine 0.99, Estim Creat Clear Calc 29.38, Est GFR (MDRD) Af Amer 69, Est GFR (MDRD) Non-Af 57 L, BUN/Creatinine Ratio 63.9 H, Glucose 88, Calcium 8.7 Micro: Microbiology 09/29/23 02:10 Stool Stool Occult Blood (CHERELLE) - Final Occult Blood Positive Physical Exam Narrative General: Alert but does not respond to questions or commands, No apparent distress HEENT: Atraumatic, PERRLA, EOMI, Normocephalic Oral: Moist Mucosa Neck: Supple, No JVD Lungs: Diminished, Normal air movement, No rhonchi, No wheeze, No rales Cardiovascular: Regular rate, Regular Rhythm, Normal S1, Normal S2, No murmurs Abdomen: Soft, Non Tender, Non-Distended, No Hepato-splenomegaly Extremities: No edema, Capillary Refill Less than 3 Seconds Skin: No rashes, No breakdown Musculoskeletal: No Tenderness to Palpation of Joints or Extremities Neurological: Moves all extremities, does not follow commands Psych/Mental Status: Flat affect Assessment & Plan Assessment/Plan (1) Sepsis: PLAN: POA: SIRS 4/4 (see Dr. Hicks's note for criteria) plus organ dysfunction complicated by organ dysfunction with KURT. qSOFA on admission of 2 with encephalopathy and RR of 28. 2/2 UTI. Received 2 liters on admission Blood and urine cultures pending (2) Urinary tract infection: QUALIFIERS: Urinary tract infection type: acute cystitis Hematuria presence: without hematuria Qualified Code(s): N30.00 - Acute cystitis without hematuria PLAN: Unclear organism. On CTX. Adjust abx accordingly to final culture results. (3) KURT (acute kidney injury): PLAN: Likely prerenal from dehydration. Improved with IVF. Monitor Hold lisinopril Creatinine has resolved however she is hypernatremic and hyperchloremic will transition to D5W repeat labs in the morning (4) GI bleed: PLAN: Noted rectal bleeding with heme positive stools. Hemoglobin dropped, but I do not suspect that this is due to the GI bleed, but at least a component of dehydration with hemoconcentration as her current hemoglobin is consistent with her chronic levels. Monitor for now. Hold apixaban (5) Debility: PLAN: PT OT eval and treat (6) Encephalopathy: PLAN: Metabolic secondary to sepsis, UTI in a patient with dementia. Supportive management Avoid potentiating medications. Patient unable to swallow safely at this time. Speech therapy to evaluate. PLAN: Plan Chronic medical conditions: * Dementia, afib, HFpEF, HTN, HLP: complicate care and recovery. Continue home medications as able DVT: SCDs Charges/Coding Visit Charges Inpatient E&M: 51316 Subs Hosp L2
[2023-09-30] MEDS: CHLORHEXIDINE GLUC 2% CLOTH 1 EACH TOWELETTE TOPICAL (10:44)
--- NOTE | 2023-09-30 14:07 | CASEMGMT ---
Discharge Planning Updates sent to [place] via [facility]. Krystal Meyer, Discharge Planning Asst.
--- NOTE | 2023-09-30 16:36 | CHAPLAIN ---
Type of Pastoral Visit _x__ Initial Visit ___ Follow-up Visit ___ On-call Visit ___ General Patient Visit ___ Spiritual Assessment ___ Family Conference ___ Bereavement ___ Rapid Response ___ Code Blue ___ Other (describe below) Pastoral Care Referral From ___ Patient _x__ Family ___ Nurse ___ Physician ___ Informatics Nurse Specialist ___ Tax Investigator ___ Other (describe below) Sacrament/Intervention ___ Active listening ___ Anointing ___ Orthodoxy ___ Bereavement ___ Communion ___ Natalee exploration ___ ___ Life review _x__ Prayer ___ Reconciliation ___ Sacrament of Sick _x__ Supportive presence ___ Wedding ___ Other (describe below) Pastoral Comments patient just stares at this job setter honing and moves about in the bed; talked calmly with patient, gave some casual conversation to give her human contact; made sign of the cross and folded hands in prayer so she could understand that prayer was being given as it was;
[2023-09-30] MEDS: Ceftriaxone 1 GM/50 ML BAG IV (20:30)
[2023-10-01] VITALS: BP 150/64; PULSE 78; RESP 17; TEMP 37.6; O2SAT 97
[2023-10-01 03:43] LABS: Absolute Lymphocyte Count 1.46 X10^3/uL (0.83-4.51); Absolute Neutrophil Count 16.9 X10^3/uL (2.0-7.7); Basophil# 0.08 X10^3/uL; Basophil% 0.4 % (0-1); Eosinophil# 0.31 X10^3/uL; Eosinophils% 1.6 % (0-5); Hematocrit 41.9 % (37-47); Hemoglobin 12.8 g/dL (12.0-15.0); Lymphocyte # 1.46 X10^3/ul (0.83-4.51); Lymphocyte % 7.3 % (19-41); Mean Corp Hgb Conc 30.5 g/dL (32-36); Mean Corpuscular Hgb 29.3 pg (27.0-32.0); Mean Corpuscular Volume 95.9 fL (81-99); Mean Platelet Vol. 11.7 fl (6.2-12.0); Monocyte# 0.99 X10^3/uL; NRBC Flagged by Analyzer 0 % (0-5); Neutrophil % 84.8 % (47-70); Platelet Count 125 K/mm3 (150-450); RBC Distribution Width CV 15.2 % (11.6-14.6); RBC Distribution Width SD 53.8 fl (35.1-43.9); Red Blood Count 4.37 M/mm3 (4.2-5.4); White Blood Count 19.9 K/mm3 (4.4-11.0)
[2023-10-01 04:00] VITALS: BP 124/52; PULSE 63; RESP 19; TEMP 37.3; O2SAT 98
[2023-10-01 04:18] LABS: Anion Gap 3 (5-15); BUN 39 mg/dL (7-18); BUN/Creat Ratio 46.7 RATIO (10-20); Calcium,Total 8.4 mg/dL (8.5-10.1); Chloride 123 mmol/L (98-107); Creatinine, Serum 0.84 mg/dL (0.55-1.02); EST Glomerular Filtration Rate 69 mL/min (>60); Est Glom Filt Rate - Afr Amer 84 mL/min (>60); Estimated Creatinine Clearance 34.63 ml/min; Glucose 127 mg/dL (74-106); Potassium 3.5 mmol/L (3.5-5.1); Sodium Level 151 mmol/L (136-145)
[2023-10-01 05:09] VITALS: BMI 16.5
[2023-10-01] MEDS: Menthol/Lanolin/Calamine/Znox 113 GM Tube 1 APPLIC TOPICAL ×3 (05:56→20:22)
[2023-10-01] MEDS: CHLORHEXIDINE GLUC 2% CLOTH 1 EACH TOWELETTE TOPICAL (05:56)
[2023-10-01 08:00] VITALS: BP 129/66; PULSE 64; RESP 20; TEMP 37.3; O2SAT 97
--- NOTE | 2023-10-01 09:39 | PN.HOSP_ITS ---
Subjective Subjective A little more verbal today, and her sodium and chloride are improving Objective Data Objective Data Vital Signs: Vital Signs Temp Pulse Resp BP Pulse Ox O2 Del Method 99.2 F H 64 20 H 129/66 H 97 Room Air 10/01/23 08:00 10/01/23 08:00 10/01/23 08:00 10/01/23 08:00 10/01/23 08:00 10/01/23 08:00 Oxygen Delivery Method Room Air Weight: 99 lb 6.856 oz Body Mass Index (BMI) 16.5 Intake & Output: Intake and Output for Last 24 Hours 09/30/23 10/01/23 10/02/23 03:59 03:59 03:59 Intake Total 2880.25 / 2880.25 1938.75 / 1938.75 Output Total 1000 / 1000 1075 / 1075 200 / 200 Balance 1880.25 / 1880.25 863.75 / 863.75 -200 / -200 Medical Nutrition Assessment Dietitian: Malnutrition Criteria Met Start: 09/29/23 09:25 Freq: Status: Active Protocol: Document 09/29/23 09:26 AG (Rec: 09/29/23 09:26 [id number]) Nutrition Malnutrition Evidence of Malnutrition Exists Yes Malnutrition (severe): Chronic Evidenced By Suboptimal Energy Intake ( Severe),Physical Changes ( Severe) Clinical Problem Chronic Disease or Condition Related Malnutrition Etiology severe chronic malnutrition related to inadequate energy intake Signs/Symptoms as evidenced by estimated PO intake meeting <50% of estimated energy needs> 3 months, Severe muscle wasting/ fat loss evident per physical exam in orbital, clavicle, acromion, and temporal areas, BMI 15.7 Status Active Problem Recommendation Dietitian Recommendations/Changes recommend regular diet- texture/consistency per CEPHALOMETRIC TECHNICIAN; fortified foods, ensure plus high protein 120mL 4x/day w/ medpass when appropriate for PO intake. Lab / Micro Data 10/01/23 03:30 10/01/23 03:30 Labs: Laboratory Results - last 24 hr 09/29/23 02:51: Urine Color Brown, Urine Clarity Turbid, Urine pH 5.0, Ur Specific [place] 1.020, Urine Protein 100 H, Urine Glucose (UA) Normal, Urine Ketones 5 H, Urine Occult Blood 250 H, Urine Nitrite Positive H, Urine Bilirubin 1 H, Urine Urobilinogen 1 H, Ur Leukocyte Esterase 500 H, Urine RBC > 100 SEEN, Urine WBC >100 SEEN, Ur Squamous Epith Cells 5-10 SEEN, Urine Bacteria 4+, Urine Mucus 0 SEEN 10/01/23 03:30: WBC 19.9 H, RBC 4.37, Hgb 12.8, Hct 41.9, MCV 95.9, MCH 29.3, MCHC 30.5 L, RDW Std Deviation 53.8 H, RDW Coeff of David 15.2 H, Plt Count 125 L, MPV 11.7, Immature Gran % (Auto) 0.900, Neut % (Auto) 84.8 H, Lymph % (Auto) 7.3 L, [place] % (Auto) 5.0, Eos % (Auto) 1.6, Baso % (Auto) 0.4, Absolute Neuts (auto) 16.9 H, Absolute Lymphs (auto) 1.46, Nucleated RBC % 0, Sodium 151 H, Potassium 3.5, Chloride 123 H, Carbon Dioxide 25.0, Anion Gap 3 L, BUN 39 H, Creatinine 0.84, Estim Creat Clear Calc 34.63, Est GFR (MDRD) Af Amer 84, Est GFR (MDRD) Non-Af 69, BUN/Creatinine Ratio 46.7 H, Glucose 127 H, Calcium 8.4 L Micro: Microbiology 09/29/23 02:51 Urine, Random Urine Culture - Final Mixed Gram Pos & Gram Neg Org 09/29/23 03:00 Blood Culture (Wb) - Anticubital Left Blood Culture - Preliminary No growth in 48 hours. 09/29/23 02:29 Blood Culture (Wb) - Anticubital Left Blood Culture - Preliminary No growth in 48 hours. 09/29/23 02:10 Stool Stool Occult Blood (CHERELLE) - Final Occult Blood Positive Physical Exam Narrative General: Alert but does not respond to questions or commands, No apparent dis tress HEENT: Atraumatic, PERRLA, EOMI, Normocephalic Oral: Moist Mucosa Neck: Supple, No JVD Lungs: Diminished, Normal air movement, No rhonchi, No wheeze, No rales Cardiovascular: Regular rate, Regular Rhythm, Normal S1, Normal S2, No murmurs Abdomen: Soft, Non Tender, Non-Distended, No Hepato-splenomegaly Extremities: No edema, Capillary Refill Less than 3 Seconds Skin: No rashes, No breakdown Musculoskeletal: No Tenderness to Palpation of Joints or Extremities Neurological: Moves all extremities, does not follow commands Psych/Mental Status: Flat affect Assessment & Plan Assessment/Plan (1) Sepsis: (2) Urinary tract infection: QUALIFIERS: Urinary tract infection type: acute cystitis Hematuria presence: without hematuria Qualified Code(s): N30.00 - Acute cystitis without hematuria (3) KURT (acute kidney injury): (4) GI bleed: (5) Debility: (6) Encephalopathy: PLAN: Plan 1. Metabolic encephalopathy secondary to sepsis from a UTI/debility/hypernatremia with hyperchloremia in the setting of KURT/dementia ? Urine culture with mixed gram-positive and gram-negative organisms however her white count is improving with Rocephin so we will continue antibiotics ? She did become a little bit more verbal today's we will continue monitoring ? Continue with D5W, her sodium and chloride are improving and her KURT has resolved, will hold lisinopril ? PT/OT 2. Heme positive stools ? Unclear to the severity of any potential GI bleeding as her hemoglobin is stable at 12.8 ? We will continue to monitor and hold Eliquis Chronic medical conditions: * Dementia, afib, HFpEF, HTN, HLP: complicate care and recovery. Continue home medications as able DVT: SCDs Charges/Coding Visit Charges Inpatient E&M: 74236 Subs Hosp L2
[2023-10-01 10:08] LABS: Pathologist Review Reviewed
[2023-10-01 10:08] LABS: Pathologist Review Reviewed
[2023-10-01] MEDS: Dextrose 5%-Water (1000mL Bag) 1,000 ML 75 ML IV ×2 (10:14→23:41)
[2023-10-01 12:00] VITALS: BP 140/63; PULSE 62; RESP 17; TEMP 37.3; O2SAT 98
[2023-10-01] MEDS: Divalproex Sodium 125 MG Tablet PO ×2 (13:59→20:21)
[2023-10-01] MEDS: Memantine Hydrochloride 10 MG Tablet PO ×2 (14:01→20:21)
[2023-10-01] MEDS: Venlafaxine XR 75 MG Capsule PO (14:05)
[2023-10-01] MEDS: Isosorbide Mononitrate 60 MG Tablet PO (14:05)
[2023-10-01] MEDS: Cholecalciferol (VIT D3) 25 MCG TABLET (1,000 UNITS) 50 MCG PO (14:06)
[2023-10-01 16:00] VITALS: BP 122/73; PULSE 72; RESP 18; TEMP 37.4; O2SAT 99
--- NOTE | 2023-10-01 18:58 | CASEMGMT ---
Social Work Pt admitted [facility] and can return when medically ready. VM left with pt keri Staton to confirm return to [place]. Will await return call. DEONTE Maynard
[2023-10-01 20:00] VITALS: BP 159/72; PULSE 74; RESP 20; TEMP 37.7; O2SAT 98
[2023-10-01] MEDS: Ceftriaxone 1 GM/50 ML BAG IV (20:21)
[2023-10-01] MEDS: Atorvastatin Calcium 10 MG Tablet PO (20:21)
[2023-10-02] VITALS: BP 137/67; PULSE 73; RESP 18; TEMP 37.7; O2SAT 96
[2023-10-02 03:26] LABS: Absolute Neutrophil Count 12.2 X10^3/uL (2.0-7.7); Basophil# 0.07 X10^3/uL; Basophil% 0.4 % (0-1); Eosinophil# 0.79 X10^3/uL; Hematocrit 38.2 % (37-47); Hemoglobin 11.9 g/dL (12.0-15.0); Lymphocyte % 11.3 % (19-41); Mean Corp Hgb Conc 31.2 g/dL (32-36); Mean Corpuscular Hgb 29.3 pg (27.0-32.0); Mean Corpuscular Volume 94.1 fL (81-99); Mean Platelet Vol. 11.9 fl (6.2-12.0); Monocyte# 0.89 X10^3/uL; Monocyte% 5.6 % (0-10); NRBC Flagged by Analyzer 0 % (0-5); Neutrophil # 12.22 X10^3/uL (2.7-7.7); Neutrophil % 76.9 % (47-70); POSITIVE COUNT YES; Platelet Count 108 K/mm3 (150-450); RBC Distribution Width CV 14.6 % (11.6-14.6); RBC Distribution Width SD 50.5 fl (35.1-43.9); Red Blood Count 4.06 M/mm3 (4.2-5.4); White Blood Count 15.9 K/mm3 (4.4-11.0)
[2023-10-02 03:27] LABS: Differential Indicated SCAN CRITERIA MET
[2023-10-02 03:39] LABS: Anion Gap 6 (5-15); BUN 24 mg/dL (7-18); BUN/Creat Ratio 33.5 RATIO (10-20); Chloride 117 mmol/L (98-107); Creatinine, Serum 0.72 mg/dL (0.55-1.02); EST Glomerular Filtration Rate 82 mL/min (>60); Est Glom Filt Rate - Afr Amer 100 mL/min (>60); Estimated Creatinine Clearance 29.82 ml/min; Glucose 124 mg/dL (74-106); Potassium 3.5 mmol/L (3.5-5.1); Sodium Level 147 mmol/L (136-145)
[2023-10-02 03:44] LABS: Differential Comment SCANNED; Platelet Estimate SLT DEC (ADEQ)
[2023-10-02 04:00] VITALS: BP 127/54; PULSE 68; RESP 17; TEMP 37.7; O2SAT 97
[2023-10-02 04:57] VITALS: BMI 16.7
[2023-10-02] MEDS: Divalproex Sodium 125 MG Tablet PO ×3 (05:29→21:14)
[2023-10-02] MEDS: CHLORHEXIDINE GLUC 2% CLOTH 1 EACH TOWELETTE TOPICAL (05:29)
[2023-10-02] MEDS: Menthol/Lanolin/Calamine/Znox 113 GM Tube 1 APPLIC TOPICAL ×3 (05:30→21:14)
--- NOTE | 2023-10-02 10:23 | PN.HOSP_ITS ---
Subjective Subjective Doing well, no issues overnight Objective Data Objective Data Vital Signs: Vital Signs Temp Pulse Resp BP Pulse Ox O2 Del Method 99.9 F H 68 17 127/54 H 97 Room Air 10/02/23 04:00 10/02/23 04:00 10/02/23 04:00 10/02/23 04:00 10/02/23 04:00 10/02/23 04:00 Oxygen Delivery Method Room Air Weight: 100 lb 12.02 oz Body Mass Index (BMI) 16.7 Intake & Output: Intake and Output for Last 24 Hours 10/01/23 10/02/23 10/03/23 03:59 03:59 03:59 Intake Total 1938.75 / 1938.75 2177.75 / 2177.75 Output Total 1075 / 1075 510 / 510 75 / 75 Balance 863.75 / 863.75 1667.75 / 1667.75 -75 / -75 Medical Nutrition Assessment Dietitian: Malnutrition Criteria Met Start: 09/29/23 09:25 Freq: Status: Active Protocol: Document 10/02/23 10:09 (Rec: 10/02/23 10:10 [id number]) Nutrition Malnutrition Evidence of Malnutrition Exists Yes Malnutrition (severe): Chronic Evidenced By Suboptimal Energy Intake ( Severe),Physical Changes ( Severe) Clinical Problem Chronic Disease or Condition Related Malnutrition Etiology severe chronic malnutrition related to inadequate energy intake Signs/Symptoms as evidenced by estimated PO intake meeting <50% of estimated energy needs> 3 months, Severe muscle wasting/ fat loss evident per physical exam in orbital, clavicle, acromion, and temporal areas, BMI 15.7 Status Active Problem Recommendation Dietitian Recommendations/Changes continue regular diet- texture /consistency per GLASS BLOWER HELPER; will add fortified foods, ensure plus high protein TID w/ meals for additional nutrition if consumed Lab / Micro Data 10/02/23 03:15 10/02/23 03:15 Labs: Laboratory Results - last 24 hr 09/29/23 00:46: Crossmatch See Detail 10/02/23 03:15: WBC 15.9 H, RBC 4.06 L, Hgb 11.9 L, Hct 38.2, MCV 94.1, MCH 29.3, MCHC 31.2 L, RDW Std Deviation 50.5 H, RDW Coeff of David 14.6, Plt Count 108 L, MPV 11.9, Immature Gran % (Auto) 0.800, Neut % (Auto) 76.9 H, Lymph % (Auto) 11.3 L, [place] % (Auto) 5.6, Eos % (Auto) 5.0, Baso % (Auto) 0.4, Absolute Neuts (auto) 12.2 H, Absolute Lymphs (auto) 1.80, Nucleated RBC % 0, Differential Comment SCANNED, Platelet Estimate SLT DEC, Sodium 147 H, Potassium 3.5, Chloride 117 H, Carbon Dioxide 24.0, Anion Gap 6, BUN 24 H, Creatinine 0.72, Estim Creat Clear Calc 29.82, Est GFR (MDRD) Af Amer 100, Est GFR (MDRD) Non-Af 82, BUN/Creatinine Ratio 33.5 H, Glucose 124 H, Calcium 8.0 L Micro: Microbiology 09/29/23 02:51 Urine, Random Urine Culture - Final Mixed Gram Pos & Gram Neg Org 09/29/23 03:00 Blood Culture (Wb) - Anticubital Left Blood Culture - Preliminary No growth in 48 hours. 09/29/23 02:29 Blood Culture (Wb) - Anticubital Left Blood Culture - Preliminary No growth in 48 hours. 09/29/23 02:10 Stool Stool Occult Blood (CHERELLE) - Final Occult Blood Positive Physical Exam Narrative General: Alert and does answer some simple questions, No apparent distress HEENT: Atraumatic, PERRLA, EOMI, Normocephalic Oral: Moist Mucosa Neck: Supple, No JVD Lungs: Diminished, Normal air movement, No rhonchi, No wheeze, No rales Cardiovascular: Regular rate, Regular Rhythm, Normal S1, Normal S2, No murmurs Abdomen: Soft, Non Tender, Non-Distended, No Hepato-splenomegaly Extremities: No edema, Capillary Refill Less than 3 Seconds Skin: No rashes, No breakdown Musculoskeletal: No Tenderness to Palpation of Joints or Extremities Neurological: Moves all extremities, does not follow commands Psych/Mental Status: Flat affect Assessment & Plan Assessment/Plan (1) Sepsis: (2) Urinary tract infection: QUALIFIERS: Urinary tract infection type: acute cystitis Hematuria presence: without hematuria Qualified Code(s): N30.00 - Acute cystitis without hematuria (3) KURT (acute kidney injury): (4) GI bleed: (5) Debility: (6) Encephalopathy: PLAN: Plan 1. Metabolic encephalopathy secondary to sepsis from a UTI/debility/hypernatremia with hyperchloremia in the setting of KURT/dementia ? Urine culture with mixed gram-positive and gram-negative organisms however her white count is improving with Rocephin so we will continue antibiotics ? She did become a little bit more verbal today's we will continue monitoring ? Continue with D5W, her sodium and chloride are improving and her KURT has resolved, will hold lisinopril ? PT/OT 2. Heme positive stools ? Unclear to the severity of any potential GI bleeding as her hemoglobin is stable at 11.9 ? We will continue to monitor and hold Eliquis Chronic medical conditions: * Dementia, afib, HFpEF, HTN, HLP: complicate care and recovery. Continue home medications as able DVT: SCDs Charges/Coding Visit Charges Inpatient E&M: 33983 Subs Hosp L2
[2023-10-02 11:08] VITALS: BP 95/68; PULSE 57; RESP 16; TEMP 37.2; O2SAT 98
--- NOTE | 2023-10-02 11:09 | CASEMGMT ---
Addendum entered by Abbie Guy 10/02/23 11:26: Correction, FRANK AGUIRRE spoke w/Poppy MARIE, (not Hollie) and the info provided by pt's daughter was relayed to her. Original Note: FRANK AGUIRRE NOTE: Call received from pt's daughter, Brionna Braun, who states she is using a sign language interpretation hallie to communicate to this FRANK AGUIRRE. Brionna verifies that pt is to return to [facility] when she discharges from [facility]. Brionna also states staff can continue to text her to communicate w/her re: her mother. Brionna requests that staff is made aware of the following. She asks to make sure pt is drinking plenty of water every day, that she eats really slowly, does not use a straw, and uses a spoon to slurp. She also requests that she changes her clothes every day and that she is cleaned well after using the bathroom, as she is prone to infections. FRANK AGUIRRE spoke w/Hollie MARIE, and this info was relayed to her. Siobhan ROSALES RN, CM
[2023-10-02] MEDS: Isosorbide Mononitrate 60 MG Tablet PO (11:10)
[2023-10-02] MEDS: Venlafaxine XR 75 MG Capsule PO (11:10)
[2023-10-02] MEDS: amLODIPine 10 MG Tablet PO (11:11)
[2023-10-02] MEDS: Cholecalciferol (VIT D3) 25 MCG TABLET (1,000 UNITS) 50 MCG PO (11:11)
[2023-10-02] MEDS: Memantine Hydrochloride 10 MG Tablet PO ×2 (11:11→21:14)
--- NOTE | 2023-10-02 11:26 | CASEMGMT ---
Vibrator Equipment Tester Update sent to Lizzie CLEMONS
[2023-10-02] MEDS: Dextrose 5%-Water (1000mL Bag) 1,000 ML 75 ML IV (15:37)
[2023-10-02 19:40] VITALS: BP 105/80; PULSE 73; RESP 18; TEMP 36.8; O2SAT 99
[2023-10-02] MEDS: Ceftriaxone 1 GM/50 ML BAG IV (21:09)
[2023-10-02] MEDS: Atorvastatin Calcium 10 MG Tablet PO (21:14)
[2023-10-03] MEDS: Dextrose 5%-Water (1000mL Bag) 1,000 ML 75 ML IV ×2 (02:16→15:27)
[2023-10-03 02:20] VITALS: BP 109/70; PULSE 68; RESP 16; TEMP 36.6; O2SAT 98
[2023-10-03 02:44] VITALS: BMI 16.0
[2023-10-03] MEDS: Menthol/Lanolin/Calamine/Znox 113 GM Tube 1 APPLIC TOPICAL ×3 (05:31→21:36)
[2023-10-03] MEDS: Divalproex Sodium 125 MG Tablet PO ×3 (05:31→21:37)
[2023-10-03 05:40] VITALS: BP 112/79; PULSE 61; RESP 16; TEMP 36.8; O2SAT 100
[2023-10-03 06:50] LABS: Absolute Lymphocyte Count 1.25 X10^3/uL (0.83-4.51); Absolute Neutrophil Count 7.7 X10^3/uL (2.0-7.7); Basophil# 0.04 X10^3/uL; Basophil% 0.4 % (0-1); Eosinophils% 5.7 % (0-5); Hematocrit 34.8 % (37-47); Hemoglobin 10.9 g/dL (12.0-15.0); Lymphocyte # 1.25 X10^3/ul (0.83-4.51); Mean Corp Hgb Conc 31.3 g/dL (32-36); Mean Corpuscular Hgb 28.8 pg (27.0-32.0); Mean Corpuscular Volume 92.1 fL (81-99); Mean Platelet Vol. 12.3 fl (6.2-12.0); Monocyte# 0.74 X10^3/uL; Monocyte% 7.1 % (0-10); NRBC Flagged by Analyzer 0 % (0-5); Neutrophil # 7.74 X10^3/uL (2.7-7.7); Neutrophil % 73.9 % (47-70); Platelet Count 129 K/mm3 (150-450); RBC Distribution Width CV 14.1 % (11.6-14.6); RBC Distribution Width SD 48.1 fl (35.1-43.9); Red Blood Count 3.78 M/mm3 (4.2-5.4); White Blood Count 10.5 K/mm3 (4.4-11.0)
[2023-10-03 07:52] LABS: Anion Gap 4 (5-15); BUN 14 mg/dL (7-18); BUN/Creat Ratio 23.8 RATIO (10-20); Calcium,Total 7.9 mg/dL (8.5-10.1); Chloride 112 mmol/L (98-107); Creatinine, Serum 0.59 mg/dL (0.55-1.02); EST Glomerular Filtration Rate 103 mL/min (>60); Est Glom Filt Rate - Afr Amer 125 mL/min (>60); Estimated Creatinine Clearance 28.89 ml/min; Glucose 111 mg/dL (74-106); Potassium 3.3 mmol/L (3.5-5.1); Sodium Level 141 mmol/L (136-145)
[2023-10-03 10:19] VITALS: BP 136/56; PULSE 59; RESP 18; TEMP 36.8; O2SAT 99
[2023-10-03] MEDS: Venlafaxine XR 75 MG Capsule PO (10:23)
[2023-10-03] MEDS: Memantine Hydrochloride 10 MG Tablet PO ×2 (10:23→21:37)
[2023-10-03] MEDS: amLODIPine 10 MG Tablet PO (10:24)
[2023-10-03] MEDS: Cholecalciferol (VIT D3) 25 MCG TABLET (1,000 UNITS) 50 MCG PO (10:24)
[2023-10-03] MEDS: Isosorbide Mononitrate 60 MG Tablet PO (10:24)
--- NOTE | 2023-10-03 11:14 | PN.HOSP_ITS ---
Reason for Visit Reason for Visit: Diagnoses Sepsis, unspecified organism (09/29/23) Elevated white blood cell count, unspecified (09/29/23) Acidosis, unspecified (09/29/23) Encephalopathy, unspecified (09/29/23) Gastrointestinal hemorrhage, unspecified (09/29/23) Acute kidney failure, unspecified (09/29/23) Acute cystitis without hematuria (09/29/23) Other malaise (09/29/23) Severe sepsis with septic shock (09/29/23) Subjective Subjective Patient is an 83-year-old lady with history of dementia, Paroxysmal A-fib on apixaban admitted with rectal bleeding and progressive generalized weakness. An assessment of sepsis secondary to UTI made admitted to monitored bed for further management Objective Data Objective Data Vital Signs: Vital Signs Temp Pulse Resp BP Pulse Ox O2 Del Method 98.2 F 59 L 18 136/56 H 99 Room Air 10/03/23 10:19 10/03/23 10:19 10/03/23 10:19 10/03/23 10:19 10/03/23 10:19 10/03/23 10:19 Oxygen Delivery Method Room Air Weight: 43.7 kg Body Mass Index (BMI) 16.0 Intake & Output: Intake and Output for Last 24 Hours 10/01/23 10/02/23 10/03/23 23:59 23:59 23:59 Intake Total 2177.75 / 2177.75 1050 / 1050 848.75 / 848.75 Output Total 410 / 510 265 / 665 900 / 900 Balance 1767.75 / 1667.75 785 / 385 -51.25 / -51.25 Medical Nutrition Assessment Dietitian: Malnutrition Criteria Met Start: 09/29/23 09:25 Freq: Status: Active Protocol: Document 10/02/23 10:09 (Rec: 10/02/23 10:10 [id number]) Nutrition Malnutrition Evidence of Malnutrition Exists Yes Malnutrition (severe): Chronic Evidenced By Suboptimal Energy Intake ( Severe),Physical Changes ( Severe) Clinical Problem Chronic Disease or Condition Related Malnutrition Etiology severe chronic malnutrition related to inadequate energy intake Signs/Symptoms as evidenced by estimated PO intake meeting <50% of estimated energy needs> 3 months, Severe muscle wasting/ fat loss evident per physical exam in orbital, clavicle, acromion, and temporal areas, BMI 15.7 Status Active Problem Recommendation Dietitian Recommendations/Changes continue regular diet- texture /consistency per FORMS ANALYSIS MANAGER; will add fortified foods, ensure plus high protein TID w/ meals for additional nutrition if consumed Lab / Micro Data 10/03/23 05:25 10/03/23 05:25 Labs: Laboratory Results - last 24 hr 10/03/23 05:25: WBC 10.5, RBC 3.78 L, Hgb 10.9 L, Hct 34.8 L, MCV 92.1, MCH 28.8, MCHC 31.3 L, RDW Std Deviation 48.1 H, RDW Coeff of David 14.1, Plt Count 129 L, MPV 12.3 H, Immature Gran % (Auto) 0.900, Neut % (Auto) 73.9 H, Lymph % (Auto) 12.0 L, [place] % (Auto) 7.1, Eos % (Auto) 5.7 H, Baso % (Auto) 0.4, Absolute Neuts (auto) 7.7, Absolute Lymphs (auto) 1.25, Nucleated RBC % 0, Sodium 141, Potassium 3.3 L, Chloride 112 H, Carbon Dioxide 25.0, Anion Gap 4 L, BUN 14, Creatinine 0.59, Estim Creat Clear Calc 28.89, Est GFR (MDRD) Af Amer 125, Est GFR (MDRD) Non-Af 103, BUN/Creatinine Ratio 23.8 H, Glucose 111 H, Calcium 7.9 L Micro: Microbiology 09/29/23 02:51 Urine, Random Urine Culture - Final Mixed Gram Pos & Gram Neg Org 09/29/23 03:00 Blood Culture (Wb) - Anticubital Left Blood Culture - Preliminary No growth in 48 hours. 09/29/23 02:29 Blood Culture (Wb) - Anticubital Left Blood Culture - Preliminary No growth in 48 hours. 09/29/23 02:10 Stool Stool Occult Blood (CHERELLE) - Final Occult Blood Positive Physical Exam Narrative GENERAL: cooperative HEENT: Atraumatic; normocephalic EYES; Anicteric, Normal Conjunctiva NECK; supple, normal thyroid, RESPIRATORY: Diminished to auscultation CARDIOVASCULAR: Regular S1 S2, GI: soft, normoactive bowel sounds, : No Renal angle tenderness; EXTREMITIES: No edema, no clubbing, MUSCULOSKELETAL: no muscle wasting NEURO: Awake; no lateralizing signs. SKIN: No Rash PSYCH; Flat affect Assessment & Plan Assessment/Plan (1) Sepsis: (2) Urinary tract infection: QUALIFIERS: Urinary tract infection type: acute cystitis Hematuria presence: without hematuria Qualified Code(s): N30.00 - Acute cystitis without hematuria (3) KURT (acute kidney injury): (4) GI bleed: (5) Debility: (6) Encephalopathy: PLAN: Plan Patient is an 83-year-old lady with history of dementia, Paroxysmal A-fib on apixaban admitted with rectal bleeding and progressive generalized weakness. An assessment of sepsis secondary to UTI made admitted to monitored bed for further management 1. Acute metabolic encephalopathy ? Secondary to sepsis as well as severe dehydration and KURT admitted for treatment of underlying condition 2. Anemia secondary to acute blood loss anemia from bleeding per rectum ? Patient is on apixaban for A-fib held. Monitoring H&H with plans to transfuse if hemoglobin falls below 7 or patient is deemed to be symptomatic 3. Acute cystitis ? So far cultures negative patient treated with ceftriaxone 4 acute kidney injury ? Baseline creatinine between 0.5-0.8 creatinine on admission was 2.55 managed with IV fluid with subsequent monitoring of electrolytes ordered 5. Essential hypertension ? Patient is on lisinopril and amlodipine lisinopril discontinued in view of KURT 6. Dyslipidemia -Patient is on statin therapy, continued at home dose 7. Paroxysmal atrial fibrillation ? Rate controlled patient is on systemic anticoagulation with apixaban discontinued in view of her rectal bleed and had previously 8. Chronic congestive heart failure with preserved ejection fraction ? Stable and euvolemic 9. Dementia ? Supportive care 10. Physical deconditioning - Requested for PT OT eval and healthcare social worker to assist with discharge planning 11. Severe protein-calorie malnutrition, BMI 17.3, This is evidenced by patient's low BMI, suboptimal energy intake, weight loss and physical changes this is a result of patient chronic medical conditions. Consult placed to dietitian 12. DVT prophylaxis -patient was on apixaban held in view of her presentation Time spent in the patient's overall evaluation,decision-making process, review of diagnostic data, adjustment of management, discussion with other providers, nursing nursing and ancillary staff involved in patient's care documentation, 40 Minutes Charges/Coding Visit Charges Inpatient E&M: 08058 Subs Hosp L2
[2023-10-03] MEDS: Potassium Chloride Oral Tablet 20 MEQ PO ×2 (13:58→16:41)
[2023-10-03 15:23] VITALS: BP 115/52; PULSE 77; RESP 18; TEMP 36.8; O2SAT 97
[2023-10-03 21:34] VITALS: BP 112/58; PULSE 67; RESP 18; TEMP 37.1; O2SAT 97
[2023-10-03] MEDS: Atorvastatin Calcium 10 MG Tablet PO (21:37)
[2023-10-04 04:03] VITALS: BP 130/61; PULSE 61; RESP 18; TEMP 36.4; O2SAT 97
[2023-10-04] MEDS: Dextrose 5%-Water (1000mL Bag) 1,000 ML 75 ML IV (04:06)
[2023-10-04 05:04] LABS: Absolute Lymphocyte Count 1.29 X10^3/uL (0.83-4.51); Absolute Neutrophil Count 7.3 X10^3/uL (2.0-7.7); Basophil# 0.04 X10^3/uL; Basophil% 0.4 % (0-1); Eosinophils% 5.9 % (0-5); Hemoglobin 11.1 g/dL (12.0-15.0); Lymphocyte # 1.29 X10^3/ul (0.83-4.51); Lymphocyte % 12.6 % (19-41); Mean Corp Hgb Conc 31.7 g/dL (32-36); Mean Corpuscular Hgb 29.1 pg (27.0-32.0); Mean Corpuscular Volume 91.6 fL (81-99); Mean Platelet Vol. 11.3 fl (6.2-12.0); Monocyte% 8.8 % (0-10); NRBC Flagged by Analyzer 0 % (0-5); Neutrophil # 7.28 X10^3/uL (2.7-7.7); Neutrophil % 71.4 % (47-70); Platelet Count 117 K/mm3 (150-450); RBC Distribution Width CV 14.1 % (11.6-14.6); RBC Distribution Width SD 47.6 fl (35.1-43.9); Red Blood Count 3.82 M/mm3 (4.2-5.4); White Blood Count 10.2 K/mm3 (4.4-11.0)
[2023-10-04 05:26] LABS: Anion Gap 5 (5-15); BUN 7 mg/dL (7-18); BUN/Creat Ratio 12.8 RATIO (10-20); Calcium,Total 7.7 mg/dL (8.5-10.1); Chloride 113 mmol/L (98-107); Creatinine, Serum 0.55 mg/dL (0.55-1.02); EST Glomerular Filtration Rate 113 mL/min (>60); Est Glom Filt Rate - Afr Amer 136 mL/min (>60); Estimated Creatinine Clearance 28.89 ml/min; Glucose 105 mg/dL (74-106); Magnesium 1.5 mg/dL (1.6-2.6); Phosphorus 2.4 mg/dL (2.5-4.9); Potassium 3.5 mmol/L (3.5-5.1); Sodium Level 144 mmol/L (136-145)
[2023-10-04] MEDS: Menthol/Lanolin/Calamine/Znox 113 GM Tube 1 APPLIC TOPICAL ×2 (05:45→13:39)
[2023-10-04] MEDS: Divalproex Sodium 125 MG Tablet PO ×2 (05:46→13:39)
[2023-10-04 06:00] VITALS: BMI 16.1
[2023-10-04] MEDS: Na Biphos/Potassium Phosphate PACKET 1 PACKET PO (06:45)
--- NOTE | 2023-10-04 07:25 | PCM.PN.HOSP ---
Reason for Visit Reason for Visit: Diagnoses Sepsis, unspecified organism (09/29/23) Elevated white blood cell count, unspecified (09/29/23) Acidosis, unspecified (09/29/23) Encephalopathy, unspecified (09/29/23) Gastrointestinal hemorrhage, unspecified (09/29/23) Acute kidney failure, unspecified (09/29/23) Acute cystitis without hematuria (09/29/23) Other malaise (09/29/23) Severe sepsis with septic shock (09/29/23) Subjective Subjective Patient seen back to baseline patient to be assessed for possible discharge back to her F Objective Data Objective Data Vital Signs: Vital Signs Temp Pulse Resp BP Pulse Ox O2 Del Method 97.5 F L 61 18 130/61 H 97 Room Air 10/04/23 04:03 10/04/23 04:03 10/04/23 04:03 10/04/23 04:03 10/04/23 04:03 10/04/23 04:04 Oxygen Delivery Method Room Air Weight: 44 kg Body Mass Index (BMI) 16.1 Intake & Output: Intake and Output for Last 24 Hours 10/02/23 10/03/23 10/04/23 23:59 23:59 23:59 Intake Total 1050 / 1050 2107.50 / 2107.50 948.75 / 948.75 Output Total 265 / 665 1470 / 1470 Balance 785 / 385 637.50 / 637.50 948.75 / 948.75 Medical Nutrition Assessment Dietitian: Malnutrition Criteria Met Start: 09/29/23 09:25 Freq: Status: Active Protocol: Document 10/02/23 10:09 (Rec: 10/02/23 10:10 [id number]) Nutrition Malnutrition Evidence of Malnutrition Exists Yes Malnutrition (severe): Chronic Evidenced By Suboptimal Energy Intake ( Severe),Physical Changes ( Severe) Clinical Problem Chronic Disease or Condition Related Malnutrition Etiology severe chronic malnutrition related to inadequate energy intake Signs/Symptoms as evidenced by estimated PO intake meeting <50% of estimated energy needs> 3 months, Severe muscle wasting/ fat loss evident per physical exam in orbital, clavicle, acromion, and temporal areas, BMI 15.7 Status Active Problem Recommendation Dietitian Recommendations/Changes continue regular diet- texture /consistency per CERTIFIED WELDING INSPECTOR; will add fortified foods, ensure plus high protein TID w/ meals for additional nutrition if consumed Lab / Micro Data 10/04/23 04:38 10/04/23 04:38 Labs: Laboratory Results - last 24 hr 10/03/23 05:25: Sodium 141, Potassium 3.3 L, Chloride 112 H, Carbon Dioxide 25.0, Anion Gap 4 L, BUN 14, Creatinine 0.59, Estim Creat Clear Calc 28.89, Est GFR (MDRD) Af Amer 125, Est GFR (MDRD) Non-Af 103, BUN/Creatinine Ratio 23.8 H, Glucose 111 H, Calcium 7.9 L 10/04/23 04:38: WBC 10.2, RBC 3.82 L, Hgb 11.1 L, Hct 35.0 L, MCV 91.6, MCH 29.1, MCHC 31.7 L, RDW Std Deviation 47.6 H, RDW Coeff of David 14.1, Plt Count 117 L, MPV 11.3, Immature Gran % (Auto) 0.900, Neut % (Auto) 71.4 H, Lymph % (Auto) 12.6 L, [place] % (Auto) 8.8, Eos % (Auto) 5.9 H, Baso % (Auto) 0.4, Absolute Neuts (auto) 7.3, Absolute Lymphs (auto) 1.29, Nucleated RBC % 0, Sodium 144, Potassium 3.5, Chloride 113 H, Carbon Dioxide 26.0, Anion Gap 5, BUN 7, Creatinine 0.55, Estim Creat Clear Calc 28.89, Est GFR (MDRD) Af Amer 136, Est GFR (MDRD) Non-Af 113, BUN/Creatinine Ratio 12.8, Glucose 105, Calcium 7.7 L, Phosphorus 2.4 L, Magnesium 1.5 L Micro: Microbiology 09/29/23 02:29 Blood Culture (Wb) - Anticubital Left Blood Culture - Final No growth in 5 days. 09/29/23 03:00 Blood Culture (Wb) - Anticubital Left Blood Culture - Final No growth in 5 days. 09/29/23 02:51 Urine, Random Urine Culture - Final Mixed Gram Pos & Gram Neg Org 09/29/23 02:10 Stool Stool Occult Blood (CHERELLE) - Final Occult Blood Positive Physical Exam Narrative GENERAL: cooperative HEENT: Atraumatic; normocephalic EYES; Anicteric, Normal Conjunctiva NECK; supple, normal thyroid, RESPIRATORY: Diminished to auscultation CARDIOVASCULAR: Regular S1 S2, GI: soft, normoactive bowel sounds, : No Renal angle tenderness; EXTREMITIES: No edema, no clubbing, MUSCULOSKELETAL: no muscle wasting NEURO: Awake; no lateralizing signs. SKIN: No Rash PSYCH; Flat affect Assessment & Plan Assessment/Plan (1) Sepsis: (2) Urinary tract infection: QUALIFIERS: Hematuria presence: without hematuria Urinary tract infection type: acute cystitis Qualified Code(s): N30.00 - Acute cystitis without hematuria (3) KURT (acute kidney injury): (4) GI bleed: (5) Debility: (6) Encephalopathy: PLAN: Plan Patient is an 83-year-old lady with history of dementia, Paroxysmal A-fib on apixaban admitted with rectal bleeding and progressive generalized weakness. An assessment of sepsis secondary to UTI made admitted to monitored bed for further management 1. Acute metabolic encephalopathy ? Secondary to sepsis as well as severe dehydration and KURT admitted for treatment of underlying condition 2. Anemia secondary to acute blood loss anemia from bleeding per rectum ? Patient is on apixaban for A-fib held. Monitoring H&H with plans to transfuse if hemoglobin falls below 7 or patient is deemed to be symptomatic 3. Acute cystitis ? So far cultures negative patient treated with ceftriaxone 4 acute kidney injury ? Baseline creatinine between 0.5-0.8 creatinine on admission was 2.55 managed with IV fluid with subsequent monitoring of electrolytes ordered 5. Essential hypertension ? Patient is on lisinopril and amlodipine lisinopril discontinued in view of KURT 6. Dyslipidemia -Patient is on statin therapy, continued at home dose 7. Paroxysmal atrial fibrillation ? Rate controlled patient is on systemic anticoagulation with apixaban discontinued in view of her rectal bleed and had previously 8. Chronic congestive heart failure with preserved ejection fraction ? Stable and euvolemic 9. Dementia ? Supportive care 10. Physical deconditioning - Requested for PT OT eval and licensed social worker to assist with discharge planning 11. Severe protein-calorie malnutrition, BMI 17.3, This is evidenced by patient's low BMI, suboptimal energy intake, weight loss and physical changes this is a result of patient chronic medical conditions. Consult placed to dietitian 12. DVT prophylaxis -patient was on apixaban held in view of her presentation Time spent in the patient's overall evaluation,decision-making process, review of diagnostic data, adjustment of management, discussion with other providers, nursing nursing and ancillary staff involved in patient's care documentation, 35 Minutes Charges/Coding Visit Charges Inpatient E&M: 30788 Subs Hosp L2
--- NOTE | 2023-10-04 09:20 | CASEMGMT ---
Social Work As per physician, pt can return to SNF today. STEPHAN called daughter Brionna, her voicemail is full so could not leave a message. STEPHAN called daughter Jo, message left letting her know pt will return to SNF today and asked for a return call. STEPHAN did send updates to [facility] to let them know pt will be returning today. SHAYNE Rasmussen
[2023-10-04 10:00] VITALS: BP 125/54; PULSE 69; RESP 16; TEMP 36.9; O2SAT 97
[2023-10-04] MEDS: Potassium Chloride Oral Tablet 20 MEQ PO (10:03)
[2023-10-04] MEDS: Potassium Chloride Oral Tablet 20 MEQ 40 MEQ PO (10:03)
[2023-10-04] MEDS: Magnesium Sulfate 4gm/100mL 4 GM/100 ML IV.SOLN. IV (10:04)
[2023-10-04] MEDS: Venlafaxine XR 75 MG Capsule PO (10:05)
[2023-10-04] MEDS: Cholecalciferol (VIT D3) 25 MCG TABLET (1,000 UNITS) 50 MCG PO (10:05)
--- NOTE | 2023-10-04 10:07 | PCM.TXEXTCAR ---
Diet Diet Order/Speech Therapy: 10/01/23 12:55 Diet: Regular - General Food consistency:: Pureed Liquid Consistency:: Mariano Colon/Mildly Thick Dietary Modifications:: Fortified Foods Type of Dietary Supplement:: Ensure Plus High Protein Is pt able to select menu?: No Diet Comments: TOTAL FEED, sips by cup, meds crushed in , freq oral care Wound(s) right strong: Wound Type: Skin Tear Therapies Physical Therapy: Eval and Treat Occupational Therapy: Eval and Treat Problem/Diagnosis (1) Sepsis: Status: Acute Code(s): A41.9 - Sepsis, unspecified organism (2) Urinary tract infection: Status: Acute Code(s): N39.0 - Urinary tract infection, site not specified (3) KURT (acute kidney injury): Status: Acute Code(s): N17.9 - Acute kidney failure, unspecified (4) GI bleed: Status: Acute Code(s): K92.2 - Gastrointestinal hemorrhage, unspecified (5) Debility: Status: Acute Code(s): R53.81 - Other malaise (6) Encephalopathy: Status: Acute Code(s): G93.40 - Encephalopathy, unspecified Plan Patient is an 83-year-old lady with history of dementia, Paroxysmal A-fib on apixaban admitted with rectal bleeding and progressive generalized weakness. An assessment of sepsis secondary to UTI made admitted to monitored bed for further management 1. Acute metabolic encephalopathy ? Secondary to sepsis as well as severe dehydration and KURT admitted for treatment of underlying condition 2. Anemia secondary to acute blood loss anemia from bleeding per rectum ? Patient is on apixaban for A-fib held. Monitoring H&H with plans to transfuse if hemoglobin falls below 7 or patient is deemed to be symptomatic 3. Acute cystitis ? So far cultures negative patient treated with ceftriaxone 4 acute kidney injury ? Baseline creatinine between 0.5-0.8 creatinine on admission was 2.55 managed with IV fluid with subsequent monitoring of electrolytes ordered 5. Essential hypertension ? Patient is on lisinopril and amlodipine lisinopril discontinued in view of KURT 6. Dyslipidemia -Patient is on statin therapy, continued at home dose 7. Paroxysmal atrial fibrillation ? Rate controlled patient is on systemic anticoagulation with apixaban discontinued in view of her rectal bleed and had previously 8. Chronic congestive heart failure with preserved ejection fraction ? Stable and euvolemic 9. Dementia ? Supportive care 10. Physical deconditioning - Requested for PT OT eval and social media sr strategy manager to assist with discharge planning 11. Severe protein-calorie malnutrition, BMI 17.3, This is evidenced by patient's low BMI, suboptimal energy intake, weight loss and physical changes this is a result of patient chronic medical conditions. Consult placed to dietitian 12. DVT prophylaxis -patient was on apixaban held in view of her presentation Time spent in the patient's overall evaluation,decision-making process, review of diagnostic data, adjustment of management, discussion with other providers, nursing nursing and ancillary staff involved in patient's care documentation, 35 Minutes Allergies/Procedures Done in Hospital Allergies No Known Allergies Allergy (Verified 09/29/23 00:00) Type of Care/Length of Stay Estimated LOS: More Than 30 Days Type of Care Needed: Intermediate Rehab Potential: Fair Prognosis: Fair Additional Orders/Day of Discharge Day of Discharge: 10/04/23 Dietary and Speech Recommendations Dietitian Recommendations/Changes: continue regular diet- texture/consistency per ROCKET MOTOR TESTER; will add fortified foods, ensure plus high protein TID w/ meals for additional nutrition if consumed Discharge Plan Admission Admit Date/Time: 09/29/23 04:14 Attending Provider: Morgan Villareal Primary Care Provider: Fuentes Vergara Consulting Providers: Anthony Foss; Fredy Goodrich; Steven Downey Discharge Orders/Prescriptions Prescriptions: New potassium chloride [Klor-Con M20] 20 mEq Tablet,Er Particles/Crystals 20 meq PO BIDCM Qty: 0 0RF menthol-zinc oxide [Calmoseptine] 0.44-20.6 % Ointment 1 applic topical TID Qty: 0 0RF Protocol: *Topical Application Instructions APPLICATION INSTRUCTIONS: Apply to affected areas Mag 64 64 mg Tablet,Delayed Release (Dr/Ec) 128 mg PO BID Qty: 0 0RF Continued isosorbide mononitrate 60 mg tablet extended release 24 hr 60 mg PO DAILY nitroglycerin 0.4 mg tablet, sublingual 0.4 mg sublingual PRN PRN (Reason: Chest Pain) memantine 10 mg tablet 10 mg PO BID Patient Comments: TAKE 1 TABLET BY MOUTH TWICE DAILY atorvastatin 10 mg tablet 10 mg PO QHS cholecalciferol (vitamin D3) 50 mcg (2,000 unit) Capsule 50 mcg PO DAILY amlodipine 10 mg Tablet 10 mg PO DAILY Qty: 0 0RF venlafaxine [Effexor XR] 75 mg Capsule,Extended Release 24hr 75 mg PO DAILY hydralazine 50 mg Tablet 50 mg PO TID divalproex 125 mg tablet,delayed release (DR/EC) 125 mg PO TID escitalopram oxalate [Lexapro] 10 mg tablet 10 mg PO DAILY melatonin 3 mg tablet 3 mg PO QHS [id number]-mins 1 tab PO DAILY Discontinued lisinopril 20 mg tablet 20 mg PO QHS Eliquis 5 mg tablet 2.5 mg PO BID lorazepam 0.5 mg tablet 0.5 mg PO Q12H PRN (Reason: anxiety) Referrals / Follow Up: Fuentes Vergara MD [Primary Care Provider] - Within 1 Week Disposition Disposition (needs filled in before D/C Order can be placed): [facility] (2) Urinary tract infection Qualifiers: Urinary tract infection type: acute cystitis Hematuria presence: without hematuria Qualified Code(s): N30.00 - Acute cystitis without hematuria
[2023-10-04] MEDS: Magnesium Chloride 64 MG Delay Rel.Tablet 128 MG PO (10:10)
[2023-10-04] MEDS: amLODIPine 10 MG Tablet PO (10:10)
--- NOTE | 2023-10-04 10:10 | DS.PCM_ITS ---
Providers Date of Admission: 09/29/23 Date of Discharge: 10/04/23 Primary Care Physician: Dr. Fuentes Vergara MD Reason For Visit: SEPSIS Diagnosis Discharge Diagnosis (1) Sepsis: Status: Acute Code(s): A41.9 - Sepsis, unspecified organism (2) Urinary tract infection: Status: Acute Code(s): N39.0 - Urinary tract infection, site not specified Qualifiers: Urinary tract infection type: acute cystitis Hematuria presence: without hematuria Qualified Code(s): N30.00 - Acute cystitis without hematuria (3) KURT (acute kidney injury): Status: Acute Code(s): N17.9 - Acute kidney failure, unspecified (4) GI bleed: Status: Acute Code(s): K92.2 - Gastrointestinal hemorrhage, unspecified (5) Debility: Status: Acute Code(s): R53.81 - Other malaise (6) Encephalopathy: Status: Acute Code(s): G93.40 - Encephalopathy, unspecified Plan Patient is an 83-year-old lady with history of dementia, Paroxysmal A-fib on apixaban admitted with rectal bleeding and progressive generalized weakness. An assessment of sepsis secondary to UTI made admitted to monitored bed for further management 1. Acute metabolic encephalopathy ? Secondary to sepsis as well as severe dehydration and KURT admitted for treatment of underlying condition 2. Anemia secondary to acute blood loss anemia from bleeding per rectum ? Patient is on apixaban for A-fib held. Monitoring H&H with plans to transfuse if hemoglobin falls below 7 or patient is deemed to be symptomatic 3. Acute cystitis ? So far cultures negative patient treated with ceftriaxone 4 acute kidney injury ? Baseline creatinine between 0.5-0.8 creatinine on admission was 2.55 managed with IV fluid with subsequent monitoring of electrolytes ordered 5. Essential hypertension ? Patient is on lisinopril and amlodipine lisinopril discontinued in view of KURT 6. Dyslipidemia -Patient is on statin therapy, continued at home dose 7. Paroxysmal atrial fibrillation ? Rate controlled patient is on systemic anticoagulation with apixaban discontinued in view of her rectal bleed and had previously 8. Chronic congestive heart failure with preserved ejection fraction ? Stable and euvolemic 9. Dementia ? Supportive care 10. Physical deconditioning - Requested for PT OT eval and pediatric social worker to assist with discharge planning 11. Severe protein-calorie malnutrition, BMI 17.3, This is evidenced by patient's low BMI, suboptimal energy intake, weight loss and physical changes this is a result of patient chronic medical conditions. Consult placed to dietitian 12. DVT prophylaxis -patient was on apixaban held in view of her presentation Time spent in the patient's overall evaluation,decision-making process, review of diagnostic data, adjustment of management, discussion with other providers, nursing nursing and ancillary staff involved in patient's care documentation, 35 Minutes Medications at Discharge Home Medications isosorbide mononitrate 60 mg tablet,extended release 24 hr 60 mg PO DAILY heart 07/06/22 memantine 10 mg tablet 10 mg PO BID alzheimers 07/06/22 nitroglycerin 0.4 mg sublingual tablet 0.4 mg sublingual PRN PRN Chest Pain 07/06/22 atorvastatin 10 mg tablet 10 mg PO QHS 12/01/22 cholecalciferol (vitamin D3) 50 mcg (2,000 unit) capsule 50 mcg PO DAILY 12/01/22 amlodipine 10 mg tablet 10 mg PO DAILY #0 tabs 12/05/22 venlafaxine 75 mg capsule,extended release 24 hr (Effexor XR) 75 mg PO DAILY 01/20/23 hydralazine 50 mg tablet 50 mg PO TID 07/02/23 divalproex 125 mg tablet,delayed release 125 mg PO TID 09/29/23 escitalopram oxalate 10 mg tablet (Lexapro) 10 mg PO DAILY depression and anxiety 09/29/23 melatonin 3 mg tablet 3 mg PO QHS sleep 09/29/23 prfecips-ctrc-PN-calcium-mins 1 tab PO DAILY vitamin 09/29/23 magnesium chloride 64 mg (magnesium chloride) tablet,delayed release (Mag 64) 128 mg (2 x 64 mg) PO BID #0 tabs 10/04/23 menthol 0.44 %-zinc oxide 20.6 % topical ointment (Calmoseptine) 1 applic topical TID #0 grams 10/04/23 potassium chloride 20 mEq tablet,extended release(part/cryst) (Klor-Con M) 20 meq PO BIDCM #0 tabs 10/04/23 Hospital Course Summary of Care Provided Minutes Spent on Discharge: 35 Physical Exam Narrative GENERAL: cooperative HEENT: Atraumatic; normocephalic EYES; Anicteric, Normal Conjunctiva NECK; supple, normal thyroid, RESPIRATORY: Diminished to auscultation CARDIOVASCULAR: Regular S1 S2, GI: soft, normoactive bowel sounds, : No Renal angle tenderness; EXTREMITIES: No edema, no clubbing, MUSCULOSKELETAL: no muscle wasting NEURO: Awake; no lateralizing signs. SKIN: No Rash PSYCH; Flat affect Medical Records Data Medical Nutrition Assessment Dietitian: Malnutrition Criteria Met Start: 09/29/23 09:25 Freq: Status: Active Protocol: Document 10/02/23 10:09 (Rec: 10/02/23 10:10 [id number]) Nutrition Malnutrition Evidence of Malnutrition Exists Yes Malnutrition (severe): Chronic Evidenced By Suboptimal Energy Intake ( Severe),Physical Changes ( Severe) Clinical Problem Chronic Disease or Condition Related Malnutrition Etiology severe chronic malnutrition related to inadequate energy intake Signs/Symptoms as evidenced by estimated PO intake meeting <50% of estimated energy needs> 3 months, Severe muscle wasting/ fat loss evident per physical exam in orbital, clavicle, acromion, and temporal areas, BMI 15.7 Status Active Problem Recommendation Dietitian Recommendations/Changes continue regular diet- texture /consistency per SCREENPLAY WRITER; will add fortified foods, ensure plus high protein TID w/ meals for additional nutrition if consumed Weight / BMI Weight Weight: 44 kg Body Mass Index (BMI) 16.1 ABG / Lab / Microbiology Data 10/04/23 04:38 10/04/23 04:38 Laboratory: Laboratory Results - last 24 hr 10/04/23 04:38: WBC 10.2, RBC 3.82 L, Hgb 11.1 L, Hct 35.0 L, MCV 91.6, MCH 29.1, MCHC 31.7 L, RDW Std Deviation 47.6 H, RDW Coeff of David 14.1, Plt Count 117 L, MPV 11.3, Immature Gran % (Auto) 0.900, Neut % (Auto) 71.4 H, Lymph % (Auto) 12.6 L, [place] % (Auto) 8.8, Eos % (Auto) 5.9 H, Baso % (Auto) 0.4, Absolute Neuts (auto) 7.3, Absolute Lymphs (auto) 1.29, Nucleated RBC % 0, Sodium 144, Potassium 3.5, Chloride 113 H, Carbon Dioxide 26.0, Anion Gap 5, BUN 7, Creatinine 0.55, Estim Creat Clear Calc 28.89, Est GFR (MDRD) Af Amer 136, Est GFR (MDRD) Non-Af 113, BUN/Creatinine Ratio 12.8, Glucose 105, Calcium 7.7 L , Phosphorus 2.4 L, Magnesium 1.5 L Microbiology: Microbiology 09/29/23 02:29 Blood Culture (Wb) - Anticubital Left Blood Culture - Final No growth in 5 days. 09/29/23 03:00 Blood Culture (Wb) - Anticubital Left Blood Culture - Final No growth in 5 days. 09/29/23 02:51 Urine, Random Urine Culture - Final Mixed Gram Pos & Gram Neg Org 09/29/23 02:10 Stool Stool Occult Blood (CHERELLE) - Final Occult Blood Positive D/C Instructions Discharge Diet: No restrictions Discharge Activity: Return to Normal Activity Call your doctor if you observe: Fever of 101 or Higher, Shortness of breath, Fainting spells and Chest pain Meaningful Use Info Meaningful Use Diagnoses (Choose all that apply): None applicable Discharge Plan Admission Admit Date/Time: 09/29/23 04:14 Attending Provider: Morgan Villareal Primary Care Provider: Fuentes Vergara Consulting Providers: Anthony Foss; Fredy Goodrich; Steven Downey Discharge Orders/Prescriptions Prescriptions: New potassium chloride [Klor-Con M20] 20 mEq Tablet,Er Particles/Crystals 20 meq PO BIDCM Qty: 0 0RF menthol-zinc oxide [Calmoseptine] 0.44-20.6 % Ointment 1 applic topical TID Qty: 0 0RF Protocol: *Topical Application Instructions APPLICATION INSTRUCTIONS: Apply to affected areas Mag 64 64 mg Tablet,Delayed Release (Dr/Ec) 128 mg PO BID Qty: 0 0RF Continued isosorbide mononitrate 60 mg tablet extended release 24 hr 60 mg PO DAILY nitroglycerin 0.4 mg tablet, sublingual 0.4 mg sublingual PRN PRN (Reason: Chest Pain) memantine 10 mg tablet 10 mg PO BID Patient Comments: TAKE 1 TABLET BY MOUTH TWICE DAILY atorvastatin 10 mg tablet 10 mg PO QHS cholecalciferol (vitamin D3) 50 mcg (2,000 unit) Capsule 50 mcg PO DAILY amlodipine 10 mg Tablet 10 mg PO DAILY Qty: 0 0RF venlafaxine [Effexor XR] 75 mg Capsule,Extended Release 24hr 75 mg PO DAILY hydralazine 50 mg Tablet 50 mg PO TID divalproex 125 mg tablet,delayed release (DR/EC) 125 mg PO TID escitalopram oxalate [Lexapro] 10 mg tablet 10 mg PO DAILY melatonin 3 mg tablet 3 mg PO QHS drrrviyo-iqzx-JK-calcium-mins 1 tab PO DAILY Discontinued lisinopril 20 mg tablet 20 mg PO QHS Eliquis 5 mg tablet 2.5 mg PO BID lorazepam 0.5 mg tablet 0.5 mg PO Q12H PRN (Reason: anxiety) Referrals / Follow Up: Fuentes Vergara MD [Primary Care Provider] - Within 1 Week Disposition Disposition (needs filled in before D/C Order can be placed): [facility] Facility Charges/Coding Visit Charges Inpatient E&M: 28281 Disch Hosp >30min
--- NOTE | 2023-10-04 11:16 | CASEMGMT ---
Discharge Planning Discharge orders, signed med list, and transport time sent to [facility]. [facility] will transport patient by cot at noon. Nursing, SW, and patients daughter, Jo, updated. Krystal Meyer, Discharge Planning Asst.
[2023-10-04 12:31] VITALS: BP 134/62; PULSE 62; RESP 16; TEMP 37.1; O2SAT 95
[2023-10-04] MEDS: Memantine Hydrochloride 10 MG Tablet PO (12:34)
[2023-10-04] MEDS: Isosorbide Mononitrate 60 MG Tablet PO (12:34)
== END 2023-10-04 14:48 | disposition skilled nursing facility (03) | DRG 871 ==
LOC: ED 09-29 01:10 → ICU 09-29 04:55 → PCU 10-02 17:40
PROVIDERS: Family Medicine; Admitting Provider Hospitalist; Emergency Provider Emergency Medicine; PCP Family Medicine; Visit Provider Internal Medicine
DX: A41.9 Sepsis, unspecified organism (principal); G93.41 Metabolic encephalopathy; E43 Unspecified severe protein-calorie malnutrition; N17.9 Acute kidney failure, unspecified; I50.32 Chronic diastolic (congestive) heart failure; D62 Acute posthemorrhagic anemia; Z68.1 Body mass index [BMI] 19.9 or less, adult; N30.00 Acute cystitis without hematuria; I11.0 Hypertensive heart disease with heart failure; F03.90 Unspecified dementia, unspecified severity, without behavioral disturbance, psychotic disturbance, mood disturbance, and anxiety; I48.0 Paroxysmal atrial fibrillation; E78.5 Hyperlipidemia, unspecified; I25.10 Atherosclerotic heart disease of native coronary artery without angina pectoris; R53.81 Other malaise; R62.7 Adult failure to thrive; Z95.5 Presence of coronary angioplasty implant and graft; Z74.01 Bed confinement status; Z79.01 Long term (current) use of anticoagulants; Z79.899 Other long term (current) drug therapy; Z87.891 Personal history of nicotine dependence
CPT/HCPCS: 36415; 74176; 80048; 80053; 81001; 82274; 83605; 83735; 84100; 85025; 86850; 86870; 86900; 86901; 86902; 86905; 86920; 86921; 86922; 87040; 87086; 87088; 92507; 92526; 92610; 93005; 97802; 97803; 99285; J7030; J7040; J7050; A4216

== ENCOUNTER 2023-11-04 14:10 | Inpatient (IN) | payer MEDICARE, MEDICAID, SELFPAY ==
[2023-11-04] VITALS (9 sets, daily range): BP systolic 136–165; BP diastolic 55–89; PULSE 80–97; RESP 18–33; TEMP 36.3–37.1; O2SAT 97–100; BMI 16.9; BMI 14.8
--- NOTE | 2023-11-04 14:28 | EKG12_ITS ---
Test Reason : ALTERED LOC Blood Pressure : / mmHG Vent. Rate : 099 BPM Atrial Rate : 330 BPM P-R Int : 000 ms QRS Dur : 076 ms QT Int : 326 ms P-R-T Axes : 000 052 220 degrees QTc Int : 418 ms Atrial flutter with variable A-V block ST & T wave abnormality, consider lateral ischemia Abnormal ECG Confirmed by NICOLETTE HANKINS, MACIE ([id number]), newspaper or periodical editor ALBERTA ESCALANTE ([id number]) on 11/12/2023 9:24:38 AM Referred By: ROSE Confirmed By:MACIE WILL MD
--- NOTE | 2023-11-04 14:28 | CT_ITS ---
INDICATION: mental status change EXAMINATION: CT BRAIN - CT Head or Brain W/O Contrast Injection TECHNIQUE: Multiple axial images were obtained of the head without intravenous contrast. A radiation dose optimization technique was used for this scan. IV Contrast dosage and agent: None. RADIATION DOSAGE (If Supplied By Facility): CTDIvol = ( 44.99 ) mGy, DLP = ( 812.98 ) mGycm COMPARISON: Prior study dated: 07/02/2023. FINDINGS: BRAIN PARENCHYMA: No intra- or extra-axial hemorrhage. No evidence of acute infarct. No intracranial mass or mass effect. There is preservation of the [place]/white matter interface. Chronic periventricular deep white matter changes likely due to microvascular disease. Posterior fossa structures are unremarkable. CSF SPACES: Mild to moderate atrophy. No hydrocephalus. Basal cisterns are patent. CALVARIUM, SKULL BASE, PARANASAL SINUSES AND MASTOID AIR CELLS: Clear. No discrete lytic or blastic abnormalities. ORBITS: Previous bilateral cataract surgery. CT/Brain/Head without Contrast IMPRESSION: 1. No acute intracranial process. 2. Chronic involutional changes of the brain. Electronically Signed: Ernie Lauren MD at 15:26 EST ,
--- NOTE | 2023-11-04 14:30 | EX.ED.DYSGE1 ---
HPI History of Present Illness Chief Complaint: Alt LOC Detail of Chief Complaint: Mental status change Informant: legal guardian and family Narrative Narrative: Patient presents to the emergency department via EMS from residential. Patient started not feeling well apparently yesterday per daughter who gives the history. Patient mostly nonverbal and does not ambulate. Patient has history of dementia. Patient's daughter who gives history is deaf and uses sign language therefore we had to use the iPad conference interpreter for this history. Patient apparently yesterday was complaining of feeling somewhat dizzy and she was more confused and having mucus. She had decreased p.o. intake. This morning again more lethargic and not her normal self. She was admitted recently with the last several months for a UTI and possible sepsis per daughter. No known fever. There has been no fall or injury that is known. Patient is a full code. [facility] Medical History Acute kidney injury Afib Anemia Congestive heart failure Coronary artery disease Dementia Hip fracture, left History of dementia History of fall Hyperlipidemia Hypertension Impaired ambulation Malnutrition Protein calorie malnutrition Home Medications isosorbide mononitrate 60 mg tablet,extended release 24 hr 60 mg PO DAILY heart 07/06/22 [History Last Taken 09/28/23] memantine 10 mg tablet 10 mg PO BID alzheimers 07/06/22 [History Last Taken 09/28/23] nitroglycerin 0.4 mg sublingual tablet 0.4 mg sublingual Q5M PRN Chest Pain 07/06/22 [History Last Taken Unknown] atorvastatin 10 mg tablet 10 mg PO QHS 12/01/22 [History Last Taken 09/28/23] cholecalciferol (vitamin D3) 50 mcg (2,000 unit) capsule 50 mcg PO DAILY 12/01/22 [History Last Taken 09/28/23] amlodipine 10 mg tablet 10 mg PO DAILY #0 tabs 12/05/22 [Rx Last Taken 09/28/23] venlafaxine 75 mg capsule,extended release 24 hr (Effexor XR) 75 mg PO DAILY 01/20/23 [History Last Taken 09/28/23] hydralazine 50 mg tablet 50 mg PO TID 07/02/23 [History Last Taken 09/28/23] divalproex 125 mg tablet,delayed release 125 mg PO TID 09/29/23 [History Last Taken 09/28/23] escitalopram oxalate 10 mg tablet (Lexapro) 10 mg PO DAILY depression and anxiety 09/29/23 [History Last Taken Unknown] melatonin 3 mg tablet 3 mg PO QHS sleep 09/29/23 [History Last Taken Unknown] lkymtbeu-rhqb-QM-calcium-mins 1 tab PO DAILY vitamin 09/29/23 [History Last Taken Unknown] menthol 0.44 %-zinc oxide 20.6 % topical ointment (Calmoseptine) 1 applic topical TID #0 grams 10/04/23 [Rx Last Taken Unknown] potassium chloride 20 mEq tablet,extended release(part/cryst) (Klor-Con M) 20 meq PO BIDCM #0 tabs 10/04/23 [Rx Last Taken Unknown] acetaminophen 500 mg tablet (Acetaminophen Extra Strength) 1,000 mg PO Q8H PRN fever or pain 11/04/23 [History Last Taken Unknown] bisacodyl 10 mg rectal suppository 10 mg CO DAILY PRN constipation 11/04/23 [History Last Taken Unknown] magnesium hydroxide 400 mg/5 mL oral suspension (Milk of Magnesia) 30 ml PO DAILY PRN constipation 11/04/23 [History Last Taken Unknown] magnesium oxide 400 mg PO DAILY 11/04/23 [History Last Taken Unknown] mineral oil (Fleet Mineral Oil enema) 118 ml CO DAILY PRN constipation 11/04/23 [History Last Taken Unknown] Allergy/AdvReac Type Severity Reaction Status Date / Time No Known Allergies Allergy Verified 11/04/23 14:34 Family History Other CVA (cerebral vascular accident) Hypertension Surgical History History of hip surgery Stented coronary artery Social History Smoking Status: Former smoker ROS ROS ED Review of Systems ROS Unobtainable: due to mental condition and other Constitutional Constitutional ED: Reports lethargy; Denies chills, fever(s), sweats or weight loss Eyes Eyes: Denies blurry vision, change in vision or diplopia ENT ENT ED: Denies rhinorrhea or sore throat Cardiovascular Cardiovascular: Denies chest pain, orthopnea or racing heartbeat Respiratory/Chest Respiratory/Chest: Reports dyspnea and dyspnea on exertion; Denies cough, orthopnea or sputum Gastrointestinal Gastrointestinal: Denies abdominal pain, diarrhea, nausea or vomiting Genitourinary Genitourinary ED: Denies dysuria, hematuria or urinary frequency Musculoskeletal Musculoskeletal: Denies arthralgias, back pain, myalgias or neck pain Integumentary Denies abscess, Abrasions or rash Neurologic Neurologic: Denies headache(s) or weakness Psychiatric Psychiatric: Denies anxiety, depression or suicidal thoughts Endocrine Endocrinology: Denies polydipsia, polyphagia or polyuria Hematologic/Lymphatic Hematologic/Lymphatic: Denies easy bleeding, easy bruising or lymphadenopathy Allergic/Immunologic Allergic/Immunologic ED: Denies mouth swelling, tongue swelling or urticaria EXAM Physical Exam Const Vital Signs: 11/04/23 14:12 11/04/23 14:47 11/04/23 15:58 Temperature 97.4 F L 97.5 F L Temperature Source Temporal Temporal Pulse Rate 97 83 87 Respiratory Rate 28 H 31 H 30 H Blood Pressure 154/66 H 136/69 H 162/85 H Blood Pressure Mean 95 91 110 Pulse Ox 98 99 98 Oxygen Delivery Method Nasal Cannula Nasal Cannula Nasal Cannula Oxygen Flow Rate (L/min) 2 2 2 11/04/23 16:00 Temperature 97.5 F L Temperature Source Temporal Pulse Rate 90 Respiratory Rate 32 H Blood Pressure 165/62 H Blood Pressure Mean 96 Pulse Ox 98 Oxygen Delivery Method Nasal Cannula Oxygen Flow Rate (L/min) 2 Positive well nourished and well developed General Appearance ED: well developed and NAD HEENT Reports TM's clear and moist mucous membranes normocephalic and atraumatic; Negative for trauma or tenderness Tympanic Membrane ED: Yes TM's clear Eyes PERRL and EOMs intact bilaterally General Eye ED: Negative for pale conjunctiva or scleral icterus Neck no lymphadenopathy, supple and no JVD General: Negative for tenderness Chest Wall inspection of chest normal and palpation of chest normal Chest: Negative for tenderness Resp normal respiratory effort and clear to auscultation bilaterally Effort and Inspection: Negative for respiratory distress or pain with movement Auscultation: Negative for rhonchi, wheezes or diminished lung sounds Cardio regular rate, regular rhythm, S1 normal heart sound, S2 normal heart sound and no murmurs Peripheral Pulses: pulses 2+ throughout GI normal to inspection, nondistended, normoactive bowel sounds, soft to palpation, non-tender, non-distended and no masses Back/Spine no CVA tenderness and no thoracic nor lumbar tenderness Extremity normal to inspection General Extremety ED: Negative for edema General Extremity: Negative for edema Neuro oriented x3, CN's II-XII intact bilaterally, no sensory deficits noted and gait normal Neuro Narrative: Eyes open however nonverbal and really does not follow commands. She does have purposeful movements. No facial droop or obvious focal weakness noted. Sensorium / Orientation: awake, alert, oriented to person, oriented to place and oriented to time Motor Exam: strength 5/5 throughout and strength abnormal Psych mental status grossly normal Skin no rashes or lesions noted and no wounds MDM MDM MDM Narrative Medical decision making narrative: Patient presents via EMS from residential with history of dementia and nonverbal. Change in condition since yesterday per daughter and ECF. IV line established on arrival. EKG obtained showed atrial flutter with rate of 99 bpm. CBC with differential count of 29 with hemoglobin 14 and platelet count of 294. Chemistries show elevated sodium of 163 with potassium 4.3 and chloride 133. BUN 69 and creatinine 1.83. Lactate elevated 5.2. Urinalysis obtained cath specimen show 5 on leukocyte esterase and blood cultures ordered. Will empirically start patient on Zosyn IV. Case will be discussed with hospitalist to evaluate patient for admission. Patient with sepsis syndrome. Given her significant hypernatremia will judiciously give fluids slowly rather than 30 cc/kg fluid bolus given that she is otherwise normotensive. Lab Data Attestation: I reviewed the patient's lab results. Labs: Laboratory Results - last 24 hr 11/04/23 11/04/23 14:20 15:00 WBC 29.2 H RBC 4.82 Hgb 14.3 Hct 47.5 H MCV 98.5 MCH 29.7 MCHC 30.1 L RDW Std Deviation 66.8 H RDW Coeff of David 18.6 H Plt Count 294 MPV 12.1 H Immature Gran % (Auto) 0.600 Neut % (Auto) 93.7 H Lymph % (Auto) 2.1 L Vance % (Auto) 3.1 Eos % (Auto) 0.2 Baso % (Auto) 0.3 Absolute Neuts (auto) 27.3 H Absolute Lymphs (auto) 0.61 L Nucleated RBC % 0.1 Differential Comment SCANNED Anisocytosis RARE Sodium 163 H* Potassium 4.3 Chloride 133 H* Carbon Dioxide 23.0 Anion Gap 7 BUN 69 H Creatinine 1.83 H Estim Creat Clear Calc 16.22 Est GFR (MDRD) Af Amer 34 L Est GFR (MDRD) Non-Af 28 L BUN/Creatinine Ratio 37.7 H Glucose 164 H Serum Osmolality 374 H Lactic Acid 5.2 H* Calcium 10.6 H Total Bilirubin 0.70 AST 22 ALT 18 Alkaline Phosphatase 97 Troponin I High Sens 126 H* Total Protein 8.4 H Albumin 2.8 L Globulin 5.6 H Albumin/Globulin Ratio 0.5 L Urine Color Yellow Urine Clarity Sl. Cloudy Urine pH 5.0 Ur Specific [place] 1.025 Urine Protein 30 H Urine Glucose (UA) Normal Urine Ketones 5 H Urine Occult Blood 10 H Urine Nitrite Negative Urine Bilirubin 1 H Urine Urobilinogen 4 H Ur Leukocyte Esterase 500 H Urine RBC 0-5 SEEN Urine WBC 25-50 SEEN Ur Squamous Epith Cells 0-5 SEEN Amorphous Sediment 1+ Urine Bacteria 2+ Urine Mucus 0 SEEN Urine Osmolality 542 Ur Random Sodium 18 Urine Creatinine 114.00 Radiography Diagnostic Testing: Clinical Impression(s) from Imaging Studies Brain CT 11/04/23 14:28 IMPRESSION: 1. No acute intracranial process. 2. Chronic involutional changes of the brain. Electronically Signed: Ernie Lauren MD at 15:26 EST , Chest X-Ray 11/04/23 15:45 IMPRESSION: No acute radiographic abnormalities. Electronically Signed: Bharat Wade MD at 17:17 EST , 1 view chest x-ray obtained interpreted by myself as no evidence of infiltrate or pneumothorax or acute disease process. Official report from radiology pending. EKG Initial EKG: Attestation: I personally reviewed and interpreted this EKG as follows: Comments: Atrial flutter with variable block with rate of [address] changes. Critical Care Time Critical care time (excluding procedures): 30-74 minutes, Including time spent:, Discussing w/Patient &/or Family/Chiller Operator, Discussing w/Consultants, Arranging Admission or Transfer, Performing Direct Patient Care at Bedside and - (35 minutes) Discharge Plan Dx/Rx/DC Orders Clinical Impression: Dehydration, Elevated troponin, Acute UTI, Sepsis, KURT (acute kidney injury), Acidosis, lactic Disposition Disposition: Acute Care Hospital [facility] Discharge Date/Time: 11/04/23 17:21
[2023-11-04] MEDS: 0.9% Normal Saline (1000mL) 1,000 ML 150 ML IV (14:59)
[2023-11-04 15:13] LABS: Mucous, Urine 0 SEEN /hpf (<or=2+)
[2023-11-04 15:17] LABS: Absolute Lymphocyte Count 0.61 X10^3/uL (0.83-4.51); Absolute Neutrophil Count 27.3 X10^3/uL (2.0-7.7); Basophil% 0.3 % (0-1); Eosinophil# 0.06 X10^3/uL; Eosinophils% 0.2 % (0-5); Hematocrit 47.5 % (37-47); Hemoglobin 14.3 g/dL (12.0-15.0); Lymphocyte # 0.61 X10^3/ul (0.83-4.51); Lymphocyte % 2.1 % (19-41); Mean Corp Hgb Conc 30.1 g/dL (32-36); Mean Corpuscular Hgb 29.7 pg (27.0-32.0); Mean Corpuscular Volume 98.5 fL (81-99); Mean Platelet Vol. 12.1 fl (6.2-12.0); Monocyte# 0.91 X10^3/uL; Monocyte% 3.1 % (0-10); NRBC Flagged by Analyzer 0.1 % (0-5); Neutrophil # 27.32 X10^3/uL (2.7-7.7); Neutrophil % 93.7 % (47-70); POSITIVE DIFFERENTIAL YES; POSITIVE MORPHOLOGY YES; Platelet Count 294 K/mm3 (150-450); RBC Distribution Width CV 18.6 % (11.6-14.6); RBC Distribution Width SD 66.8 fl (35.1-43.9); Red Blood Count 4.82 M/mm3 (4.2-5.4); White Blood Count 29.2 K/mm3 (4.4-11.0)
[2023-11-04 15:23] LABS: Differential Indicated SCAN CRITERIA MET
[2023-11-04 15:36] LABS: Color, Urine Yellow (Yellow); Glucose, Dipstick Normal (Normal); Ketone-Dipstick 5 mg/dl (Negative); Leukocyte Esterase-Dipstick 500 /ul (Negative); Nitrite-Dipstick Negative (Negative); Occult Blood-Urine 10 /ul (Negative); Protein-Dipstick 30 mg/dl (Negative); Specific Gravity, Urine 1.025 (1.002-1.030); Urine Clarity Sl. Cloudy (Clear); Urine Urobilinogen 4 mg/dl (Normal)
[2023-11-04 15:37] LABS: Urine Bilirubin Dipstick 1 mg/dL (Negative)
[2023-11-04 15:40] LABS: Differential Comment SCANNED
[2023-11-04 15:41] LABS: Anisocytosis RARE
[2023-11-04 15:44] LABS: Lactic Acid 5.2 mmol/L (0.4-1.9)
[2023-11-04 15:45] LABS: ALB/GLOB Ratio 0.5 RATIO (0.9-2.4); AST(SGOT) 22 U/L (15-37); Alanine Aminotransfer ALT/SGPT 18 U/L (13-56); Albumin, Serum 2.8 g/dL (3.2-5.0); Alkaline Phosphatase 97 U/L (45-117); Anion Gap 7 (5-15); BUN 69 mg/dL (7-18); BUN/Creat Ratio 37.7 RATIO (10-20); Calcium,Total 10.6 mg/dL (8.5-10.1); Chloride 133 mmol/L (98-107); Creatinine, Serum 1.83 mg/dL (0.55-1.02); EST Glomerular Filtration Rate 28 mL/min (>60); Est Glom Filt Rate - Afr Amer 34 mL/min (>60); Estimated Creatinine Clearance 16.22 ml/min; Globulin 5.6 g/dL (2.2-4.2); Glucose 164 mg/dL (74-106); Potassium 4.3 mmol/L (3.5-5.1); Protein, Total 8.4 g/dL (6.4-8.2); Sodium Level 163 mmol/L (136-145); Troponin-I HS 126 pg/mL (3.0-54.0)
--- NOTE | 2023-11-04 15:45 | RAD_ITS ---
INDICATION: tachypnea EXAMINATION/TECHNIQUE: X-RAY - XR Chest 1 View COMPARISON: 01/20/2023. FINDINGS: The lungs are clear. Tortuous and calcified thoracic aorta. The heart is mildly enlarged. No pleural effusion or pneumothorax. Degenerative changes of the thoracic spine. RAD/Chest 1 View (Portable) IMPRESSION: No acute radiographic abnormalities. Electronically Signed: Bharat Wade MD at 17:17 EST ,
[2023-11-04 15:52] LABS: Amorphous Sediment 1+; Bacteria 2+ /hpf (None Seen); Red Blood Cells-Urine 0-5 SEEN /hpf (0-5); Squamous Epithelial Cells - UA 0-5 SEEN /hpf (5-10); White Blood Cells 25-50 SEEN /hpf (0-5)
--- NOTE | 2023-11-04 15:55 | HP.PCM.HOS_ITS ---
HPI - General General Date of Admission: 11/04/23 Date of Service: 11/04/23 Chief Complaint: Adult failure to thrive HPI Narrative EHNRI GRIFFIN, is a 83 F who presented to [facility] ED on 11/04/2023 from alf for altered mental status. Patient seen at bedside in the ED, daughter Jo present. Patient has history of significant dementia, is essentially nonverbal at baseline, does not ambulate and has lived in a alf for about the last year. Daughter Jo is deaf, video household refrigeration mechanic with ASL used for interview. Daughter Brionna also present over the phone for my conversation. History was obtained from Jo and Brionna. They state that the patient was recently admitted at the end of September for both sepsis secondary to UTI as well as acute blood loss anemia secondary to GI bleed. Patient was discharged back to her alf on 10/04, and daughters noted that patient appeared much improved over the first 1 to 2 weeks back at the facility. Patient is able to communicate with words or short phrases per family at baseline. Jo states that she visits the patient about 3-4 times per week. She noted that over the past 2 weeks or so, the patient appeared to be progressively worsening. She noted that patient was hardly eating or drinking anything, and felt like staff was not being attentive to patient's nutrition needs. Jo said patient appeared weaker and more altered than previous this morning, so she requested that patient be brought to the hospital for further care. Patient is resting comfortably in bed on my exam, does not appear to be in any acute distress. Did not follow any commands. No other acute concerns at this time. [facility] Medical History (Updated 11/04/23 @ 22:[address] Narinder Hoyos, DO) Acute kidney injury Afib Anemia Congestive heart failure Coronary artery disease Dementia Hip fracture, left History of dementia History of fall Hyperlipidemia Hypertension Impaired ambulation Malnutrition Protein calorie malnutrition Home Medications isosorbide mononitrate 60 mg tablet,extended release 24 hr 60 mg PO DAILY heart 07/06/22 [History Last Taken 09/28/23] memantine 10 mg tablet 10 mg PO BID alzheimers 07/06/22 [History Last Taken 09/28/23] nitroglycerin 0.4 mg sublingual tablet 0.4 mg sublingual Q5M PRN Chest Pain 07/06/22 [History Last Taken Unknown] atorvastatin 10 mg tablet 10 mg PO QHS 12/01/22 [History Last Taken 09/28/23] cholecalciferol (vitamin D3) 50 mcg (2,000 unit) capsule 50 mcg PO DAILY 12/01/22 [History Last Taken 09/28/23] amlodipine 10 mg tablet 10 mg PO DAILY #0 tabs 12/05/22 [Rx Last Taken 09/28/23] venlafaxine 75 mg capsule,extended release 24 hr (Effexor XR) 75 mg PO DAILY 01/20/23 [History Last Taken 09/28/23] hydralazine 50 mg tablet 50 mg PO TID 07/02/23 [History Last Taken 09/28/23] divalproex 125 mg tablet,delayed release 125 mg PO TID 09/29/23 [History Last Taken 09/28/23] escitalopram oxalate 10 mg tablet (Lexapro) 10 mg PO DAILY depression and anxiety 09/29/23 [History Last Taken Unknown] melatonin 3 mg tablet 3 mg PO QHS sleep 09/29/23 [History Last Taken Unknown] qnwownml-kmif-CU-calcium-mins 1 tab PO DAILY vitamin 09/29/23 [History Last Taken Unknown] menthol 0.44 %-zinc oxide 20.6 % topical ointment (Calmoseptine) 1 applic topical TID #0 grams 10/04/23 [Rx Last Taken Unknown] potassium chloride 20 mEq tablet,extended release(part/cryst) (Klor-Con M) 20 meq PO BIDCM #0 tabs 10/04/23 [Rx Last Taken Unknown] acetaminophen 500 mg tablet (Acetaminophen Extra Strength) 1,000 mg PO Q8H PRN fever or pain 11/04/23 [History Last Taken Unknown] bisacodyl 10 mg rectal suppository 10 mg ID DAILY PRN constipation 11/04/23 [History Last Taken Unknown] magnesium hydroxide 400 mg/5 mL oral suspension (Milk of Magnesia) 30 ml PO DAILY PRN constipation 11/04/23 [History Last Taken Unknown] magnesium oxide 400 mg PO DAILY 11/04/23 [History Last Taken Unknown] mineral oil (Fleet Mineral Oil enema) 118 ml ID DAILY PRN constipation 11/04/23 [History Last Taken Unknown] Allergy/AdvReac Type Severity Reaction Status Date / Time No Known Allergies Allergy Verified 11/04/23 14:34 Family History Other CVA (cerebral vascular accident) Hypertension Surgical History History of hip surgery Stented coronary artery Social History Smoking Status: Former smoker ROS Review of Systems ROS Unobtainable: due to mental condition Vital Signs Vital Signs Vital Signs: 11/04/23 14:12 11/04/23 14:47 Temperature 97.4 F L 97.5 F L Temperature Source Temporal Temporal Pulse Rate 97 83 Respiratory Rate 28 H 31 H Blood Pressure 154/66 H 136/69 H Blood Pressure Mean 95 91 Pulse Ox 98 99 Oxygen Delivery Method Nasal Cannula Nasal Cannula Oxygen Flow Rate (L/min) 2 2 Weight Weight: 44.9 kg Body Mass Index (BMI) 16.9 Physical Exam Const Constitutional Narrative: Elderly female, very thin and cachectic appearing, laying comfortably in bed, no acute distress. Patient laying with eyes open, however did not respond to any commands. General Appearance: comfortable HEENT normocephalic, head/scalp atraumatic and nasal mucous membranes and turbinates normal HEENT Narrative: Dry mucous membranes. Eyes PERRL, EOMs intact bilaterally and conjunctivae normal Neck no lymphadenopathy Lymph Lymphatic: no lymphadenopathy noted Chest inspection of chest normal Resp Resp Narrative: Satting in high 90s on 2 L nasal cannula, no increased work of breathing noted. Good breath sounds bilaterally, no wheezing or crackles noted. Cardio regular rate, regular rhythm, no murmurs and peripheral pulses 2+ throughout GI normal to inspection, nondistended, normoactive bowel sounds, soft to palpation, non-tender and non-distended Extremity normal to inspection and no pedal edema Skin no rashes or lesions noted Results Lab / Micro Data 11/04/23 14:20 11/04/23 14:20 Labs: Laboratory Results - last 24 hr 11/04/23 14:20: WBC 29.2 H, RBC 4.82, Hgb 14.3, Hct 47.5 H, MCV 98.5, MCH 29.7, MCHC 30.1 L, RDW Std Deviation 66.8 H, RDW Coeff of David 18.6 H, Plt Count 294, MPV 12.1 H, Immature Gran % (Auto) 0.600, Neut % (Auto) 93.7 H, Lymph % (Auto) 2.1 L, [place] % (Auto) 3.1, Eos % (Auto) 0.2, Baso % (Auto) 0.3, Absolute Neuts (auto) 27.3 H, Absolute Lymphs (auto) 0.61 L, Nucleated RBC % 0.1, Differential Comment SCANNED, Anisocytosis RARE, Sodium 163 H*, Potassium 4.3, Chloride 133 H*, Carbon Dioxide 23.0, Anion Gap 7, BUN 69 H, Creatinine 1.83 H, Estim Creat Clear Calc 16.22, Est GFR (MDRD) Af Amer 34 L, Est GFR (MDRD) Non-Af 28 L, BUN/Creatinine Ratio 37.7 H, Glucose 164 H, Lactic Acid 5.2 H*, Calcium 10.6 H, Total Bilirubin 0.70, AST 22, ALT 18, Alkaline Phosphatase 97, Troponin I High Sens 126 H*, Total Protein 8.4 H, Albumin 2.8 L, Globulin 5.6 H, Albumin/Globulin Ratio 0.5 L 11/04/23 15:00: Urine Color Yellow, Urine Clarity Sl. Cloudy, Urine pH 5.0, Ur Specific [place] 1.025, Urine Protein 30 H, Urine Glucose (UA) Normal, Urine Ketones 5 H, Urine Occult Blood 10 H, Urine Nitrite Negative, Urine Bilirubin 1 H, Urine Urobilinogen 4 H, Ur Leukocyte Esterase 500 H, Urine RBC 0-5 SEEN, Urine WBC 25-50 SEEN, Ur Squamous Epith Cells 0-5 SEEN, Amorphous Sediment 1+, Urine Bacteria 2+, Urine Mucus 0 SEEN Imagaing Radiology Impression Brain CT 11/04/23 14:28 IMPRESSION: 1. No acute intracranial process. 2. Chronic involutional changes of the brain. Electronically Signed: Ernie Lauren MD at 15:26 EST , Assessment & Plan Assessment/Plan (1) Adult failure to thrive: (2) Hypernatremia: (3) Dementia: PLAN: Plan Patient is an 83-year-old female who presented to [facility] ED on 11/04/2023 from alf for altered mental status. 1. Adult failure to thrive, late stage dementia Has resided in a alf for about the last year. Essentially nonverbal at baseline and does not ambulate. Severe malnutrition with BMI 15 as noted below. ? Admit under inpatient status to PCU. Discussed with daughters Jo and Brionna at length on admission. Have high concern that patient would require supplemental nutrition through PEG tube going forward if family wanted to be agg ressive with patient's care, given her inability to ask for food or water and history of dysphagia as noted below. Family is unsure at this point if they would want patient to have a feeding tube or not. Were agreeable to a palliative care consult for further discussion. Notably did want to keep patient full code for now, noted that they perceived that DNR patients do not receive the same level of care in nursing facilities. PT/OT/case management consulted as well. Continue home memantine, divalproex. 2. Severe hypernatremia with severe dehydration, history of dysphagia Sodium 163 on admit. Chloride 133. Presumed secondary to very poor water intake. Patient has known history of dysphagia, is on modified diet at nursing facility. Patient's daughters see patient multiple times per week, noted that staff was not attentive to providing the patient with food or water over the past few weeks. ? Continue LR 150 ml/hr til tomorrow morning. Follow up a.m. BMP. Speech therapy consulted, will keep patient n.p.o. for now. 3. KURT Likely prerenal secondary to hypovolemia from dehydration. Creatinine 1.83, BUN 69 on admit. Baseline creatinine appears to be around 0.5-0.6. ? IV maintenance fluids as noted above. Follow-up a.m. BMP. Monitor urine output. Rivas catheter notably placed on admit given concern for urinary retention due to dementia, UTI. 4. UTI, lactic acidosis, sepsis ruled out Suspect mild UTI without sepsis. UA with 500 leukocyte esterase, negative ni trites, 25-50 WBCs, 2+ bacteria. Patient notably with WBC count 29 K, lactate 5.2 on admit; however, suspect lactic acidosis is largely secondary to severe hypovolemia from dehydration and suspect white count is somewhat falsely elevated due to severe hemoconcentration. Afebrile, normotensive, not tachycardic on admit. Previous urine cultures notably with mixed peggy. ? Given 1 dose of Zosyn in the ED, will treat with ceftriaxone for now. Follow- up urine culture. IV fluid resuscitation as noted above. Trend lactate. 5. Severe protein calorie malnutrition ? BMI 15 on admit, appears cachectic on exam. Nutrition consulted. Speech therapy consulted as above. 6. Essential hypertension ? Notably with mild hypertension on admission despite severe dehydration. Continued home regimen of amlodipine, hydralazine, isosorbide mononitrate. Chronic medical conditions: ? Hyperlipidemia: Continue home statin. ? Depression/anxiety/insomnia: Continue home Lexapro, venlafaxine, melatonin. ? Paroxysmal A-fib: Previously on Eliquis, discontinued after recent admission due to GI bleed. Rate controlled without home medication. DVT prophylaxis: Heparin subcu CODE STATUS: Full code, verified Expected disposition: TBD Total clinical time spent by myself addressing the patient's medical issues, reviewing all the data, and collaborating with patient's care team: 55 minutes. Charges/Coding Visit Charges Inpatient E&M: 19294 Init Hosp L2
--- NOTE | 2023-11-04 16:20 | NURSING ---
PCU [facility] UTI,SEPSIS, KURT, DEHYDRATION, HYPERMATREMIA
[2023-11-04] MEDS: Lactated Ringers 1,000 ML 150 ML IV (16:33)
[2023-11-04 16:34] LABS: Urine Sodium 18 mmol/L (Not Establ.)
[2023-11-04 16:45] LABS: Osmolality, Serum 374 mOsm/KG (280-301)
[2023-11-04 16:45] LABS: Osmolality, Urine 542 mOsm/KG
[2023-11-04] MEDS: Piperacil/Tazobactam 4.5 GM in 0.9% Normal Saline (100mL MB+) 100 ML IV (16:51)
[2023-11-04 19:14] LABS: Reflex Lactate? Y
[2023-11-04] MEDS: Heparin Injection (Vial) 5,000 UNIT/ML VIAL 5000 UNIT SC (20:01)
[2023-11-04 20:29] LABS: Lactic Acid 3.1 mmol/L (0.4-1.9)
[2023-11-05] MEDS: Lactated Ringers 1,000 ML 150 ML IV ×2 (00:23→07:40)
[2023-11-05 03:59] VITALS: BP 148/67; PULSE 97; RESP 18; TEMP 37.9; O2SAT 98
[2023-11-05 06:01] LABS: Hematocrit 43.3 % (37-47); Hemoglobin 12.6 g/dL (12.0-15.0); Mean Corp Hgb Conc 29.1 g/dL (32-36); Mean Corpuscular Hgb 28.5 pg (27.0-32.0); Mean Platelet Vol. 11.5 fl (6.2-12.0); POSITIVE MORPHOLOGY YES; Platelet Count 201 K/mm3 (150-450); RBC Distribution Width CV 18.4 % (11.6-14.6); RBC Distribution Width SD 66.6 fl (35.1-43.9); Red Blood Count 4.42 M/mm3 (4.2-5.4); White Blood Count 23.3 K/mm3 (4.4-11.0)
[2023-11-05 06:08] LABS: Scan Indicated on CBC? Y/N YES- FLAGS NOTED
[2023-11-05 06:30] LABS: Differential Comment SCANNED
[2023-11-05 06:40] LABS: Anion Gap 4 (5-15); BUN 54 mg/dL (7-18); BUN/Creat Ratio 47.8 RATIO (10-20); Chloride 138 mmol/L (98-107); Creatinine, Serum 1.13 mg/dL (0.55-1.02); EST Glomerular Filtration Rate 49 mL/min (>60); Est Glom Filt Rate - Afr Amer 59 mL/min (>60); Estimated Creatinine Clearance 22.99 ml/min; Glucose 87 mg/dL (74-106); Potassium 3.2 mmol/L (3.5-5.1); Sodium Level 168 mmol/L (136-145)
[2023-11-05] MEDS: Dextrose 5%-Water (1000mL Bag) 1,000 ML 125 ML IV (08:31)
[2023-11-05] MEDS: Ceftriaxone 1 GM/50 ML BAG IV (08:31)
[2023-11-05] MEDS: Heparin Injection (Vial) 5,000 UNIT/ML VIAL 5000 UNIT SC ×2 (08:37→20:22)
[2023-11-05 10:00] VITALS: BP 134/60; PULSE 84; RESP 18; TEMP 36.5; O2SAT 95
--- NOTE | 2023-11-05 10:09 | PCM.PROGNOTE ---
Subjective Subjective Patient seen and examined. She is quite weak and very lethargic. Unable to do review of systems. She is on 2L of oxygen. She has otherwise hemodynamically stable. Objective Data Objective Data Vital Signs: Vital Signs Temp Pulse Resp BP Pulse Ox O2 Del Method O2 Flow Rate 100.2 F H 97 18 148/67 H 98 Nasal Cannula 2 11/05/23 03:59 11/05/23 03:59 11/05/23 03:59 11/05/23 03:59 11/05/23 03:59 11/05/23 07:57 11/05/23 07:57 Oxygen Flow Rate (L/min) 2 Oxygen Delivery Method Nasal Cannula Weight: 86 lb 10.267 oz Body Mass Index (BMI) 14.8 Intake & Output: Intake and Output for Last 24 Hours 11/03/23 11/04/23 11/05/23 23:59 23:59 23:59 Intake Total 1335 / 1335 1177.5 / 1177.5 Output Total 50 / 500 700 / 700 Balance 1285 / 835 477.5 / 477.5 Lab / Micro Data 11/05/23 05:15 11/05/23 05:15 Labs: Laboratory Results - last 24 hr 11/04/23 14:20: WBC 29.2 H, RBC 4.82, Hgb 14.3, Hct 47.5 H, MCV 98.5, MCH 29.7, MCHC 30.1 L, RDW Std Deviation 66.8 H, RDW Coeff of David 18.6 H, Plt Count 294, MPV 12.1 H, Immature Gran % (Auto) 0.600, Neut % (Auto) 93.7 H, Lymph % (Auto) 2.1 L, [place] % (Auto) 3.1, Eos % (Auto) 0.2, Baso % (Auto) 0.3, Absolute Neuts (auto) 27.3 H, Absolute Lymphs (auto) 0.61 L, Nucleated RBC % 0.1, Differential Comment SCANNED, Anisocytosis RARE, Sodium 163 H*, Potassium 4.3, Chloride 133 H*, Carbon Dioxide 23.0, Anion Gap 7, BUN 69 H, Creatinine 1.83 H, Estim Creat Clear Calc 16.22, Est GFR (MDRD) Af Amer 34 L, Est GFR (MDRD) Non-Af 28 L, BUN/Creatinine Ratio 37.7 H, Glucose 164 H, Serum Osmolality 374 H, Lactic Acid 5.2 H*, Calcium 10.6 H, Total Bilirubin 0.70, AST 22, ALT 18, Alkaline Phosphatase 97, Troponin I High Sens 126 H*, Total Protein 8.4 H, Albumin 2.8 L, Globulin 5.6 H, Albumin/Globulin Ratio 0.5 L 11/04/23 15:00: Urine Color Yellow, Urine Clarity Sl. Cloudy, Urine pH 5.0, Ur Specific [place] 1.025, Urine Protein 30 H, Urine Glucose (UA) Normal, Urine Ketones 5 H, Urine Occult Blood 10 H, Urine Nitrite Negative, Urine Bilirubin 1 H, Urine Urobilinogen 4 H, Ur Leukocyte Esterase 500 H, Urine RBC 0-5 SEEN, Urine WBC 25-50 SEEN, Ur Squamous Epith Cells 0-5 SEEN, Amorphous Sediment 1+, Urine Bacteria 2+, Urine Mucus 0 SEEN, Urine Osmolality 542, Ur Random Sodium 18, Urine Creatinine 114.00 11/04/23 19:40: Lactic Acid 3.1 H* 11/05/23 05:15: WBC 23.3 H, RBC 4.42, Hgb 12.6, Hct 43.3, MCV 98.0, MCH 28.5, MCHC 29.1 L, RDW Std Deviation 66.6 H, RDW Coeff of David 18.4 H, Plt Count 201, MPV 11.5, Differential Comment SCANNED, Sodium 168 H*, Potassium 3.2 L, Chloride 138 H*, Carbon Dioxide 26.0, Anion Gap 4 L, BUN 54 H, Creatinine 1.13 H, Estim Creat Clear Calc 22.99, Est GFR (MDRD) Af Amer 59 L, Est GFR (MDRD) Non-Af 49 L, BUN/Creatinine Ratio 47.8 H, Glucose 87, Calcium 9.0 Micro: Microbiology 11/04/23 15:00 Nasal Secretion SARS-CoV-2 & FLU Antigen (Rapid) - Final Radiography Diagnostic Testing: Radiology Impression Brain CT 11/04/23 14:28 IMPRESSION: 1. No acute intracranial process. 2. Chronic involutional changes of the brain. Electronically Signed: Ernie Lauren MD at 15:26 EST , Chest X-Ray 11/04/23 15:45 IMPRESSION: No acute radiographic abnormalities. Electronically Signed: Bharat Wade MD at 17:17 EST , Physical Exam Const Constitutional Narrative: very weak and lethargic, minimaly responsive. HEENT normocephalic and head/scalp atraumatic HEENT Narrative: very dry oral mucosa Eyes PERRL and EOMs intact bilaterally Neck no lymphadenopathy, supple and no JVD Lymph Lymphatic: no lymphadenopathy noted and no lymphedema noted Resp normal respiratory effort, normal air movement and clear to auscultation bilaterally Resp Narrative: on 2L of oxygen by nasal canula. MIldly diminished breath sounds bibasally, no wheezes or crackles. Cardio regular rate, regular rhythm, S1 normal heart sound and S2 normal heart sound GI normal to inspection, nondistended, normoactive bowel sounds, soft to palpation, non-tender and non-distended Extremity normal capillary refill, no clubbing, cyanosis or edema and no calf tenderness Skin General Skin Exam: no breakdown Neuro Neuro Narrative: lethargic and minimally responsive Assessment & Plan Assessment/Plan (1) Hypernatremia: (2) Adult failure to thrive: PLAN: Plan #Acute metabolic encephalopathy due to severe hypernatremia sodium is 168. Chloride also markedly elevated currently on Ringer's lactate due to concerns about dehydration will switch to IV D5 W ~ 125cc/hr check BMP q4hrly nephrology consulted # Dementia with failure to thrive: On IV ceftriaxone. Urine cultures pending. Patient very weak and debilitated and not communicating very well. #KURT: Creatinine is trending downwards. Likely due to dehydration. Should improve with hydration. #UTI: Urinalysis showed 2+ bacteria. On IV ceftriaxone. Urine cultures pending. #Severe protein calorie malnutrition: BMI is 14.8. Nutrition consulted. #Benign essential hypertension: On amlodipine and hydralazine as well as Imdur #Hyperlipidemia: On statin #Depression and anxiety: On Lexapro and venlafaxine #Paroxysmal A-fib: Eliquis was discontinued recently after she had an admission for GI bleed. Currently not on any rate limiting medication or antiarrhythmic. DVT prophylaxis: Heparin Charges/Coding Visit Charges Inpatient E&M: 48826 [facility] Hosp L3
--- NOTE | 2023-11-05 10:51 | PCM.CONS.R ---
Assessment & Plan Assessment/Plan (1) Hypernatremia: PLAN: 83 years old demented female came over in the hospital with urinary tract infection and altered mental status after not having adequate oral food and fluid intake for extended period of time. Received LR and sodium further went up. Renal function has improved with volume expansion. Plan Fluid of choice is D5W and she is getting it. Arreola is to avoid the rapid decline in the sodium level and that could be done by monitoring sodium level every 4 hours. Initial decline in sodium could be rapid as we witnessed sodium going from 1 63-1 68 within several hours and that could be corrected fast. Another thought that I have, is that she could possibly do have unilateral renal artery stenosis that causes significant elevation in her blood pressure and as a result unaffected kidney increases urine output and cause dehydration fast. That could be later assessed once her kidney function is back to baseline (2) Dehydration: (3) KURT (acute kidney injury): HPI Consult Data Date of Consult: 11/05/23 HPI Narrative Reason for Consultation: Hypernatremia, acute kidney injury HPI Narrative: HENRI GRIFFIN, is a 83 F who presents with altered mental status. Apparently patient has advanced dementia and nonverbal at baseline. She was here just about a month ago with altered mental status, UTI, elevated sodium levels. Treated with antibiotics, hydrated, get back to baseline and return to snf. There she has not been eating or drinking in the last several days had no oral intake at all. She was brought once again with altered mental status and was found to have sodium 163, creatinine 1.8. She was aggressively hydrated with LR, and while her kidney function has improved with volume expansion, with creatinine going down to 1.12, her sodium went further up to 168. She is hemodynamically stable. She looks dehydrated on exam, she does not respond. Patient's daughter is at baseline and demanded explanation why her mother is not responding. Ruling Machine Set Up Operator services were contacted, and I had a long conversation with the patient about her mother's condition. [facility] Medical History (Updated 11/04/23 @ 22:[address] Narinder Hoyos, ) Acute kidney injury Afib Anemia Congestive heart failure Coronary artery disease Dementia Hip fracture, left History of dementia History of fall Hyperlipidemia Hypertension Impaired ambulation Malnutrition Protein calorie malnutrition Home Medications isosorbide mononitrate 60 mg tablet,extended release 24 hr 60 mg PO DAILY heart 07/06/22 [History Last Taken 09/28/23] memantine 10 mg tablet 10 mg PO BID alzheimers 07/06/22 [History Last Taken 09/28/23] nitroglycerin 0.4 mg sublingual tablet 0.4 mg sublingual Q5M PRN Chest Pain 07/06/22 [History Last Taken Unknown] atorvastatin 10 mg tablet 10 mg PO QHS 12/01/22 [History Last Taken 09/28/23] cholecalciferol (vitamin D3) 50 mcg (2,000 unit) capsule 50 mcg PO DAILY 12/01/22 [History Last Taken 09/28/23] amlodipine 10 mg tablet 10 mg PO DAILY #0 tabs 12/05/22 [Rx Last Taken 09/28/23] venlafaxine 75 mg capsule,extended release 24 hr (Effexor XR) 75 mg PO DAILY 01/20/23 [History Last Taken 09/28/23] hydralazine 50 mg tablet 50 mg PO TID 07/02/23 [History Last Taken 09/28/23] divalproex 125 mg tablet,delayed release 125 mg PO TID 09/29/23 [History Last Taken 09/28/23] escitalopram oxalate 10 mg tablet (Lexapro) 10 mg PO DAILY depression and anxiety 09/29/23 [History Last Taken Unknown] melatonin 3 mg tablet 3 mg PO QHS sleep 09/29/23 [History Last Taken Unknown] lmsrqkjn-tiah-FI-calcium-mins 1 tab PO DAILY vitamin 09/29/23 [History Last Taken Unknown] menthol 0.44 %-zinc oxide 20.6 % topical ointment (Calmoseptine) 1 applic topical TID #0 grams 10/04/23 [Rx Last Taken Unknown] potassium chloride 20 mEq tablet,extended release(part/cryst) (Klor-Con M) 20 meq PO BIDCM #0 tabs 10/04/23 [Rx Last Taken Unknown] acetaminophen 500 mg tablet (Acetaminophen Extra Strength) 1,000 mg PO Q8H PRN fever or pain 11/04/23 [History Last Taken Unknown] bisacodyl 10 mg rectal suppository 10 mg IN DAILY PRN constipation 11/04/23 [History Last Taken Unknown] magnesium hydroxide 400 mg/5 mL oral suspension (Milk of Magnesia) 30 ml PO DAILY PRN constipation 11/04/23 [History Last Taken Unknown] magnesium oxide 400 mg PO DAILY 11/04/23 [History Last Taken Unknown] mineral oil (Fleet Mineral Oil enema) 118 ml IN DAILY PRN constipation 11/04/23 [History Last Taken Unknown] Allergy/AdvReac Type Severity Reaction Status Date / Time No Known Allergies Allergy Verified 11/04/23 14:34 Family History Other CVA (cerebral vascular accident) Hypertension unable to obtain Surgical History History of hip surgery Stented coronary artery unable to obtain Social History Smoking Status: Former smoker ROS Review of Systems ROS Unobtainable: due to encephalopathy, due to mental condition and due to mental status Physical Exam HEENT normocephalic and external nose normal Head and Scalp: atraumatic External Ear: external ears normal Eyes no scleral icterus Neck no lymphadenopathy Resp no use of accessory muscles and clear to auscultation bilaterally Cardio regular rate Cardio Narrative: Has systolic murmur GI non-tender and non-distended Auscultation: normoactive bowel sounds Skin no rashes or lesions noted Skin Narrative: Poor skin turgor Neuro Sensorium / Orientation: lethargic Psych Memory / Cognition: cognition impaired Lab / Micro Data Attestation: I reviewed the patient's lab results. 11/05/23 05:15 11/05/23 05:15 Labs: Laboratory Results - last 24 hr 11/04/23 14:20: WBC 29.2 H, RBC 4.82, Hgb 14.3, Hct 47.5 H, MCV 98.5, MCH 29.7, MCHC 30.1 L, RDW Std Deviation 66.8 H, RDW Coeff of David 18.6 H, Plt Count 294, MPV 12.1 H, Immature Gran % (Auto) 0.600, Neut % (Auto) 93.7 H, Lymph % (Auto) 2.1 L, Monona % (Auto) 3.1, Eos % (Auto) 0.2, Baso % (Auto) 0.3, Absolute Neuts (auto) 27.3 H, Absolute Lymphs (auto) 0.61 L, Nucleated RBC % 0.1, Differential Comment SCANNED, Anisocytosis RARE, Sodium 163 H*, Potassium 4.3, Chloride 133 H*, Carbon Dioxide 23.0, Anion Gap 7, BUN 69 H, Creatinine 1.83 H, Estim Creat Clear Calc 16.22, Est GFR (MDRD) Af Amer 34 L, Est GFR (MDRD) Non-Af 28 L, BUN/Creatinine Ratio 37.7 H, Glucose 164 H, Serum Osmolality 374 H, Lactic Acid 5.2 H*, Calcium 10.6 H, Total Bilirubin 0.70, AST 22, ALT 18, Alkaline Phosphatase 97, Troponin I High Sens 126 H*, Total Protein 8.4 H, Albumin 2.8 L, Globulin 5.6 H, Albumin/Globulin Ratio 0.5 L 11/04/23 15:00: Urine Color Yellow, Urine Clarity Sl. Cloudy, Urine pH 5.0, Ur Specific [place] 1.025, Urine Protein 30 H, Urine Glucose (UA) Normal, Urine Ketones 5 H, Urine Occult Blood 10 H, Urine Nitrite Negative, Urine Bilirubin 1 H, Urine Urobilinogen 4 H, Ur Leukocyte Esterase 500 H, Urine RBC 0-5 SEEN, Urine WBC 25-50 SEEN, Ur Squamous Epith Cells 0-5 SEEN, Amorphous Sediment 1+, Urine Bacteria 2+, Urine Mucus 0 SEEN, Urine Osmolality 542, Ur Random Sodium 18, Urine Creatinine 114.00 11/04/23 19:40: Lactic Acid 3.1 H* 11/05/23 05:15: WBC 23.3 H, RBC 4.42, Hgb 12.6, Hct 43.3, MCV 98.0, MCH 28.5, MCHC 29.1 L, RDW Std Deviation 66.6 H, RDW Coeff of David 18.4 H, Plt Count 201, MPV 11.5, Differential Comment SCANNED, Sodium 168 H*, Potassium 3.2 L, Chloride 138 H*, Carbon Dioxide 26.0, Anion Gap 4 L, BUN 54 H, Creatinine 1.13 H, Estim Creat Clear Calc 22.99, Est GFR (MDRD) Af Amer 59 L, Est GFR (MDRD) Non-Af 49 L, BUN/Creatinine Ratio 47.8 H, Glucose 87, Calcium 9.0 Micro: Microbiology 11/04/23 15:00 Nasal Secretion SARS-CoV-2 & FLU Antigen (Rapid) - Final Imagaing Radiology Impression Brain CT 11/04/23 14:28 IMPRESSION: 1. No acute intracranial process. 2. Chronic involutional changes of the brain. Electronically Signed: Ernie Lauren MD at 15:26 EST , Chest X-Ray 11/04/23 15:45 IMPRESSION: No acute radiographic abnormalities. Electronically Signed: Bharat Wade MD at 17:17 EST ,
--- NOTE | 2023-11-05 11:05 | CT_ITS ---
EXAM: CT ANGIOGRAPHY ABDOMEN AND PELVIS WITHOUT AND WITH INTRAVENOUS CONTRAST CLINICAL INDICATION: Rule out renal artery stenosis TECHNIQUE: Helically acquired angiography images were obtained of the abdomen and pelvis without and with intravenous contrast. This CT exam was performed using one or more of the following dose reduction techniques: automated exposure control, adjustment of the mA and/or kV according to patient size, and/or use of iterative reconstruction technique. MIP reconstructed images were created and reviewed. Coronal and sagittal reformatted images were created and reviewed. CONTRAST: IV 100mL Isovue-300 RADIATION DOSE: CTDIvol = 21.97 mGy, DLP = 412.66 mGy-cm COMPARISON: CT 09/29/2023 FINDINGS: VASCULATURE: AORTA: No acute findings. Normal caliber abdominal aorta. Diffuse atherosclerosis. No dissection. CELIAC TRUNK AND MESENTERIC ARTERIES: Moderate atherosclerosis of the celiac origin causes moderate (55%) stenosis. Atherosclerosis at the origin of the superior mesenteric artery with only slight (10%) stenosis. The inferior mesenteric artery is patent without significant stenosis. RENAL ARTERIES: Mixed density atherosclerotic plaque of the left renal artery causes 70% stenosis. Mild atherosclerosis of the right renal artery origin with only mild (40%) stenosis. ILIAC ARTERIES: Atherosclerosis with tortuosity. Severe stenosis of the right internal iliac artery moderate stenosis of the left internal iliac artery. However, no significant stenosis of the common or external iliac arteries. LOWER THORAX: There is airspace disease in the left lung base, partially visualized. ABDOMEN: LIVER: Unremarkable. Homogeneous. No focal mass. GALLBLADDER AND BILE DUCTS: Cholecystectomy. No intra- or extrahepatic biliary ductal dilation. PANCREAS: Unremarkable. No focal cystic or solid mass. SPLEEN: Unremarkable. Normal size without focal cystic or solid mass. ADRENALS: Unremarkable. No nodules. 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 Normal renal size and position. No hydronephrosis. STOMACH AND BOWEL: There is fecal residue throughout the colon but no colon wall thickening. There is fluid distention of small bowel measuring up to 3 cm but no transition point. PELVIS: BLADDER: Rivas catheter decompresses the urinary bladder with expected luminal air. REPRODUCTIVE: Unremarkable as visualized. No mass. ABDOMEN and PELVIS: INTRAPERITONEAL SPACE: Unremarkable. No ascites or other fluid collection. No free air. BONES/JOINTS: Operative changes of the bilateral proximal femurs. Chronic compression fracture of L2 is stable. No suspicious lytic or blastic abnormality. SOFT TISSUES: Unremarkable. No discrete abdominal or pelvic wall hernia. LYMPH NODES: Unremarkable. No enlarged lymph nodes. CT/CTA Abd/Pelvis W/WO Contrast IMPRESSION: 1. Left renal artery stenosis, 70%. 2. Small bowel ileus versus partial small bowel obstruction. No transitional point. 3. Distal colonic fecal retention including the rectal vault. 4. Left lower lobe airspace disease. 5. Chronic changes, as above. Electronically Signed: Ever Doan MD (Brooks) at 13:25 EST ,
[2023-11-05 11:33] LABS: Anion Gap 2 (5-15); BUN 56 mg/dL (7-18); BUN/Creat Ratio 47.5 RATIO (10-20); Chloride 134 mmol/L (98-107); Creatinine, Serum 1.18 mg/dL (0.55-1.02); EST Glomerular Filtration Rate 46 mL/min (>60); Est Glom Filt Rate - Afr Amer 56 mL/min (>60); Estimated Creatinine Clearance 22.02 ml/min; Glucose 160 mg/dL (74-106); Potassium 2.8 mmol/L (3.5-5.1); Sodium Level 163 mmol/L (136-145)
--- NOTE | 2023-11-05 11:42 | CASEMGMT ---
Social Work Received notice patient is from [facility]. Also received notice of need for hospice consult. Spoke with Dr. Lizama about hospice order from the weekend. Patient's sodium is up today and nephrology has been consulted; will hold off on hospice until sodium is addressed, unless the family is requesting the service. Met with patient and daughter Brionna Moore in room. Used Business Transformation Consultant via [employer] (Jarvis, #[id number]). Introduced to self and role, checking in on discharge planning and how Brionna is doing. Brionna reports patient has been at [facility] for over a year now. Daughter expressed concern with the temperature of the showers at the , as well as in general how often staff can address needs. Daughter reports to like the nursing staff a lot though. Daughter reports it feels like patient has been in an out of the hospital over the last year and concerned about frequent changes. This medical writer did inquire whether hospice was something previously discussed during this hospital stay. Daughter reports the idea of hospice scares Brionna, such as the idea patient won't have any care and preparing for patient to . Educated that patient would still get care while on hospice, with the focus on comfort and quality of life. Educated that hospice would be able to go to [facility] and work with [facility] staff to care for patient, though not there 24 hours a day, but there frequently and can be called 24 hours a day if needed. Introduced to [facility], but that this level of care is determined by hospice. Educated that people can be on hospice for a long time, and does not necessarily mean going onto hospice means the patient is ready to tomorrow. Answered Brionna's questions, offered opportunity to ask questions, and educated that if Brionna and Brionna's siblings want to talk with a transverse abdominal muscle surgeon this can be arranged. Updated to conversation with hospitalist today, of goal to address sodium, and then readdress hospice if indicated, unless patient/family want hospice consult before. Emotional support offered. Plan: Brionna plans to talk through goals of care with patient's other children, including patient's other daughter Jo who is a RN in [place]. Will plan to check back in with Brionna on 11.06.23. Will reach out to [facility] to confirm patient's level of care at the facility and ability to accept patient back. SW following. -MARY Escoto
--- NOTE | 2023-11-05 12:15 | CASEMGMT ---
Discharge Planning Updates sent via [facility] to [facility]. Asked if patient would return intermediate. Awaiting response. Krystal Meyer, Discharge Planning Asst.
[2023-11-05] MEDS: Potassium Chloride 40 MEQ in Dextrose 5%-Water (1000mL Bag) 1,000 ML 150 MEQ IV ×2 (13:09→20:22)
[2023-11-05 13:11] VITALS: BP 134/60; PULSE 84
[2023-11-05 15:41] LABS: Anion Gap 1 (5-15); BUN 53 mg/dL (7-18); BUN/Creat Ratio 50.5 RATIO (10-20); Chloride 134 mmol/L (98-107); Creatinine, Serum 1.05 mg/dL (0.55-1.02); EST Glomerular Filtration Rate 53 mL/min (>60); Est Glom Filt Rate - Afr Amer 64 mL/min (>60); Estimated Creatinine Clearance 24.74 ml/min; Glucose 145 mg/dL (74-106); Potassium 3.1 mmol/L (3.5-5.1); Sodium Level 162 mmol/L (136-145)
[2023-11-05 15:55] VITALS: BP 146/61; PULSE 84; RESP 18; TEMP 36.7; O2SAT 94
[2023-11-05 19:35] LABS: Anion Gap 0 (5-15); BUN 49 mg/dL (7-18); BUN/Creat Ratio 46.2 RATIO (10-20); Calcium,Total 8.7 mg/dL (8.5-10.1); Chloride 133 mmol/L (98-107); Creatinine, Serum 1.06 mg/dL (0.55-1.02); EST Glomerular Filtration Rate 53 mL/min (>60); Est Glom Filt Rate - Afr Amer 64 mL/min (>60); Estimated Creatinine Clearance 24.51 ml/min; Glucose 140 mg/dL (74-106); Potassium 3.3 mmol/L (3.5-5.1); Sodium Level 161 mmol/L (136-145)
[2023-11-05 21:55] VITALS: BP 161/67; PULSE 83; RESP 18; TEMP 37; O2SAT 96
[2023-11-05 22:00] VITALS: O2SAT 96
[2023-11-05 23:08] LABS: Anion Gap 0 (5-15); BUN 45 mg/dL (7-18); BUN/Creat Ratio 44.6 RATIO (10-20); Calcium,Total 8.8 mg/dL (8.5-10.1); Chloride 133 mmol/L (98-107); Creatinine, Serum 1.01 mg/dL (0.55-1.02); EST Glomerular Filtration Rate 56 mL/min (>60); Est Glom Filt Rate - Afr Amer 67 mL/min (>60); Estimated Creatinine Clearance 25.72 ml/min; Glucose 139 mg/dL (74-106); Potassium 3.7 mmol/L (3.5-5.1); Sodium Level 159 mmol/L (136-145)
[2023-11-06 03:00] VITALS: BP 164/68; PULSE 87; RESP 20; TEMP 37.7; O2SAT 96
[2023-11-06 03:37] LABS: Anion Gap 2 (5-15); BUN 37 mg/dL (7-18); BUN/Creat Ratio 37.9 RATIO (10-20); Calcium,Total 8.3 mg/dL (8.5-10.1); Chloride 132 mmol/L (98-107); Creatinine, Serum 0.98 mg/dL (0.55-1.02); EST Glomerular Filtration Rate 58 mL/min (>60); Est Glom Filt Rate - Afr Amer 70 mL/min (>60); Estimated Creatinine Clearance 26.51 ml/min; Glucose 161 mg/dL (74-106); Potassium 3.9 mmol/L (3.5-5.1); Sodium Level 159 mmol/L (136-145)
[2023-11-06] MEDS: Potassium Chloride 40 MEQ in Dextrose 5%-Water (1000mL Bag) 1,000 ML 150 MEQ IV (04:18)
[2023-11-06 07:19] LABS: Anion Gap 1 (5-15); BUN 35 mg/dL (7-18); BUN/Creat Ratio 39.2 RATIO (10-20); Calcium,Total 8.8 mg/dL (8.5-10.1); Chloride 129 mmol/L (98-107); Creatinine, Serum 0.89 mg/dL (0.55-1.02); EST Glomerular Filtration Rate 64 mL/min (>60); Est Glom Filt Rate - Afr Amer 78 mL/min (>60); Estimated Creatinine Clearance 29.19 ml/min; Glucose 161 mg/dL (74-106); Sodium Level 155 mmol/L (136-145)
[2023-11-06 08:07] LABS: Absolute Neutrophil Count 16.6 X10^3/uL (2.0-7.7); Basophil# 0.07 X10^3/uL; Basophil% 0.4 % (0-1); Eosinophil# 0.18 X10^3/uL; Hemoglobin 11.4 g/dL (12.0-15.0); Lymphocyte % 6.4 % (19-41); Mean Corp Hgb Conc 29.2 g/dL (32-36); Mean Corpuscular Volume 99.2 fL (81-99); Monocyte# 0.56 X10^3/uL; NRBC Flagged by Analyzer 0 % (0-5); Neutrophil # 16.56 X10^3/uL (2.7-7.7); Neutrophil % 88.6 % (47-70); POSITIVE MORPHOLOGY YES; Platelet Count 145 K/mm3 (150-450); RBC Distribution Width CV 18.1 % (11.6-14.6); RBC Distribution Width SD 66.4 fl (35.1-43.9); Red Blood Count 3.93 M/mm3 (4.2-5.4); White Blood Count 18.7 K/mm3 (4.4-11.0)
[2023-11-06 08:16] LABS: Differential Indicated SCAN CRITERIA MET
[2023-11-06 08:43] LABS: Anisocytosis 1+
[2023-11-06] MEDS: Ceftriaxone 1 GM/50 ML BAG IV (08:48)
[2023-11-06] MEDS: Heparin Injection (Vial) 5,000 UNIT/ML VIAL 5000 UNIT SC ×2 (08:50→20:53)
[2023-11-06 09:00] VITALS: BP 160/61; PULSE 71; RESP 18; TEMP 37.2; O2SAT 96
--- NOTE | 2023-11-06 11:05 | PN_ITS ---
Subjective Subjective Patient seen and examined. She is a bit more arousable today and opens eyes to sternal rub. Unable to do comprehensive review of systems due to her lethargy. Sodium is down to 155 today. He has otherwise remained hemodynamically stable. Objective Data Objective Data Vital Signs: Vital Signs Temp Pulse Resp BP Pulse Ox O2 Del Method O2 Flow Rate 98.9 F 71 18 160/61 H 96 Nasal Cannula 2 11/06/23 09:00 11/06/23 09:00 11/06/23 09:00 11/06/23 09:00 11/06/23 09:00 11/06/23 09:00 11/06/23 09:00 Oxygen Flow Rate (L/min) 2 Oxygen Delivery Method Nasal Cannula Weight: 86 lb 10.267 oz Body Mass Index (BMI) 14.8 Intake & Output: Intake and Output for Last 24 Hours 11/04/23 11/05/23 11/06/23 23:59 23:59 23:59 Intake Total 1335 / 1335 2634.58 / 2634.58 1070 / 1070 Output Total 50 / 500 1650 / 1650 700 / 700 Balance 1285 / 835 984.58 / 984.58 370 / 370 Medical Nutrition Assessment Dietitian: Malnutrition Criteria Met Start: 11/05/23 11:24 Freq: Status: Active Protocol: Document 11/05/23 11:24 LO (Rec: 11/05/23 11:24 LO Desktop) Nutrition Malnutrition Evidence of Malnutrition Exists Yes Malnutrition (severe): Chronic Evidenced By Suboptimal Energy Intake ( Severe),Physical Changes ( Severe) Clinical Problem Chronic Disease or Condition Related Malnutrition Etiology severe chronic malnutrition related to inadequate energy intake Signs/Symptoms as evidenced by estimated PO intake meeting <50% of estimated energy needs> 3 months, Severe muscle wasting/ fat loss evident per physical exam in orbital, clavicle, acromion, and temporal areas, BMI 14.8 kg/m2 Status Active Problem Recommendation Dietitian Recommendations/Changes recommend regular diet texture /consistency per RADIOLOGY RESIDENT; fortified foods, ensure plus high protein 120mL 4x/day w/medpass when appropriate for PO intake. Lab / Micro Data 11/06/23 06:35 11/06/23 06:35 Labs: Laboratory Results - last 24 hr 11/05/23 10:55: Sodium 163 H*, Potassium 2.8 L, Chloride 134 H*, Carbon Dioxide 27.0, Anion Gap 2 L, BUN 56 H, Creatinine 1.18 H, Estim Creat Clear Calc 22.02, Est GFR (MDRD) Af Amer 56 L, Est GFR (MDRD) Non-Af 46 L, BUN/Creatinine Ratio 47.5 H, Glucose 160 H, Calcium 9.0 11/05/23 14:45: Sodium 162 H*, Potassium 3.1 L, Chloride 134 H*, Carbon Dioxide 27.0, Anion Gap 1 L, BUN 53 H, Creatinine 1.05 H, Estim Creat Clear Calc 24.74, Est GFR (MDRD) Af Amer 64, Est GFR (MDRD) Non-Af 53 L, BUN/Creatinine Ratio 50.5 H, Glucose 145 H, Calcium 9.0 11/05/23 18:41: Sodium 161 H*, Potassium 3.3 L, Chloride 133 H*, Carbon Dioxide 28.0, Anion Gap 0 L, BUN 49 H, Creatinine 1.06 H, Estim Creat Clear Calc 24.51, Est GFR (MDRD) Af Amer 64, Est GFR (MDRD) Non-Af 53 L, BUN/Creatinine Ratio 46.2 H, Glucose 140 H, Calcium 8.7 11/05/23 22:18: Sodium 159 H, Potassium 3.7, Chloride 133 H*, Carbon Dioxide 26.0, Anion Gap 0 L, BUN 45 H, Creatinine 1.01, Estim Creat Clear Calc 25.72, Est GFR (MDRD) Af Amer 67, Est GFR (MDRD) Non-Af 56 L, BUN/Creatinine Ratio 44.6 H, Glucose 139 H, Calcium 8.8 11/06/23 02:44: Sodium 159 H, Potassium 3.9, Chloride 132 H*, Carbon Dioxide 25.0, Anion Gap 2 L, BUN 37 H, Creatinine 0.98, Estim Creat Clear Calc 26.51, Est GFR (MDRD) Af Amer 70, Est GFR (MDRD) Non-Af 58 L, BUN/Creatinine Ratio 37.9 H, Glucose 161 H, Calcium 8.3 L 11/06/23 06:35: WBC 18.7 H, RBC 3.93 L, Hgb 11.4 L, Hct 39.0, MCV 99.2 H, MCH 29.0, MCHC 29.2 L, RDW Std Deviation 66.4 H, RDW Coeff of David 18.1 H, Plt Count 145 L, MPV 12.0, Immature Gran % (Auto) 0.600, Neut % (Auto) 88.6 H, Lymph % (Auto) 6.4 L, Frederick % (Auto) 3.0, Eos % (Auto) 1.0, Baso % (Auto) 0.4, Absolute Neuts (auto) 16.6 H, Absolute Lymphs (auto) 1.20, Nucleated RBC % 0, Anisocytosis 1+, Sodium 155 H, Potassium 4.0, Chloride 129 H*, Carbon Dioxide 25.0, Anion Gap 1 L, BUN 35 H, Creatinine 0.89, Estim Creat Clear Calc 29.19, Est GFR (MDRD) Af Amer 78, Est GFR (MDRD) Non-Af 64, BUN/Creatinine Ratio 39.2 H , Glucose 161 H, Calcium 8.8 Micro: Microbiology 11/04/23 15:00 Urine, Clean Catch Urine Culture - Preliminary Gram negative brennan 11/04/23 15:00 Nasal Secretion SARS-CoV-2 & FLU Antigen (Rapid) - Final Radiography Diagnostic Testing: Radiology Impression Abdomen/Pelvis CTA 11/05/23 11:05 IMPRESSION: 1. Left renal artery stenosis, 70%. 2. Small bowel ileus versus partial small bowel obstruction. No transitional point. 3. Distal colonic fecal retention including the rectal vault. 4. Left lower lobe airspace disease. 5. Chronic changes, as above. Electronically Signed: Ever Doan MD (Bro[place]) at 13:25 EST Reading Location ID and State: / [place] , Service support , Physical Exam Const Constitutional Narrative: very weak and lethargic a bit more responsive today Orientation / Consciousness: lethargic HEENT normocephalic, head/scalp atraumatic and nasal mucous membranes and turbinates normal Eyes PERRL, EOMs intact bilaterally and conjunctivae normal Neck no lymphadenopathy, supple and no JVD Lymph Lymphatic: no lymphadenopathy noted and no lymphedema noted Chest inspection of chest normal Resp normal respiratory effort, normal air movement and clear to auscultation bilaterally Resp Narrative: on 2L of oxygen by nasal canula. MIldly diminished breath sounds bibasally, no wheezes or crackles. Cardio regular rate, regular rhythm, S1 normal heart sound, S2 normal heart sound, no m urmurs and peripheral pulses 2+ throughout GI normal to inspection, nondistended, normoactive bowel sounds, soft to palpation, non-tender and non-distended Extremity normal to inspection, normal capillary refill, no clubbing, cyanosis or edema, no calf tenderness and no pedal edema Skin no rashes or lesions noted General Skin Exam: no breakdown Neuro Neuro Narrative: lethargic and minimally responsive Assessment & Plan Assessment/Plan (1) Hypernatremia: (2) Adult failure to thrive: PLAN: Plan #Acute metabolic encephalopathy due to severe hypernatremia * Sodium is down to 155 today. * Continue on D5W * * nephrology on board * # Dementia with failure to thrive: On IV ceftriaxone. Urine cultures pending. Patient very weak and debilitated and not communicating very well. #KURT: Creatinine is trending downwards. Likely due to dehydration. Should improve with hydration. #UTI: Urinalysis showed 2+ bacteria. On IV ceftriaxone. Urine cultures growiing gram negative brennan. wbc today is 18.7 #Severe protein calorie malnutrition: BMI is 14.8. Nutrition consulted. #Benign essential hypertension: On amlodipine and hydralazine as well as Imdur #Hyperlipidemia: On statin #Depression and anxiety: On Lexapro and venlafaxine #Paroxysmal A-fib: Eliquis was discontinued recently after she had an admission for GI bleed. Currently not on any rate limiting medication or antiarrhythmic. DVT prophylaxis: Heparin Charges/Coding Visit Charges Inpatient E&M: 64481 Subs Hosp L2
[2023-11-06 11:10] VITALS: O2SAT 92
[2023-11-06] MEDS: Dextrose 5%-Water (1000mL Bag) 1,000 ML 125 ML IV ×2 (11:32→20:53)
[2023-11-06 15:00] VITALS: BP 147/75; PULSE 75; RESP 18; TEMP 36.9; O2SAT 94
--- NOTE | 2023-11-06 16:50 | CHAPLAIN ---
Type of Pastoral Visit _x__ Initial Visit ___ Follow-up Visit ___ On-call Visit ___ General Patient Visit ___ Spiritual Assessment ___ Family Conference ___ Bereavement ___ Rapid Response ___ Code Blue ___ Other (describe below) Pastoral Care Referral From ___ Patient _x__ Family ___ Nurse ___ Physician ___ Oriental Rug Stretcher ___ Gem Expert ___ Other (describe below) Sacrament/Intervention ___ Active listening ___ Anointing ___ Zoroastrianism ___ Bereavement ___ Communion ___ Natalee exploration ___ ___ Life review _x__ Prayer ___ Reconciliation ___ Sacrament of Sick ___ Supportive presence ___ Wedding ___ Other (describe below) Pastoral Comments daughter left message asking for prayer for her mother, the patient; pt is sleeping and does not respond to spoken word; pt is given calming words of presence and assurance of care; pt is given audible prayer for her life and spiritual need; wrote a note to the family to inform of actions given; will follow up later this week if pt is still present in the hospital
[2023-11-06 21:00] VITALS: BP 151/64; PULSE 96; RESP 18; TEMP 37.9; O2SAT 97
[2023-11-07 04:38] VITALS: BP 155/64; PULSE 95; RESP 18; TEMP 37.7; O2SAT 96
[2023-11-07] MEDS: Dextrose 5%-Water (1000mL Bag) 1,000 ML 125 ML IV ×2 (05:42→22:25)
[2023-11-07 06:49] LABS: Anion Gap 3 (5-15); BUN 19 mg/dL (7-18); BUN/Creat Ratio 26.5 RATIO (10-20); Calcium,Total 8.1 mg/dL (8.5-10.1); Chloride 117 mmol/L (98-107); Creatinine, Serum 0.72 mg/dL (0.55-1.02); EST Glomerular Filtration Rate 82 mL/min (>60); Est Glom Filt Rate - Afr Amer 100 mL/min (>60); Estimated Creatinine Clearance 25.98 ml/min; Glucose 110 mg/dL (74-106); Potassium 3.3 mmol/L (3.5-5.1); Sodium Level 145 mmol/L (136-145)
--- NOTE | 2023-11-07 08:16 | ECHOD_ITS ---
Reason For Study: Arrhythmia Procedure This was a 2D Doppler, Color Flow transthoracic echocardiogram. Exam performed portable in patient room. Left Ventricle Normal LV size. The estimated ejection fraction is 55 %. Stage 2 diastolic dysfunction. Left ventricular systolic function is normal. Although there was no regional wall motion abnormalities noted, regional wall motion abnormalities cannot be completely excluded based on the study. Right Ventricle Normal RV size. Normal systolic function. Atria There is mild biatrial dilatation. Mitral Valve There is Moderate focal posterior mitral annular calcification. There is no mitral valve stenosis. Mild-Moderate (1-2+) mitral valve insufficiency. Tricuspid Valve Normal tricuspid valve. Mild (1+) tricuspid valve insufficiency. Right ventricular systolic pressure estimated to be 50 mmHg. Moderate pulmonary hypertension. Aortic Valve Trisinus/trileaflet aortic valve. Mild focal aortic valve calcification. Aortic sclerosis, no stenosis. Mild diffuse aortic valve thickening. Mild-Moderate (1-2+) aortic valve insufficiency. Pulmonic Valve The pulmonic valve is not well visualized. Mild-Moderate (1-2+) pulmonic valve insufficiency. Great Vessels Normal aortic root. Normal inferior vena cava. Pericardium/Pleural No pericardial effusion. MMode/2D Measurements & Calculations LVIDd: 3.9 cm IVSd: 1.0 cm Ao root diam: 3.2 cm LVIDs: 2.8 cm LVPWd: 0.93 cm LA dimension: 4.0 cm RVDd: 4.0 cm FS: 27.9 % LAV(MOD-bp): 73.8 ml LVAd ap4: 19.7 cm2 SV(MOD-sp4): 27.6 ml LAV(MOD-bp) Indexed: 54.0 ml/m2 LVLd ap4: 6.4 cm LAV(MOD-sp2): 69.0 ml EDV(MOD-sp4): 50.6 ml LAV(MOD-sp4): 67.7 ml EDV(sp4-el): 51.5 ml LVAs ap4: 12.4 cm2 LVLs ap4: 5.9 cm ESV(MOD-sp4): 23.0 ml ESV(sp4-el): 22.1 ml EF(MOD-sp4): 54.6 % EF(sp4-el): 57.0 % SV(sp4-el): 29.4 ml LA A4 area: 22.1 cm2 RA A4 area: 19.5 cm2 TAPSE: 1.5 cm Time Measurements MV dec time: 0.19 sec Doppler Measurements & Calculations MV E max rolando: 102.2 cm/sec Lat Peak E' Rolando: 9.6 cm/sec Med Peak E' Rolando: 8.1 cm/sec MV A max rolando: 28.5 cm/sec E/E' lat: 10.6 E/E' med: 12.6 MV E/A: 3.6 MV V2 max: 119.6 cm/sec MV P1/2t max rolando: 120.5 cm/sec Ao V2 max: 134.9 cm/sec MV max P.7 mmHg MV P1/2t: 81.2 msec Ao max P.3 mmHg MV V2 mean: 57.1 cm/sec MV dec slope: 434.7 cm/sec2 Ao V2 mean: 84.9 cm/sec MV mean P.6 mmHg Ao mean P.5 mmHg MV V2 VTI: 33.6 cm MVA(P1/2t): 2.7 cm2 Ao V2 VTI: 22.4 cm AV (velocity ratio): 0.69 AI max rolando: 370.9 cm/sec LV V1 max: 91.0 cm/sec PA V2 max: 92.6 cm/sec AI max P.1 mmHg LV V1 max P.3 mmHg AI dec slope: 229.6 cm/sec2 LV V1 mean P.0 mmHg AI P1/2t: 473.2 msec LV V1 mean: 67.0 cm/sec LV V1 VTI: 15.5 cm TR max rolando: 341.3 cm/sec TR max P.6 mmHg ECHO/Echo Complete Interpretation Summary Left ventricular systolic function is normal. The estimated ejection fraction is 55 %. Stage 2 diastolic dysfunction. There is mild biatrial dilatation. Mild-Moderate (1-2+) mitral valve insufficiency. Moderate pulmonary hypertension.. Mild-Moderate (1-2+) aortic valve insufficiency. Ordering Physician: Danielle Lizama Referring Physician: Fuentes Vergara Performed By: Lex Sorto RCS
--- NOTE | 2023-11-07 09:21 | CASEMGMT ---
Discharge Planning Updates sent to [place] via [facility]. Krystal Meyer, Discharge Planning Asst.
--- NOTE | 2023-11-07 09:56 | PCM.PN.REN ---
Subjective Subjective Resting in bed, having echo done. No overnights events. Unable to do ROS as patient lethargic. Objective Data Objective Data Vital Signs: Vital Signs Temp Pulse Resp BP Pulse Ox O2 Del Method O2 Flow Rate 99.8 F H 95 18 155/64 H 96 Nasal Cannula 2 11/07/23 04:38 11/07/23 04:38 11/07/23 04:38 11/07/23 04:38 11/07/23 04:38 11/07/23 04:38 11/07/23 04:38 Oxygen Flow Rate (L/min) 2 Oxygen Delivery Method Nasal Cannula Weight: 39.3 kg Body Mass Index (BMI) 14.8 Intake & Output: Intake and Output for Last 24 Hours 11/05/23 11/06/23 11/07/23 23:59 23:59 23:59 Intake Total 2634.58 / 2634.58 3090 / 3090 1000 / 1000 Output Total 1650 / 1650 1775 / 1775 550 / 550 Balance 984.58 / 984.58 1315 / 1315 450 / 450 Medical Nutrition Assessment Dietitian: Malnutrition Criteria Met Start: 11/05/23 11:24 Freq: Status: Active Protocol: Document 11/05/23 11:24 LO (Rec: 11/05/23 11:24 LO Desktop) Nutrition Malnutrition Evidence of Malnutrition Exists Yes Malnutrition (severe): Chronic Evidenced By Suboptimal Energy Intake ( Severe),Physical Changes ( Severe) Clinical Problem Chronic Disease or Condition Related Malnutrition Etiology severe chronic malnutrition related to inadequate energy intake Signs/Symptoms as evidenced by estimated PO intake meeting <50% of estimated energy needs> 3 months, Severe muscle wasting/ fat loss evident per physical exam in orbital, clavicle, acromion, and temporal areas, BMI 14.8 kg/m2 Status Active Problem Recommendation Dietitian Recommendations/Changes recommend regular diet texture /consistency per RESIDENT PROGRAM SPECIALIST; fortified foods, ensure plus high protein 120mL 4x/day w/medpass when appropriate for PO intake. Lab / Micro Data 11/06/23 06:35 11/07/23 05:16 Labs: Laboratory Results - last 24 hr 11/07/23 05:16: Sodium 145, Potassium 3.3 L, Chloride 117 H, Carbon Dioxide 25.0, Anion Gap 3 L, BUN 19 H, Creatinine 0.72, Estim Creat Clear Calc 25.98, Est GFR (MDRD) Af Amer 100, Est GFR (MDRD) Non-Af 82, BUN/Creatinine Ratio 26.5 H, Glucose 110 H, Calcium 8.1 L, Magnesium 2.0 Micro: Microbiology 11/04/23 15:00 Urine, Clean Catch Urine Culture - Preliminary Pseudomonas aeruginosa 11/04/23 15:40 Blood Culture (Wb) - Right Hand Blood Culture - Preliminary No growth in 48 hours. 11/04/23 14:20 Blood Culture (Wb) - Left Forearm Blood Culture - Preliminary No growth in 48 hours. 11/04/23 15:00 Nasal Secretion SARS-CoV-2 & FLU Antigen (Rapid) - Final Physical Exam Narrative no apparent distress S1 S2 RRR LS clear anteriorly abdomen soft No pitting edema +pinzon with clear urine in bag Assessment & Plan Assessment/Plan (1) Hypernatremia: PLAN: 83 years old demented female, who is non-verbal at baseline admitted to the hospital with urinary tract infection and altered mental status after not having adequate oral food and fluid intake for extended period of time. Received LR and sodium further went up. Renal function has improved with volume expansion. - KURT with normal baseline SCr. Overall renal function improved with IVF/volume expansion. KURT resolved. SCr peaked 1.8 and today SCr 0.72 - hypernatremia likely from lack of free water/solute intake; With D5W sodium slowly corrected and normalized. Patient has normal baseline sodium trends. Sodium peak 168, today 145. Currently on IVF as patient is not taking in food or fluid - hypokalemia with poor oral intake, replacement ordered today - dementia with failure to thrive (2) Dehydration: (3) KURT (acute kidney injury):
[2023-11-07] MEDS: Ceftriaxone 1 GM/50 ML BAG IV (10:13)
[2023-11-07] MEDS: Menthol/Lanolin/Calamine/Znox 113 GM Tube 1 APPLIC TOPICAL ×4 (10:16→22:25)
[2023-11-07] MEDS: Heparin Injection (Vial) 5,000 UNIT/ML VIAL 5000 UNIT SC ×2 (10:17→23:30)
[2023-11-07 10:25] VITALS: BP 135/53; PULSE 67; RESP 18; TEMP 37.5; O2SAT 96
[2023-11-07 10:34] VITALS: O2SAT 93
--- NOTE | 2023-11-07 10:42 | PN_ITS ---
Subjective Subjective Patient seen and examined. SHe was still lethargic. Unable to do do comprehensive review of systems. Sodium is down to 145 today. Per nurse, she had a 26 beat run of vtach overnight. Potassium is 3.3 today. Objective Data Objective Data Vital Signs: Vital Signs Temp Pulse Resp BP Pulse Ox O2 Del Method O2 Flow Rate 99.5 F H 67 18 135/53 H 96 Nasal Cannula 2 11/07/23 10:25 11/07/23 10:25 11/07/23 10:25 11/07/23 10:25 11/07/23 10:25 11/07/23 10:25 11/07/23 10:25 Oxygen Flow Rate (L/min) 2 Oxygen Delivery Method Nasal Cannula Weight: 86 lb 10.267 oz Body Mass Index (BMI) 14.8 Intake & Output: Intake and Output for Last 24 Hours 11/05/23 11/06/23 11/07/23 23:59 23:59 23:59 Intake Total 2634.58 / 2634.58 3090 / 3090 1608.33 / 1608.33 Output Total 1650 / 1650 1775 / 1775 550 / 550 Balance 984.58 / 984.58 1315 / 1315 1058.33 / 1058.33 Medical Nutrition Assessment Dietitian: Malnutrition Criteria Met Start: 11/05/23 11:24 Freq: Status: Active Protocol: Document 11/05/23 11:24 LO (Rec: 11/05/23 11:24 LO Desktop) Nutrition Malnutrition Evidence of Malnutrition Exists Yes Malnutrition (severe): Chronic Evidenced By Suboptimal Energy Intake ( Severe),Physical Changes ( Severe) Clinical Problem Chronic Disease or Condition Related Malnutrition Etiology severe chronic malnutrition related to inadequate energy intake Signs/Symptoms as evidenced by estimated PO intake meeting <50% of estimated energy needs> 3 months, Severe muscle wasting/ fat loss evident per physical exam in orbital, clavicle, acromion, and temporal areas, BMI 14.8 kg/m2 Status Active Problem Recommendation Dietitian Recommendations/Changes recommend regular diet texture /consistency per FORMING FIXER; fortified foods, ensure plus high protein 120mL 4x/day w/medpass when appropriate for PO intake. Lab / Micro Data 11/06/23 06:35 11/07/23 05:16 Labs: Laboratory Results - last 24 hr 11/07/23 05:16: Sodium 145, Potassium 3.3 L, Chloride 117 H, Carbon Dioxide 25.0, Anion Gap 3 L, BUN 19 H, Creatinine 0.72, Estim Creat Clear Calc 25.98, Est GFR (MDRD) Af Amer 100, Est GFR (MDRD) Non-Af 82, BUN/Creatinine Ratio 26.5 H, Glucose 110 H, Calcium 8.1 L, Magnesium 2.0 Micro: Microbiology 11/04/23 15:00 Urine, Clean Catch Urine Culture - Preliminary Pseudomonas aeruginosa 11/04/23 15:40 Blood Culture (Wb) - Right Hand Blood Culture - Preliminary No growth in 48 hours. 11/04/23 14:20 Blood Culture (Wb) - Left Forearm Blood Culture - Preliminary No growth in 48 hours. 11/04/23 15:00 Nasal Secretion SARS-CoV-2 & FLU Antigen (Rapid) - Final Physical Exam Const Constitutional Narrative: still very weak and lethargic Orientation / Consciousness: lethargic HEENT normocephalic, head/scalp atraumatic and nasal mucous membranes and turbinates normal Eyes PERRL, EOMs intact bilaterally and conjunctivae normal Neck no lymphadenopathy, supple and no JVD Lymph Lymphatic: no lymphadenopathy noted and no lymphedema noted Chest inspection of chest normal Resp normal respiratory effort, normal air movement and clear to auscultation bilaterally Resp Narrative: on 2L of oxygen by nasal canula. MIldly diminished breath sounds bibasally, no wheezes or crackles. Cardio regular rate, regular rhythm, S1 normal heart sound, S2 normal heart sound, no murmurs and peripheral pulses 2+ throughout GI normal to inspection, nondistended, normoactive bowel sounds, soft to palpation, non-tender and non-distended Extremity normal to inspection, normal capillary refill, no clubbing, cyanosis or edema, no calf tenderness and no pedal edema Skin no rashes or lesions noted General Skin Exam: no breakdown Neuro Neuro Narrative: lethargic and minimally responsive Assessment & Plan Assessment/Plan (1) Hypernatremia: (2) Adult failure to thrive: PLAN: Plan #Acute metabolic encephalopathy due to severe hypernatremia * Sodium is down to 145 today * Continue on D5W * patient still very minimally responsive and not having enough oral intake. * nephrology on board * # Dementia with failure to thrive: On IV ceftriaxone. Urine cultures pending. Hs been having episodic fevers. Patient very weak and debilitated and not communicating very well. #KURT: Creatinine is trending downwards. Likely due to dehydration. Should improve with hydration. #UTI: * Urinalysis showed 2+ bacteria. On IV ceftriaxone. Urine cultures growing Pseudomonas aeruginosa . Blood cultures negative so far. Will dc ceftriaxone and start on IV ciprofloxacin. * #Small bowel ileus vs obstruction * CTA abdomen and pelvis showed a left renal artery stenosis vs partial small bowel obstruction, with no transitional point and left lower lobe airspace disease. * WBC trended downwards to 18.7 today. On IV ceftriaxone, will add on azithromycin due to pneumonia * I dont think patient has a small bowel obstruction as she is still having bowel movements and may have had an ileus which has likely resolves. #Ventricular tachycardia * Had a 26 beat run of nonsustained V. tach overnight. Telemetry. Potassium is 3.3. Will replace. Will check magnesium level. 2D echo ordered. * cardiology consulted * #Severe protein calorie malnutrition: BMI is 14.8. Nutrition consulted. #Benign essential hypertension: On amlodipine and hydralazine as well as Imdur #Hyperlipidemia: On statin #Depression and anxiety: On Lexapro and venlafaxine #Paroxysmal A-fib: Eliquis was discontinued recently after she had an admission for GI bleed. Currently not on any rate limiting medication or antiarrhythmic. DVT prophylaxis: Heparin 5:34pm I spoke to patient's daughter Jo Coffman today. She had requested that I call her. I called patient's daughter who stated that she was not the power of assistant county attorney. She stated that she did not want her mother to have CPR or intubation and understood that her mother had end-stage dementia. She was amenable to hospice consult. However she says she had to talk to her sister who was the first healthcare power of assistant county attorney before they could make decisions. Patient's Nelia mallory is the second healthcare power of assistant county attorney according to her. I did speak to her daughter Brionna EUGENE on the phone via mechanic senior service today as patient's daughter is deaf. I had a very lengthy conversation with the daughter about patient's medical status. Daughter said that she felt that her mother had improved significantly because her mother open her eyes today and she saw her move her leg. I explained to patient's daughter that patient had severe advanced dementia and was also very debilitated and weak. She had come in with very severe hyponatremia with sodium going up to 168 which had only improved after she was given D5 water and sodium normalized. However despite sodium normalizing, patient still remains debilitated and lethargic and not very responsive. Patient is also being treated for UTI. It did seem to me that patient's daughter did not fully understand the extent of her mother's debility and dementia and she was also counseled about the non sustained ventricular tachycardia patient had been experiencing overnight and today. I counseled her on managing her expectations. Patient's daughter got angry in the process because she said that I had spoken to her sister without her knowing. I had to explain to patient's daughter that I had spoken to her Sister Jo mallory at her sister's request. Patient's daughter Brionna stated that she is the power of assistant county attorney. I wish to clarify if she was the only healthcare power of assistant county attorney is only 1 could make decisions. All she kept saying was that they have given me power of assistant county attorney, the 7th grade teacher has given me power of assistant county attorney . She could not tell me who the [facility] who had given her the healthcare power of assistant county attorney where. I sought to clarify she was the only healthcare power of assistant county attorney but patient's daughter could not confirm that she wants the only healthcare power of assistant county attorney. I explained to patient's daughter that his Sister Jo had stated that she did not want her mother to have life support namely CPR and intubation. Patient's daughter Brionna stated that she wanted her mother to have CPR and intubation but she did not want her to have life support. I explained to Brionna that CPR and intubation constituted life support. She then stated her mother had always told her she did not want to have life support and so in line with her mother's wishes she would want her not to have CPR or intubation. I then spoke to clarify the CODE STATUS namely DNR CC versus CCA. At this point the line disconnected and the mechanic senior was unable to reach to patient's daughter again. Poultry Eviscerator left a message for the patient's daughter that I would be available during rounds tomorrow to talk to patient's daughter. In light of patient's daughter not being interested in hospice as of now, will consult cardiology and switch CODE STATUS to DNR CCA no intubation. Total time spent on discussion about CODE STATUS and plan of care with patient's 2 daughters today: 1 hour Charges/Coding Visit Charges Inpatient E&M: 93750 PROLNG IP/OBS E/M EA 15 MIN Procedures Hospitalists Procedures: 35323 Advncd Care Plan 30 Min
[2023-11-07] MEDS: Potassium Chloride 10mEq/100mL 10 MEQ/100 ML IV.SOLN. 100 MEQ IV BOLUS ×4 (10:52→15:56)
[2023-11-07] MEDS: Ciprofloxacin 400 MG/200 ML BAG 200 MG IV ×2 (13:08→22:25)
[2023-11-07 16:25] VITALS: BP 137/49; PULSE 69; RESP 18; TEMP 37.4; O2SAT 96
--- NOTE | 2023-11-07 18:02 | CASEMGMT ---
Advanced Directive Validation. Unable to find any advanced directives on paper chart or in the electronic medical records. Spoke with both Heather and Melinda at [facility], and the correction does not have any papers on file either. Spoke with patient's daughter Jo Moore today ([phone]) who reports at one time there was a POAHC listing only kee Staton as the POAHC, but there has been a new one made which lists both Jo and Brionna as the POAHC. Spoke with kee Staton via relay service, calling [phone]. Asked Brionna to bring both the POAHC and the Living Will to the hospital tomorrow, reinforcing the importance of having those documents on file. Until documents are produced, all children are equal parts decision makers for the patient: Daughter Jo, Daughter Brionna, and then a son. -MARY Escoto
[2023-11-07 23:00] VITALS: BP 145/63; PULSE 66; RESP 18; TEMP 36.8; O2SAT 98
[2023-11-08 05:25] VITALS: BP 124/58; PULSE 61; RESP 18; TEMP 36.7; O2SAT 99
[2023-11-08 07:17] LABS: Absolute Lymphocyte Count 0.87 X10^3/uL (0.83-4.51); Absolute Neutrophil Count 10.3 X10^3/uL (2.0-7.7); Basophil# 0.02 X10^3/uL; Basophil% 0.2 % (0-1); Eosinophil# 0.28 X10^3/uL; Eosinophils% 2.3 % (0-5); Hematocrit 31.8 % (37-47); Hemoglobin 9.7 g/dL (12.0-15.0); Lymphocyte # 0.87 X10^3/ul (0.83-4.51); Lymphocyte % 7.2 % (19-41); Mean Corp Hgb Conc 30.5 g/dL (32-36); Mean Corpuscular Hgb 29.1 pg (27.0-32.0); Mean Corpuscular Volume 95.5 fL (81-99); Mean Platelet Vol. 12.6 fl (6.2-12.0); Monocyte# 0.48 X10^3/uL; NRBC Flagged by Analyzer 0.2 % (0-5); Neutrophil # 10.33 X10^3/uL (2.7-7.7); Neutrophil % 85.6 % (47-70); POSITIVE COUNT YES; Platelet Count 98 K/mm3 (150-450); RBC Distribution Width CV 16.6 % (11.6-14.6); RBC Distribution Width SD 58.1 fl (35.1-43.9); Red Blood Count 3.33 M/mm3 (4.2-5.4); White Blood Count 12.1 K/mm3 (4.4-11.0)
[2023-11-08 07:23] LABS: Differential Indicated SCAN CRITERIA MET
[2023-11-08 07:54] VITALS: O2SAT 94
[2023-11-08 08:00] LABS: Anion Gap 5 (5-15); BUN 13 mg/dL (7-18); BUN/Creat Ratio 20.7 RATIO (10-20); Calcium,Total 7.2 mg/dL (8.5-10.1); Chloride 116 mmol/L (98-107); Creatinine, Serum 0.63 mg/dL (0.55-1.02); EST Glomerular Filtration Rate 96 mL/min (>60); Est Glom Filt Rate - Afr Amer 116 mL/min (>60); Estimated Creatinine Clearance 25.98 ml/min; Glucose 142 mg/dL (74-106); Potassium 3.4 mmol/L (3.5-5.1); Sodium Level 143 mmol/L (136-145)
[2023-11-08 10:25] VITALS: BP 135/79; PULSE 63; RESP 12; TEMP 36.6; O2SAT 96
--- NOTE | 2023-11-08 10:40 | CASEMGMT ---
Jose Manuel from Hospice spoke with patient's daughter Brionna via ipad due to Brionna being hearing impaired. Per Jose Manuel hospice papers were signed. SW will notify physician. Plan: d/c back to [place] under [facility] Mary SALAZAR
--- NOTE | 2023-11-08 10:41 | PCM.PN.REN ---
Subjective Subjective Resting in bed, no apparent distress. No overnight events. Objective Data Objective Data Vital Signs: Vital Signs Temp Pulse Resp BP Pulse Ox O2 Del Method O2 Flow Rate 98.0 F 61 18 124/58 H 94 Nasal Cannula 2 11/08/23 05:25 11/08/23 05:25 11/08/23 05:25 11/08/23 05:25 11/08/23 07:54 11/08/23 07:54 11/08/23 07:54 Oxygen Flow Rate (L/min) 2 Oxygen Delivery Method Nasal Cannula Weight: 39.3 kg Body Mass Index (BMI) 14.8 Intake & Output: Intake and Output for Last 24 Hours 11/06/23 11/07/23 11/08/23 23:59 23:59 23:59 Intake Total 3090 / 3090 2650.00 / 2650.00 200 / 200 Output Total 1775 / 1775 1300 / 1950 925 / 925 Balance 1315 / 1315 1350.00 / 700.00 -725 / -725 Medical Nutrition Assessment Dietitian: Malnutrition Criteria Met Start: 11/05/23 11:24 Freq: Status: Active Protocol: Document 11/07/23 14:10 RMA (Rec: 11/07/23 14:10 RMA [id number]) Nutrition Malnutrition Evidence of Malnutrition Exists Yes Malnutrition (severe): Chronic Evidenced By Suboptimal Energy Intake ( Severe),Weight Loss (Moderate) ,Physical Changes (Severe) Clinical Problem Chronic Disease or Condition Related Malnutrition Etiology severe chronic malnutrition related to inadequate energy intake Signs/Symptoms as evidenced by estimated PO intake meeting <50% of estimated energy needs> 3 months, Severe muscle wasting/ fat loss evident per physical exam in orbital, clavicle, acromion, and temporal areas, extended NPO status and BMI 14 .8 kg/m2 Status Active Problem Recommendation Dietitian Recommendations/Changes If deemed safe for PO nutrition, recommend regular diet with texture/consistency as per GUM COOK; fortified foods, ensure plus high protein 120mL 4x/day w/medpass. Pt with extended NPO x 3-4 days today. If PO nutrition remains contraindicated, suggest enteral nutrition support to meet estimated nutrition needs. Consult RD for TF recommendations as indicated. Lab / Micro Data 11/08/23 06:28 11/08/23 06:28 Labs: Laboratory Results - last 24 hr 11/08/23 06:28: WBC 12.1 H, RBC 3.33 L, Hgb 9.7 L, Hct 31.8 L, MCV 95.5, MCH 29.1, MCHC 30.5 L, RDW Std Deviation 58.1 H, RDW Coeff of David 16.6 H, Plt Count 98 L, MPV 12.6 H, Immature Gran % (Auto) 0.700, Neut % (Auto) 85.6 H, Lymph % (Auto) 7.2 L, [place] % (Auto) 4.0, Eos % (Auto) 2.3, Baso % (Auto) 0.2, Absolute Neuts (auto) 10.3 H, Absolute Lymphs (auto) 0.87, Nucleated RBC % 0.2, Sodium 143, Potassium 3.4 L, Chloride 116 H, Carbon Dioxide 22.0, Anion Gap 5, BUN 13, Creatinine 0.63, Estim Creat Clear Calc 25.98, Est GFR (MDRD) Af Amer 116, Est GFR (MDRD) Non-Af 96, BUN/Creatinine Ratio 20.7 H, Glucose 142 H, Calcium 7.2 L Micro: Microbiology 11/04/23 15:00 Urine, Clean Catch Urine Culture - Preliminary Pseudomonas aeruginosa 11/04/23 15:40 Blood Culture (Wb) - Right Hand Blood Culture - Preliminary No growth in 48 hours. 11/04/23 14:20 Blood Culture (Wb) - Left Forearm Blood Culture - Preliminary No growth in 48 hours. 11/04/23 15:00 Nasal Secretion SARS-CoV-2 & FLU Antigen (Rapid) - Final Radiography Diagnostic Testing: Radiology Impression Echocardiogram 11/07/23 08:16 Interpretation Summary Left ventricular systolic function is normal. The estimated ejection fraction is 55 %. Stage 2 diastolic dysfunction. There is mild biatrial dilatation. Mild-Moderate (1-2+) mitral valve insufficiency. Moderate pulmonary hypertension.. Mild-Moderate (1-2+) aortic valve insufficiency. Ordering Physician: Danielle Lizama Referring Physician: Fuentes Vergara Performed By: Lex Sorto RCS Physical Exam Narrative No apparent distress S1, S2, RRR Lung sounds clear anteriorly Abdomen soft, nontender No pitting edema Assessment & Plan Assessment/Plan (1) Hypernatremia: PLAN: 83 year old demented female, who is non-verbal at baseline admitted to the hospital with urinary tract infection, altered mental status after not having adequate oral food and fluid intake for extended period of time. Received LR and sodium further went up. Renal function has improved with volume expansion. - KURT with normal baseline SCr. Overall renal function improved with IVF/volume expansion. KURT resolved. SCr peaked 1.8 and today SCr 0.63mg/dL. - hypernatremia likely from lack of free water/solute intake; With D5W sodium slowly corrected and normalized. Patient has normal baseline sodium trends. Sodium peak 168, today 143. - hypokalemia with poor oral intake, improved with supplement - dementia with failure to thrive - discharge planning in progress, patient's POA met/spoke with hospice. Patient is DNR CCA, enrolled in hospice. Nephrology will sign off as renal function improved, KURT resolved and hypernatremia resolved. (2) Dehydration: (3) KURT (acute kidney injury):
--- NOTE | 2023-11-08 10:56 | CASEMGMT ---
STEPHAN spoke with patient's daughter Brionna via phone. STEPHAN let Brionna know patient will be discharged to [facility] today. Brionna was concerned as patient is not eating. STEPHAN explained since patient is on hospice she will be able to eat whatever she wants. Brionna asked about patient's throat and would she be able to eat. STEPHAN explained the reason patient is not allowed to eat is she is too lethargic. Brionna asked if speech therapy was going to see patient today. STEPHAN explained they will likely see patient today. Brionna thanked STEPHAN for the update. Mary Najera SUPERVISOR TYPE DISK QUALITY CONTROL MARIE
[2023-11-08] MEDS: 0.9% Normal Saline (1000mL) 1,000 ML 15 ML IV (11:38)
[2023-11-08] MEDS: Ciprofloxacin 400 MG/200 ML BAG 200 MG IV (11:38)
[2023-11-08] MEDS: Menthol/Lanolin/Calamine/Znox 113 GM Tube 1 APPLIC TOPICAL (11:40)
[2023-11-08] MEDS: Heparin Injection (Vial) 5,000 UNIT/ML VIAL 5000 UNIT SC (11:41)
--- NOTE | 2023-11-08 12:54 | DCINST_ITS ---
Discharge Instructions Diet Discharge Diet: Low fat / Low cholesterol Activity Discharge Activity: Return to Normal Activity Weight Bearing Status: Weight bearing as tolerated Dressing / Incision Call your doctor if you observe: Fever of 101 or Higher, Shortness of breath, Dizziness, Swelling in the ankles and Chest pain Follow Up Care Test Results: Test results from this visit will be discussed in further detail at your follow- up appointment, if applicable. Discharge Plan Admission Admit Date/Time: 11/04/23 16:03 Primary Reason for Your Visit: hypernatremia Attending Provider: Danielle Lizama Primary Care Provider: Fuentes Vergara Consulting Providers: Narinder Hoyos; Peg Peterson; Sia Blankenship; Morgan Dowell; Tammy Tucker; Brionna Navarro; Mica Hayes WINDOW GLASS CUTTER OFF Discharge Orders/Prescriptions Prescriptions: No Action isosorbide mononitrate 60 mg tablet extended release 24 hr 60 mg PO DAILY nitroglycerin 0.4 mg tablet, sublingual 0.4 mg sublingual Q5M PRN (Reason: Chest Pain) memantine 10 mg tablet 10 mg PO BID Patient Comments: TAKE 1 TABLET BY MOUTH TWICE DAILY atorvastatin 10 mg tablet 10 mg PO QHS cholecalciferol (vitamin D3) 50 mcg (2,000 unit) Capsule 50 mcg PO DAILY amlodipine 10 mg Tablet 10 mg PO DAILY Qty: 0 0RF venlafaxine [Effexor XR] 75 mg Capsule,Extended Release 24hr 75 mg PO DAILY hydralazine 50 mg Tablet 50 mg PO TID divalproex 125 mg tablet,delayed release (DR/EC) 125 mg PO TID escitalopram oxalate [Lexapro] 10 mg tablet 10 mg PO DAILY melatonin 3 mg tablet 3 mg PO QHS ytgqnwgt-quzv-TA-calcium-mins 1 tab PO DAILY potassium chloride [Klor-Con M20] 20 mEq Tablet,Er Particles/Crystals 20 meq PO BIDCM Qty: 0 0RF menthol-zinc oxide [Calmoseptine] 0.44-20.6 % Ointment 1 applic topical TID Qty: 0 0RF Protocol: *Topical Application Instructions APPLICATION INSTRUCTIONS: Apply to affected areas bisacodyl 10 mg suppository 10 mg DE DAILY PRN (Reason: constipation) Rx Instructions: ADMINISTER ONCE DAILY AT HS IF NO BM 8 HOURS AFTER MOM ADMINISTRATION acetaminophen [Acetaminophen Extra Strength] 500 mg tablet 1,000 mg PO Q8H PRN (Reason: fever or pain) mineral oil [Fleet Mineral Oil] Enema 118 ml DE DAILY PRN (Reason: constipation) Rx Instructions: ADMINISTER ONCE DAILY IF NO BM 8 HOURS AFTER RECIEVING SUPPOSITORY. IF NO BM WITHIN 1 HOUR AFTER RECIEVING ENEMA NOTIFY MD. magnesium oxide 400 mg magnesium capsule 400 mg PO DAILY magnesium hydroxide [Milk of Magnesia] 400 mg/5 mL suspension 30 ml PO DAILY PRN (Reason: constipation) Rx Instructions: ADMINISTER PER BOWEL PROTOCOL ONCE DAILY IF NO BM IN 3 CONSECUTIVE DAYS Referrals / Follow Up: Fuentes Vergara MD [Primary Care Provider] - Disposition Disposition (needs filled in before D/C Order can be placed): Hospice in Medical Facility
--- NOTE | 2023-11-08 12:54 | PCM.DC.SUM ---
Providers Date of Admission: 11/04/23 Date of Discharge: 11/08/23 Primary Care Physician: Dr. Fuentes Vergara MD Consultations 11/04/23 17:56 Consult: Hospice / Palliative Care Routine Consulting Provider: [facility] Reason for Consult: end stage dementia, adult FTT EMERGENT Consult: No Notified: Yes Date Notified: 11/07/23 Time Notified: 18:27 Method of Notification: per social service 11/05/23 07:54 Consult: Nephrology Routine Consulting Provider: Peg Peterson Reason for Consult: severe hypernatremia EMERGENT Consult: No Notified: Yes Date Notified: 11/05/23 Time Notified: 09:23 Method of Notification: Text 11/07/23 16:13 Consult: Cardiology Routine Consulting Provider: Sia Blankenship Reason for Consult: ventricular tachyardia EMERGENT Consult: No Notified: Yes Date Notified: 11/07/23 Time Notified: 16:13 Method of Notification: Text Reason For Visit: ALTERED MENTAL STATUS, UTI Diagnosis Discharge Diagnosis (1) Hypernatremia: Status: Acute Code(s): E87.0 - Hyperosmolality and hypernatremia (2) Dehydration: Status: Acute Code(s): E86.0 - Dehydration (3) KURT (acute kidney injury): Status: Acute Code(s): N17.9 - Acute kidney failure, unspecified Plan #Acute metabolic encephalopathy due to severe hypernatremia Sodium is down to 145 today Continue on D5W patient still very minimally responsive and not having enough oral intake. nephrology on board # Dementia with failure to thrive: On IV ceftriaxone. Urine cultures pending. Hs been having episodic fevers. Patient very weak and debilitated and not communicating very well. #KUTR: Creatinine is trending downwards. Likely due to dehydration. Should improve with hydration. #UTI: Urinalysis showed 2+ bacteria. On IV ceftriaxone. Urine cultures growing Pseudomonas aeruginosa . Blood cultures negative so far. Will dc ceftriaxone and start on IV ciprofloxacin. #Small bowel ileus vs obstruction CTA abdomen and pelvis showed a left renal artery stenosis vs partial small bowel obstruction, with no transitional point and left lower lobe airspace disease. WBC trended downwards to 18.7 today. On IV ceftriaxone, will add on azithromycin due to pneumonia I dont think patient has a small bowel obstruction as she is still having bowel movements and may have had an ileus which has likely resolves. #Ventricular tachycardia Had a 26 beat run of nonsustained V. tach overnight. Telemetry. Potassium is 3.3. Will replace. Will check magnesium level. 2D echo ordered. cardiology consulted #Severe protein calorie malnutrition: BMI is 14.8. Nutrition consulted. #Benign essential hypertension: On amlodipine and hydralazine as well as Imdur #Hyperlipidemia: On statin #Depression and anxiety: On Lexapro and venlafaxine #Paroxysmal A-fib: Eliquis was discontinued recently after she had an admission for GI bleed. Currently not on any rate limiting medication or antiarrhythmic. DVT prophylaxis: Heparin 5:34pm I spoke to patient's daughter Jo Coffman today. She had requested that I call her. I called patient's daughter who stated that she was not the power of contract attorney. She stated that she did not want her mother to have CPR or intubation and understood that her mother had end-stage dementia. She was amenable to hospice consult. However she says she had to talk to her sister who was the first healthcare power of contract attorney before they could make decisions. Patient's Nelia mallory is the second healthcare power of contract attorney according to her. I did speak to her daughter Brionna EUGENE on the phone via comptometrist service today as patient's daughter is deaf. I had a very lengthy conversation with the daughter about patient's medical status. Daughter said that she felt that her mother had improved significantly because her mother open her eyes today and she saw her move her leg. I explained to patient's daughter that patient had severe advanced dementia and was also very debilitated and weak. She had come in with very severe hyponatremia with sodium going up to 168 which had only improved after she was given D5 water and sodium normalized. However despite sodium normalizing, patient still remains debilitated and lethargic and not very responsive. Patient is also being treated for UTI. It did seem to me that patient's daughter did not fully understand the extent of her mother's debility and dementia and she was also counseled about the non sustained ventricular tachycardia patient had been experiencing overnight and today. I counseled her on managing her expectations. Patient's daughter got angry in the process because she said that I had spoken to her sister without her knowing. I had to explain to patient's daughter that I had spoken to her Sister Jo mallory at her sister's request. Patient's daughter Brionna stated that she is the power of contract attorney. I wish to clarify if she was the only healthcare power of contract attorney is only 1 could make decisions. All she kept saying was that they have given me power of contract attorney, the contract attorney has given me power of contract attorney . She could not tell me who the [facility] who had [facility] her the healthcare power of contract attorney where. I sought to clarify she was the only healthcare power of contract attorney but patient's daughter could not confirm that she wants the only healthcare power of contract attorney. I explained to patient's daughter that his Sister Jo had stated that she did not want her mother to have life support namely CPR and intubation. Patient's daughter Brionna stated that she wanted her mother to have CPR and intubation but she did not want her to have life support. I explained to Brionna that CPR and intubation constituted life support. She then stated her mother had always told her she did not want to have life support and so in line with her mother's wishes she would want her not to have CPR or intubation. I then spoke to clarify the CODE STATUS namely DNR CC versus CCA. At this point the line disconnected and the comptometrist was unable to reach to patient's daughter again. Clam Shucker left a message for the patient's daughter that I would be available during rounds tomorrow to talk to patient's daughter. In light of patient's daughter not being interested in hospice as of now, will consult cardiology and switch CODE STATUS to DNR CCA no intubation. Total time spent on discussion about CODE STATUS and plan of care with patient's 2 daughters today: 1 hour Medications at Discharge Home Medications isosorbide mononitrate 60 mg tablet,extended release 24 hr 60 mg PO DAILY heart 07/06/22 memantine 10 mg tablet 10 mg PO BID alzheimers 07/06/22 nitroglycerin 0.4 mg sublingual tablet 0.4 mg sublingual Q5M PRN Chest Pain 07/06/22 atorvastatin 10 mg tablet 10 mg PO QHS 12/01/22 cholecalciferol (vitamin D3) 50 mcg (2,000 unit) capsule 50 mcg PO DAILY 12/01/22 amlodipine 10 mg tablet 10 mg PO DAILY #0 tabs 01/25/23 venlafaxine 75 mg capsule,extended release 24 hr (Effexor XR) 75 mg PO DAILY 01/20/23 hydralazine 50 mg tablet 50 mg PO TID 07/02/23 divalproex 125 mg tablet,delayed release 125 mg PO TID 09/29/23 escitalopram oxalate 10 mg tablet (Lexapro) 10 mg PO DAILY depression and anxiety 09/29/23 melatonin 3 mg tablet 3 mg PO QHS sleep 09/29/23 ziliaemi-ijnd-FI-calcium-mins 1 tab PO DAILY vitamin 09/29/23 menthol 0.44 %-zinc oxide 20.6 % topical ointment (Calmoseptine) 1 applic topical TID #0 grams 10/04/23 potassium chloride 20 mEq tablet,extended release(part/cryst) (Klor-Con M) 20 meq PO BIDCM #0 tabs 10/04/23 acetaminophen 500 mg tablet (Acetaminophen Extra Strength) 1,000 mg PO Q8H PRN fever or pain 11/04/23 bisacodyl 10 mg rectal suppository 10 mg [place] DAILY PRN constipation 11/04/23 magnesium hydroxide 400 mg/5 mL oral suspension (Milk of Magnesia) 30 ml PO DAILY PRN constipation 11/04/23 magnesium oxide 400 mg PO DAILY 11/04/23 mineral oil (Fleet Mineral Oil enema) 118 ml [place] DAILY PRN constipation 11/04/23 Hospital Course Operations None Procedures None Summary of Care Provided Minutes Spent on Discharge: 55 Hospital Course: Patient is an 83-year-old female with past medical history as outlined was [facility] for altered mental status. She had a history of significant dementia and patient was essentially nonverbal and did not ambulate. She had lived in the prison for at least a year prior to admission. Patient had been recently admitted in September 2023 for sepsis due to UTI and acute blood loss anemia due to GI bleed. She was subsequently discharged back to her long term facility and subsequently noted to have been progressively worsening. She was not eating or drinking anything. On admission patient was found to be significantly hypernatremic with sodium of 163. She was admitted and managed for adult failure to thrive in the setting of end-stage dementia as well as severe hyponatremia due to severe dehydration. She was hydrated with D5 water. Sodium gradually trended down to 143. Nephrology was consulted. Patient also had KURT which resolved with IV fluid administration. Urinalysis showed evidence of UTI so she was started on IV ceftriaxone. Hospital course was complicated by nonsustained V. tach. She did have 2D echo which showed EF of 55% with stage II diastolic dysfunction and mild biatrial dilatation with moderate pulmonary hypertension. Magnesium and potassium were checked and were replaced as needed. Cardiology was initially consulted due to nonsustained V. tach. Patient's 2 daughters Brionna and Jo were extensively counseled about patient's debilitated state and consideration for hospice. Her daughter Jo was on board with hospice from the get go. However her daughter Brionna was not very convinced about hospice and thought her mother was getting better. After she agreed to hospice being consulted so she could see with the office, daughter Brionna was agreeable to hospice for patient. Patient was therefore accepted at inpatient hospice on 11/08/2023. She was discharged to the hospice medical facility on 11/08/2023. Cardiology consult was therefore canceled. Patient was seen and examined prior to discharge. She was alert but nonverbal. She does lay in bed with her eyes open. Unable to do review of systems. Labs and vitals reviewed. Home medication reviewed and reconciled. Physical Exam Const alert Constitutional Narrative: Noncommunicative, nonverbal General Appearance: comfortable Orientation / Consciousness: lethargic HEENT normocephalic and head/scalp atraumatic Mouth: dry mucous membranes Eyes PERRL, EOMs intact bilaterally and conjunctivae normal Neck no lymphadenopathy, supple and no JVD Lymph Lymphatic: no lymphadenopathy noted and no lymphedema noted Chest inspection of chest normal Resp normal respiratory effort, normal air movement and clear to auscultation bilaterally Resp Narrative: on 2L of oxygen by nasal canula. MIldly diminished breath sounds bibasally, no wheezes or crackles. Cardio regular rate, regular rhythm, S1 normal heart sound, S2 normal heart sound, no murmurs and peripheral pulses 2+ throughout GI normal to inspection, nondistended, normoactive bowel sounds, soft to palpation, non-tender and non-distended Extremity normal to inspection, normal capillary refill, no clubbing, cyanosis or edema, no calf tenderness and no pedal edema Skin no rashes or lesions noted General Skin Exam: no breakdown Neuro Neuro Narrative: lethargic, largely nonverbal. Is laying in bed with eyes open but not communicating. Medical Records Data Medical Nutrition Assessment Dietitian: Malnutrition Criteria Met Start: 11/05/23 11:24 Freq: Status: Active Protocol: Document 11/07/23 14:10 RMA (Rec: 11/07/23 14:10 RMA [id number]) Nutrition Malnutrition Evidence of Malnutrition Exists Yes Malnutrition (severe): Chronic Evidenced By Suboptimal Energy Intake ( Severe),Weight Loss (Moderate) ,Physical Changes (Severe) Clinical Problem Chronic Disease or Condition Related Malnutrition Etiology severe chronic malnutrition related to inadequate energy intake Signs/Symptoms as evidenced by estimated PO intake meeting <50% of estimated energy needs> 3 months, Severe muscle wasting/ fat loss evident per physical exam in orbital, clavicle, acromion, and temporal areas, extended NPO status and BMI 14 .8 kg/m2 Status Active Problem Recommendation Dietitian Recommendations/Changes If deemed safe for PO nutrition, recommend regular diet with texture/consistency as per SOFTWARE [employer]; fortified foods, ensure plus high protein 120mL 4x/day w/medpass. Pt with extended NPO x 3-4 days today. If PO nutrition remains contraindicated, suggest enteral nutrition support to meet estimated nutrition needs. Consult RD for TF recommendations as indicated. Weight / BMI Weight Weight: 86 lb 10.267 oz Body Mass Index (BMI) 14.8 ABG / Lab / Microbiology Data 11/08/23 06:28 11/08/23 06:28 Laboratory: Laboratory Results - last 24 hr 11/08/23 06:28: WBC 12.1 H, RBC 3.33 L, Hgb 9.7 L, Hct 31.8 L, MCV 95.5, MCH 29.1, MCHC 30.5 L, RDW Std Deviation 58.1 H, RDW Coeff of David 16.6 H, Plt Count 98 L, MPV 12.6 H, Immature Gran % (Auto) 0.700, Neut % (Auto) 85.6 H, Lymph % (Auto) 7.2 L, [place] % (Auto) 4.0, Eos % (Auto) 2.3, Baso % (Auto) 0.2, Absolute Neuts (auto) 10.3 H, Absolute Lymphs (auto) 0.87, Nucleated RBC % 0.2, Sodium 143, Potassium 3.4 L, Chloride 116 H, Carbon Dioxide 22.0, Anion Gap 5, BUN 13, Creatinine 0.63, Estim Creat Clear Calc 25.98, Est GFR (MDRD) Af Amer 116, Est GFR (MDRD) Non-Af 96, BUN/Creatinine Ratio 20.7 H, Glucose 142 H, Calcium 7.2 L Microbiology: Microbiology 11/04/23 15:00 Urine, Clean Catch Urine Culture - Preliminary Pseudomonas aeruginosa 11/04/23 15:40 Blood Culture (Wb) - Right Hand Blood Culture - Preliminary No growth in 48 hours. 11/04/23 14:20 Blood Culture (Wb) - Left Forearm Blood Culture - Preliminary No growth in 48 hours. 11/04/23 15:00 Nasal Secretion SARS-CoV-2 & FLU Antigen (Rapid) - Final Radiography Diagnostic Testing: Radiology Impression Echocardiogram 11/07/23 08:16 Interpretation Summary Left ventricular systolic function is normal. The estimated ejection fraction is 55 %. Stage 2 diastolic dysfunction. There is mild biatrial dilatation. Mild-Moderate (1-2+) mitral valve insufficiency. Moderate pulmonary hypertension.. Mild-Moderate (1-2+) aortic valve insufficiency. Ordering Physician: Danielle Lizama Referring Physician: Fuentes Vergara Performed By: Lex Sorto RCS D/C Instructions Discharge Diet: Low fat / Low cholesterol Weight Bearing Status: Weight bearing as tolerated Call your doctor if you observe: Fever of 101 or Higher, Shortness of breath, Dizziness, Swelling in the ankles and Chest pain Meaningful Use Info Meaningful Use Diagnoses (Choose all that apply): None applicable Discharge Plan Admission Admit Date/Time: 11/04/23 16:03 Primary Reason for Your Visit: hypernatremia Attending Provider: Danielle Lizama Primary Care Provider: Fuentes Vergara Consulting Providers: Narinder Hoyos; Peg Peterson; Morgan Dowell; Tammy Tucker; Brionna Navarro; Mica Hayes LINE ERECTOR APPRENTICE Discharge Orders/Prescriptions Prescriptions: No Action isosorbide mononitrate 60 mg tablet extended release 24 hr 60 mg PO DAILY nitroglycerin 0.4 mg tablet, sublingual 0.4 mg sublingual Q5M PRN (Reason: Chest Pain) memantine 10 mg tablet 10 mg PO BID Patient Comments: TAKE 1 TABLET BY MOUTH TWICE DAILY atorvastatin 10 mg tablet 10 mg PO QHS cholecalciferol (vitamin D3) 50 mcg (2,000 unit) Capsule 50 mcg PO DAILY amlodipine 10 mg Tablet 10 mg PO DAILY Qty: 0 0RF venlafaxine [Effexor XR] 75 mg Capsule,Extended Release 24hr 75 mg PO DAILY hydralazine 50 mg Tablet 50 mg PO TID divalproex 125 mg tablet,delayed release (DR/EC) 125 mg PO TID escitalopram oxalate [Lexapro] 10 mg tablet 10 mg PO DAILY melatonin 3 mg tablet 3 mg PO QHS cnayjruk-oglm-ET-calcium-mins 1 tab PO DAILY potassium chloride [Klor-Con M20] 20 mEq Tablet,Er Particles/Crystals 20 meq PO BIDCM Qty: 0 0RF menthol-zinc oxide [Calmoseptine] 0.44-20.6 % Ointment 1 applic topical TID Qty: 0 0RF Protocol: *Topical Application Instructions APPLICATION INSTRUCTIONS: Apply to affected areas bisacodyl 10 mg suppository 10 mg [place] DAILY PRN (Reason: constipation) Rx Instructions: ADMINISTER ONCE DAILY AT HS IF NO BM 8 HOURS AFTER MOM ADMINISTRATION acetaminophen [Acetaminophen Extra Strength] 500 mg tablet 1,000 mg PO Q8H PRN (Reason: fever or pain) mineral oil [Fleet Mineral Oil] Enema 118 ml [place] DAILY PRN (Reason: constipation) Rx Instructions: ADMINISTER ONCE DAILY IF NO BM 8 HOURS AFTER RECIEVING SUPPOSITORY. IF NO BM WITHIN 1 HOUR AFTER RECIEVING ENEMA NOTIFY . magnesium oxide 400 mg magnesium capsule 400 mg PO DAILY magnesium hydroxide [Milk of Magnesia] 400 mg/5 mL suspension 30 ml PO DAILY PRN (Reason: constipation) Rx Instructions: ADMINISTER PER BOWEL PROTOCOL ONCE DAILY IF NO BM IN 3 CONSECUTIVE DAYS Referrals / Follow Up: Vergara,Fuentes, MD [Primary Care Provider] - Disposition Disposition (needs filled in before D/C Order can be placed): Hospice in Medical Facility Charges/Coding Visit Charges Inpatient E&M: 18717 Disch Hosp >30min
--- NOTE | 2023-11-08 13:44 | PHA.DC.MR.R ---
Pharmacy [facility] [facility] Reconciliation Pharmacy Service has performed discharge medication reconciliation for this patient upon transfer to hospice facility. The patient's discharge medication list was reviewed for discrepancies and discrepancies were resolved. Medications at Discharge Home Medications isosorbide mononitrate 60 mg tablet,extended release 24 hr 60 mg PO DAILY heart 07/06/22 memantine 10 mg tablet 10 mg PO BID alzheimers 07/06/22 nitroglycerin 0.4 mg sublingual tablet 0.4 mg sublingual Q5M PRN Chest Pain 07/06/22 atorvastatin 10 mg tablet 10 mg PO QHS 12/01/22 cholecalciferol (vitamin D3) 50 mcg (2,000 unit) capsule 50 mcg PO DAILY 12/01/22 amlodipine 10 mg tablet 10 mg PO DAILY #0 tabs 12/05/22 venlafaxine 75 mg capsule,extended release 24 hr (Effexor XR) 75 mg PO DAILY 01/20/23 hydralazine 50 mg tablet 50 mg PO TID 07/02/23 divalproex 125 mg tablet,delayed release 125 mg PO TID 09/29/23 escitalopram oxalate 10 mg tablet (Lexapro) 10 mg PO DAILY depression and anxiety 09/29/23 melatonin 3 mg tablet 3 mg PO QHS sleep 09/29/23 zzejdjno-hphg-BW-calcium-mins 1 tab PO DAILY vitamin 09/29/23 menthol 0.44 %-zinc oxide 20.6 % topical ointment (Calmoseptine) 1 applic topical TID #0 grams 10/04/23 potassium chloride 20 mEq tablet,extended release(part/cryst) (Klor-Con M) 20 meq PO BIDCM #0 tabs 10/04/23 acetaminophen 500 mg tablet (Acetaminophen Extra Strength) 1,000 mg PO Q8H PRN fever or pain 11/04/23 bisacodyl 10 mg rectal suppository 10 mg [place] DAILY PRN constipation 11/04/23 magnesium hydroxide 400 mg/5 mL oral suspension (Milk of Magnesia) 30 ml PO DAILY PRN constipation 11/04/23 magnesium oxide 400 mg PO DAILY 11/04/23 mineral oil (Fleet Mineral Oil enema) 118 ml [place] DAILY PRN constipation 11/04/23
[2023-11-08 14:00] VITALS: RESP 12; O2SAT 100
--- NOTE | 2023-11-08 14:27 | CHAPLAIN ---
Type of Pastoral Visit ___ Initial Visit _x__ Follow-up Visit ___ On-call Visit ___ General Patient Visit ___ Spiritual Assessment ___ Family Conference ___ Bereavement ___ Rapid Response ___ Code Blue ___ Other (describe below) Pastoral Care Referral From ___ Patient _x__ Family ___ Nurse ___ Physician ___ Actuarial Clerk ___ Retail Merchandiser Technician ___ Other (describe below) Sacrament/Intervention ___ Active listening ___ Anointing ___ Pentecostalism ___ Bereavement ___ Communion ___ Natalee exploration ___ ___ Life review _x__ Prayer ___ Reconciliation ___ Sacrament of Sick _x__ Supportive presence ___ Wedding ___ Other (describe below) Pastoral Comments daughter of this patient is now in the room and so this hide sorter stopped by to check on them both; daughter is deaf so lip reading and signing was utilized to offer her support; pt is awake and able to hear but does not talk; pt was asked a question or two to which pt answered first question with one word answer and nothing more; pt kept staring into the air; prayer was offered at welcome of the daughter; daughter did indicate through writing that patient would return to [facility] and on hospice care; daughter expresses gratitude for the stop and prayer
--- NOTE | 2023-11-08 14:35 | CASEMGMT ---
STEPHAN notified Ce with [facility] that patient will be returning to [facility] today. 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
[2023-11-08 16:00] VITALS: BP 137/60; PULSE 65; RESP 12; TEMP 37.2; O2SAT 100
--- NOTE | 2023-11-08 16:12 | TREXTCAR_ITS ---
Diet Diet Order/Speech Therapy: 11/08/23 13:09 Diet: Regular - General Food consistency:: Pureed Liquid Consistency:: Regular/Thin Is pt able to select menu?: No Diet Comments: Supervised Meals Routine Orders/Code Status Enema Type: Fleetz Enema Frequency: Daily PRN Suppository Type: Dulcolax 10mg Suppository Frequency: Daily PRN O2 Frequency: PRN Keep PO Greater than or Equal to (%): 90 Therapies Weight Bearing: Weight bearing as tolerated Physical Therapy: Eval and Treat Occupational Therapy: Eval and Treat Problem/Diagnosis (1) Hypernatremia: Status: Acute Code(s): E87.0 - Hyperosmolality and hypernatremia (2) Dehydration: Status: Acute Code(s): E86.0 - Dehydration (3) KURT (acute kidney injury): Status: Acute Code(s): N17.9 - Acute kidney failure, unspecified Plan #Acute metabolic encephalopathy due to severe hypernatremia * Sodium is down to 145 today * Continue on D5W * patient still very minimally responsive and not having enough oral intake. * nephrology on board * # Dementia with failure to thrive: On IV ceftriaxone. Urine cultures pending. Hs been having episodic fevers. Patient very weak and debilitated and not communicating very well. #KURT: Creatinine is trending downwards. Likely due to dehydration. Should improve with hydration. #UTI: * Urinalysis showed 2+ bacteria. On IV ceftriaxone. Urine cultures growing Pseudomonas aeruginosa . Blood cultures negative so far. Will dc ceftriaxone and start on IV ciprofloxacin. * #Small bowel ileus vs obstruction * CTA abdomen and pelvis showed a left renal artery stenosis vs partial small bowel obstruction, with no transitional point and left lower lobe airspace disease. * WBC trended downwards to 18.7 today. On IV ceftriaxone, will add on azithromycin due to pneumonia * I dont think patient has a small bowel obstruction as she is still having bowel movements and may have had an ileus which has likely resolves. #Ventricular tachycardia * Had a 26 beat run of nonsustained V. tach overnight. Telemetry. Potassium is 3.3. Will replace. Will check magnesium level. 2D echo ordered. * cardiology consulted * #Severe protein calorie malnutrition: BMI is 14.8. Nutrition consulted. #Benign essential hypertension: On amlodipine and hydralazine as well as Imdur #Hyperlipidemia: On statin #Depression and anxiety: On Lexapro and venlafaxine #Paroxysmal A-fib: Eliquis was discontinued recently after she had an admission for GI bleed. Currently not on any rate limiting medication or antiarrhythmic. DVT prophylaxis: Heparin 5:34pm I spoke to patient's daughter Jo Coffman today. She had requested that I call her. I called patient's daughter who stated that she was not the power of corporate attorney. She stated that she did not want her mother to have CPR or intubation and understood that her mother had end-stage dementia. She was amenable to hospice consult. However she says she had to talk to her sister who was the [facility] healthcare power of corporate attorney before they could make decisions. Patient's Nelia mallory is the second healthcare power of corporate attorney according to her. I did speak to her daughter Brionna EUGENE on the phone via dispensing optician apprentice service today as patient's daughter is deaf. I had a very lengthy conversation with the daughter about patient's medical status. Daughter said that she felt that her mother had improved significantly because her mother open her eyes today and she saw her move her leg. I explained to patient's daughter that patient had severe advanced dementia and was also very debilitated and weak. She had come in with very severe hyponatremia with sodium going up to 168 which had only improved after she was given D5 water and sodium normalized. However despite sodium normalizing, patient still remains debilitated and lethargic and not very responsive. Patient is also being treated for UTI. It did seem to me that patient's daughter did not fully understand the extent of her mother's debility and dementia and she was also counseled about the non sustained ventricular tachycardia patient had been experiencing overnight and today. I counseled her on managing her expectations. Patient's daughter got angry in the process because she said that I had spoken to her sister without her knowing. I had to explain to patient's daughter that I had spoken to her Sister Jo mallory at her sister's request. Patient's daughter Brionna stated that she is the power of corporate attorney. I wish to clarify if she was the only healthcare power of corporate attorney is only 1 could make decisions. All she kept saying was that they have given me power of corporate attorney, the bath mix operator has given me power of corporate attorney . She could not tell me who the [facility] who had given her the healthcare power of corporate attorney where. I sought to clarify she was the only healthcare power of corporate attorney but patient's daughter could not confirm that she wants the only healthcare power of corporate attorney. I explained to patient's daughter that his Sister Jo had stated that she did not want her mother to have life support namely CPR and intubation. Patient's daughter Brionna stated that she wanted her mother to have CPR and intubation but she did not want her to have life support. I explained to Brionna that CPR and intubation constituted life support. She then stated her mother had always told her she did not want to have life support and so in line with her mother's wishes she would want her not to have CPR or intubation. I then spoke to clarify the CODE STATUS namely DNR CC versus CCA. At this point the line disconnected and the dispensing optician apprentice was unable to reach to patient's daughter again. Furnace Installer left a message for the patient's daughter that I would be available during rounds tomorrow to talk to patient's daughter. In light of patient's daughter not being interested in hospice as of now, will consult cardiology and switch CODE STATUS to DNR CCA no intubation. Total time spent on discussion about CODE STATUS and plan of care with patient's 2 daughters today: 1 hour Allergies/Procedures Done in Hospital Allergies No Known Allergies Allergy (Verified 11/04/23 14:34) Procedures: 2-D Echocardiogram Type of Care/Length of Stay Estimated LOS: More Than 30 Days Type of Care Needed: Skilled Rehab Potential: Poor Prognosis: Poor Additional Orders/Day of Discharge Day of Discharge: 11/08/23 Dietary and Speech Recommendations Dietitian Recommendations/Changes: If deemed safe for PO nutrition, recommend regular diet with texture/consistency as per FIELD MARKETER; fortified foods, ensure plus high protein 120mL 4x/day w/medpass. Pt with extended NPO x 3-4 days today. If PO nutrition remains contraindicated, suggest enteral nutrition support to meet estimated nutrition needs. Consult RD for TF recommendations as indicated. Discharge Plan Admission Admit Date/Time: 11/04/23 16:03 Primary Reason for Your Visit: hypernatremia Attending Provider: Danielle Lizama Primary Care Provider: Fuentes Vergara Consulting Providers: Narinder Hoyos; Peg Peterson; Morgan Dowell; Tammy Tucker; Brionna Navarro; Mica Hayes NP Discharge Orders/Prescriptions Prescriptions: Continued isosorbide mononitrate 60 mg tablet extended release 24 hr 60 mg PO DAILY nitroglycerin 0.4 mg tablet, sublingual 0.4 mg sublingual Q5M PRN (Reason: Chest Pain) memantine 10 mg tablet 10 mg PO BID Patient Comments: TAKE 1 TABLET BY MOUTH TWICE DAILY atorvastatin 10 mg tablet 10 mg PO QHS cholecalciferol (vitamin D3) 50 mcg (2,000 unit) Capsule 50 mcg PO DAILY amlodipine 10 mg Tablet 10 mg PO DAILY Qty: 0 0RF venlafaxine [Effexor XR] 75 mg Capsule,Extended Release 24hr 75 mg PO DAILY hydralazine 50 mg Tablet 50 mg PO TID divalproex 125 mg tablet,delayed release (DR/EC) 125 mg PO TID escitalopram oxalate [Lexapro] 10 mg tablet 10 mg PO DAILY melatonin 3 mg tablet 3 mg PO QHS uqmhazsm-uava-PN-calcium-mins 1 tab PO DAILY potassium chloride [Klor-Con M20] 20 mEq Tablet,Er Particles/Crystals 20 meq PO BIDCM Qty: 0 0RF menthol-zinc oxide [Calmoseptine] 0.44-20.6 % Ointment 1 applic topical TID Qty: 0 0RF Protocol: *Topical Application Instructions APPLICATION INSTRUCTIONS: Apply to affected areas bisacodyl 10 mg suppository 10 mg NC DAILY PRN (Reason: constipation) Rx Instructions: ADMINISTER ONCE DAILY AT HS IF NO BM 8 HOURS AFTER MOM ADMINISTRATION acetaminophen [Acetaminophen Extra Strength] 500 mg tablet 1,000 mg PO Q8H PRN (Reason: fever or pain) mineral oil [Fleet Mineral Oil] Enema 118 ml NC DAILY PRN (Reason: constipation) Rx Instructions: ADMINISTER ONCE DAILY IF NO BM 8 HOURS AFTER RECIEVING SUPPOSITORY. IF NO BM WITHIN 1 HOUR AFTER RECIEVING ENEMA NOTIFY . magnesium oxide 400 mg magnesium capsule 400 mg PO DAILY magnesium hydroxide [Milk of Magnesia] 400 mg/5 mL suspension 30 ml PO DAILY PRN (Reason: constipation) Rx Instructions: ADMINISTER PER BOWEL PROTOCOL ONCE DAILY IF NO BM IN 3 CONSECUTIVE DAYS Referrals / Follow Up: Fuentes Vergara MD [Primary Care Provider] - Disposition Disposition (needs filled in before D/C Order can be placed): Hospice in Medical Facility
--- NOTE | 2023-11-08 16:45 | CASEMGMT ---
Discharge Planning Discharge orders, signed med list, and transport time sent to [facility]. [facility] will transport patient by cot at 6:30p. Nursing, SW, and both patients daughters updated. Krystal Meyer, Discharge Planning Asst.
[2023-11-08 16:53] VITALS: BP 137/60; PULSE 65; RESP 12; TEMP 37.2; O2SAT 100
--- NOTE | 2023-11-08 17:05 | CASEMGMT ---
STEPHAN called [facility] and notified them that patient is being discharged back to [facility] today and will get picked up at 630p. STEPHAN also faxed d/c information to Hospice. Mary SALAZAR
--- NOTE | 2023-11-08 18:01 | NURSING ---
report called to [facility] for return to facility under hospice care
== END 2023-11-08 22:15 | disposition hospice, inpatient (51) | DRG 640 ==
LOC: ED 16:04 → PCU 16:16
PROVIDERS: Admitting Provider Hospitalist; Emergency Provider Emergency Medicine; PCP Family Medicine; Visit Provider Student in an Organized Health Care Education/Training Program
DX: E87.0 Hyperosmolality and hypernatremia (principal); E43 Unspecified severe protein-calorie malnutrition; G93.41 Metabolic encephalopathy; N17.9 Acute kidney failure, unspecified; I47.20 Ventricular tachycardia, unspecified; I48.92 Unspecified atrial flutter; K56.7 Ileus, unspecified; I50.32 Chronic diastolic (congestive) heart failure; N39.0 Urinary tract infection, site not specified; Z68.1 Body mass index [BMI] 19.9 or less, adult; I11.0 Hypertensive heart disease with heart failure; F03.90 Unspecified dementia, unspecified severity, without behavioral disturbance, psychotic disturbance, mood disturbance, and anxiety; E86.0 Dehydration; I70.1 Atherosclerosis of renal artery; I48.0 Paroxysmal atrial fibrillation; F32.A Depression, unspecified; I25.10 Atherosclerotic heart disease of native coronary artery without angina pectoris; E78.5 Hyperlipidemia, unspecified; E86.1 Hypovolemia; E87.1 Hypo-osmolality and hyponatremia; F41.9 Anxiety disorder, unspecified; B96.5 Pseudomonas (aeruginosa) (mallei) (pseudomallei) as the cause of diseases classified elsewhere; R62.7 Adult failure to thrive; R77.8 Other specified abnormalities of plasma proteins; Z66 Do not resuscitate; Z95.5 Presence of coronary angioplasty implant and graft; Z79.01 Long term (current) use of anticoagulants; Z79.899 Other long term (current) drug therapy; Z87.891 Personal history of nicotine dependence
CPT/HCPCS: 36415; 70450; 71045; 74174; 80048; 80053; 81001; 82570; 83605; 83735; 83930; 83935; 84300; 84484; 85025; 85027; 87040; 87077; 87086; 87088; 87184; 87186; 87428; 92526; 93005; 93306; 97802; 99285; J7030; J7120; P9612; Q9967; A4216; J0744

== ENCOUNTER 2023-12-08 15:14 | Inpatient (IN) | payer MEDICARE, MEDICAID, SELFPAY ==
[2023-12-08] VITALS (9 sets, daily range): BP systolic 120–139; BP diastolic 55–88; PULSE 85–97; RESP 16–28; TEMP 36–36.6; O2SAT 86–97; BMI 15.8; BMI 15.9
--- NOTE | 2023-12-08 16:16 | EX.ED.DYSGE1 ---
HPI History of Present Illness Chief Complaint: General Illness Informant: family, EMS and SNF Narrative Narrative: 83-year-old female [facility] reportedly on hospice care for dementia. From what I am understanding which is being piecemealed from a variety of sources patient has had fever decreased p.o. intake. Patient was admitted in the past several months for UTI and dehydration with hypernatremia. The daughter (through the use of medical representative) states that she is not in hospice. The daughter states that she hates the word hospice and wants her mother to get back to normal . She shows me text messages that she exchanged with the hospice nurse in which she expressed her anger that her mom is not doing well. Daughter tells me she is the power of litigation attorney associate and does not want life support. She begins to express anger that we are not do anything for her. This comes approximately 4 minutes from when I entered the room. I explained to her that I am trying to get a history and understanding of the patient's and family's wishes of care. She tells me to do something. This is all I can get from the patient's daughter. I did call the other daughter Jo who is driving to [facility]. We discussed briefly what her goals were including hydration. No central line intubation or CPR. [facility] Medical History (Updated 12/08/23 @ 22:[address] Narinder Hoyos, ) Acute kidney injury Adult failure to thrive Afib Anemia Congestive heart failure Coronary artery disease Dehydration Dementia Elevated troponin Former smoker Hip fracture, left History of dementia History of fall Hyperlipidemia Hypertension Impaired ambulation Malnutrition Protein calorie malnutrition Home Medications isosorbide mononitrate 60 mg tablet,extended release 24 hr 60 mg PO DAILY heart 07/06/22 [History Last Taken 09/28/23] memantine 10 mg tablet 10 mg PO BID alzheimers 07/06/22 [History Last Taken 09/28/23] nitroglycerin 0.4 mg sublingual tablet 0.4 mg sublingual Q5M PRN Chest Pain 07/06/22 [History Last Taken Unknown] atorvastatin 10 mg tablet 10 mg PO QHS 12/01/22 [History Last Taken 09/28/23] cholecalciferol (vitamin D3) 50 mcg (2,000 unit) capsule 50 mcg PO DAILY 12/01/22 [History Last Taken 09/28/23] amlodipine 10 mg tablet 10 mg PO DAILY #0 tabs 12/05/22 [Rx Last Taken 09/28/23] venlafaxine 75 mg capsule,extended release 24 hr (Effexor XR) 75 mg PO DAILY 01/20/23 [History Last Taken 09/28/23] hydralazine 50 mg tablet 50 mg PO TID 07/02/23 [History Last Taken 09/28/23] divalproex 125 mg tablet,delayed release 125 mg PO TID 09/29/23 [History Last Taken 09/28/23] melatonin 3 mg tablet 3 mg PO QHS sleep 09/29/23 [History Last Taken Unknown] xmklozaj-xsew-QN-calcium-mins 1 tab PO DAILY vitamin 09/29/23 [History Last Taken Unknown] menthol 0.44 %-zinc oxide 20.6 % topical ointment (Calmoseptine) 1 applic topical TID #0 grams 10/04/23 [Rx Last Taken Unknown] potassium chloride 20 mEq tablet,extended release(part/cryst) (Klor-Con M) 20 meq PO BIDCM #0 tabs 10/04/23 [Rx Last Taken Unknown] acetaminophen 500 mg tablet (Acetaminophen Extra Strength) 1,000 mg PO Q8H PRN fever or pain 11/04/23 [History Last Taken Unknown] bisacodyl 10 mg rectal suppository 10 mg UT DAILY PRN constipation 11/04/23 [History Last Taken Unknown] magnesium hydroxide 400 mg/5 mL oral suspension (Milk of Magnesia) 30 ml PO DAILY PRN constipation 11/04/23 [History Last Taken Unknown] magnesium oxide 400 mg PO DAILY 11/04/23 [History Last Taken Unknown] mineral oil (Fleet Mineral Oil enema) 118 ml UT DAILY PRN constipation 11/04/23 [History Last Taken Unknown] hyoscyamine sulfate 0.125 mg tablet (Levsin) 0.125 mg PO Q4H PRN terminal secretions 12/08/23 [History Last Taken Unknown] lorazepam 0.5 mg tablet 0.5 mg buccal Q2H PRN restlessness or anxiety 12/08/23 [History Last Taken Unknown] lorazepam 0.5 mg tablet 0.5 mg buccal Q4H restlessness and anxiety 12/08/23 [History Last Taken Unknown] morphine concentrate 100 mg/5 mL (20 mg/mL) oral solution 5 mg PO Q4H PRN pain or dyspnea 12/08/23 [History Last Taken Unknown] morphine concentrate 100 mg/5 mL (20 mg/mL) oral solution 5 mg PO Q4H pain or dyspnea 12/08/23 [History Last Taken Unknown] sennosides 8.6 mg-docusate sodium 50 mg tablet (Senna with Docusate Sodium) 1 tab-cap PO DAILY PRN constipation 12/08/23 [History Last Taken Unknown] Allergy/AdvReac Type Severity Reaction Status Date / Time No Known Allergies Allergy Verified 11/04/23 14:34 Family History Other CVA (cerebral vascular accident) Hypertension Surgical History History of hip surgery Stented coronary artery Social History Smoking Status: Former smoker ROS ROS ED Review of Systems ROS Unobtainable: due to mental status EXAM Physical Exam Const Vital Signs: 12/08/23 15:15 12/08/23 17:08 12/08/23 18:09 Temperature 96.8 F L 97.2 F L Temperature Source Temporal Temporal Pulse Rate 97 92 91 Respiratory Rate 16 26 H 22 H Blood Pressure 136/67 H 139/66 H 134/65 H Blood Pressure Mean 90 90 88 Pulse Ox 97 93 90 Oxygen Delivery Method Room Air Room Air Room Air Oxygen Flow Rate (L/min) 12/08/23 19:07 Temperature Temperature Source Pulse Rate 85 Respiratory Rate 28 H Blood Pressure 121/88 H Blood Pressure Mean 99 Pulse Ox 93 Oxygen Delivery Method Nasal Cannula Oxygen Flow Rate (L/min) 2 Positive well developed General Appearance ED: well developed HEENT Reports normocephalic, head/scalp atraumatic and dry mucous membranes Mouth ED: Yes dry mucous membranes Mouth: dry mucous membranes Eyes Eyes Narrative: Patient's eyes are open. She blinks with touching of eyelashes. Neck no lymphadenopathy, supple and no JVD Resp clear to auscultation bilaterally Resp Narrative: Patient has shallow breathing. Cardio regular rate, regular rhythm and no murmurs GI normal to inspection, nondistended, normoactive bowel sounds and non-tender Palpation: soft Back/Spine no CVA tenderness and normal ROM Extremity Extremity Narrative: Patient does not seem to wince or experience pain when I squeeze the extremities to see if she is experiencing any pain there. I do not appreciate any obvious seizure disorder or spasms. There is minimal response if I squeeze the great toe nailbed. General Extremety ED: Negative for edema General Extremity: Negative for edema Neuro Sensorium / Orientation: lethargic Skin Skin Narrative: Poor skin turgor Sepsis Attestation Sepsis Alert: Yes Sepsis Attestation: Agree w/Sepsis Date exam was performed: 12/08/23 Time exam was performed: 18:00 Possible Source of Sepsis: Pulmonary and Genitourinary Sepsis Organ Dysfunction Criteria Present: Creatinine > 2.0 mg/dL, INR > 1.5 or aPTT > 60 sec, Lactic Acid > 2 mmol/L, Serum CO2 < 20 mmol/L (on BMP) and New/Unexplained change in mental status Fluid Resuscitation Fluid Resuscitation ordered: Lesser volume fluid bolus ordered Amount of fluid ordered: 1,000 Reason for lesser fluid bolus:: Renal Failure and Other (Patient at risk for electrolyte complications due to hypernatremia) MDM MDM MDM Narrative Medical decision making narrative: Patient's white count elevated 19.4 with a hemoglobin of 15. There are 23 bands noted. INR 1.6 PTT 34.6. Sodium significantly elevated 162 with a potassium of 5.9 chloride 135 CO2 17 anion gap 10 BUN 70 creatinine 2.75. Lactic acid is significantly elevated at 8.2. Urinalysis nitrate positive only 25-50 white cells 0 bacteria seen. Her last urine culture did not really grow very many colony-forming units of Pseudomonas. My independent rotation of the chest x-ray is possible infiltrate retrocardiac on the left. She has been minimally responsive and certainly there is a risk for aspiration. I think Zosyn would be a good option with some Pseudomonas coverage as well as possible aspiration pneumonia coverage. She has been given gentle hydration. Even though she meets significant sepsis criteria I do not feel aggressive fluid bolus is llamas given her hypernatremia. The plan will be admission in the hospital. History & Record Review Discussion w/independent historian: EMS personnel and Family Additional record(s) reviewed:: Prior inpatient record, Prior ED visit and Prior labs Lab Data Attestation: I reviewed the patient's lab results. Labs: Laboratory Results - last 24 hr 12/08/23 12/08/23 12/08/23 16:00 16:17 16:30 WBC 19.4 H RBC 5.13 Hgb 15.0 Hct 53.1 H MCV 103.5 H MCH 29.2 MCHC 28.2 L RDW Std Deviation 71.1 H RDW Coeff of David 18.2 H Plt Count 186 MPV 13.4 H Neut % (Auto) Not Reportable Absolute Neuts (auto) 16.1 H Absolute Lymphs (auto) 1.16 Total Counted 100 Neutrophils % (Manual) 60 Band Neutrophils % 23 H Lymphocytes % (Manual) 6 L Monocytes % (Manual) 2 Metamyelocytes % 9 H Diff Path Review May foll Platelet Estimate ADEQUATE Anisocytosis 2+ Macrocytosis 1+ PT 18.7 H INR 1.6 APTT 34.6 Sodium 162 H* Potassium 5.9 H Chloride 135 H* Carbon Dioxide 17.0 L Anion Gap 10 BUN 70 H Creatinine 2.75 H Est GFR (MDRD) Af Amer 21 L Est GFR (MDRD) Non-Af 18 L BUN/Creatinine Ratio 25.5 H Glucose 139 H Lactic Acid Cancelled Calcium 10.1 Magnesium 2.9 H Total Bilirubin 0.90 Direct Bilirubin 0.41 H AST 66 H ALT 37 Alkaline Phosphatase 97 Troponin I High Sens 492 H* Total Protein 8.0 Albumin 2.5 L Globulin 5.5 H Lipase < 10 L Urine Color Yellow Urine Clarity Sl. Cloudy Urine pH 5.0 Ur Specific [place] 1.025 Urine Protein 30 H Urine Glucose (UA) Normal Urine Ketones 5 H Urine Occult Blood 25 H Urine Nitrite Positive H Urine Bilirubin 1 H Urine Urobilinogen 4 H Ur Leukocyte Esterase 500 H Urine RBC 0-5 SEEN Urine WBC 25-50 SEEN Ur Squamous Epith Cells 0-5 SEEN Ur Transition Epith Cell 0-5 SEEN Urine Bacteria 0 SEEN Urine Mucus 0 SEEN Urine Yeast 1+ Valproic Acid 6 L 12/08/23 17:28 WBC RBC Hgb Hct MCV MCH MCHC RDW Std Deviation RDW Coeff of David Plt Count MPV Neut % (Auto) Absolute Neuts (auto) Absolute Lymphs (auto) Total Counted Neutrophils % (Manual) Band Neutrophils % Lymphocytes % (Manual) Monocytes % (Manual) Metamyelocytes % Diff Path Review Platelet Estimate Anisocytosis Macrocytosis PT INR APTT Sodium Potassium Chloride Carbon Dioxide Anion Gap BUN Creatinine Est GFR (MDRD) Af Amer Est GFR (MDRD) Non-Af BUN/Creatinine Ratio Glucose Lactic Acid 8.2 H* Calcium Magnesium Total Bilirubin Direct Bilirubin AST ALT Alkaline Phosphatase Troponin I High Sens Total Protein Albumin Globulin Lipase Urine Color Urine Clarity Urine pH Ur Specific [place] Urine Protein Urine Glucose (UA) Urine Ketones Urine Occult Blood Urine Nitrite Urine Bilirubin Urine Urobilinogen Ur Leukocyte Esterase Urine RBC Urine WBC Ur Squamous Epith Cells Ur Transition Epith Cell Urine Bacteria Urine Mucus Urine Yeast Valproic Acid Radiography Diagnostic Testing: Clinical Impression(s) from Imaging Studies Chest X-Ray 12/08/23 16:20 IMPRESSION: Marked increased pulmonary density in the left lung base behind the heart, consistent with atelectasis or infiltrate which is new since prior study. Electronically Signed: Roe Patel MD at 16:51 EST , EKG Initial EKG: Attestation: I personally reviewed and interpreted this EKG as follows: Comments: Atrial fibrillation ventricular rate 98 bpm. Critical Care Time Critical Care Time: Yes Critical care time (excluding procedures): 30-74 minutes (35 min), Including time spent:, Discussing w/Patient &/or Family/Lead Systems Developer, Discussing w/Consultants, Arranging Admission or Transfer and Performing Direct Patient Care at Bedside Discharge Plan Dx/Rx/DC Orders Clinical Impression: Acute dehydration, Elevated troponin, Acute encephalopathy, Sepsis, Acute hypernatremia, Acute renal failure, Pneumonia Disposition Disposition: Acute Care Hospital [facility] Discharge Date/Time: 12/08/23 21:27
[2023-12-08] MEDS: 0.9% Normal Saline (1000mL) 1,000 ML 1000 ML IV (16:18)
--- NOTE | 2023-12-08 16:20 | RAD_ITS ---
STUDY: X-RAY CHEST REASON FOR EXAM: Female, 83 years old. FEVER TECHNIQUE: Single AP portable view of the chest. COMPARISON: 11/04/2023. FINDINGS: Normal lung volumes. Marked increased pulmonary density in the left lung base behind the heart, consistent with atelectasis or infiltrate which is new since prior study. Probable small left pleural effusion. Normal size heart. Normal mediastinum and tulio. Normal visualized pulmonary arteries. There is atherosclerotic calcification of the aortic arch with tortuosity. Normal visualized thoracic spine. Normal visualized ribs, clavicles, and shoulders. There is no demonstrated abnormality of the visualized soft tissue structures of the upper abdomen. RAD/Chest 1 View (Portable) IMPRESSION: Marked increased pulmonary density in the left lung base behind the heart, consistent with atelectasis or infiltrate which is new since prior study. Electronically Signed: Roe Patel MD at 16:51 EST ,
[2023-12-08 16:26] LABS: Hematocrit 53.1 % (37-47); Mean Corp Hgb Conc 28.2 g/dL (32-36); Mean Corpuscular Hgb 29.2 pg (27.0-32.0); Mean Corpuscular Volume 103.5 fL (81-99); Mean Platelet Vol. 13.4 fl (6.2-12.0); POSITIVE MORPHOLOGY YES; Platelet Count 186 K/mm3 (150-450); RBC Distribution Width CV 18.2 % (11.6-14.6); RBC Distribution Width SD 71.1 fl (35.1-43.9); Red Blood Count 5.13 M/mm3 (4.2-5.4); White Blood Count 19.4 K/mm3 (4.4-11.0)
[2023-12-08 16:34] LABS: International Normalized Ratio 1.6; Prothrombin Time (Protime)PT. 18.7 SECONDS (11.7-14.9)
[2023-12-08 16:35] LABS: Partial Thromboplast Time 34.6 Seconds (24.1-36.2)
[2023-12-08 16:36] LABS: Bacteria 0 SEEN /hpf (None Seen); Mucous, Urine 0 SEEN /hpf (<or=2+)
[2023-12-08 16:39] LABS: Differential Indicated MANUAL DIFF
[2023-12-08 16:45] LABS: Lymphocyte 6 % (19-41); Metamyelocyte 9 % (0-1); Monocyte 2 % (0-10); Neutrophil-Band 23 % (0-5); Neutrophil-Segmented 60 % (47-70); Total Cells Counted 100 (MANUAL DIFF)
[2023-12-08 16:47] LABS: Absolute Lymphocyte Count 1.16 X10^3/uL (0.83-4.51); Absolute Neutrophil Count 16.1 X10^3/uL (2.0-7.7); Lymphocyte # 1.16 X10^3/ul (0.83-4.51); Neutrophil # 16.11 X10^3/uL (2.7-7.7); Platelet Estimate ADEQUATE (ADEQ)
[2023-12-08 16:48] LABS: Anisocytosis 2+; Macrocytosis 1+
[2023-12-08 16:53] LABS: Color, Urine Yellow (Yellow); Glucose, Dipstick Normal (Normal); Ketone-Dipstick 5 mg/dl (Negative); Leukocyte Esterase-Dipstick 500 /ul (Negative); Nitrite-Dipstick Positive (Negative); Occult Blood-Urine 25 /ul (Negative); Protein-Dipstick 30 mg/dl (Negative); Specific Gravity, Urine 1.025 (1.002-1.030); Urine Clarity Sl. Cloudy (Clear); Urine Urobilinogen 4 mg/dl (Normal)
[2023-12-08 16:58] LABS: Valproic Acid (Depakene) Level 6 ug/mL (50-100)
[2023-12-08 17:02] LABS: AST(SGOT) 66 U/L (15-37); Alanine Aminotransfer ALT/SGPT 37 U/L (13-56); Albumin, Serum 2.5 g/dL (3.2-5.0); Alkaline Phosphatase 97 U/L (45-117); Anion Gap 10 (5-15); BUN 70 mg/dL (7-18); BUN/Creat Ratio 25.5 RATIO (10-20); Bilirubin, Direct 0.41 mg/dL (0.00-0.30); Calcium,Total 10.1 mg/dL (8.5-10.1); Chloride 135 mmol/L (98-107); Creatinine, Serum 2.75 mg/dL (0.55-1.02); EST Glomerular Filtration Rate 18 mL/min (>60); Est Glom Filt Rate - Afr Amer 21 mL/min (>60); Globulin 5.5 g/dL (2.2-4.2); Glucose 139 mg/dL (74-106); Lipase < 10 U/L (13-75); Magnesium 2.9 mg/dL (1.6-2.6); Potassium 5.9 mmol/L (3.5-5.1); Sodium Level 162 mmol/L (136-145); Troponin-I HS 492 pg/mL (3.0-54.0)
[2023-12-08] MEDS: Piperacil/Tazobactam 4.5 GM in 0.9% Normal Saline (100mL MB+) 100 ML IV (17:07)
[2023-12-08 17:10] LABS: Urine Bilirubin Dipstick 1 mg/dL (Negative)
[2023-12-08 17:11] LABS: Red Blood Cells-Urine 0-5 SEEN /hpf (0-5); Squamous Epithelial Cells - UA 0-5 SEEN /hpf (5-10); Transitional Epithelial - Ur 0-5 SEEN /hpf (0-5); White Blood Cells 25-50 SEEN /hpf (0-5); Yeast-Urine 1+ /hpf (None Seen)
[2023-12-08 18:04] LABS: Lactic Acid 8.2 mmol/L (0.4-1.9)
--- NOTE | 2023-12-08 18:23 | NURSING ---
Discussed sepsis alert w/ Dr. Cagle. Not to initiate fluid boluses d/t critically high sodium levels.
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
[2023-12-08 21:34] LABS: Reflex Lactate? Y
[2023-12-08] MEDS: Vancomycin IV 1,000 MG/200 ML BAG 200 MG IV (22:07)
[2023-12-08] MEDS: Dextrose 5%-Water (1000mL Bag) 1,000 ML 150 ML IV (22:08)
--- NOTE | 2023-12-08 22:19 | PCM.RX.CS ---
Consult Antibiotic Management Pharmacy has been consulted to manage selected antibiotic: Vancomycin Type of Intervention Type of Consult: New start Labs Labs: Sodium 162 mmol/L (136-145) H* 12/08/23 16:00 Potassium 5.9 mmol/L (3.5-5.1) H 12/08/23 16:00 Chloride 135 mmol/L (98-107) H* 12/08/23 16:00 Carbon Dioxide 17.0 mmol/L (21.0-32.0) L 12/08/23 16:00 Anion Gap 10 (5-15) 12/08/23 16:00 BUN 70 mg/dL (7-18) H 12/08/23 16:00 Creatinine 2.75 mg/dL (0.55-1.02) H 12/08/23 16:00 Est GFR (MDRD) Af Amer 21 mL/min (>60) L 12/08/23 16:00 Est GFR (MDRD) Non-Af 18 mL/min (>60) L 12/08/23 16:00 BUN/Creatinine Ratio 25.5 RATIO (10-20) H 12/08/23 16:00 Glucose 139 mg/dL (74-106) H 12/08/23 16:00 Microbiology Microbiology: Microbiology 12/08/23 16:30 Urine, Random Legionella Antigen - Final 12/08/23 16:30 Urine, Random Streptococcus pneumoniae Antigen (M - Final 12/08/23 16:37 Mucosa - Nasopharyngeal SARS-CoV-2, Influenza & RSV (PCR) - Final Dosing Weight Weight used for dosin.8 kg Estimated Creatinine Clearance Estimated Creatinine Clearance: 8.7 Pharmacy Plan for Drug Dosing Pharmacy Plan for Drug Dosing: Pharmacy Service will continue to monitor and adjust dosing as required. CRCl < 20. GIVE 1GM NOW AND DRAW RANDOM LEVEL 12/10 @ 0600 Follow-Up Labs Follow-Up Labs: Trough: Vancomycin Date/Time Labs Ordered Labs to be done on [date and time ordered]: 12/10 @ 0600
[2023-12-08 22:59] LABS: Lactic Acid 3.8 mmol/L (0.4-1.9)
[2023-12-08] MEDS: Heparin Injection (Vial) 5,000 UNIT/ML VIAL 5000 UNIT SC (23:03)
[2023-12-08] MEDS: Cefepime HCl 0.5 GM in 0.9% Normal Saline (50mL Bag) 50 ML IV (23:09)
[2023-12-09 00:52] LABS: Troponin-I HS 367 pg/mL (3.0-54.0)
[2023-12-09 04:30] VITALS: BP 130/62; PULSE 82; RESP 16; TEMP 36.9; O2SAT 96
[2023-12-09] MEDS: Dextrose 5%-Water (1000mL Bag) 1,000 ML 150 ML IV ×2 (05:15→11:54)
[2023-12-09 06:15] LABS: Hematocrit 45.9 % (37-47); Hemoglobin 13.1 g/dL (12.0-15.0); Mean Corp Hgb Conc 28.5 g/dL (32-36); Mean Corpuscular Hgb 29.6 pg (27.0-32.0); Mean Corpuscular Volume 103.8 fL (81-99); Mean Platelet Vol. 12.6 fl (6.2-12.0); POSITIVE MORPHOLOGY YES; Platelet Count 149 K/mm3 (150-450); RBC Distribution Width CV 17.5 % (11.6-14.6); RBC Distribution Width SD 68.2 fl (35.1-43.9); Red Blood Count 4.42 M/mm3 (4.2-5.4); White Blood Count 15.5 K/mm3 (4.4-11.0)
[2023-12-09 06:57] LABS: Anion Gap 4 (5-15); BUN 71 mg/dL (7-18); BUN/Creat Ratio 36.8 RATIO (10-20); Calcium,Total 8.7 mg/dL (8.5-10.1); Chloride 131 mmol/L (98-107); Creatinine, Serum 1.93 mg/dL (0.55-1.02); EST Glomerular Filtration Rate 26 mL/min (>60); Est Glom Filt Rate - Afr Amer 32 mL/min (>60); Estimated Creatinine Clearance 12.61 ml/min; Glucose 309 mg/dL (74-106); Potassium 3.9 mmol/L (3.5-5.1); Sodium Level 156 mmol/L (136-145)
[2023-12-09 07:05] LABS: Scan Indicated on CBC? Y/N YES- FLAGS NOTED
[2023-12-09 07:33] VITALS: O2SAT 93
[2023-12-09 10:05] VITALS: BP 128/70; PULSE 92; RESP 18; TEMP 36.6; O2SAT 96
--- NOTE | 2023-12-09 11:42 | PCM.CONS.R ---
Assessment & Plan Assessment/Plan (1) Acute hypernatremia: (2) Acute renal failure: (3) Hyperkalemia: PLAN: Plan This is an 83-year-old female with history of advanced dementia currently residing in [facility] who was brought to the emergency room yesterday for evaluation of poor oral intake. Lab work obtained in emergency room showed creatinine 2.75, potassium 5.9 and sodium of 162. Patient was started on IV fluids and admitted for further evaluation and treatment. Nephrology consulted for KURT and hypernatremia. Patient is known to our service from previous hospital consult, last hospitalization she was admitted for poor oral intake, UTI, hypernatremia and KURT (she was in hospital about 1 month ago, sodium peaked 168 and was 143 at time of hospital discharge; Creatinine peak was 1.83 and normalized at time of discharge). With volume expansion/IV fluids both renal function and sodium levels normalized. Patient has normal baseline sodium and serum creatinine levels. Likely KURT and hypernatremia from lack of poor oral, solute and free water intake. With IVF, D5W sodium level and SCr have both improved. Today her sodium is 156 and creatinine 1.93. Potassium is normalized at 3.9. Likely mild hyperkalemia secondary to KURT as well as potassium supplements; she is not on any MAYELIN-Is, ARBs or diuretics. Continue holding potassium supplement for now. 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 Volume status appears hypovolemic and recommend continue with IV fluids. Bps acceptable. She is on IV antibiotics for possible pneumonia. Further orders forthcoming as hospitalization evolves, thank you for allowing us to participate in the care of Ms. Griffin. HPI Consult Data Date of Consult: 12/09/23 HPI Narrative HPI Narrative: HENRI GRIFFIN, is a 83 F with past medical history significant for dementia who is currently residing at [facility] and brought to the emergency room yesterday for evaluation due to poor oral intake. Lab work obtained in the emergency room showed a creatinine of 2.75, sodium of 162. Patient was started on IV fluids and admitted for further evaluation and treatment. Nephrology consulted for hyponatremia and KURT. Patient is known to our group from previous evaluations, admitted to the hospital for poor oral intake with hypernatremia and KURT. With volume expansion both serum creatinine and sodium levels normalized before patient was discharged to [facility]. This morning patient is nonverbal, her daughters are at bedside. Per her daughters patient had not been eating or drinking at [facility] for about 5 days. [facility] Medical History (Updated 12/09/23 @ 11:46 by DINORAH Arce) Acute kidney injury Adult failure to thrive Afib Anemia Congestive heart failure Coronary artery disease Dehydration Dementia Elevated troponin Former smoker Hip fracture, left History of dementia History of fall Hyperlipidemia Hypertension Impaired ambulation Malnutrition Protein calorie malnutrition Home Medications isosorbide mononitrate 60 mg tablet,extended release 24 hr 60 mg PO DAILY heart 07/06/22 [History Last Taken 09/28/23] memantine 10 mg tablet 10 mg PO BID alzheimers 07/06/22 [History Last Taken 09/28/23] nitroglycerin 0.4 mg sublingual tablet 0.4 mg sublingual Q5M PRN Chest Pain 07/06/22 [History Last Taken Unknown] atorvastatin 10 mg tablet 10 mg PO QHS 12/01/22 [History Last Taken 09/28/23] cholecalciferol (vitamin D3) 50 mcg (2,000 unit) capsule 50 mcg PO DAILY 12/01/22 [History Last Taken 09/28/23] amlodipine 10 mg tablet 10 mg PO DAILY #0 tabs 12/05/22 [Rx Last Taken 09/28/23] venlafaxine 75 mg capsule,extended release 24 hr (Effexor XR) 75 mg PO DAILY 01/20/23 [History Last Taken 09/28/23] hydralazine 50 mg tablet 50 mg PO TID 07/02/23 [History Last Taken 09/28/23] divalproex 125 mg tablet,delayed release 125 mg PO TID 09/29/23 [History Last Taken 09/28/23] melatonin 3 mg tablet 3 mg PO QHS sleep 09/29/23 [History Last Taken Unknown] ppzlbhne-bago-OO-calcium-mins 1 tab PO DAILY vitamin 09/29/23 [History Last Taken Unknown] menthol 0.44 %-zinc oxide 20.6 % topical ointment (Calmoseptine) 1 applic topical TID #0 grams 10/04/23 [Rx Last Taken Unknown] potassium chloride 20 mEq tablet,extended release(part/cryst) (Klor-Con M) 20 meq PO BIDCM #0 tabs 10/04/23 [Rx Last Taken Unknown] acetaminophen 500 mg tablet (Acetaminophen Extra Strength) 1,000 mg PO Q8H PRN fever or pain 11/04/23 [History Last Taken Unknown] bisacodyl 10 mg rectal suppository 10 mg FL DAILY PRN constipation 11/04/23 [History Last Taken Unknown] magnesium hydroxide 400 mg/5 mL oral suspension (Milk of Magnesia) 30 ml PO DAILY PRN constipation 11/04/23 [History Last Taken Unknown] magnesium oxide 400 mg PO DAILY 11/04/23 [History Last Taken Unknown] mineral oil (Fleet Mineral Oil enema) 118 ml FL DAILY PRN constipation 11/04/23 [History Last Taken Unknown] hyoscyamine sulfate 0.125 mg tablet (Levsin) 0.125 mg PO Q4H PRN terminal secretions 12/08/23 [History Last Taken Unknown] lorazepam 0.5 mg tablet 0.5 mg buccal Q2H PRN restlessness or anxiety 12/08/23 [History Last Taken Unknown] lorazepam 0.5 mg tablet 0.5 mg buccal Q4H restlessness and anxiety 12/08/23 [History Last Taken Unknown] morphine concentrate 100 mg/5 mL (20 mg/mL) oral solution 5 mg PO Q4H PRN pain or dyspnea 12/08/23 [History Last Taken Unknown] morphine concentrate 100 mg/5 mL (20 mg/mL) oral solution 5 mg PO Q4H pain or dyspnea 12/08/23 [History Last Taken Unknown] sennosides 8.6 mg-docusate sodium 50 mg tablet (Senna with Docusate Sodium) 1 tab-cap PO DAILY PRN constipation 12/08/23 [History Last Taken Unknown] Allergy/AdvReac Type Severity Reaction Status Date / Time No Known Allergies Allergy Verified 11/04/23 14:34 Family History Other CVA (cerebral vascular accident) Hypertension Surgical History History of hip surgery Stented coronary artery Social History Smoking Status: Former smoker ROS ROS Narrative Unable to obtain Physical Exam Narrative No apparent distress, nonverbal S1 S2 RRR Lungs clear Abdomen soft no edema Medical Records Data Medical Nutrition Assessment Dietitian: Malnutrition Criteria Met Start: 12/09/23 10:56 Freq: Status: Active Protocol: Document 12/09/23 10:57 LO (Rec: 12/09/23 10:57 LO Desktop) Nutrition Malnutrition Evidence of Malnutrition Exists Yes Malnutrition (severe): Chronic Evidenced By Suboptimal Energy Intake ( Severe),Weight Loss (Severe) Clinical Problem Chronic Disease or Condition Related Malnutrition Etiology severe related to inadequate energy intake Signs/Symptoms as evidenced by estimated PO intake meeting <50% of estimated energy needs for >3 months and 19.5% weight loss in 2 months and 6.3% in 1 month per [facility] weight records Status Active Problem Recommendation Dietitian Recommendations/Changes ADAT to Regular diet when medically able to optimize oral intakes. Recommend 120ml EPHP 4x daily with medpass when diet advances. Lab / Micro Data 12/09/23 05:29 12/09/23 05:29 Labs: Laboratory Results - last 24 hr 12/08/23 16:00: WBC 19.4 H, RBC 5.13, Hgb 15.0, Hct 53.1 H, MCV 103.5 H, MCH 29.2, MCHC 28.2 L, RDW Std Deviation 71.1 H, RDW Coeff of David 18.2 H, Plt Count 186, MPV 13.4 H, Neut % (Auto) Not Reportable, Absolute Neuts (auto) 16.1 H, Absolute Lymphs (auto) 1.16, Total Counted 100, Neutrophils % (Manual) 60, Band Neutrophils % 23 H, Lymphocytes % (Manual) 6 L, Monocytes % (Manual) 2, Metamyelocytes % 9 H, Diff Path Review May , Platelet Estimate ADEQUATE, Anisocytosis 2+, Macrocytosis 1+, PT 18.7 H, INR 1.6, APTT 34.6, Sodium 162 H*, Potassium 5.9 H, Chloride 135 H*, Carbon Dioxide 17.0 L, Anion Gap 10, BUN 70 H, Creatinine 2.75 H, Est GFR (MDRD) Af Amer 21 L, Est GFR (MDRD) Non-Af 18 L, BUN/Creatinine Ratio 25.5 H, Glucose 139 H, Lactic Acid Cancelled, Calcium 10.1, Magnesium 2.9 H, Total Bilirubin 0.90, Direct Bilirubin 0.41 H, AST 66 H, ALT 37, Alkaline Phosphatase 97, Troponin I High Sens 492 H*, Total Protein 8.0, Albumin 2.5 L, Globulin 5.5 H, Lipase < 10 L 12/08/23 16:17: Valproic Acid 6 L 12/08/23 16:30: Urine Color Yellow, Urine Clarity Sl. Cloudy, Urine pH 5.0, Ur Specific [place] 1.025, Urine Protein 30 H, Urine Glucose (UA) Normal, Urine Ketones 5 H, Urine Occult Blood 25 H, Urine Nitrite Positive H, Urine Bilirubin 1 H, Urine Urobilinogen 4 H, Ur Leukocyte Esterase 500 H, Urine RBC 0-5 SEEN, Urine WBC 25-50 SEEN, Ur Squamous Epith Cells 0-5 SEEN, Ur Transition Epith Cell 0-5 SEEN, Urine Bacteria 0 SEEN, Urine Mucus 0 SEEN, Urine Yeast 1+ 12/08/23 17:28: Lactic Acid 8.2 H* 12/08/23 22:05: Lactic Acid 3.8 H* 12/09/23 00:10: Troponin I High Sens 367 H* 12/09/23 05:29: WBC 15.5 H, RBC 4.42, Hgb 13.1, Hct 45.9, MCV 103.8 H, MCH 29.6, MCHC 28.5 L, RDW Std Deviation 68.2 H, RDW Coeff of David 17.5 H, Plt Count 149 L, MPV 12.6 H, Sodium 156 H, Potassium 3.9, Chloride 131 H*, Carbon Dioxide 21.0, Anion Gap 4 L, BUN 71 H, Creatinine 1.93 H, Estim Creat Clear Calc 12.61, Est GFR (MDRD) Af Amer 32 L, Est GFR (MDRD) Non-Af 26 L, BUN/Creatinine Ratio 36.8 H, Glucose 309 H, Calcium 8.7 Micro: Microbiology 12/08/23 16:30 Urine, Catheterized Urine Culture - Preliminary Gram negative brennan GPC Poss Enterococcus sp 12/08/23 23:07 Mucosa - Nasopharyngeal Respiratory Panel (PCR) - Final 12/08/23 16:30 Urine, Random Legionella Antigen - Final 12/08/23 16:30 Urine, Random Streptococcus pneumoniae Antigen (M - Final 12/08/23 16:37 Mucosa - Nasopharyngeal SARS-CoV-2, Influenza & RSV (PCR) - Final Imaging Radiology Impression Chest X-Ray 12/08/23 16:20 IMPRESSION: Marked increased pulmonary density in the left lung base behind the heart, consistent with atelectasis or infiltrate which is new since prior study. Electronically Signed: Roe Patel MD at 16:51 EST ,
[2023-12-09] MEDS: Heparin Injection (Vial) 5,000 UNIT/ML VIAL 5000 UNIT SC ×2 (12:02→21:12)
--- NOTE | 2023-12-09 12:55 | PCM.PN.HOSP ---
Subjective Subjective Unresponsive, daughter who is at bedside states that this is how she has been for the last couple of days Objective Data Objective Data Vital Signs: Vital Signs Temp Pulse Resp BP Pulse Ox O2 Del Method O2 Flow Rate 97.9 F 92 18 128/70 H 96 Nasal Cannula 5 12/09/23 10:05 12/09/23 10:05 12/09/23 10:05 12/09/23 10:05 12/09/23 10:05 12/09/23 10:05 12/09/23 10:05 Oxygen Flow Rate (L/min) 5 Oxygen Delivery Method Nasal Cannula Weight: 81 lb 2.082 oz Body Mass Index (BMI) 15.9 Intake & Output: Intake and Output for Last 24 Hours 12/08/23 12/09/23 12/10/23 03:59 03:59 03:59 Intake Total 1355 / 1355 1837.5 / 1837.5 Output Total 175 / 175 Balance 1355 / 1355 1662.5 / 1662.5 Medical Nutrition Assessment Dietitian: Malnutrition Criteria Met Start: 12/09/23 10:56 Freq: Status: Active Protocol: Document 12/09/23 10:57 LO (Rec: 12/09/23 10:57 LO Desktop) Nutrition Malnutrition Evidence of Malnutrition Exists Yes Malnutrition (severe): Chronic Evidenced By Suboptimal Energy Intake ( Severe),Weight Loss (Severe) Clinical Problem Chronic Disease or Condition Related Malnutrition Etiology severe related to inadequate energy intake Signs/Symptoms as evidenced by estimated PO intake meeting <50% of estimated energy needs for >3 months and 19.5% weight loss in 2 months and 6.3% in 1 month per [facility] weight records Status Active Problem Recommendation Dietitian Recommendations/Changes ADAT to Regular diet when medically able to optimize oral intakes. Recommend 120ml EPHP 4x daily with medpass when diet advances. Lab / Micro Data 12/09/23 05:29 12/09/23 05:29 Labs: Laboratory Results - last 24 hr 12/08/23 16:00: WBC 19.4 H, RBC 5.13, Hgb 15.0, Hct 53.1 H, MCV 103.5 H, MCH 29.2, MCHC 28.2 L, RDW Std Deviation 71.1 H, RDW Coeff of David 18.2 H, Plt Count 186, MPV 13.4 H, Neut % (Auto) Not Reportable, Absolute Neuts (auto) 16.1 H, Absolute Lymphs (auto) 1.16, Total Counted 100, Neutrophils % (Manual) 60, Band Neutrophils % 23 H, Lymphocytes % (Manual) 6 L, Monocytes % (Manual) 2, Metamyelocytes % 9 H, Diff Path Review March, Platelet Estimate ADEQUATE, Anisocytosis 2+, Macrocytosis 1+, PT 18.7 H, INR 1.6, APTT 34.6, Sodium 162 H*, Potassium 5.9 H, Chloride 135 H*, Carbon Dioxide 17.0 L, Anion Gap 10, BUN 70 H, Creatinine 2.75 H, Est GFR (MDRD) Af Amer 21 L, Est GFR (MDRD) Non-Af 18 L, BUN/Creatinine Ratio 25.5 H, Glucose 139 H, Lactic Acid Cancelled, Calcium 10.1, Magnesium 2.9 H, Total Bilirubin 0.90, Direct Bilirubin 0.41 H, AST 66 H, ALT 37, Alkaline Phosphatase 97, Troponin I High Sens 492 H*, Total Protein 8.0, Albumin 2.5 L, Globulin 5.5 H, Lipase < 10 L 12/08/23 16:17: Valproic Acid 6 L 12/08/23 16:30: Urine Color Yellow, Urine Clarity Sl. Cloudy, Urine pH 5.0, Ur Specific [place] 1.025, Urine Protein 30 H, Urine Glucose (UA) Normal, Urine Ketones 5 H, Urine Occult Blood 25 H, Urine Nitrite Positive H, Urine Bilirubin 1 H, Urine Urobilinogen 4 H, Ur Leukocyte Esterase 500 H, Urine RBC 0-5 SEEN, Urine WBC 25-50 SEEN, Ur Squamous Epith Cells 0-5 SEEN, Ur Transition Epith Cell 0-5 SEEN, Urine Bacteria 0 SEEN, Urine Mucus 0 SEEN, Urine Yeast 1+ 12/08/23 17:28: Lactic Acid 8.2 H* 12/08/23 22:05: Lactic Acid 3.8 H* 12/09/23 00:10: Troponin I High Sens 367 H* 12/09/23 05:29: WBC 15.5 H, RBC 4.42, Hgb 13.1, Hct 45.9, MCV 103.8 H, MCH 29.6, MCHC 28.5 L, RDW Std Deviation 68.2 H, RDW Coeff of David 17.5 H, Plt Count 149 L, MPV 12.6 H, Sodium 156 H, Potassium 3.9, Chloride 131 H*, Carbon Dioxide 21.0, Anion Gap 4 L, BUN 71 H, Creatinine 1.93 H, Estim Creat Clear Calc 12.61, Est GFR (MDRD) Af Amer 32 L, Est GFR (MDRD) Non-Af 26 L, BUN/Creatinine Ratio 36.8 H, Glucose 309 H, Calcium 8.7 Micro: Microbiology 12/08/23 16:30 Urine, Catheterized Urine Culture - Preliminary Gram negative brennan GPC Poss Enterococcus sp 12/08/23 23:07 Mucosa - Nasopharyngeal Respiratory Panel (PCR) - Final 12/08/23 16:30 Urine, Random Legionella Antigen - Final 12/08/23 16:30 Urine, Random Streptococcus pneumoniae Antigen (M - Final 12/08/23 16:37 Mucosa - Nasopharyngeal SARS-CoV-2, Influenza & RSV (PCR) - Final Radiography Diagnostic Testing: Radiology Impression Chest X-Ray 12/08/23 16:20 IMPRESSION: Marked increased pulmonary density in the left lung base behind the heart, consistent with atelectasis or infiltrate which is new since prior study. Electronically Signed: Roe Patel MD at 16:51 EST , Physical Exam Narrative General: Not responsive HEENT: Atraumatic, PERRLA, normocephalic Oral: Dry mucosa Neck: Supple, No JVD Lungs: Diminished, Normal air movement, No rhonchi, No wheeze, No rales Cardiovascular: Regular rate, Regular Rhythm, Normal S1, Normal S2, No murmurs Abdomen: Soft, Non-Distended, No Hepato-splenomegaly Extremities: No edema, Capillary Refill Less than 3 Seconds Skin: No rashes, No breakdown Musculoskeletal: No Tenderness to Palpation of Joints or Extremities Neurological: Cannot follow commands participate in exam Psych/Mental Status: Not responsive Assessment & Plan Assessment/Plan (1) Pneumonia: (2) Acute hypernatremia: (3) Acute dehydration: (4) Elevated troponin: (5) Debility: (6) Dementia: PLAN: Plan 1. Severe dehydration with significant electrolyte abnormalities, elevated lactic acid and non anion gap metabolic acidosis Labs on admit of sodium 162, chloride 135, bicarb 17, anion gap 10, lactate 8.2. Patient with similar lab abnormalities on presentation in October. Presumed secondary to severe dehydration. ? Admit under inpatient status to PCU. Nephrology consulted. Will start D5W 150 mL/hr for now. Follow-up a.m. BMP. Trend lactate. 12/09/2023: Will decrease IV fluids to 100 as daughter states she has a history of heart failure, renal function is improving. I did have a 20-minute discussion with the daughter on advance care planning including what hospice is, it does appear that there is a misunderstanding as to the role hospice would plan her care but that if she does not improve in the next 24 to 48 hours then would consider discharge with hospice 2. KURT, hyperkalemia Creatinine 2.75, potassium 5.9 on admit. Baseline creatinine 0.6-0.9. Presumed prerenal KURT from severe dehydration. Fairly minimal urine output reported recently. EKG with no ST changes noted. ? Nephrology consulted as above. Treating with D5W as above. Follow-up a.m. BMP. Monitor urine output. 3. Suspected UTI ? UA showed 500 leukocyte esterase, positive nitrates, 45-50 WBCs, 0 bacteria. Recent urine culture from 11/04/2023 grew pansensitive Pseudomonas. Will treat with cefepime for now, follow-up urine culture. 12/09/2023: Urine cultures with 1000-10,000 CFU's, given her previous history with multiple UTIs we will continue with antibiotics pending finalization of cultures 4. Suspected healthcare associated pneumonia with unknown organism Chest x-ray on admit showed acute increased pulmonary density in left lung base concerning for pneumonia. WBC count 19 on admit, though significantly concentrated. Reportedly had fevers at nursing facility, no fevers documented since arrival to the ED. COVID/flu/RSV negative. ? Will start vancomycin and cefepime for now. Sputum culture, blood cultures, respiratory PCR panel, urine antigens ordered. 12/09/2023: Continue with IV antibiotics 5. 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 See HPI for further details. PT/OT/case management consulted. Speech therapy and nutrition consulted. Hospice consulted. N.p.o. for now. 6. Elevated troponin ? Troponin 492 on admit, repeat pending. Presumed secondary to severe dehydration as noted above. Trend troponins. Chronic medical conditions: ? Hypertension: Continue home amlodipine and nitrate. Holding hydralazine for now, restart as needed. ? Hyperlipidemia: Continue home statin. ? Mood disorder: Continue home Effexor, divalproex, melatonin at night. DVT: Heparin Charges/Coding Visit Charges Inpatient E&M: 56660 Subs Hosp L2 Procedures Hospitalists Procedures: 30577 Advncd Care Plan 30 Min
[2023-12-09 13:06] LABS: Pathologist Review Reviewed
--- NOTE | 2023-12-09 15:46 | CASEMGMT ---
Discharge Planning Updates sent to [place] via [facility]. Krystal Meyer, Discharge Planning Asst.
[2023-12-09 16:15] VITALS: BP 143/64; PULSE 90; RESP 14; TEMP 36.8; O2SAT 99
[2023-12-09] MEDS: Glycerin/Hypromellose/PEG400 15 ml Bottle 2 DRP EACH EYE ×2 (16:17→18:18)
[2023-12-09] MEDS: Cefepime HCl 0.5 GM in 0.9% Normal Saline (50mL Bag) 50 ML IV (21:08)
[2023-12-09] MEDS: Dextrose 5%-Water (1000mL Bag) 1,000 ML 100 ML IV (21:09)
[2023-12-09 21:23] VITALS: BP 141/65; PULSE 98; RESP 18; TEMP 36.8; O2SAT 98
[2023-12-10] VITALS (8 sets, daily range): BP systolic 120–152; BP diastolic 57–67; PULSE 88–96; RESP 14–20; TEMP 36.4–37.6; O2SAT 90–98
[2023-12-10 05:48] LABS: Absolute Lymphocyte Count 0.63 X10^3/uL (0.83-4.51); Absolute Neutrophil Count 14.6 X10^3/uL (2.0-7.7); Eosinophil# 0.01 X10^3/uL; Eosinophils% 0.1 % (0-5); Hemoglobin 12.7 g/dL (12.0-15.0); Lymphocyte # 0.63 X10^3/ul (0.83-4.51); Lymphocyte % 4.1 % (19-41); Mean Corp Hgb Conc 29.5 g/dL (32-36); Mean Corpuscular Hgb 28.7 pg (27.0-32.0); Mean Corpuscular Volume 97.1 fL (81-99); Mean Platelet Vol. 12.9 fl (6.2-12.0); Monocyte# 0.14 X10^3/uL; Monocyte% 0.9 % (0-10); NRBC Flagged by Analyzer 0.3 % (0-5); Neutrophil # 14.61 X10^3/uL (2.7-7.7); Neutrophil % 94.4 % (47-70); POSITIVE MORPHOLOGY YES; Platelet Count 141 K/mm3 (150-450); RBC Distribution Width CV 16.8 % (11.6-14.6); RBC Distribution Width SD 60.5 fl (35.1-43.9); Red Blood Count 4.43 M/mm3 (4.2-5.4); White Blood Count 15.5 K/mm3 (4.4-11.0)
[2023-12-10 06:21] LABS: Differential Indicated SCAN CRITERIA MET
[2023-12-10 06:26] LABS: Vancomycin, Random Level 8.2 ug/mL (0.0-15.0)
[2023-12-10 06:38] LABS: Albumin, Serum 1.7 g/dL (3.2-5.0); Anion Gap 3 (5-15); BUN 49 mg/dL (7-18); BUN/Creat Ratio 56.6 RATIO (10-20); Calcium,Total 8.7 mg/dL (8.5-10.1); Chloride 117 mmol/L (98-107); Creatinine, Serum 0.86 mg/dL (0.55-1.02); EST Glomerular Filtration Rate 66 mL/min (>60); Est Glom Filt Rate - Afr Amer 80 mL/min (>60); Estimated Creatinine Clearance 28.29 ml/min; Glucose 165 mg/dL (74-106); Phosphorus 1.8 mg/dL (2.5-4.9); Potassium 3.6 mmol/L (3.5-5.1); Sodium Level 145 mmol/L (136-145)
[2023-12-10] MEDS: Dextrose 5%-Water (1000mL Bag) 1,000 ML 100 ML IV ×2 (06:44→17:27)
--- NOTE | 2023-12-10 06:47 | PCM.RX.CS ---
Consult Antibiotic Management Pharmacy has been consulted to manage selected antibiotic: Vancomycin Type of Intervention Type of Consult: Follow-up Prior Doses of Antibiotics Prior Doses of Antibiotics Received/Current Regimen: 1000 mg of Vancomycin administered 12/08/23 Labs Labs: Sodium 145 mmol/L (136-145) 12/10/23 05:40 Potassium 3.6 mmol/L (3.5-5.1) 12/10/23 05:40 Chloride 117 mmol/L (98-107) H 12/10/23 05:40 Carbon Dioxide 25.0 mmol/L (21.0-32.0) 12/10/23 05:40 Anion Gap 3 (5-15) L 12/10/23 05:40 BUN 49 mg/dL (7-18) H 12/10/23 05:40 Creatinine 0.86 mg/dL (0.55-1.02) 12/10/23 05:40 Est GFR (MDRD) Af Amer 80 mL/min (>60) 12/10/23 05:40 Est GFR (MDRD) Non-Af 66 mL/min (>60) 12/10/23 05:40 BUN/Creatinine Ratio 56.6 RATIO (10-20) H 12/10/23 05:40 Glucose 165 mg/dL (74-106) H 12/10/23 05:40 Random Vancomycin 8.2 ug/mL (0.0-15.0) 12/10/23 05:40 Microbiology Microbiology: Microbiology 12/08/23 16:00 Blood Culture (Wb) - Right Hand Bacteria Detection (PCR) - Final Coag Negative Staph 12/08/23 16:00 Blood Culture (Wb) - Right Hand Blood Culture - Preliminary 12/08/23 16:17 Blood Culture (Wb) - Left Hand Blood Culture - Preliminary 12/08/23 16:30 Urine, Catheterized Urine Culture - Preliminary Gram negative brennan GPC Poss Enterococcus sp 12/08/23 23:07 Mucosa - Nasopharyngeal Respiratory Panel (PCR) - Final 12/08/23 16:30 Urine, Random Legionella Antigen - Final 12/08/23 16:30 Urine, Random Streptococcus pneumoniae Antigen (M - Final 12/08/23 16:37 Mucosa - Nasopharyngeal SARS-CoV-2, Influenza & RSV (PCR) - Final Dosing Weight Weight used for dosin kg Estimated Creatinine Clearance Estimated Creatinine Clearance: 12 Goal Trough Goal Trough: 15-20 mcg/mL Pharmacy Plan for Drug Dosing Pharmacy Plan for Drug Dosing: Random Vancomycin level is 8.2 redose with Vancomycin 500mg x1 Pharmacy Service will continue to monitor and adjust dosing as required. Follow-Up Labs Follow-Up Labs: Trough: Vancomycin Date/Time Labs Ordered Labs to be done on [date and time ordered]: random Vancomycin level 12/11/23 @ 0600
[2023-12-10] MEDS: Vancomycin IV 500 MG/100 ML BAG 100 MG IV (07:08)
[2023-12-10] MEDS: Glycerin/Hypromellose/PEG400 15 ml Bottle 2 DRP EACH EYE ×5 (07:59→17:27)
[2023-12-10 08:26] LABS: Differential Comment SCANNED
--- NOTE | 2023-12-10 10:01 | PN.RENAL_ITS ---
Documented by User: DINORAH Arce 12/10/23 10:10 Subjective Subjective Resting in bed. No overnight events. Daughter is at bedside. Nonverbal. Objective Data Objective Data Vital Signs: Vital Signs Temp Pulse Resp BP Pulse Ox O2 Del Method O2 Flow Rate 99.6 F H 88 20 H 135/62 H 94 Nasal Cannula 3.5 12/10/23 09:51 12/10/23 09:51 12/10/23 09:51 12/10/23 09:51 12/10/23 09:51 12/10/23 09:51 12/10/23 09:51 Oxygen Flow Rate (L/min) 3.5 Oxygen Delivery Method Nasal Cannula Weight: 36.8 kg Body Mass Index (BMI) 15.9 Intake & Output: Intake and Output for Last 24 Hours 12/08/23 12/09/23 12/10/23 23:59 23:59 23:59 Intake Total 1355 / 1355 2875.0 / 2875.0 1100.00 / 1100.00 Output Total 250 / 250 250 / 250 Balance 1355 / 1355 2625.0 / 2625.0 850.00 / 850.00 Medical Nutrition Assessment Dietitian: Malnutrition Criteria Met Start: 12/09/23 10:56 Freq: Status: Active Protocol: Document 12/09/23 10:57 LO (Rec: 12/09/23 10:57 LO Desktop) Nutrition Malnutrition Evidence of Malnutrition Exists Yes Malnutrition (severe): Chronic Evidenced By Suboptimal Energy Intake ( Severe),Weight Loss (Severe) Clinical Problem Chronic Disease or Condition Related Malnutrition Etiology severe related to inadequate energy intake Signs/Symptoms as evidenced by estimated PO intake meeting <50% of estimated energy needs for >3 months and 19.5% weight loss in 2 months and 6.3% in 1 month per [facility] weight records Status Active Problem Recommendation Dietitian Recommendations/Changes ADAT to Regular diet when medically able to optimize oral intakes. Recommend 120ml EPHP 4x daily with medpass when diet advances. Lab / Micro Data 12/10/23 05:40 12/10/23 05:40 Labs: Laboratory Results - last 24 hr 12/08/23 16:00: Diff Path Review Reviewed 12/10/23 05:40: WBC 15.5 H, RBC 4.43, Hgb 12.7, Hct 43.0, MCV 97.1 D, MCH 28.7, MCHC 29.5 L, RDW Std Deviation 60.5 H, RDW Coeff of David 16.8 H, Plt Count 141 L, MPV 12.9 H, Immature Gran % (Auto) 0.500, Neut % (Auto) 94.4 H, Lymph % (Auto) 4.1 L, [place] % (Auto) 0.9, Eos % (Auto) 0.1, Baso % (Auto) 0.0, Absolute Neuts (auto) 14.6 H, Absolute Lymphs (auto) 0.63 L, Nucleated RBC % 0.3, Differential Comment SCANNED, Sodium 145, Potassium 3.6, Chloride 117 H, Carbon Dioxide 25.0, Anion Gap 3 L, BUN 49 H, Creatinine 0.86, Estim Creat Clear Calc 28.29, Est GFR (MDRD) Af Amer 80, Est GFR (MDRD) Non-Af 66, BUN/Creatinine Ratio 56.6 H, Glucose 165 H, Calcium 8.7, Phosphorus 1.8 L, Albumin 1.7 L, Random Vancomycin 8.2 Micro: Microbiology 12/08/23 16:00 Blood Culture (Wb) - Right Hand Bacteria Detection (PCR) - Final Coag Negative Staph 12/08/23 16:00 Blood Culture (Wb) - Right Hand Blood Culture - Preliminary Coag Negative Staph 12/08/23 16:30 Urine, Catheterized Urine Culture - Final Proteus mirabilis Enterococcus faecalis 12/08/23 16:17 Blood Culture (Wb) - Left Hand Blood Culture - Preliminary 12/08/23 23:07 Mucosa - Nasopharyngeal Respiratory Panel (PCR) - Final 12/08/23 16:30 Urine, Random Legionella Antigen - Final 12/08/23 16:30 Urine, Random Streptococcus pneumoniae Antigen (M - Final 12/08/23 16:37 Mucosa - Nasopharyngeal SARS-CoV-2, Influenza & RSV (PCR) - Final Physical Exam Narrative No apparent distress, nonverbal S1 S2 RRR Lungs clear Abdomen soft no edema Assessment & Plan Assessment/Plan (1) Acute hypernatremia: (2) Acute renal failure: (3) Hyperkalemia: PLAN: Plan This is an 83-year-old female with history of advanced dementia currently residing in [facility] who was brought to the emergency room for evaluation of poor oral intake. Lab work obtained in emergency room showed creatinine 2.75, potassium 5.9 and sodium of 162. Patient was started on IV fluids and admitted for further evaluation and treatment. Nephrology consulted for KURT and hypernatremia. Patient is known to our service from previous hospital consult, last hospitalization she was admitted for poor oral intake, UTI, hypernatremia and KURT (she was in hospital about 1 month ago, sodium peaked 168 and was 143 at time of hospital discharge; Creatinine peak was 1.83 and normalized at time of discharge). With volume expansion/IV fluids both renal function and sodium levels normalized. -Nonoliguric, hypovolemic KURT with normal baseline serum creatinine levels. Likely KURT from lack of poor oral, solute and free water intake. With IVF and volume expansion renal function improved. Serum creatinine peaked 2.75 and today creatinine 0.86 mg/dL. Per patient's daughter, patient has had little UOP. Will check bladder scan and recommend to place [place] if urine volume >250ml -Hypernatremia secondary to lack of free water and solute intake. With IV fluids, D5W, sodium has normalized. Patient is still not eating or taking anything by mouth. Recommend to continue IVF until patient is taking food/or f luid by mouth. IVF rate was decreased yesterday - Bps acceptable. - on IV antibiotics for possible pneumonia and suspected UTI. Documented by User: Dr. Peg Peterson MD 12/10/23 12:59 Objective Data Lab / Micro Data 12/10/23 05:40 12/10/23 05:40 Assessment & Plan Assessment/Plan (1) Acute hypernatremia: (2) Acute renal failure: (3) Hyperkalemia: PLAN: Plan This is an 83-year-old female with history of advanced dementia currently residing in [facility] who was brought to the emergency room for evaluation of poor oral intake. Lab work obtained in emergency room showed creatinine 2.75, potassium 5.9 and sodium of 162. Patient was started on IV fluids and admitted for further evaluation and treatment. Nephrology consulted for KURT and hypernatremia. Patient is known to our service from previous hospital consult, last hospitalization she was admitted for poor oral intake, UTI, hypernatremia and KURT (she was in hospital about 1 month ago, sodium peaked 168 and was 143 at time of hospital discharge; Creatinine peak was 1.83 and normalized at time of discharge). With volume expansion/IV fluids both renal function and sodium levels normalized. -Nonoliguric, hypovolemic KURT with normal baseline serum creatinine levels. Likely KURT from lack of poor oral, solute and free water intake. With IVF and volume expansion renal function improved. Serum creatinine peaked 2.75 and today creatinine 0.86 mg/dL. Per patient's daughter, patient has had little UOP. Will check bladder scan and recommend to place [place] if urine volume >250ml -Hypernatremia secondary to lack of free water and solute intake. With IV fluids, D5W, sodium has normalized. Patient is still not eating or taking anything by mouth. Recommend to continue IVF until patient is taking food/or fluid by mouth. IVF rate was decreased yesterday - Bps acceptable. - on IV antibiotics for possible pneumonia and suspected UTI. Attending addendum Cr is normal sodium is improved
--- NOTE | 2023-12-10 10:29 | CASEMGMT ---
STEPHAN received a voice mail from Clive at [facility] (cell-[phone]) requesting a return call. STEPHAN called Melinda back. Melinda was wanting to know if patient is going to return on hospice. STEPHAN explained physician spoke to Jo yesterday and she is on board, but patient's daughter Brionna is not. The plan is to watch patient for 24-48 hours. Mary SALAZAR
[2023-12-10] MEDS: Heparin Injection (Vial) 5,000 UNIT/ML VIAL 5000 UNIT SC ×2 (10:55→23:37)
--- NOTE | 2023-12-10 11:40 | PCM.PN.HOSP ---
Subjective Subjective Renal function back to baseline but she is still not responding very well Objective Data Objective Data Vital Signs: Vital Signs Temp Pulse Resp BP Pulse Ox O2 Del Method O2 Flow Rate 99.6 F H 88 20 H 135/62 H 94 Nasal Cannula 3.5 12/10/23 09:51 12/10/23 09:51 12/10/23 09:51 12/10/23 09:51 12/10/23 09:51 12/10/23 09:51 12/10/23 09:51 Oxygen Flow Rate (L/min) 3.5 Oxygen Delivery Method Nasal Cannula Weight: 81 lb 2.082 oz Body Mass Index (BMI) 15.9 Intake & Output: Intake and Output for Last 24 Hours 12/09/23 12/10/23 12/11/23 03:59 03:59 03:59 Intake Total 1355 / 1355 2875.0 / 2875.0 1100.00 / 1100.00 Output Total 250 / 250 250 / 250 Balance 1355 / 1355 2625.0 / 2625.0 850.00 / 850.00 Medical Nutrition Assessment Dietitian: Malnutrition Criteria Met Start: 12/09/23 10:56 Freq: Status: Active Protocol: Document 12/09/23 10:57 LO (Rec: 12/09/23 10:57 LO Desktop) Nutrition Malnutrition Evidence of Malnutrition Exists Yes Malnutrition (severe): Chronic Evidenced By Suboptimal Energy Intake ( Severe),Weight Loss (Severe) Clinical Problem Chronic Disease or Condition Related Malnutrition Etiology severe related to inadequate energy intake Signs/Symptoms as evidenced by estimated PO intake meeting <50% of estimated energy needs for >3 months and 19.5% weight loss in 2 months and 6.3% in 1 month per [facility] weight records Status Active Problem Recommendation Dietitian Recommendations/Changes ADAT to Regular diet when medically able to optimize oral intakes. Recommend 120ml EPHP 4x daily with medpass when diet advances. Lab / Micro Data 12/10/23 05:40 12/10/23 05:40 Labs: Laboratory Results - last 24 hr 12/08/23 16:00: Diff Path Review Reviewed 12/10/23 05:40: WBC 15.5 H, RBC 4.43, Hgb 12.7, Hct 43.0, MCV 97.1 D, MCH 28.7, MCHC 29.5 L, RDW Std Deviation 60.5 H, RDW Coeff of David 16.8 H, Plt Count 141 L, MPV 12.9 H, Immature Gran % (Auto) 0.500, Neut % (Auto) 94.4 H, Lymph % (Auto) 4.1 L, [place] % (Auto) 0.9, Eos % (Auto) 0.1, Baso % (Auto) 0.0, Absolute Neuts (auto) 14.6 H, Absolute Lymphs (auto) 0.63 L, Nucleated RBC % 0.3, Differential Comment SCANNED, Sodium 145, Potassium 3.6, Chloride 117 H, Carbon Dioxide 25.0, Anion Gap 3 L, BUN 49 H, Creatinine 0.86, Estim Creat Clear Calc 28.29, Est GFR (MDRD) Af Amer 80, Est GFR (MDRD) Non-Af 66, BUN/Creatinine Ratio 56.6 H, Glucose 165 H, Calcium 8.7, Phosphorus 1.8 L, Albumin 1.7 L, Random Vancomycin 8.2 Micro: Microbiology 12/08/23 16:00 Blood Culture (Wb) - Right Hand Bacteria Detection (PCR) - Final Coag Negative Staph 12/08/23 16:00 Blood Culture (Wb) - Right Hand Blood Culture - Preliminary Coag Negative Staph 12/08/23 16:30 Urine, Catheterized Urine Culture - Final Proteus mirabilis Enterococcus faecalis 12/08/23 16:17 Blood Culture (Wb) - Left Hand Blood Culture - Preliminary 12/08/23 23:07 Mucosa - Nasopharyngeal Respiratory Panel (PCR) - Final 12/08/23 16:30 Urine, Random Legionella Antigen - Final 12/08/23 16:30 Urine, Random Streptococcus pneumoniae Antigen (M - Final 12/08/23 16:37 Mucosa - Nasopharyngeal SARS-CoV-2, Influenza & RSV (PCR) - Final Physical Exam Narrative General: Not responsive HEENT: Atraumatic, PERRLA, normocephalic Oral: Moist mucosa Neck: Supple, No JVD Lungs: Diminished, Normal air movement, No rhonchi, No wheeze, No rales Cardiovascular: Regular rate, Regular Rhythm, Normal S1, Normal S2, No murmurs Abdomen: Soft, Non-Distended, No Hepato-splenomegaly Extremities: No edema, Capillary Refill Less than 3 Seconds Skin: No rashes, No breakdown Musculoskeletal: No Tenderness to Palpation of Joints or Extremities Neurological: Cannot follow commands participate in exam Psych/Mental Status: Not responsive Assessment & Plan Assessment/Plan (1) Pneumonia: (2) Acute hypernatremia: (3) Acute dehydration: (4) Elevated troponin: (5) Debility: (6) Dementia: PLAN: Plan 1. Severe dehydration with significant electrolyte abnormalities, elevated lactic acid and non anion gap metabolic acidosis Labs on admit of sodium 162, chloride 135, bicarb 17, anion gap 10, lactate 8.2. Patient with similar lab abnormalities on presentation in October. Presumed secondary to severe dehydration. ? Admit under inpatient status to PCU. Nephrology consulted. Will start D5W 150 mL/hr for now. Follow-up a.m. BMP. Trend lactate. 12/09/2023: Will decrease IV fluids to 100 as daughter states she has a history of heart failure, renal function is improving. I did have a 20-minute discussion with the daughter on advance care planning including what hospice is, it does appear that there is a misunderstanding as to the role hospice would plan her care but that if she does not improve in the next 24 to 48 hours then would consider discharge with hospice 12/10/2023: Renal function is back to baseline, urine culture finalized as Proteus and Enterococcus sensitive to ampicillin continue with her current medications, her blood culture did come back positive with gram-positive cocci in clusters likely contamination but will await finalization it does appear to be in just 1 out of 4 blood culture bottles 2. KURT, hyperkalemia Creatinine 2.75, potassium 5.9 on admit. Baseline creatinine 0.6-0.9. Presumed prerenal KURT from severe dehydration. Fairly minimal urine output reported recently. EKG with no ST changes noted. ? Nephrology consulted as above. Treating with D5W as above. Follow-up a.m. BMP. Monitor urine output. 3. Suspected UTI ? UA showed 500 leukocyte esterase, positive nitrates, 45-50 WBCs, 0 bacteria. Recent urine culture from 11/04/2023 grew pansensitive Pseudomonas. Will treat with cefepime for now, follow-up urine culture. 12/09/2023: Urine cultures with 1000-10,000 CFU's, given her previous history with multiple UTIs we will continue with antibiotics pending finalization of cultures 12/10/2023: Enterococcus and Proteus, continue with antibiotics 4. Suspected healthcare associated pneumonia with unknown organism Chest x-ray on admit showed acute increased pulmonary density in left lung base concerning for pneumonia. WBC count 19 on admit, though significantly concentrated. Reportedly had fevers at nursing facility, no fevers documented since arrival to the ED. COVID/flu/RSV negative. ? Will start vancomycin and cefepime for now. Sputum culture, blood cultures, respiratory PCR panel, urine antigens ordered. 12/09/2023: Continue with IV antibiotics 5. 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 See HPI for further details. PT/OT/case management consulted. Speech therapy and nutrition consulted. Hospice consulted. N.p.o. for now. 6. Elevated troponin ? Troponin 492 on admit, repeat pending. Presumed secondary to severe dehydration as noted above. Trend troponins. Chronic medical conditions: ? Hypertension: Continue home amlodipine and nitrate. Holding hydralazine for now, restart as needed. ? Hyperlipidemia: Continue home statin. ? Mood disorder: Continue home Effexor, divalproex, melatonin at night. DVT: Heparin Charges/Coding Visit Charges Inpatient E&M: 95745 Subs Hosp L2
[2023-12-10] MEDS: Menthol/Lanolin/Calamine/Znox 113 GM Tube 1 APPLIC TOPICAL (23:37)
[2023-12-10] MEDS: Cefepime HCl 2 GM in 0.9% Normal Saline (100mL MB+) 100 ML IV (23:38)
[2023-12-11] VITALS (9 sets, daily range): BP systolic 119–149; BP diastolic 45–70; PULSE 78–99; RESP 18–24; TEMP 36.6–38.1; O2SAT 90–95
[2023-12-11] MEDS: Dextrose 5%-Water (1000mL Bag) 1,000 ML 100 ML IV ×2 (03:16→14:17)
[2023-12-11] MEDS: Glycerin/Hypromellose/PEG400 15 ml Bottle 2 DRP EACH EYE ×2 (03:18→08:21)
[2023-12-11 06:02] LABS: Absolute Lymphocyte Count 0.54 X10^3/uL (0.83-4.51); Absolute Neutrophil Count 10.6 X10^3/uL (2.0-7.7); Basophil# 0.03 X10^3/uL; Basophil% 0.3 % (0-1); Eosinophil# 0.03 X10^3/uL; Eosinophils% 0.3 % (0-5); Hematocrit 36.2 % (37-47); Hemoglobin 10.9 g/dL (12.0-15.0); Lymphocyte # 0.54 X10^3/ul (0.83-4.51); Lymphocyte % 4.7 % (19-41); Mean Corp Hgb Conc 30.1 g/dL (32-36); Mean Corpuscular Volume 96.3 fL (81-99); Monocyte# 0.14 X10^3/uL; Monocyte% 1.2 % (0-10); NRBC Flagged by Analyzer 0.2 % (0-5); Neutrophil # 10.62 X10^3/uL (2.7-7.7); Neutrophil % 93.1 % (47-70); POSITIVE COUNT YES; POSITIVE DIFFERENTIAL YES; Platelet Count 68 K/mm3 (150-450); RBC Distribution Width CV 16.3 % (11.6-14.6); RBC Distribution Width SD 57.9 fl (35.1-43.9); Red Blood Count 3.76 M/mm3 (4.2-5.4); White Blood Count 11.4 K/mm3 (4.4-11.0)
[2023-12-11 06:23] LABS: Anion Gap 4 (5-15); BUN 31 mg/dL (7-18); BUN/Creat Ratio 47.2 RATIO (10-20); Calcium,Total 8.2 mg/dL (8.5-10.1); Chloride 112 mmol/L (98-107); Creatinine, Serum 0.66 mg/dL (0.55-1.02); EST Glomerular Filtration Rate 91 mL/min (>60); Est Glom Filt Rate - Afr Amer 110 mL/min (>60); Estimated Creatinine Clearance 30.41 ml/min; Glucose 134 mg/dL (74-106); Potassium 3.2 mmol/L (3.5-5.1); Sodium Level 138 mmol/L (136-145)
[2023-12-11 06:32] LABS: Vancomycin, Random Level 6.5 ug/mL (0.0-15.0)
[2023-12-11 06:47] LABS: Differential Indicated SCAN CRITERIA MET
[2023-12-11 06:51] LABS: Differential Comment SCANNED
[2023-12-11] MEDS: Vancomycin IV 500 MG/100 ML BAG 100 MG IV ×2 (08:19→20:13)
--- NOTE | 2023-12-11 08:30 | PCM.RX.CS ---
Consult Antibiotic Management Pharmacy has been consulted to manage selected antibiotic: Vancomycin Type of Intervention Type of Consult: Follow-up Prior Doses of Antibiotics Prior Doses of Antibiotics Received/Current Regimen: the patient received a dose of vanc 500mg IV x1 yesterday at 07:08 Labs Labs: Sodium 138 mmol/L (136-145) 12/11/23 05:30 Potassium 3.2 mmol/L (3.5-5.1) L 12/11/23 05:30 Chloride 112 mmol/L (98-107) H 12/11/23 05:30 Carbon Dioxide 22.0 mmol/L (21.0-32.0) 12/11/23 05:30 Anion Gap 4 (5-15) L 12/11/23 05:30 BUN 31 mg/dL (7-18) H 12/11/23 05:30 Creatinine 0.66 mg/dL (0.55-1.02) 12/11/23 05:30 Est GFR (MDRD) Af Amer 110 mL/min (>60) 12/11/23 05:30 Est GFR (MDRD) Non-Af 91 mL/min (>60) 12/11/23 05:30 BUN/Creatinine Ratio 47.2 RATIO (10-20) H 12/11/23 05:30 Glucose 134 mg/dL (74-106) H 12/11/23 05:30 Random Vancomycin 6.5 ug/mL (0.0-15.0) 12/11/23 05:30 Microbiology Microbiology: Microbiology 12/08/23 16:00 Blood Culture (Wb) - Right Hand Bacteria Detection (PCR) - Final Coag Negative Staph 12/08/23 16:00 Blood Culture (Wb) - Right Hand Blood Culture - Preliminary Coag Negative Staph 12/08/23 16:30 Urine, Catheterized Urine Culture - Final Proteus mirabilis Enterococcus faecalis 12/08/23 16:17 Blood Culture (Wb) - Left Hand Blood Culture - Preliminary 12/08/23 23:07 Mucosa - Nasopharyngeal Respiratory Panel (PCR) - Final 12/08/23 16:30 Urine, Random Legionella Antigen - Final 12/08/23 16:30 Urine, Random Streptococcus pneumoniae Antigen (M - Final 12/08/23 16:37 Mucosa - Nasopharyngeal SARS-CoV-2, Influenza & RSV (PCR) - Final Dosing Weight Weight used for dosin lb 2.082 oz Estimated Creatinine Clearance Estimated Creatinine Clearance: 30.4ml/min Goal Trough Goal Trough: 15-20 mcg/mL Pharmacy Plan for Drug Dosing Pharmacy Plan for Drug Dosing: The vanc random level drawn at 05:30 today (approx 22.5 hours after the dose yesterday) was 6.5. This is well below goal so will schedule a dose of 500mg q12h now that the patient's renal function has improved (SCr today was 0.66 which is improved from 0.86 yesterday and 1.93 and 2.75 the days before that). Will order a trough to be drawn before the 4th dose. Pharmacy Service will continue to monitor and adjust dosing as required. Follow-Up Labs Follow-Up Labs: Trough: Vancomycin Date/Time Labs Ordered Labs to be done on [date and time ordered]: 12/12/23 19:30
--- NOTE | 2023-12-11 11:31 | PN.RENAL_ITS ---
Subjective Subjective Following for KUTR and hypernatremia no overnight events. non-verbal Objective Data Objective Data Vital Signs: Vital Signs Temp Pulse Resp BP Pulse Ox O2 Del Method O2 Flow Rate 97.9 F 78 24 H 131/45 H 95 Nasal Cannula 3 12/11/23 08:15 12/11/23 08:15 12/11/23 08:15 12/11/23 08:15 12/11/23 08:15 12/11/23 08:43 12/11/23 08:43 Oxygen Flow Rate (L/min) 3 Oxygen Delivery Method Nasal Cannula Weight: 36.8 kg Body Mass Index (BMI) 15.9 Intake & Output: Intake and Output for Last 24 Hours 12/09/23 12/10/23 12/11/23 23:59 23:59 23:59 Intake Total 2875.0 / 2875.0 2026.67 / 2026.67 1586.67 / 1586.67 Output Total 250 / 250 650 / 650 350 / 350 Balance 2625.0 / 2625.0 1376.67 / 1376.67 1236.67 / 1236.67 Medical Nutrition Assessment Dietitian: Malnutrition Criteria Met Start: 12/09/23 10:56 Freq: Status: Active Protocol: Document 12/09/23 10:57 LO (Rec: 12/09/23 10:57 LO Desktop) Nutrition Malnutrition Evidence of Malnutrition Exists Yes Malnutrition (severe): Chronic Evidenced By Suboptimal Energy Intake ( Severe),Weight Loss (Severe) Clinical Problem Chronic Disease or Condition Related Malnutrition Etiology severe related to inadequate energy intake Signs/Symptoms as evidenced by estimated PO intake meeting <50% of estimated energy needs for >3 months and 19.5% weight loss in 2 months and 6.3% in 1 month per [facility] weight records Status Active Problem Recommendation Dietitian Recommendations/Changes ADAT to Regular diet when medically able to optimize oral intakes. Recommend 120ml EPHP 4x daily with medpass when diet advances. Lab / Micro Data 12/11/23 05:30 12/11/23 05:30 Labs: Laboratory Results - last 24 hr 12/11/23 05:30: WBC 11.4 H, RBC 3.76 L, Hgb 10.9 L, Hct 36.2 L, MCV 96.3, MCH 29.0, MCHC 30.1 L, RDW Std Deviation 57.9 H, RDW Coeff of David 16.3 H, Plt Count 68 L, Immature Gran % (Auto) 0.400, Neut % (Auto) 93.1 H, Lymph % (Auto) 4.7 L, [place] % (Auto) 1.2, Eos % (Auto) 0.3, Baso % (Auto) 0.3, Absolute Neuts (auto) 10.6 H, Absolute Lymphs (auto) 0.54 L, Nucleated RBC % 0.2, Differential Comment SCANNED, Sodium 138, Potassium 3.2 L, Chloride 112 H, Carbon Dioxide 22.0, Anion Gap 4 L, BUN 31 H, Creatinine 0.66, Estim Creat Clear Calc 30.41, Est GFR (MDRD) Af Amer 110, Est GFR (MDRD) Non-Af 91, BUN/Creatinine Ratio 47.2 H, Glucose 134 H, Calcium 8.2 L, Random Vancomycin 6.5 Micro: Microbiology 12/08/23 16:00 Blood Culture (Wb) - Right Hand Bacteria Detection (PCR) - Final Coag Negative Staph 12/08/23 16:00 Blood Culture (Wb) - Right Hand Blood Culture - Preliminary Coag Negative Staph 12/08/23 16:30 Urine, Catheterized Urine Culture - Final Proteus mirabilis Enterococcus faecalis 12/08/23 16:17 Blood Culture (Wb) - Left Hand Blood Culture - Preliminary 12/08/23 23:07 Mucosa - Nasopharyngeal Respiratory Panel (PCR) - Final 12/08/23 16:30 Urine, Random Legionella Antigen - Final 12/08/23 16:30 Urine, Random Streptococcus pneumoniae Antigen (M - Final 12/08/23 16:37 Mucosa - Nasopharyngeal SARS-CoV-2, Influenza & RSV (PCR) - Final Physical Exam Narrative No apparent distress, nonverbal S1 S2 RRR Lungs clear Abdomen soft no edema Assessment & Plan Assessment/Plan (1) Acute hypernatremia: (2) Acute renal failure: (3) Hyperkalemia: PLAN: Plan This is an 83-year-old female with history of advanced dementia currently residing in [facility] who was brought to the emergency room for evaluation of poor oral intake. Lab work obtained in emergency room showed creatinine 2.75, potassium 5.9 and sodium of 162. Patient was started on IV fluids and admitted for further evaluation and treatment. Nephrology consulted for KURT and hypernatremia. Patient is known to our service from previous hospital consult, last hospitalization she was admitted for poor oral intake, UTI, hypernatremia and KURT (she was in hospital about 1 month ago, sodium peaked 168 and was 143 at time of hospital discharge; Creatinine peak was 1.83 and normalized at time of discharge). With volume expansion/IV fluids both renal function and sodium levels normalized. -Nonoliguric, hypovolemic KURT with normal baseline serum creatinine levels. Likely KURT from lack of poor oral, solute and free water intake. With IVF and volume expansion renal function improved. Serum creatinine peaked 2.75 and today creatinine 0.66 mg/dL. Patient has good urine output, incontinent. -Hypernatremia secondary to lack of free water and solute intake. With IV fluids, D5W, sodium has normalized. Sodium peaked 162, now 138. Patient is still not eating or taking anything by mouth. Recommend to continue IVF until patient is taking food/or fluid by mouth. IVF rate was decreased - Bps acceptable. - on IV antibiotics for possible pneumonia and suspected UTI. - nephrology will sign off as KURT and hypernatremia resolved. Discussed with Dr. Downey.
--- NOTE | 2023-12-11 12:05 | PN.HOSP_ITS ---
Subjective Subjective Still not responsive despite having a normal renal function for the last 24 to 48 hours Objective Data Objective Data Vital Signs: Vital Signs Temp Pulse Resp BP Pulse Ox O2 Del Method O2 Flow Rate 97.9 F 78 24 H 131/45 H 95 Nasal Cannula 3 12/11/23 08:15 12/11/23 08:15 12/11/23 08:15 12/11/23 08:15 12/11/23 08:15 12/11/23 08:43 12/11/23 08:43 Oxygen Flow Rate (L/min) 3 Oxygen Delivery Method Nasal Cannula Weight: 81 lb 2.082 oz Body Mass Index (BMI) 15.9 Intake & Output: Intake and Output for Last 24 Hours 12/10/23 12/11/23 12/12/23 03:59 03:59 03:59 Intake Total 2875.0 / 2875.0 3108.34 / 3108.34 605 / 605 Output Total 250 / 250 650 / 650 350 / 350 Balance 2625.0 / 2625.0 2458.34 / 2458.34 255 / 255 Medical Nutrition Assessment Dietitian: Malnutrition Criteria Met Start: 12/09/23 10:56 Freq: Status: Active Protocol: Document 12/09/23 10:57 LO (Rec: 12/09/23 10:57 LO Desktop) Nutrition Malnutrition Evidence of Malnutrition Exists Yes Malnutrition (severe): Chronic Evidenced By Suboptimal Energy Intake ( Severe),Weight Loss (Severe) Clinical Problem Chronic Disease or Condition Related Malnutrition Etiology severe related to inadequate energy intake Signs/Symptoms as evidenced by estimated PO intake meeting <50% of estimated energy needs for >3 months and 19.5% weight loss in 2 months and 6.3% in 1 month per [facility] weight records Status Active Problem Recommendation Dietitian Recommendations/Changes ADAT to Regular diet when medically able to optimize oral intakes. Recommend 120ml EPHP 4x daily with medpass when diet advances. Lab / Micro Data 12/11/23 05:30 12/11/23 05:30 Labs: Laboratory Results - last 24 hr 12/11/23 05:30: WBC 11.4 H, RBC 3.76 L, Hgb 10.9 L, Hct 36.2 L, MCV 96.3, MCH 29.0, MCHC 30.1 L, RDW Std Deviation 57.9 H, RDW Coeff of David 16.3 H, Plt Count 68 L, Immature Gran % (Auto) 0.400, Neut % (Auto) 93.1 H, Lymph % (Auto) 4.7 L, [place] % (Auto) 1.2, Eos % (Auto) 0.3, Baso % (Auto) 0.3, Absolute Neuts (auto) 10.6 H, Absolute Lymphs (auto) 0.54 L, Nucleated RBC % 0.2, Differential Comment SCANNED, Sodium 138, Potassium 3.2 L, Chloride 112 H, Carbon Dioxide 22.0, Anion Gap 4 L, BUN 31 H, Creatinine 0.66, Estim Creat Clear Calc 30.41, Est GFR (MDRD) Af Amer 110, Est GFR (MDRD) Non-Af 91, BUN/Creatinine Ratio 47.2 H, Glucose 134 H, Calcium 8.2 L, Random Vancomycin 6.5 Micro: Microbiology 12/08/23 16:00 Blood Culture (Wb) - Right Hand Bacteria Detection (PCR) - Final Coag Negative Staph 12/08/23 16:00 Blood Culture (Wb) - Right Hand Blood Culture - Preliminary Coag Negative Staph 12/08/23 16:30 Urine, Catheterized Urine Culture - Final Proteus mirabilis Enterococcus faecalis 12/08/23 16:17 Blood Culture (Wb) - Left Hand Blood Culture - Preliminary 12/08/23 23:07 Mucosa - Nasopharyngeal Respiratory Panel (PCR) - Final 12/08/23 16:30 Urine, Random Legionella Antigen - Final 12/08/23 16:30 Urine, Random Streptococcus pneumoniae Antigen (M - Final 12/08/23 16:37 Mucosa - Nasopharyngeal SARS-CoV-2, Influenza & RSV (PCR) - Final Physical Exam Narrative General: Not responsive HEENT: Atraumatic, PERRLA, normocephalic Oral: Moist mucosa Neck: Supple, No JVD Lungs: Diminished, Normal air movement, No rhonchi, No wheeze, No rales Cardiovascular: Regular rate, Regular Rhythm, Normal S1, Normal S2, No murmurs Abdomen: Soft, Non-Distended, No Hepato-splenomegaly Extremities: No edema, Capillary Refill Less than 3 Seconds Skin: No rashes, No breakdown Musculoskeletal: No Tenderness to Palpation of Joints or Extremities Neurological: Cannot follow commands participate in exam Psych/Mental Status: Not responsive Assessment & Plan Assessment/Plan (1) Pneumonia: (2) Acute hypernatremia: (3) Acute dehydration: (4) Elevated troponin: (5) Debility: (6) Dementia: PLAN: Plan 1. Severe dehydration with significant electrolyte abnormalities, elevated lactic acid and non anion gap metabolic acidosis Labs on admit of sodium 162, chloride 135, bicarb 17, anion gap 10, lactate 8.2. Patient with similar lab abnormalities on presentation in October. Presumed secondary to severe dehydration. ? Admit under inpatient status to PCU. Nephrology consulted. Will start D5W 150 mL/hr for now. Follow-up a.m. BMP. Trend lactate. 12/09/2023: Will decrease IV fluids to 100 as daughter states she has a history of heart failure, renal function is improving. I did have a 20-minute discussion with the daughter on advance care planning including what hospice is, it does appear that there is a misunderstanding as to the role hospice would plan her care but that if she does not improve in the next 24 to 48 hours then would consider discharge with hospice 12/10/2023: Renal function is back to baseline, urine culture finalized as Proteus and Enterococcus sensitive to ampicillin continue with her current medications, her blood culture did come back positive with gram-positive cocci in clusters likely contamination but will await finalization it does appear to be in just 1 out of 4 blood culture bottles 12/11/2023: Renal function is back to baseline and she has been on antibiotics for 3 days without any significant improvement in her cognitive function. Will continue to have conversations with family about prognosis and discharge planning 2. KURT, hyperkalemia Creatinine 2.75, potassium 5.9 on admit. Baseline creatinine 0.6-0.9. Presumed prerenal KURT from severe dehydration. Fairly minimal urine output reported recently. EKG with no ST changes noted. ? Nephrology consulted as above. Treating with D5W as above. Follow-up a.m. BMP. Monitor urine output. 3. Suspected UTI ? UA showed 500 leukocyte esterase, positive nitrates, 45-50 WBCs, 0 bacteria. Recent urine culture from 11/04/2023 grew pansensitive Pseudomonas. Will treat with cefepime for now, follow-up urine culture. 12/09/2023: Urine cultures with 1000-10,000 CFU's, given her previous history with multiple UTIs we will continue with antibiotics pending finalization of cultures 12/10/2023: Enterococcus and Proteus, continue with antibiotics 4. Suspected healthcare associated pneumonia with unknown organism Chest x-ray on admit showed acute increased pulmonary density in left lung base concerning for pneumonia. WBC count 19 on admit, though significantly concentrated. Reportedly had fevers at nursing facility, no fevers documented since arrival to the ED. COVID/flu/RSV negative. ? Will start vancomycin and cefepime for now. Sputum culture, blood cultures, respiratory PCR panel, urine antigens ordered. 12/09/2023: Continue with IV antibiotics 5. 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 See HPI for further details. PT/OT/case management consulted. Speech therapy and nutrition consulted. Hospice consulted. N.p.o. for now. 6. Elevated troponin ? Troponin 492 on admit, repeat pending. Presumed secondary to severe dehydration as noted above. Trend troponins. Chronic medical conditions: ? Hypertension: Continue home amlodipine and nitrate. Holding hydralazine for now, restart as needed. ? Hyperlipidemia: Continue home statin. ? Mood disorder: Continue home Effexor, divalproex, melatonin at night. DVT: Heparin Charges/Coding Visit Charges Inpatient E&M: 36403 Subs Hosp L2
[2023-12-11] MEDS: Cefepime HCl 2 GM in 0.9% Normal Saline (100mL MB+) 100 ML IV (22:03)
[2023-12-12 00:35] VITALS: BP 135/56; PULSE 79; RESP 18; TEMP 36.9; O2SAT 96
[2023-12-12] MEDS: Dextrose 5%-Water (1000mL Bag) 1,000 ML 100 ML IV ×2 (00:43→11:54)
[2023-12-12 03:56] VITALS: BP 126/63; PULSE 78; RESP 18; TEMP 37.2; O2SAT 94
[2023-12-12 07:41] VITALS: O2SAT 96
[2023-12-12 08:28] LABS: Anion Gap 5 (5-15); BUN 19 mg/dL (7-18); BUN/Creat Ratio 25.8 RATIO (10-20); Calcium,Total 8.7 mg/dL (8.5-10.1); Chloride 112 mmol/L (98-107); Creatinine, Serum 0.74 mg/dL (0.55-1.02); EST Glomerular Filtration Rate 80 mL/min (>60); Est Glom Filt Rate - Afr Amer 97 mL/min (>60); Estimated Creatinine Clearance 30.41 ml/min; Glucose 138 mg/dL (74-106); Magnesium 2.1 mg/dL (1.6-2.6); Sodium Level 140 mmol/L (136-145)
[2023-12-12] MEDS: Vancomycin IV 500 MG/100 ML BAG 100 MG IV ×2 (08:34→21:41)
[2023-12-12] MEDS: Glycerin/Hypromellose/PEG400 15 ml Bottle 2 DRP EACH EYE ×3 (08:39→18:22)
[2023-12-12 09:46] VITALS: BP 116/57; PULSE 81; RESP 16; TEMP 37.5; O2SAT 98
--- NOTE | 2023-12-12 10:16 | PCM.PN.HOSP ---
Subjective Subjective Very slight improvement, her eyes are open still not responsive Objective Data Objective Data Vital Signs: Vital Signs Temp Pulse Resp BP Pulse Ox O2 Del Method O2 Flow Rate 99.5 F H 81 16 116/57 L 98 Nasal Cannula 2 12/12/23 09:46 12/12/23 09:46 12/12/23 09:46 12/12/23 09:46 12/12/23 09:46 12/12/23 09:46 12/12/23 09:46 Oxygen Flow Rate (L/min) 2 Oxygen Delivery Method Nasal Cannula Weight: 81 lb 2.082 oz Body Mass Index (BMI) 15.9 Intake & Output: Intake and Output for Last 24 Hours 12/11/23 12/12/23 12/13/23 03:59 03:59 03:59 Intake Total 3108.34 / 3108.34 2298.33 / 2298.33 893.33 / 893.33 Output Total 650 / 650 1250 / 1250 60 / 60 Balance 2458.34 / 2458.34 1048.33 / 1048.33 833.33 / 833.33 Medical Nutrition Assessment Dietitian: Malnutrition Criteria Met Start: 12/09/23 10:56 Freq: Status: Active Protocol: Document 12/09/23 10:57 LO (Rec: 12/09/23 10:57 LO Desktop) Nutrition Malnutrition Evidence of Malnutrition Exists Yes Malnutrition (severe): Chronic Evidenced By Suboptimal Energy Intake ( Severe),Weight Loss (Severe) Clinical Problem Chronic Disease or Condition Related Malnutrition Etiology severe related to inadequate energy intake Signs/Symptoms as evidenced by estimated PO intake meeting <50% of estimated energy needs for >3 months and 19.5% weight loss in 2 months and 6.3% in 1 month per [facility] weight records Status Active Problem Recommendation Dietitian Recommendations/Changes ADAT to Regular diet when medically able to optimize oral intakes. Recommend 120ml EPHP 4x daily with medpass when diet advances. Lab / Micro Data 12/11/23 05:30 12/12/23 07:55 Labs: Laboratory Results - last 24 hr 12/12/23 07:55: Sodium 140, Potassium 3.0 L, Chloride 112 H, Carbon Dioxide 23.0, Anion Gap 5, BUN 19 H, Creatinine 0.74, Estim Creat Clear Calc 30.41, Est GFR (MDRD) Af Amer 97, Est GFR (MDRD) Non-Af 80, BUN/Creatinine Ratio 25.8 H, Glucose 138 H, Calcium 8.7, Phosphorus 2.0 L, Magnesium 2.1 Micro: Microbiology 12/08/23 16:00 Blood Culture (Wb) - Right Hand Bacteria Detection (PCR) - Final Coag Negative Staph 12/08/23 16:00 Blood Culture (Wb) - Right Hand Blood Culture - Preliminary Coag Negative Staph 12/08/23 16:30 Urine, Catheterized Urine Culture - Final Proteus mirabilis Enterococcus faecalis 12/08/23 16:17 Blood Culture (Wb) - Left Hand Blood Culture - Preliminary 12/08/23 23:07 Mucosa - Nasopharyngeal Respiratory Panel (PCR) - Final 12/08/23 16:30 Urine, Random Legionella Antigen - Final 12/08/23 16:30 Urine, Random Streptococcus pneumoniae Antigen (M - Final 12/08/23 16:37 Mucosa - Nasopharyngeal SARS-CoV-2, Influenza & RSV (PCR) - Final Physical Exam Narrative General: Not responsive HEENT: Atraumatic, PERRLA, normocephalic Oral: Moist mucosa Neck: Supple, No JVD Lungs: Diminished, Normal air movement, No rhonchi, No wheeze, No rales Cardiovascular: Regular rate, Regular Rhythm, Normal S1, Normal S2, No murmurs Abdomen: Soft, Non-Distended, No Hepato-splenomegaly Extremities: No edema, Capillary Refill Less than 3 Seconds Skin: No rashes, No breakdown Musculoskeletal: No Tenderness to Palpation of Joints or Extremities Neurological: Cannot follow commands participate in exam Psych/Mental Status: Not responsive Assessment & Plan Assessment/Plan (1) Pneumonia: (2) Acute hypernatremia: (3) Acute dehydration: (4) Elevated troponin: (5) Debility: (6) Dementia: PLAN: Plan 1. Severe dehydration with significant electrolyte abnormalities, elevated lactic acid and non anion gap metabolic acidosis Labs on admit of sodium 162, chloride 135, bicarb 17, anion gap 10, lactate 8.2. Patient with similar lab abnormalities on presentation in October. Presumed secondary to severe dehydration. ? Admit under inpatient status to PCU. Nephrology consulted. Will start D5W 150 mL/hr for now. Follow-up a.m. BMP. Trend lactate. 12/09/2023: Will decrease IV fluids to 100 as daughter states she has a history of heart failure, renal function is improving. I did have a 20-minute discussion with the daughter on advance care planning including what hospice is, it does appear that there is a misunderstanding as to the role hospice would plan her care but that if she does not improve in the next 24 to 48 hours then would consider discharge with hospice 12/10/2023: Renal function is back to baseline, urine culture finalized as Proteus and Enterococcus sensitive to ampicillin continue with her current medications, her blood culture did come back positive with gram-positive cocci in clusters likely contamination but will await finalization it does appear to be in just 1 out of 4 blood culture bottles 12/11/2023: Renal function is back to baseline and she has been on antibiotics for 3 days without any significant improvement in her cognitive function. Will continue to have conversations with family about prognosis and discharge planning 12/12/2023: Replace any electrolyte abnormalities continuing to wait for improvement, family is hesitant to consider hospice at this very moment 2. KURT, hyperkalemia Creatinine 2.75, potassium 5.9 on admit. Baseline creatinine 0.6-0.9. Presumed prerenal KURT from severe dehydration. Fairly minimal urine output reported recently. EKG with no ST changes noted. ? Nephrology consulted as above. Treating with D5W as above. Follow-up a.m. BMP. Monitor urine output. 3. Suspected UTI ? UA showed 500 leukocyte esterase, positive nitrates, 45-50 WBCs, 0 bacteria. Recent urine culture from 11/04/2023 grew pansensitive Pseudomonas. Will treat with cefepime for now, follow-up urine culture. 12/09/2023: Urine cultures with 1000-10,000 CFU's, given her previous history with multiple UTIs we will continue with antibiotics pending finalization of cultures 12/10/2023: Enterococcus and Proteus, continue with antibiotics 4. Suspected healthcare associated pneumonia with unknown organism Chest x-ray on admit showed acute increased pulmonary density in left lung base concerning for pneumonia. WBC count 19 on admit, though significantly concentrated. Reportedly had fevers at nursing facility, no fevers documented since arrival to the ED. COVID/flu/RSV negative. ? Will start vancomycin and cefepime for now. Sputum culture, blood cultures, respiratory PCR panel, urine antigens ordered. 12/09/2023: Continue with IV antibiotics 5. 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 See HPI for further details. PT/OT/case management consulted. Speech therapy and nutrition consulted. Hospice consulted. N.p.o. for now. 6. Elevated troponin ? Troponin 492 on admit, repeat pending. Presumed secondary to severe dehydration as noted above. Trend troponins. Chronic medical conditions: ? Hypertension: Continue home amlodipine and nitrate. Holding hydralazine for now, restart as needed. ? Hyperlipidemia: Continue home statin. ? Mood disorder: Continue home Effexor, divalproex, melatonin at night. DVT: Heparin Charges/Coding Visit Charges Inpatient E&M: 60693 Subs Hosp L2
[2023-12-12] MEDS: Potassium Phosphate 30 MM in 0.9% Normal Saline (250mL Bag) 250 ML 42 MM IV (11:52)
[2023-12-12 15:58] VITALS: BP 124/59; PULSE 75; RESP 15; TEMP 37.3; O2SAT 99
[2023-12-12] MEDS: 0.9% Normal Saline (250mL Bag) 250 ML 15 ML IV (18:10)
--- NOTE | 2023-12-12 20:06 | PCM.RX.CS ---
Consult Antibiotic Management Pharmacy has been consulted to manage selected antibiotic: Vancomycin Type of Intervention Type of Consult: Follow-up Suspected Infection Suspected Infection: Pneumonia and Other (UTI) Prior Doses of Antibiotics Prior Doses of Antibiotics Received/Current Regimen: Vancomycin 500 mg IV given 12/11 @ 818, 12/11 @ 2012, and 12/12 @ 0834 Labs Labs: Sodium 140 mmol/L (136-145) 12/12/23 07:55 Potassium 3.0 mmol/L (3.5-5.1) L 12/12/23 07:55 Chloride 112 mmol/L (98-107) H 12/12/23 07:55 Carbon Dioxide 23.0 mmol/L (21.0-32.0) 12/12/23 07:55 Anion Gap 5 (5-15) 12/12/23 07:55 BUN 19 mg/dL (7-18) H 12/12/23 07:55 Creatinine 0.74 mg/dL (0.55-1.02) 12/12/23 07:55 Est GFR (MDRD) Af Amer 97 mL/min (>60) 12/12/23 07:55 Est GFR (MDRD) Non-Af 80 mL/min (>60) 12/12/23 07:55 BUN/Creatinine Ratio 25.8 RATIO (10-20) H 12/12/23 07:55 Glucose 138 mg/dL (74-106) H 12/12/23 07:55 Vancomycin Trough 15.0 ug/mL (5.0-15.0) 12/12/23 19:28 Random Vancomycin 6.5 ug/mL (0.0-15.0) 12/11/23 05:30 Microbiology Microbiology: Microbiology 12/08/23 16:00 Blood Culture (Wb) - Right Hand Bacteria Detection (PCR) - Final Coag Negative Staph 12/08/23 16:00 Blood Culture (Wb) - Right Hand Blood Culture - Preliminary Coag Negative Staph 12/08/23 16:30 Urine, Catheterized Urine Culture - Final Proteus mirabilis Enterococcus faecalis 12/08/23 16:17 Blood Culture (Wb) - Left Hand Blood Culture - Preliminary 12/08/23 23:07 Mucosa - Nasopharyngeal Respiratory Panel (PCR) - Final 12/08/23 16:30 Urine, Random Legionella Antigen - Final 01/28/24 16:30 Urine, Random Streptococcus pneumoniae Antigen (M - Final 12/08/23 16:37 Mucosa - Nasopharyngeal SARS-CoV-2, Influenza & RSV (PCR) - Final Dosing Weight Weight used for dosin.8 kg Estimated Creatinine Clearance Estimated Creatinine Clearance: ~30 Goal Trough Goal Trough: 15-20 mcg/mL Pharmacy Plan for Drug Dosing Pharmacy Plan for Drug Dosing: Vancomycin trough = 15.0, continue with 500 mg Q12H dosing, trough in 2 days. Pharmacy Service will continue to monitor and adjust dosing as required. Follow-Up Labs Follow-Up Labs: Trough: Vancomycin Date/Time Labs Ordered Labs to be done on [date and time ordered]: 12/14/23 @ 1931
[2023-12-12 21:45] VITALS: BP 130/49; PULSE 76; RESP 18; TEMP 36.9; O2SAT 94
[2023-12-12] MEDS: Cefepime HCl 2 GM in 0.9% Normal Saline (100mL MB+) 100 ML IV (23:10)
[2023-12-12] MEDS: 0.9% Saline Lock 10 ML Syringe IV (23:13)
[2023-12-13] MEDS: Dextrose 5%-Water (1000mL Bag) 1,000 ML 100 ML IV ×3 (00:21→23:10)
[2023-12-13] MEDS: Glycerin/Hypromellose/PEG400 15 ml Bottle 2 DRP EACH EYE (03:49)
[2023-12-13 03:51] VITALS: BP 113/56; PULSE 64; RESP 18; TEMP 36.3; O2SAT 95
[2023-12-13 07:00] VITALS: O2SAT 94
[2023-12-13 07:54] VITALS: BP 123/51; PULSE 64; RESP 12; TEMP 36.6; O2SAT 93
[2023-12-13] MEDS: Vancomycin IV 500 MG/100 ML BAG 100 MG IV ×2 (08:00→20:05)
[2023-12-13 08:16] LABS: Anion Gap 6 (5-15); BUN 14 mg/dL (7-18); BUN/Creat Ratio 23.6 RATIO (10-20); Calcium,Total 8.5 mg/dL (8.5-10.1); Chloride 111 mmol/L (98-107); Creatinine, Serum 0.59 mg/dL (0.55-1.02); EST Glomerular Filtration Rate 103 mL/min (>60); Est Glom Filt Rate - Afr Amer 124 mL/min (>60); Estimated Creatinine Clearance 30.41 ml/min; Glucose 141 mg/dL (74-106); Potassium 3.3 mmol/L (3.5-5.1); Sodium Level 139 mmol/L (136-145)
[2023-12-13 08:35] LABS: Absolute Lymphocyte Count 0.45 X10^3/uL (0.83-4.51); Basophil# 0.04 X10^3/uL; Basophil% 0.4 % (0-1); Hemoglobin 10.5 g/dL (12.0-15.0); Lymphocyte # 0.45 X10^3/ul (0.83-4.51); Lymphocyte % 4.5 % (19-41); Mean Corp Hgb Conc 31.8 g/dL (32-36); Mean Corpuscular Hgb 28.8 pg (27.0-32.0); Mean Corpuscular Volume 90.7 fL (81-99); Mean Platelet Vol. 12.6 fl (6.2-12.0); Monocyte# 0.37 X10^3/uL; Monocyte% 3.7 % (0-10); NRBC Flagged by Analyzer 0 % (0-5); Neutrophil % 89.5 % (47-70); POSITIVE COUNT YES; POSITIVE DIFFERENTIAL YES; Platelet Count 86 K/mm3 (150-450); RBC Distribution Width CV 15.6 % (11.6-14.6); RBC Distribution Width SD 52.3 fl (35.1-43.9); Red Blood Count 3.64 M/mm3 (4.2-5.4); White Blood Count 10.1 K/mm3 (4.4-11.0)
--- NOTE | 2023-12-13 09:06 | CASEMGMT ---
Discharge Planning Updates sent to [place] via [facility]. Krystal Meyer, Discharge Planning Asst.
[2023-12-13 11:52] LABS: Ammonia < 10.0 umol/L (11-32)
--- NOTE | 2023-12-13 12:16 | PCM.PN.HOSP ---
Subjective Subjective Remains unresponsive Objective Data Objective Data Vital Signs: Vital Signs Temp Pulse Resp BP Pulse Ox O2 Del Method O2 Flow Rate 98 F 64 12 123/51 H 93 Nasal Cannula 2 12/13/23 07:54 12/13/23 07:54 12/13/23 07:54 12/13/23 07:54 12/13/23 07:54 12/13/23 08:37 12/13/23 08:37 Oxygen Flow Rate (L/min) 2 Oxygen Delivery Method Nasal Cannula Weight: 81 lb 2.082 oz Body Mass Index (BMI) 15.9 Intake & Output: Intake and Output for Last 24 Hours 12/12/23 12/13/23 12/14/23 03:59 03:59 03:59 Intake Total 2298.33 / 2298.33 2558.92 / 2558.92 100 / 100 Output Total 1250 / 1250 460 / 460 200 / 200 Balance 1048.33 / 1048.33 2098.92 / 2098.92 -100 / -100 Medical Nutrition Assessment Dietitian: Malnutrition Criteria Met Start: 12/09/23 10:56 Freq: Status: Active Protocol: Document 12/09/23 10:57 LO (Rec: 12/09/23 10:57 LO Desktop) Nutrition Malnutrition Evidence of Malnutrition Exists Yes Malnutrition (severe): Chronic Evidenced By Suboptimal Energy Intake ( Severe),Weight Loss (Severe) Clinical Problem Chronic Disease or Condition Related Malnutrition Etiology severe related to inadequate energy intake Signs/Symptoms as evidenced by estimated PO intake meeting <50% of estimated energy needs for >3 months and 19.5% weight loss in 2 months and 6.3% in 1 month per [facility] weight records Status Active Problem Recommendation Dietitian Recommendations/Changes ADAT to Regular diet when medically able to optimize oral intakes. Recommend 120ml EPHP 4x daily with medpass when diet advances. Lab / Micro Data 12/13/23 08:27 12/13/23 06:15 Labs: Laboratory Results - last 24 hr 12/12/23 19:28: Vancomycin Trough 15.0 12/13/23 06:15: WBC Cancelled, Corrected WBC Cancelled, RBC Cancelled, Hgb Cancelled, Hct Cancelled, MCV Cancelled, MCH Cancelled, MCHC Cancelled, RDW Std Deviation Cancelled, RDW Coeff of David Cancelled, Plt Count Cancelled, MPV Cancelled, Immature Gran % (Auto) Cancelled, Neut % (Auto) Cancelled, Lymph % (Auto) Cancelled, [place] % (Auto) Cancelled, Eos % (Auto) Cancelled, Baso % (Auto) Cancelled, Absolute Neuts (auto) Cancelled, Absolute Lymphs (auto) Cancelled, Total Counted Cancelled, Neutrophils % (Manual) Cancelled, Band Neutrophils % Cancelled, Lymphocytes % (Manual) Cancelled, Monocytes % (Manual) Cancelled, Eosinophils % (Manual) Cancelled, Basophils % (Manual) Cancelled, Metamyelocytes % Cancelled, Myelocytes % Cancelled, Promyelocytes % Cancelled, Blast Cells % Cancelled, Plasma Cell % (Manual) Cancelled, Other Cells % Cancelled, Nucleated RBC % Cancelled, Nucleated RBCs/100 WBC Cancelled, Differential Comment Cancelled, Diff Path Review Cancelled, Hypersegmented Neuts Cancelled, Atypical Lymphocytes Cancelled, Reactive Lymphocytes Cancelled, Smudge Cells Cancelled, Toxic Granulation Cancelled, Toxic Vacuolation Cancelled, Dohle Bodies Cancelled, Issa Rods Cancelled, Platelet Estimate Cancelled, Plt Morphology Comment Cancelled, RBC Morphology Cancelled 12/13/23 06:15: RBC Morphology Cancelled, Polychromasia Cancelled, Hypochromasia Cancelled, Poikilocytosis Cancelled, Basophilic Stippling Cancelled, Anisocytosis Cancelled, Microcytosis Cancelled, Macrocytosis Cancelled, Spherocytes Cancelled, Sickle Cells Cancelled, Target Cells Cancelled, Tear Drop Cells Cancelled, Ovalocytes Cancelled, Stomatocytes Cancelled, Williamson-Crugers Bodies Cancelled, [place] Cells Cancelled, Bite Cells Cancelled, Crenated Cell Cancelled, Acanthocytes (Spur) Cancelled, Rouleaux Cancelled, Schistocytes Cancelled, Sodium 139, Potassium 3.3 L, Chloride 111 H, Carbon Dioxide 22.0, Anion Gap 6, BUN 14, Creatinine 0.59, Estim Creat Clear Calc 30.41, Est GFR (MDRD) Af Amer 124, Est GFR (MDRD) Non-Af 103, BUN/Creatinine Ratio 23.6 H, Glucose 141 H, Calcium 8.5 12/13/23 08:27: WBC 10.1, RBC 3.64 L, Hgb 10.5 L, Hct 33.0 L, MCV 90.7 D, MCH 28.8, MCHC 31.8 L D, RDW Std Deviation 52.3 H, RDW Coeff of David 15.6 H, Plt Count 86 L, MPV 12.6 H, Immature Gran % (Auto) 0.900, Neut % (Auto) 89.5 H, Lymph % (Auto) 4.5 L, [place] % (Auto) 3.7, Eos % (Auto) 1.0, Baso % (Auto) 0.4, Absolute Neuts (auto) 9.0 H, Absolute Lymphs (auto) 0.45 L, Nucleated RBC % 0 12/13/23 11:10: Ammonia < 10.0 L Micro: Microbiology 12/08/23 16:00 Blood Culture (Wb) - Right Hand Bacteria Detection (PCR) - Final Coag Negative Staph 12/08/23 16:00 Blood Culture (Wb) - Right Hand Blood Culture - Final Coag Negative Staph 12/08/23 16:17 Blood Culture (Wb) - Left Hand Blood Culture - Preliminary No growth in 48 hours. 12/08/23 16:30 Urine, Catheterized Urine Culture - Final Proteus mirabilis Enterococcus faecalis 12/08/23 23:07 Mucosa - Nasopharyngeal Respiratory Panel (PCR) - Final 12/08/23 16:30 Urine, Random Legionella Antigen - Final 12/08/23 16:30 Urine, Random Streptococcus pneumoniae Antigen (M - Final 12/08/23 16:37 Mucosa - Nasopharyngeal SARS-CoV-2, Influenza & RSV (PCR) - Final Physical Exam Narrative General: Not responsive HEENT: Atraumatic, PERRLA, normocephalic Oral: Moist mucosa Neck: Supple, No JVD Lungs: Diminished, Normal air movement, No rhonchi, No wheeze, No rales Cardiovascular: Regular rate, Regular Rhythm, Normal S1, Normal S2, No murmurs Abdomen: Soft, Non-Distended, No Hepato-splenomegaly Extremities: No edema, Capillary Refill Less than 3 Seconds Skin: No rashes, No breakdown Musculoskeletal: No Tenderness to Palpation of Joints or Extremities Neurological: Cannot follow commands participate in exam Psych/Mental Status: Not responsive Assessment & Plan Assessment/Plan (1) Pneumonia: (2) Acute hypernatremia: (3) Acute dehydration: (4) Elevated troponin: (5) Debility: (6) Dementia: PLAN: Plan 1. Severe dehydration with significant electrolyte abnormalities, elevated lactic acid and non anion gap metabolic acidosis Labs on admit of sodium 162, chloride 135, bicarb 17, anion gap 10, lactate 8.2. Patient with similar lab abnormalities on presentation in October. Presumed secondary to severe dehydration. ? Admit under inpatient status to PCU. Nephrology consulted. Will start D5W 150 mL/hr for now. Follow-up a.m. BMP. Trend lactate. 12/09/2023: Will decrease IV fluids to 100 as daughter states she has a history of heart failure, renal function is improving. I did have a 20-minute discussion with the daughter on advance care planning including what hospice is, it does appear that there is a misunderstanding as to the role hospice would plan her care but that if she does not improve in the next 24 to 48 hours then would consider discharge with hospice 12/10/2023: Renal function is back to baseline, urine culture finalized as Proteus and Enterococcus sensitive to ampicillin continue with her current medications, her blood culture did come back positive with gram-positive cocci in clusters likely contamination but will await finalization it does appear to be in just 1 out of 4 blood culture bottles 12/11/2023: Renal function is back to baseline and she has been on antibiotics for 3 days without any significant improvement in her cognitive function. Will continue to have conversations with family about prognosis and discharge planning 12/12/2023: Replace any electrolyte abnormalities continuing to wait for improvement, family is hesitant to consider hospice at this very moment 12/13/2023: No changes in her electrolytes, ammonia today was obtained and was normal. She has now been admitted for 5 to 6 days without any significant improvement we will continue to discuss hospice with family 2. KURT, hyperkalemia Creatinine 2.75, potassium 5.9 on admit. Baseline creatinine 0.6-0.9. Presumed prerenal KURT from severe dehydration. Fairly minimal urine output reported recently. EKG with no ST changes noted. ? Nephrology consulted as above. Treating with D5W as above. Follow-up a.m. BMP. Monitor urine output. 3. Suspected UTI ? UA showed 500 leukocyte esterase, positive nitrates, 45-50 WBCs, 0 bacteria. Recent urine culture from 11/04/2023 grew pansensitive Pseudomonas. Will treat with cefepime for now, follow-up urine culture. 12/09/2023: Urine cultures with 1000-10,000 CFU's, given her previous history with multiple UTIs we will continue with antibiotics pending finalization of cultures 12/10/2023: Enterococcus and Proteus, continue with antibiotics 4. Suspected healthcare associated pneumonia with unknown organism Chest x-ray on admit showed acute increased pulmonary density in left lung base concerning for pneumonia. WBC count 19 on admit, though significantly concentrated. Reportedly had fevers at nursing facility, no fevers documented since arrival to the ED. COVID/flu/RSV negative. ? Will start vancomycin and cefepime for now. Sputum culture, blood cultures, respiratory PCR panel, urine antigens ordered. 12/09/2023: Continue with IV antibiotics 5. 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 See HPI for further details. PT/OT/case management consulted. Speech therapy and nutrition consulted. Hospice consulted. N.p.o. for now. 6. Elevated troponin ? Troponin 492 on admit, repeat pending. Presumed secondary to severe dehydration as noted above. Trend troponins. Chronic medical conditions: ? Hypertension: Continue home amlodipine and nitrate. Holding hydralazine for now, restart as needed. ? Hyperlipidemia: Continue home statin. ? Mood disorder: Continue home Effexor, divalproex, melatonin at night. DVT: Heparin Charges/Coding Visit Charges Inpatient E&M: 71066 Subs Hosp L2
[2023-12-13] MEDS: Potassium Chloride 10mEq/100mL 10 MEQ/100 ML IV.SOLN. 100 MEQ IV BOLUS ×4 (14:18→18:29)
[2023-12-13 14:22] VITALS: BP 114/47; PULSE 64; RESP 16; TEMP 36.5; O2SAT 94
[2023-12-13] MEDS: Menthol/Lanolin/Calamine/Znox 113 GM Tube 1 APPLIC TOPICAL ×2 (14:52→20:08)
[2023-12-13 21:00] VITALS: BP 125/42; PULSE 82; RESP 16; TEMP 36.6; O2SAT 98
[2023-12-13] MEDS: Cefepime HCl 2 GM in 0.9% Normal Saline (100mL MB+) 100 ML IV (21:55)
[2023-12-13] MEDS: 0.9% Saline Lock 10 ML Syringe IV (21:56)
[2023-12-14 03:15] VITALS: BP 122/56; PULSE 66; RESP 18; TEMP 36.4; O2SAT 93
[2023-12-14 06:59] LABS: Absolute Lymphocyte Count 0.91 X10^3/uL (0.83-4.51); Absolute Neutrophil Count 12.7 X10^3/uL (2.0-7.7); Basophil# 0.05 X10^3/uL; Basophil% 0.3 % (0-1); Eosinophil# 0.21 X10^3/uL; Eosinophils% 1.5 % (0-5); Hematocrit 35.1 % (37-47); Hemoglobin 11.1 g/dL (12.0-15.0); Lymphocyte # 0.91 X10^3/ul (0.83-4.51); Lymphocyte % 6.3 % (19-41); Mean Corp Hgb Conc 31.6 g/dL (32-36); Mean Corpuscular Hgb 28.8 pg (27.0-32.0); Mean Corpuscular Volume 90.9 fL (81-99); Mean Platelet Vol. 12.5 fl (6.2-12.0); Monocyte% 2.8 % (0-10); NRBC Flagged by Analyzer 0 % (0-5); Neutrophil # 12.71 X10^3/uL (2.7-7.7); Neutrophil % 88.1 % (47-70); Platelet Count 154 K/mm3 (150-450); RBC Distribution Width CV 15.7 % (11.6-14.6); RBC Distribution Width SD 52.5 fl (35.1-43.9); Red Blood Count 3.86 M/mm3 (4.2-5.4); White Blood Count 14.4 K/mm3 (4.4-11.0)
[2023-12-14 07:27] LABS: Anion Gap 5 (5-15); BUN 11 mg/dL (7-18); BUN/Creat Ratio 19.2 RATIO (10-20); Calcium,Total 9.1 mg/dL (8.5-10.1); Chloride 110 mmol/L (98-107); Creatinine, Serum 0.57 mg/dL (0.55-1.02); EST Glomerular Filtration Rate 107 mL/min (>60); Est Glom Filt Rate - Afr Amer 129 mL/min (>60); Estimated Creatinine Clearance 30.41 ml/min; Glucose 133 mg/dL (74-106); Phosphorus 2.1 mg/dL (2.5-4.9); Potassium 3.7 mmol/L (3.5-5.1); Sodium Level 139 mmol/L (136-145)
[2023-12-14 07:45] VITALS: O2SAT 93
[2023-12-14 08:03] VITALS: BP 142/71; PULSE 86; RESP 16; TEMP 36.7; O2SAT 94
[2023-12-14] MEDS: Vancomycin IV 500 MG/100 ML BAG 100 MG IV (08:04)
--- NOTE | 2023-12-14 10:21 | PCM.PN.HOSP ---
Subjective Subjective Tried to interact today still nonverbal Objective Data Objective Data Vital Signs: Vital Signs Temp Pulse Resp BP Pulse Ox O2 Del Method O2 Flow Rate 98.0 F 86 16 142/71 H 94 Nasal Cannula 2 12/14/23 08:03 12/14/23 08:03 12/14/23 08:03 12/14/23 08:03 12/14/23 08:03 12/14/23 09:27 12/14/23 09:27 Oxygen Flow Rate (L/min) 2 Oxygen Delivery Method Nasal Cannula Weight: 81 lb 2.082 oz Body Mass Index (BMI) 15.9 Intake & Output: Intake and Output for Last 24 Hours 12/13/23 12/14/23 12/15/23 03:59 03:59 03:59 Intake Total 2558.92 / 2558.92 2700 / 2700 1100 / 1100 Output Total 460 / 460 200 / 200 Balance 2098.92 / 2098.92 2500 / 2500 1100 / 1100 Medical Nutrition Assessment Dietitian: Malnutrition Criteria Met Start: 12/09/23 10:56 Freq: Status: Active Protocol: Document 12/09/23 10:57 LO (Rec: 12/09/23 10:57 LO Desktop) Nutrition Malnutrition Evidence of Malnutrition Exists Yes Malnutrition (severe): Chronic Evidenced By Suboptimal Energy Intake ( Severe),Weight Loss (Severe) Clinical Problem Chronic Disease or Condition Related Malnutrition Etiology severe related to inadequate energy intake Signs/Symptoms as evidenced by estimated PO intake meeting <50% of estimated energy needs for >3 months and 19.5% weight loss in 2 months and 6.3% in 1 month per [facility] weight records Status Active Problem Recommendation Dietitian Recommendations/Changes ADAT to Regular diet when medically able to optimize oral intakes. Recommend 120ml EPHP 4x daily with medpass when diet advances. Lab / Micro Data 12/14/23 06:33 12/14/23 06:33 Labs: Laboratory Results - last 24 hr 12/13/23 11:10: Ammonia < 10.0 L 12/14/23 06:33: WBC 14.4 H, RBC 3.86 L, Hgb 11.1 L, Hct 35.1 L, MCV 90.9, MCH 28.8, MCHC 31.6 L, RDW Std Deviation 52.5 H, RDW Coeff of David 15.7 H, Plt Count 154, MPV 12.5 H, Immature Gran % (Auto) 1.000 H, Neut % (Auto) 88.1 H, Lymph % (Auto) 6.3 L, [place] % (Auto) 2.8, Eos % (Auto) 1.5, Baso % (Auto) 0.3, Absolute Neuts (auto) 12.7 H, Absolute Lymphs (auto) 0.91, Nucleated RBC % 0, Sodium 139, Potassium 3.7, Chloride 110 H, Carbon Dioxide 24.0, Anion Gap 5, BUN 11, Creatinine 0.57, Estim Creat Clear Calc 30.41, Est GFR (MDRD) Af Amer 129, Est GFR (MDRD) Non-Af 107, BUN/Creatinine Ratio 19.2, Glucose 133 H, Calcium 9.1, Phosphorus 2.1 L, Magnesium 2.0 Micro: Microbiology 12/08/23 16:17 Blood Culture (Wb) - Left Hand Blood Culture - Final No growth in 5 days. 12/08/23 16:00 Blood Culture (Wb) - Right Hand Bacteria Detection (PCR) - Final Coag Negative Staph 12/08/23 16:00 Blood Culture (Wb) - Right Hand Blood Culture - Final Coag Negative Staph 12/08/23 16:30 Urine, Catheterized Urine Culture - Final Proteus mirabilis Enterococcus faecalis 12/08/23 23:07 Mucosa - Nasopharyngeal Respiratory Panel (PCR) - Final 12/08/23 16:30 Urine, Random Legionella Antigen - Final 12/08/23 16:30 Urine, Random Streptococcus pneumoniae Antigen (M - Final 12/08/23 16:37 Mucosa - Nasopharyngeal SARS-CoV-2, Influenza & RSV (PCR) - Final Physical Exam Narrative General: Not responsive HEENT: Atraumatic, PERRLA, normocephalic Oral: Moist mucosa Neck: Supple, No JVD Lungs: Diminished, Normal air movement, No rhonchi, No wheeze, No rales Cardiovascular: Regular rate, Regular Rhythm, Normal S1, Normal S2, No murmurs Abdomen: Soft, Non-Distended, No Hepato-splenomegaly Extremities: No edema, Capillary Refill Less than 3 Seconds Skin: No rashes, No breakdown Musculoskeletal: No Tenderness to Palpation of Joints or Extremities Neurological: Cannot follow commands participate in exam Psych/Mental Status: Not responsive Assessment & Plan Assessment/Plan (1) Pneumonia: (2) Acute hypernatremia: (3) Acute dehydration: (4) Elevated troponin: (5) Debility: (6) Dementia: PLAN: Plan 1. Severe dehydration with significant electrolyte abnormalities, elevated lactic acid and non anion gap metabolic acidosis/KURT with an elevated troponin that improved ? Renal function has returned back to baseline but she is still not at her mental baseline. Ammonia was normal ? Continue with aggressive antibiotics with a UTI with nonsignificant CFU's, urine culture with Enterococcus and Proteus ? Possible component of healthcare associated pneumonia however no clear organism as we are unable to get a sputum culture this is also being treated with broad-spectrum antibiotics ? I have had multiple conversations with family they are still hesitant to think about hospice 2. HTN/HLD ? Continue with her home blood pressure medications and will monitor make adjustments as necessary ? Continue with Lipitor 3. Severe dementia with severe malnutrition and cachexia/mood disorder ? I discussed with family the likelihood that her dementia can be worse now given her multiple hospitalizations ? Will continue with her home Depakote as well as memantine ? Continue with Effexor DVT: Heparin Charges/Coding Visit Charges Inpatient E&M: 08363 Subs Hosp L2
[2023-12-14 14:20] VITALS: BP 128/84; PULSE 79; RESP 16; TEMP 36.7; O2SAT 94
[2023-12-14] MEDS: Menthol/Lanolin/Calamine/Znox 113 GM Tube 1 APPLIC TOPICAL ×2 (15:49→22:00)
[2023-12-14] MEDS: Acetaminophen 650 MG Suppository RC (16:20)
[2023-12-14 21:00] VITALS: BP 113/42; PULSE 63; RESP 17; TEMP 36.4; O2SAT 98
[2023-12-14] MEDS: Heparin Injection (Vial) 5,000 UNIT/ML VIAL 5000 UNIT SC (22:00)
[2023-12-15 03:00] VITALS: BP 132/57; PULSE 72; RESP 16; TEMP 36.4; O2SAT 99
[2023-12-15 06:46] LABS: Absolute Lymphocyte Count 0.74 X10^3/uL (0.83-4.51); Absolute Neutrophil Count 14.3 X10^3/uL (2.0-7.7); Basophil# 0.07 X10^3/uL; Basophil% 0.4 % (0-1); Eosinophil# 0.17 X10^3/uL; Eosinophils% 1.1 % (0-5); Hematocrit 32.9 % (37-47); Hemoglobin 10.5 g/dL (12.0-15.0); Lymphocyte # 0.74 X10^3/ul (0.83-4.51); Lymphocyte % 4.7 % (19-41); Mean Corp Hgb Conc 31.9 g/dL (32-36); Mean Corpuscular Hgb 28.8 pg (27.0-32.0); Mean Corpuscular Volume 90.4 fL (81-99); Mean Platelet Vol. 12.1 fl (6.2-12.0); Monocyte# 0.34 X10^3/uL; Monocyte% 2.2 % (0-10); NRBC Flagged by Analyzer 0 % (0-5); Neutrophil # 14.29 X10^3/uL (2.7-7.7); Neutrophil % 90.6 % (47-70); Platelet Count 227 K/mm3 (150-450); RBC Distribution Width CV 15.4 % (11.6-14.6); RBC Distribution Width SD 51.2 fl (35.1-43.9); Red Blood Count 3.64 M/mm3 (4.2-5.4); White Blood Count 15.8 K/mm3 (4.4-11.0)
[2023-12-15 07:30] VITALS: O2SAT 94
[2023-12-15 07:49] LABS: Anion Gap 5 (5-15); BUN 13 mg/dL (7-18); BUN/Creat Ratio 30.5 RATIO (10-20); Chloride 116 mmol/L (98-107); Creatinine, Serum 0.43 mg/dL (0.55-1.02); EST Glomerular Filtration Rate 150 mL/min (>60); Est Glom Filt Rate - Afr Amer 182 mL/min (>60); Estimated Creatinine Clearance 30.41 ml/min; Glucose 82 mg/dL (74-106); Potassium 3.3 mmol/L (3.5-5.1); Sodium Level 144 mmol/L (136-145)
[2023-12-15 08:07] VITALS: BP 109/48; PULSE 78; RESP 24; TEMP 36.6; O2SAT 94
[2023-12-15] MEDS: Glycerin/Hypromellose/PEG400 15 ml Bottle 2 DRP EACH EYE ×2 (08:15→16:38)
[2023-12-15] MEDS: Heparin Injection (Vial) 5,000 UNIT/ML VIAL 5000 UNIT SC ×2 (08:16→21:54)
--- NOTE | 2023-12-15 10:47 | PCM.PN.HOSP ---
Subjective Subjective Not much improved, does track a little bit with the eyes but today did not try to communicate Objective Data Objective Data Vital Signs: Vital Signs Temp Pulse Resp BP Pulse Ox O2 Del Method O2 Flow Rate 97.8 F 78 24 H 109/48 L 94 Nasal Cannula 2 12/15/23 08:07 12/15/23 08:07 12/15/23 08:07 12/15/23 08:07 12/15/23 08:07 12/15/23 08:15 12/15/23 08:15 Oxygen Flow Rate (L/min) 2 Oxygen Delivery Method Nasal Cannula Weight: 81 lb 2.082 oz Body Mass Index (BMI) 15.9 Intake & Output: Intake and Output for Last 24 Hours 12/14/23 12/15/23 12/16/23 03:59 03:59 03:59 Intake Total 2700 / 2700 1337.75 / 1337.75 0 / 0 Output Total 200 / 200 0 / 0 Balance 2500 / 2500 1337.75 / 1337.75 0 / 0 Medical Nutrition Assessment Dietitian: Malnutrition Criteria Met Start: 12/09/23 10:56 Freq: Status: Active Protocol: Document 12/09/23 10:57 LO (Rec: 12/09/23 10:57 LO Desktop) Nutrition Malnutrition Evidence of Malnutrition Exists Yes Malnutrition (severe): Chronic Evidenced By Suboptimal Energy Intake ( Severe),Weight Loss (Severe) Clinical Problem Chronic Disease or Condition Related Malnutrition Etiology severe related to inadequate energy intake Signs/Symptoms as evidenced by estimated PO intake meeting <50% of estimated energy needs for >3 months and 19.5% weight loss in 2 months and 6.3% in 1 month per [facility] weight records Status Active Problem Recommendation Dietitian Recommendations/Changes ADAT to Regular diet when medically able to optimize oral intakes. Recommend 120ml EPHP 4x daily with medpass when diet advances. Lab / Micro Data 12/15/23 05:31 12/15/23 05:28 Labs: Laboratory Results - last 24 hr 12/15/23 05:28: Sodium 144, Potassium 3.3 L, Chloride 116 H, Carbon Dioxide 23.0, Anion Gap 5, BUN 13, Creatinine 0.43 L, Estim Creat Clear Calc 30.41, Est GFR (MDRD) Af Amer 182, Est GFR (MDRD) Non-Af 150, BUN/Creatinine Ratio 30.5 H, Glucose 82, Calcium 10.0 12/15/23 05:31: WBC 15.8 H, RBC 3.64 L, Hgb 10.5 L, Hct 32.9 L, MCV 90.4, MCH 28.8, MCHC 31.9 L, RDW Std Deviation 51.2 H, RDW Coeff of David 15.4 H, Plt Count 227, MPV 12.1 H, Immature Gran % (Auto) 1.000 H, Neut % (Auto) 90.6 H, Lymph % (Auto) 4.7 L, [place] % (Auto) 2.2, Eos % (Auto) 1.1, Baso % (Auto) 0.4, Absolute Neuts (auto) 14.3 H, Absolute Lymphs (auto) 0.74 L, Nucleated RBC % 0 Micro: Microbiology 12/08/23 16:17 Blood Culture (Wb) - Left Hand Blood Culture - Final No growth in 5 days. 12/08/23 16:00 Blood Culture (Wb) - Right Hand Bacteria Detection (PCR) - Final Coag Negative Staph 12/08/23 16:00 Blood Culture (Wb) - Right Hand Blood Culture - Final Coag Negative Staph 12/08/23 16:30 Urine, Catheterized Urine Culture - Final Proteus mirabilis Enterococcus faecalis 12/08/23 23:07 Mucosa - Nasopharyngeal Respiratory Panel (PCR) - Final 12/08/23 16:30 Urine, Random Legionella Antigen - Final 12/08/23 16:30 Urine, Random Streptococcus pneumoniae Antigen (M - Final 12/08/23 16:37 Mucosa - Nasopharyngeal SARS-CoV-2, Influenza & RSV (PCR) - Final Physical Exam Narrative General: Not responsive HEENT: Atraumatic, PERRLA, normocephalic Oral: Moist mucosa Neck: Supple, No JVD Lungs: Diminished, Normal air movement, No rhonchi, No wheeze, No rales Cardiovascular: Regular rate, Regular Rhythm, Normal S1, Normal S2, No murmurs Abdomen: Soft, Non-Distended, No Hepato-splenomegaly Extremities: No edema, Capillary Refill Less than 3 Seconds Skin: No rashes, No breakdown Musculoskeletal: No Tenderness to Palpation of Joints or Extremities Neurological: Cannot follow commands participate in exam Psych/Mental Status: Not responsive Assessment & Plan Assessment/Plan (1) Pneumonia: (2) Acute hypernatremia: (3) Acute dehydration: (4) Elevated troponin: (5) Debility: (6) Dementia: PLAN: Plan 1. Severe dehydration with significant electrolyte abnormalities, elevated lactic acid and non anion gap metabolic acidosis/KURT with an elevated troponin that improved ? Renal function has returned back to baseline but she is still not at her mental baseline. Ammonia was normal ? Continue with aggressive antibiotics with a UTI with nonsignificant CFU's, urine culture with Enterococcus and Proteus. Antibiotics will discontinue tomorrow morning ? Possible component of healthcare associated pneumonia however no clear organism as we are unable to get a sputum culture this is also being treated with broad-spectrum antibiotics ? I have had multiple conversations with family they are still hesitant to think about hospice, after yesterday's conversation with the son assistant speech language pathologist being used they discussed the situation with her brother and they were discussing possibly pursuing TPN as they think that it was a lack of nutrition that is left all this. I discussed with them that placing a PICC line and TPN is not going to fix the current situation and that it would essentially be prolonging the inevitable. There are significant complications associated with TPN including liver disease and it is an only temporary measure, she has not shown any significant signs of improvement while being here. 2. HTN/HLD ? Continue with her home blood pressure medications and will monitor make adjustments as necessary ? Continue with Lipitor 3. Severe dementia with severe malnutrition and cachexia/mood disorder ? I discussed with family the likelihood that her dementia can be worse now given her multiple hospitalizations ? Will continue with her home Depakote as well as memantine ? Continue with Effexor DVT: Heparin Charges/Coding Visit Charges Inpatient E&M: 94917 Subs Hosp L2
[2023-12-15 12:00] VITALS: BP 123/52; PULSE 71; RESP 20; TEMP 36.6; O2SAT 99
[2023-12-15 16:13] VITALS: BP 117/55; PULSE 70; RESP 20; TEMP 36.9; O2SAT 100
[2023-12-15] MEDS: Menthol/Lanolin/Calamine/Znox 113 GM Tube 1 APPLIC TOPICAL ×2 (16:20→21:54)
[2023-12-15] MEDS: Potassium Phosphate 30 MM in 0.9% Normal Saline (250mL Bag) 250 ML 42 MM IV (16:38)
[2023-12-15] MEDS: Dextrose 5%-Water (1000mL Bag) 1,000 ML 100 ML IV (16:38)
--- NOTE | 2023-12-15 17:42 | PCM.RX.CS ---
Consult Antibiotic Management Pharmacy has been consulted to manage selected antibiotic: Vancomycin Type of Intervention Type of Consult: Follow-up Labs Labs: Sodium 144 mmol/L (136-145) 12/15/23 05:28 Potassium 3.3 mmol/L (3.5-5.1) L 12/15/23 05:28 Chloride 116 mmol/L (98-107) H 12/15/23 05:28 Carbon Dioxide 23.0 mmol/L (21.0-32.0) 12/15/23 05:28 Anion Gap 5 (5-15) 12/15/23 05:28 BUN 13 mg/dL (7-18) 12/15/23 05:28 Creatinine 0.43 mg/dL (0.55-1.02) L 12/15/23 05:28 Est GFR (MDRD) Af Amer 182 mL/min (>60) 12/15/23 05:28 Est GFR (MDRD) Non-Af 150 mL/min (>60) 12/15/23 05:28 BUN/Creatinine Ratio 30.5 RATIO (10-20) H 12/15/23 05:28 Glucose 82 mg/dL (74-106) 12/15/23 05:28 Vancomycin Trough 15.0 ug/mL (5.0-15.0) 12/12/23 19:28 Random Vancomycin 6.5 ug/mL (0.0-15.0) 12/11/23 05:30 Microbiology Microbiology: Microbiology 12/08/23 16:17 Blood Culture (Wb) - Left Hand Blood Culture - Final No growth in 5 days. 12/08/23 16:00 Blood Culture (Wb) - Right Hand Bacteria Detection (PCR) - Final Coag Negative Staph 12/08/23 16:00 Blood Culture (Wb) - Right Hand Blood Culture - Final Coag Negative Staph 12/08/23 16:30 Urine, Catheterized Urine Culture - Final Proteus mirabilis Enterococcus faecalis 12/08/23 23:07 Mucosa - Nasopharyngeal Respiratory Panel (PCR) - Final 12/08/23 16:30 Urine, Random Legionella Antigen - Final 12/08/23 16:30 Urine, Random Streptococcus pneumoniae Antigen (M - Final 12/08/23 16:37 Mucosa - Nasopharyngeal SARS-CoV-2, Influenza & RSV (PCR) - Final Pharmacy Plan for Drug Dosing Pharmacy Plan for Drug Dosing: DAILY ASSESSMENT Current Vancomycin Dose: Lost IV line last night so trough was not drawn. Last dose was 12/14 @ 0804. Called nurse Erika this morning to see if PT to get PICC line, unsure as hospice has been talked about but she would update me once a decision has been made. Nurse returned call around 1630, midline has been placed so can now give IV medications, start vanco after K Phos is done. Number of Doses Received: 10 Current Renal Function: SCr 0.43 mg/dL, crcl 30.4 mL/min (using adj scr of 0.8 mg/dL for age) Renal Function Trend: stable, improved Lab/Micro: enterococcus in urine cx Any Change in Vanc Plan: Since patient has missed 2 doses a trough would not be appropriate. Stop date is entered for tomorrow and renal function is stable so will give 2 more doses to complete treatment. Will not order a level as it will be stopped after 2nd dose anyway. Pending Level: none Pharmacy Service will continue to monitor and adjust dosing as required.
[2023-12-15 21:57] VITALS: BP 111/55; PULSE 61; RESP 19; TEMP 36.6; O2SAT 100
[2023-12-15] MEDS: Cefepime HCl 2 GM in 0.9% Normal Saline (100mL MB+) 100 ML IV (22:53)
[2023-12-15] MEDS: Vancomycin IV 500 MG/100 ML BAG 100 MG IV (23:30)
[2023-12-16 01:18] VITALS: BP 130/56; PULSE 68; RESP 18; TEMP 36.6; O2SAT 100
[2023-12-16] MEDS: Dextrose 5%-Water (1000mL Bag) 1,000 ML 100 ML IV ×3 (01:32→20:21)
[2023-12-16 05:29] VITALS: BP 130/62; PULSE 71; RESP 18; TEMP 36.2; O2SAT 98
[2023-12-16] MEDS: Menthol/Lanolin/Calamine/Znox 113 GM Tube 1 APPLIC TOPICAL ×3 (05:34→23:18)
[2023-12-16 06:21] LABS: Basophil# 0.02 X10^3/uL; Basophil% 0.1 % (0-1); Eosinophil# 0.27 X10^3/uL; Hematocrit 30.3 % (37-47); Hemoglobin 9.7 g/dL (12.0-15.0); Lymphocyte % 5.8 % (19-41); Mean Corpuscular Hgb 29.5 pg (27.0-32.0); Mean Corpuscular Volume 92.1 fL (81-99); Mean Platelet Vol. 11.1 fl (6.2-12.0); Monocyte# 0.47 X10^3/uL; Monocyte% 3.4 % (0-10); NRBC Flagged by Analyzer 0 % (0-5); Neutrophil # 11.99 X10^3/uL (2.7-7.7); Neutrophil % 87.7 % (47-70); Platelet Count 303 K/mm3 (150-450); RBC Distribution Width CV 15.7 % (11.6-14.6); RBC Distribution Width SD 52.6 fl (35.1-43.9); Red Blood Count 3.29 M/mm3 (4.2-5.4); White Blood Count 13.7 K/mm3 (4.4-11.0)
[2023-12-16 06:54] LABS: Anion Gap 3 (5-15); BUN 14 mg/dL (7-18); BUN/Creat Ratio 26.2 RATIO (10-20); Calcium,Total 9.2 mg/dL (8.5-10.1); Chloride 110 mmol/L (98-107); Creatinine, Serum 0.54 mg/dL (0.55-1.02); EST Glomerular Filtration Rate 115 mL/min (>60); Est Glom Filt Rate - Afr Amer 140 mL/min (>60); Estimated Creatinine Clearance 30.41 ml/min; Glucose 162 mg/dL (74-106); Magnesium 1.8 mg/dL (1.6-2.6); Phosphorus 3.6 mg/dL (2.5-4.9); Potassium 3.5 mmol/L (3.5-5.1); Sodium Level 136 mmol/L (136-145)
[2023-12-16 07:29] VITALS: O2SAT 93
--- NOTE | 2023-12-16 07:30 | PN.HOSP_ITS ---
Reason for Visit Reason for Visit: Diagnoses Dehydration (12/08/23) Hyperosmolality and hypernatremia (12/08/23) Hyperkalemia (12/08/23) Unspecified dementia, unspecified severity, without behavioral disturbance, psychotic disturbance, mood disturbance, and anxiety (12/08/23) Pneumonia, unspecified organism (12/08/23) Acute kidney failure, unspecified (12/08/23) Other malaise (12/08/23) Other specified abnormalities of plasma proteins (12/08/23) Subjective Subjective The patient remains encephalopathic, noninteractive. Patient vital signs and labs have improved however this is with IV interventions. Patient completed IV antibiotic therapies. Lengthy discussions with family including POA about patient's prognosis and also discussed case with general surgery who noted that she would not be a candidate for a PEG tube solely based on her dementia status to which was relayed to the family. Discussed with family that patient is not a candidate also for TPN. Following lengthy discussions with translator/interpreter family decision including POA for transition back to DNR CC status and reconsultation with hospice program with discharge to a different skilled facility with a different hospice nurse. No obvious evidence of fevers, chills, nausea, emesis, abdominal pain, chest pain or dyspnea but patient cannot give any history. Objective Data Objective Data Vital Signs: Vital Signs Temp Pulse Resp BP Pulse Ox O2 Del Method O2 Flow Rate 97.1 F L 71 18 130/62 H 93 Nasal Cannula 2 12/16/23 05:29 12/16/23 05:29 12/16/23 05:29 12/16/23 05:29 12/16/23 07:29 12/16/23 07:29 12/16/23 07:29 Oxygen Flow Rate (L/min) 2 Oxygen Delivery Method Nasal Cannula Weight: 81 lb 2.082 oz Body Mass Index (BMI) 15.9 Intake & Output: Intake and Output for Last 24 Hours 12/14/23 12/15/23 12/16/23 23:59 23:59 23:59 Intake Total 1337.75 / 1337.75 360 / 360 990 / 990 Output Total 0 / 0 Balance 1337.75 / 1337.75 360 / 360 990 / 990 Medical Nutrition Assessment Dietitian: Malnutrition Criteria Met Start: 12/09/23 10:56 Freq: Status: Active Protocol: Document 12/09/23 10:57 LO (Rec: 12/09/23 10:57 LO Desktop) Nutrition Malnutrition Evidence of Malnutrition Exists Yes Malnutrition (severe): Chronic Evidenced By Suboptimal Energy Intake ( Severe),Weight Loss (Severe) Clinical Problem Chronic Disease or Condition Related Malnutrition Etiology severe related to inadequate energy intake Signs/Symptoms as evidenced by estimated PO intake meeting <50% of estimated energy needs for >3 months and 19.5% weight loss in 2 months and 6.3% in 1 month per [facility] weight records Status Active Problem Recommendation Dietitian Recommendations/Changes ADAT to Regular diet when medically able to optimize oral intakes. Recommend 120ml EPHP 4x daily with medpass when diet advances. Lab / Micro Data 12/16/23 05:16 12/16/23 05:16 Labs: Laboratory Results - last 24 hr 12/15/23 05:28: Sodium 144, Potassium 3.3 L, Chloride 116 H, Carbon Dioxide 23.0, Anion Gap 5, BUN 13, Creatinine 0.43 L, Estim Creat Clear Calc 30.41, Est GFR (MDRD) Af Amer 182, Est GFR (MDRD) Non-Af 150, BUN/Creatinine Ratio 30.5 H, Glucose 82, Calcium 10.0 12/16/23 05:16: WBC 13.7 H, RBC 3.29 L, Hgb 9.7 L, Hct 30.3 L, MCV 92.1, MCH 29.5, MCHC 32.0, RDW Std Deviation 52.6 H, RDW Coeff of David 15.7 H, Plt Count 303, MPV 11.1, Immature Gran % (Auto) 1.000 H, Neut % (Auto) 87.7 H, Lymph % (Auto) 5.8 L, [place] % (Auto) 3.4, Eos % (Auto) 2.0, Baso % (Auto) 0.1, Absolute Neuts (auto) 12.0 H, Absolute Lymphs (auto) 0.80 L, Nucleated RBC % 0, Sodium 136, Potassium 3.5, Chloride 110 H, Carbon Dioxide 23.0, Anion Gap 3 L, BUN 14, Creatinine 0.54 L, Estim Creat Clear Calc 30.41, Est GFR (MDRD) Af Amer 140, Est GFR (MDRD) Non-Af 115, BUN/Creatinine Ratio 26.2 H, Glucose 162 H, Calcium 9.2, Phosphorus 3.6, Magnesium 1.8 Micro: Microbiology 12/08/23 16:17 Blood Culture (Wb) - Left Hand Blood Culture - Final No growth in 5 days. 12/08/23 16:00 Blood Culture (Wb) - Right Hand Bacteria Detection (PCR) - Final Coag Negative Staph 12/08/23 16:00 Blood Culture (Wb) - Right Hand Blood Culture - Final Coag Negative Staph 12/08/23 16:30 Urine, Catheterized Urine Culture - Final Proteus mirabilis Enterococcus faecalis 12/08/23 23:07 Mucosa - Nasopharyngeal Respiratory Panel (PCR) - Final 12/08/23 16:30 Urine, Random Legionella Antigen - Final 12/08/23 16:30 Urine, Random Streptococcus pneumoniae Antigen (M - Final 12/08/23 16:37 Mucosa - Nasopharyngeal SARS-CoV-2, Influenza & RSV (PCR) - Final Physical Exam Narrative Physical Examination: General: Encephalopathic, noninteractive, does not awaken to stimuli, not alert, not oriented, does not follow commands, seated upright in the bed with no acute distress. Skin: Normal color, normal turgor, no icterus, no cyanosis. HEENT: AT/NC, EOM unable to be assessed well given encephalopathy, PERRLA, IMM. Lungs: Diminished, greater bases, shallow breathing, no evidence of any distress, no rales, ronchi or wheezing. Heart: Regular rate and rhythm; no gallop, rub audible. Abdomen: Soft, no grimacing with palpation of the abdomen, no obvious distention, mildly hyperactive BS. Extremities: No cyanosis, no clubbing, no edema, evidence of muscle wasting. Neurological: Encephalopathic, noninteractive, does not awaken to stimuli, not alert, not oriented, does not follow commands, seated upright in the bed with no acute distress, cognitive function not baseline intact but has been declining with significant underlying dementia; pupils equally reactive to light and accommodation, cranial nerves given encephalopathy, will occasionally spontaneously move extremities, strength severely globally decreased but diffic ult to assess. Psychiatric: Affect appears flat, no acute evidence of depressive or anxiety feelings. Assessment & Plan Assessment/Plan (1) Acute hypernatremia: PLAN: Plan The patient is an 83 y/o F w/ PMHx: HTN, HLD, Chronic anemia, Dementia unclear type with unclear behavioral disturbance history with mood disorder, Former tobacco use, serial re-admissions for poor oral intake with electrolyte disturbances, re-presented to the [facility] ED on 12/08/23 with Hospice revoked per family with again poor intake and abnormal labs. 1. Severe dehydration with significant electrolyte abnormalities, non-anion gap metabolic acidosis: Admission labs included sodium 162, chloride 135, bicarb 17, anion gap 10, lactic acid 8.2 with similar presentation in October presumed secondary to severe dehydration, continued on dextrose 5% W IV fluids, continue to monitor electrolytes which have improved since presentation, family had been eager for PICC line with TPN however given patient's situation would more likely benefit from PEG tube, discussed case with general surgery and she is not candidate for PEG tube for underlying poor intake secondary to her dementia which was discussed with family, 12/16/23 lengthy discussions with transition back to DNR-CC status, hospice re-consulted, if able would be great IUP candidate otherwise will plan alternate SNF with hospice care and family will assist in her daily feeds per their discretion. 2. Acute kidney injury with hyperkalemia: Secondary to poor intake. Admission creatinine 2.75, potassium at that time 5.9, prior baseline creatinine noted to be 0.6-0.9, hydrated, urine output monitored although decreased, EKG with no concerning changes given concurrent hyperkalemia, nephrology consulted, treated with judicious IV fluids, 12/16/2023 BUN/creatinine 14/0.54, potassium 3.5, resolved. Given DNR-CC transition will stop further labs. 3. Enterococcal and Proteus complicated UTI versus chronic colonization: Urinalysis with 500 leukocyte esterase, positive nitrite, urine WBCs 45-50, recent urine culture 11/04/2023 with pansensitive Pseudomonas, initiated with cefepime, 12/09/2023 urine culture 1000-10,000 CFU, 12/10/2023 urine culture with Enterococcus and Proteus however both were 1000-10,000 colony-forming units thus potentially certainly could be primarily colonization given patient history. Completed abx therapy 12/16/23 with IV cefepime and IV vancomycin given #4. Holding further lab assessment given DNR-CC/hospice transition. 4. Suspected HCAP, unclear organism, possibly gram-negative/gram-positive organism: Admission chest x-ray with increased pulmonary density left base concerning for pneumonia, WC upon presentation 19 although significantly dehydrated, fevers reportedly at skilled, COVID/flu/RSV negative, treated with vancomycin and cefepime, urine antigens negative, full respiratory viral panel negative, will complete antibiotic therapy 12/16/2023. Holding further lab assessment given DNR-CC/hospice transition. 5. Adult failure to thrive, multifactorial: Patient would benefit from transition to hospice, serial presentation with significant disturbances, maintain on fall and aspiration precaution, therapies as well as case management consulted. Family has been resistant to consideration of hospice following lengthy discussion plan to return to DNR-CC status with Hospice resumption. 6. Chronic anemia, normocytic: Admission hemoglobin 15 however significantly dehydrated, most recent repeat 12/16/2023 9.7, baseline primarily 9-11 range, continue to trend. 7. Dementia unclear type with unclear both behavioral disturbance history complicated by underlying mood disorder: We will continue patient home memantine, Depakote home regimen, prior list had also been on venlafaxine, clarifying. 8. Hypertension: Continue home regimen including amlodipine, isosorbide, PRN hydralazine. 9. Hyperlipidemia: We will continue show on statin therapy. 10. Former tobacco use: Encourage continued tobacco cessation. 11. DVT prophylaxis: Heparin. 12. CODE status: Patient HCPOA is and living will is place. Discussed CODE status at length including difference between FULL code, DNR-CCA and DNR-CC status. Following discussions about the differences in these status, requested transition back to DNR CC status with hospice consultation with plan to transition back into the hospice program possibly in the inpatient unit versus alternate skilled facility with hospice. Advanced Care Planning Face to Face Time: 25 minutes. Charges/Coding Visit Charges Inpatient E&M: 12491 Subs Hosp L3 Procedures Hospitalists Procedures: 11546 Advncd Care Plan 30 Min
[2023-12-16] MEDS: Heparin Injection (Vial) 5,000 UNIT/ML VIAL 5000 UNIT SC ×2 (08:28→23:18)
--- NOTE | 2023-12-16 10:22 | NURSING ---
Pt's daughter to nursing station, stating, mom is now awake , please let ST know to come see her. ST notified. ST on another floor but will call an associate to see if they can come see pt.
[2023-12-16 11:15] VITALS: BP 108/48; PULSE 58; RESP 18; TEMP 36.5; O2SAT 97
[2023-12-16] MEDS: Vancomycin IV 500 MG/100 ML BAG 100 MG IV (11:16)
--- NOTE | 2023-12-16 11:21 | CASEMGMT ---
Patient's Healthcare Power of Stock Replenisher (HCPOA) is not on file at [facility]. SW spoke with both of patient's daughters and let them know [facility] does not have a copy of the HCPOA. SW asked if a copy could be brought in to [facility]. Patient's daughter Brionna said she will have to go home and get the documents. SW thanked them. Mary Najera OB GYN MARIE
--- NOTE | 2023-12-16 14:41 | CASEMGMT ---
Physician spoke with patient's daughters Brionna and Jo. A jewelry designer was used for Brionna as she is hearing impaired. After discussion Brionna and Jo agreed to patient going on Hospice. They would like patient to go to the inpatient Hospice unit. SW called [facility] and made a referral. STEPHAN also faxed information. Mary SALAZAR
--- NOTE | 2023-12-16 15:54 | CASEMGMT ---
SW called Hospice to check on status of referral. SW was informed referral is up for scheduling. Therefore, someone should be contacting family to set up an appt. Mary SALAZAR
[2023-12-17] MEDS: Dextrose 5%-Water (1000mL Bag) 1,000 ML 100 ML IV (05:52)
[2023-12-17] MEDS: Menthol/Lanolin/Calamine/Znox 113 GM Tube 1 APPLIC TOPICAL (05:53)
[2023-12-17] MEDS: Glycerin/Hypromellose/PEG400 15 ml Bottle 2 DRP EACH EYE (05:54)
--- NOTE | 2023-12-17 06:23 | PCM.PN.HOSP ---
Reason for Visit Reason for Visit: Diagnoses Dehydration (12/08/23) Hyperosmolality and hypernatremia (12/08/23) Hyperkalemia (12/08/23) Unspecified dementia, unspecified severity, without behavioral disturbance, psychotic disturbance, mood disturbance, and anxiety (12/08/23) Pneumonia, unspecified organism (12/08/23) Acute kidney failure, unspecified (12/08/23) Other malaise (12/08/23) Other specified abnormalities of plasma proteins (12/08/23) Subjective Subjective Patient overnight with no acute events per staff and per family report. This morning she is much more interactive only she is more awake and will eat food if you bring it to her mouth but she will not follow any specific commands nor will she overt her eyes from staring straight forward and is otherwise noninteractive. Patient tolerated oral intake with honey thickened items this a.m. Patient any evidence of fevers, chills, nausea, emesis, abdominal pain, chest pain or dyspnea. Objective Data Objective Data Vital Signs: Vital Signs Temp Pulse Resp BP Pulse Ox O2 Del Method O2 Flow Rate 97.7 F L 58 L 18 108/48 L 97 Nasal Cannula 2 12/16/23 11:15 12/16/23 11:15 12/16/23 11:15 12/16/23 11:15 12/16/23 11:15 12/17/23 05:56 12/17/23 05:56 Oxygen Flow Rate (L/min) 2 Oxygen Delivery Method Nasal Cannula Weight: 81 lb 2.082 oz Body Mass Index (BMI) 15.9 Intake & Output: Intake and Output for Last 24 Hours 12/15/23 12/16/23 12/17/23 23:59 23:59 23:59 Intake Total 360 / 360 2973.66 / 2973.66 951.67 / 951.67 Output Total 0 / 0 Balance 360 / 360 2973.66 / 2973.66 951.67 / 951.67 Medical Nutrition Assessment Dietitian: Malnutrition Criteria Met Start: 12/09/23 10:56 Freq: Status: Active Protocol: Document 12/16/23 15:19 RMA (Rec: 12/16/23 15:20 RMA [id number]) Nutrition Malnutrition Evidence of Malnutrition Exists Yes Malnutrition (severe): Chronic Evidenced By Suboptimal Energy Intake ( Severe),Weight Loss (Severe) Clinical Problem Chronic Disease or Condition Related Malnutrition Etiology severe related to inadequate energy and oral intake Signs/Symptoms as evidenced by estimated PO intake meeting <50% of estimated energy needs for >3 months and 19.5% weight loss in 2 months and 6.3% in 1 month per [facility] weight records; extended NPO x 8 days Status Active Problem Recommendation Dietitian Recommendations/Changes In view of extended NPO and inability to take oral nutrition, agree with PEG for enteral nutrition support. Upon placement of PEG tube for enteral nutrition support, recommend start TF with Jevity 1.5 Carloz @ 15mL/hr and increase rate as tolerated by 10mL/hr Q 8-12 hours until goal rate of 35mL/hr achieved. Flush with 120 mL water Q 4 hours. TF at goal rate and water flushes will provide 1260 kcal, 54 gm protein and 1358 mL free water per day. Once enteral nutrition support initiated, will adjust TF as needed and monitor for signs/ symptoms of refeeding syndrome . Lab / Micro Data 12/16/23 05:16 12/16/23 05:16 Labs: Laboratory Results - last 24 hr 12/16/23 05:16: WBC 13.7 H, RBC 3.29 L, Hgb 9.7 L, Hct 30.3 L, MCV 92.1, MCH 29.5, MCHC 32.0, RDW Std Deviation 52.6 H, RDW Coeff of David 15.7 H, Plt Count 303, MPV 11.1, Immature Gran % (Auto) 1.000 H, Neut % (Auto) 87.7 H, Lymph % (Auto) 5.8 L, [place] % (Auto) 3.4, Eos % (Auto) 2.0, Baso % (Auto) 0.1, Absolute Neuts (auto) 12.0 H, Absolute Lymphs (auto) 0.80 L, Nucleated RBC % 0, Sodium 136, Potassium 3.5, Chloride 110 H, Carbon Dioxide 23.0, Anion Gap 3 L, BUN 14, Creatinine 0.54 L, Estim Creat Clear Calc 30.41, Est GFR (MDRD) Af Amer 140, Est GFR (MDRD) Non-Af 115, BUN/Creatinine Ratio 26.2 H, Glucose 162 H, Calcium 9.2, Phosphorus 3.6, Magnesium 1.8 Micro: Microbiology 12/08/23 16:17 Blood Culture (Wb) - Left Hand Blood Culture - Final No growth in 5 days. 12/08/23 16:00 Blood Culture (Wb) - Right Hand Bacteria Detection (PCR) - Final Coag Negative Staph 12/08/23 16:00 Blood Culture (Wb) - Right Hand Blood Culture - Final Coag Negative Staph 12/08/23 16:30 Urine, Catheterized Urine Culture - Final Proteus mirabilis Enterococcus faecalis 12/08/23 23:07 Mucosa - Nasopharyngeal Respiratory Panel (PCR) - Final 12/08/23 16:30 Urine, Random Legionella Antigen - Final 12/08/23 16:30 Urine, Random Streptococcus pneumoniae Antigen (M - Final 12/08/23 16:37 Mucosa - Nasopharyngeal SARS-CoV-2, Influenza & RSV (PCR) - Final Physical Exam Narrative Physical Examination: General: Patient is more alert but still not interactive, not answering any questions, nonverbal, he is staring straight ahead watching TV and will allow people to put food in her mouth but otherwise not responsive to any interaction. Skin: Normal color, normal turgor, no icterus, no cyanosis except occasional staged ecchymoses. HEENT: AT/NC, EOM unable to be assessed as patient will not follow any commands, PERRLA, mildly improved MM, still dry. Lungs: Diminished, greater bases, shallow breathing, no evidence of any distress, no rales, ronchi or wheezing. Heart: Regular rate and rhythm; no gallop, rub audible. Abdomen: Soft, no grimacing with palpation of the abdomen, no obvious distention, normalized BS. Extremities: No cyanosis, no clubbing, no edema, evidence of muscle wasting. Neurological: Patient is more alert but still not interactive, not answering any questions, nonverbal, he is staring straight ahead watching TV and will allow people to put food in her mouth but otherwise not responsive to any interaction, cognitive function not baseline intact but has been declining with significant underlying dementia; pupils equally reactive to light and accommodation, cranial nerves grossly appear normal but difficult to examine as not following any commands, strength severely globally decreased but difficult to assess. Psychiatric: Affect appears flat, no acute evidence of depressive or anxiety feelings. Assessment & Plan Assessment/Plan (1) Acute hypernatremia: PLAN: Plan The patient is an 83 y/o F w/ PMHx: HTN, HLD, Chronic anemia, Dementia unclear type with unclear behavioral disturbance history with mood disorder, Former tobacco use, serial re-admissions for poor oral intake with electrolyte disturbances, re-presented to the [facility] ED on 12/08/23 with Hospice revoked per family with again poor intake and abnormal labs. 1. Severe dehydration with significant electrolyte abnormalities, non-anion gap metabolic acidosis: Admission labs included sodium 162, chloride 135, bicarb 17, anion gap 10, lactic acid 8.2 with similar presentation in October presumed secondary to severe dehydration, continued on dextrose 5% W IV fluids, continue to monitor electrolytes which have improved since presentation, family had been eager for PICC line with TPN however given patient's situation would more likely benefit from PEG tube, discussed case with general surgery and she is not candidate for PEG tube for underlying poor intake secondary to her dementia which was discussed with family, 12/16/23 lengthy discussions with transition back to DNR-CC status, hospice re-consulted, awaiting their evaluation 12/17/23 taking po that is modified but still not interactive and nonverbal. Given her current status likely will need hospice at SNF, unclear timeline as still awaiting Hospice evaluation also. 2. Acute kidney injury with hyperkalemia: Secondary to poor intake. Admission creatinine 2.75, potassium at that time 5.9, prior baseline creatinine noted to be 0.6-0.9, hydrated, urine output monitored although decreased, EKG with no concerning changes given concurrent hyperkalemia, nephrology consulted, treated with judicious IV fluids, 12/16/2023 BUN/creatinine 14/0.54, potassium 3.5, resolved. Given DNR-CC transition will stop further labs. 3. Enterococcal and Proteus complicated UTI versus chronic colonization: Urinalysis with 500 leukocyte esterase, positive nitrite, urine WBCs 45-50, recent urine culture 11/04/2023 with pansensitive Pseudomonas, initiated with cefepime, 12/09/2023 urine culture 1000-10,000 CFU, 12/10/2023 urine culture with Enterococcus and Proteus however both were 1000-10,000 colony-forming units thus potentially certainly could be primarily colonization given patient history. Completed abx therapy 12/16/23 with IV cefepime and IV vancomycin given #4. Holding further lab assessment given DNR-CC/hospice transition. 4. Suspected HCAP, unclear organism, possibly gram-negative/gram-positive organism: Admission chest x-ray with increased pulmonary density left base concerning for pneumonia, WC upon presentation 19 although significantly dehydrated, fevers reportedly at skilled, COVID/flu/RSV negative, treated with vancomycin and cefepime, urine antigens negative, full respiratory viral panel negative, will complete antibiotic therapy 12/16/2023. Holding further lab assessment given DNR-CC/hospice transition. 5. Adult failure to thrive, multifactorial:Patient HCPOA is and living will is place. 12/17/23 transition back to DNR CC status with hospice consultation with plan to transition back into the hospice program at [facility] with hospice. 6. Chronic anemia, normocytic: Admission hemoglobin 15 however significantly dehydrated, most recent repeat 12/16/2023 9.7, baseline primarily 9-11 range. Holding further lab assessment given DNR-CC/hospice transition. 7. Dementia unclear type with unclear both behavioral disturbance history complicated by underlying mood disorder: We will continue patient home memantine, Depakote home regimen. 8. Hypertension: Continue home regimen including amlodipine, isosorbide, PRN hydralazine. 9. Hyperlipidemia: We will continue show on statin therapy. 10. Former tobacco use: Encourage continued tobacco cessation. 11. DVT prophylaxis: Stop heparin given DNR-CC transition 12. CODE status: Patient HCPOA is and living will is place. 12/17/23 transition back to DNR CC status with hospice consultation with plan to transition back into the hospice program at [facility] with hospice. Charges/Coding Visit Charges Inpatient E&M: 87254 [facility] Hosp L2
[2023-12-17 07:27] VITALS: O2SAT 94
[2023-12-17 08:16] VITALS: BP 150/69; PULSE 63; RESP 14; TEMP 36.7; O2SAT 98
[2023-12-17] MEDS: Memantine Hydrochloride 10 MG Tablet PO (08:30)
[2023-12-17] MEDS: Heparin Injection (Vial) 5,000 UNIT/ML VIAL 5000 UNIT SC (08:30)
[2023-12-17] MEDS: amLODIPine 10 MG Tablet PO (08:30)
--- NOTE | 2023-12-17 08:42 | CASEMGMT ---
SW called Hospice to check on status of referral. Per Hospice they are waiting on a return call from patient's daughter Brionna. SW also gave them patient's other daughter Jo's name and phone number to call. Mary SALAZAR
--- NOTE | 2023-12-17 10:26 | CASEMGMT ---
Hospice is at [facility] to talk with patient's family. Mary Najera ENVIRONMENTAL PROJECTS ADVISOR MARIE
--- NOTE | 2023-12-17 11:15 | CASEMGMT ---
Hospice is unsure patient will qualify for the inpatient unit. However, the RN will try. SW spoke with patient and her sister Jo. Jo was on the phone and the interactive media designer was used via the ipad. SW asked if patient does not get approved for the inpatient unit do they want her to go back to [facility] or go to a new place? They were not sure. SW provided them with a list of?residential facility providers including quality and resource use data and consistent with patient?s preferred geographic region, medical needs, and insurance network were provided from the [facility] Guide. Jo said Brionna can take a picture of the list and send it to her and they can then discuss it. SW will check back. Mary SALAZAR
--- NOTE | 2023-12-17 12:31 | CASEMGMT ---
Patient was approved for the inpatient Hospice unit. [facility] will let [facility] know. Mary SALAZAR
--- NOTE | 2023-12-17 12:43 | PCM.DC.SUM ---
Providers Date of Admission: 12/08/23 Date of Discharge: 12/17/23 Primary Care Physician: Dr. Fuentes Vergara MD Consultations 12/08/23 21:31 Consult: Hospice / Palliative Care Routine Consulting Provider: [facility] Reason for Consult: On hospice, family requesting aggressive treatment EMERGENT Consult: No Notified: Yes Date Notified: 12/12/23 Time Notified: 10:37 Method of Notification: Verbal Comments:: Notified, family to decide Consult: Nephrology Routine Consulting Provider: Peg Peterson Reason for Consult: Severe hypernatremia EMERGENT Consult: No Notified: Yes Date Notified: 12/09/23 Time Notified: 06:49 Method of Notification: Answering Service 12/13/23 17:36 Consult: Onc/Wound/lay midwife Routine Comment: Reason for Consult:: open area to L upper buttock 12/16/23 14:35 Consult: Hospice / Palliative Care Routine Consulting Provider: [facility] Reason for Consult: Consideration [facility]UP vs hospice SNF (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 Severe dehydration with significant electrolyte abnormalities, non-anion gap metabolic acidosis 2. Acute kidney injury with hyperkalemia 3. Enterococcal and Proteus complicated UTI versus chronic colonization 4. Suspected HCAP, unclear organism, possibly gram-negative/gram-positive organism 5. Adult failure to thrive, multifactorial 6. Chronic anemia, normocytic 7. Dementia unclear type with unclear both behavioral disturbance history complicated by underlying mood disorder 8. Hypertension 9. Hyperlipidemia 10. Former tobacco use Medications at Discharge Home Medications isosorbide mononitrate 60 mg tablet,extended release 24 hr 60 mg PO DAILY heart 07/06/22 memantine 10 mg tablet 10 mg PO BID alzheimers 07/06/22 nitroglycerin 0.4 mg sublingual tablet 0.4 mg sublingual Q5M PRN Chest Pain 07/06/22 atorvastatin 10 mg tablet 10 mg PO QHS 12/01/22 cholecalciferol (vitamin D3) 50 mcg (2,000 unit) capsule 50 mcg PO DAILY 12/01/22 amlodipine 10 mg tablet 10 mg PO DAILY #0 tabs 12/05/22 venlafaxine 75 mg capsule,extended release 24 hr (Effexor XR) 75 mg PO DAILY 01/20/23 hydralazine 50 mg tablet 50 mg PO TID 07/02/23 divalproex 125 mg tablet,delayed release 125 mg PO TID 09/29/23 melatonin 3 mg tablet 3 mg PO QHS sleep 09/29/23 [id number]-calcium-mins 1 tab PO DAILY vitamin 09/29/23 menthol 0.44 %-zinc oxide 20.6 % topical ointment (Calmoseptine) 1 applic topical TID #0 grams 10/04/23 potassium chloride 20 mEq tablet,extended release(part/cryst) (Klor-Con M) 20 meq PO BIDCM #0 tabs 10/04/23 acetaminophen 500 mg tablet (Acetaminophen Extra Strength) 1,000 mg PO Q8H PRN fever or pain 11/04/23 bisacodyl 10 mg rectal suppository 10 mg ID DAILY PRN constipation 11/04/23 magnesium hydroxide 400 mg/5 mL oral suspension (Milk of Magnesia) 30 ml PO DAILY PRN constipation 11/04/23 magnesium oxide 400 mg PO DAILY 11/04/23 mineral oil (Fleet Mineral Oil enema) 118 ml ID DAILY PRN constipation 11/04/23 hyoscyamine sulfate 0.125 mg tablet (Levsin) 0.125 mg PO Q4H PRN terminal secretions 12/08/23 lorazepam 0.5 mg tablet 0.5 mg buccal Q2H PRN restlessness or anxiety 12/08/23 lorazepam 0.5 mg tablet 0.5 mg buccal Q4H restlessness and anxiety 12/08/23 morphine concentrate 100 mg/5 mL (20 mg/mL) oral solution 5 mg PO Q4H PRN pain or dyspnea 12/08/23 morphine concentrate 100 mg/5 mL (20 mg/mL) oral solution 5 mg PO Q4H pain or dyspnea 12/08/23 sennosides 8.6 mg-docusate sodium 50 mg tablet (Senna with Docusate Sodium) 1 tab-cap PO DAILY PRN constipation 12/08/23 Hospital Course Operations None Procedures EKG Summary of Care Provided Minutes Spent on Discharge: 35 Hospital Course: The patient is an 83 y/o F w/ PMHx: HTN, HLD, Chronic anemia, Dementia unclear type with unclear behavioral disturbance history with mood disorder, Former tobacco use, serial re-admissions for poor oral intake with electrolyte disturbances, re-presented to the [facility] ED on 12/08/23 with Hospice revoked per family with again poor intake and abnormal labs. Admission labs included sodium 162, chloride 135, bicarb 17, anion gap 10, lactic acid 8.2 with similar presentation in October presumed secondary to severe dehydration, continued on dextrose 5% W IV fluids, continue to monitor electrolytes which have improved since presentation, family had been eager for PICC line with TPN however given patient's situation would more likely benefit from PEG tube, discussed case with general surgery and she is not candidate for PEG tube for underlying poor intake secondary to her dementia which was discussed with family, 12/16/23 lengthy discussions with transition back to DNR-CC status, hospice re-consulted. Admission creatinine 2.75, potassium at that time 5.9, prior baseline creatinine noted to be 0.6-0.9, hydrated, urine output monitored although decreased, EKG with no concerning changes given concurrent hyperkalemia, nephrology consulted, treated with judicious IV fluids, 12/16/2023 BUN/creatinine 14/0.54, potassium 3.5, resolved. Urinalysis with 500 leukocyte esterase, positive nitrite, urine WBCs 45-50, recent urine culture 11/04/2023 with pansensitive Pseudomonas, initiated with cefepime, 12/09/2023 urine culture 1000-10,000 CFU, 12/10/2023 urine culture with Enterococcus and Proteus however both were 1000-10,000 colony-forming units thus potentially certainly could be primarily colonization given patient history. Completed abx therapy 12/16/23 with IV cefepime and IV vancomycin. Admission chest x-ray with increased pulmonary density left base concerning for pneumonia, WC upon presentation 19 although significantly dehydrated, fevers reportedly at skilled, COVID/flu/RSV negative, treated with vancomycin and cefepime, urine antigens negative, full respiratory viral panel negative, completed antibiotic therapy 12/16/2023. Admission hemoglobin 15 however was significantly dehydrated, most recent repeat 12/16/2023 9.7, baseline primarily 9-11 range, further labs held given DNR-CC/hospice transition. 12/17/23 transition back to DNR CC status with hospice consultation with acceptance to the inpatient unit. Medical Records Data Medical Nutrition Assessment Dietitian: Malnutrition Criteria Met Start: 12/09/23 10:56 Freq: Status: Active Protocol: Document 12/17/23 12:12 RMA (Rec: 12/17/23 12:12 RMA [id number]) Nutrition Malnutrition Evidence of Malnutrition Exists Yes Malnutrition (severe): Chronic Evidenced By Suboptimal Energy Intake ( Severe),Weight Loss (Severe), Physical Changes (Severe) Clinical Problem Chronic Disease or Condition Related Malnutrition Etiology severe related to inadequate energy and oral intake Signs/Symptoms as evidenced by estimated PO intake meeting <50% of estimated energy needs for >3 months and 19.5% weight loss in 2 months and 6.3% in 1 month per [facility] weight records; extended NPO x 8 days Status Active Problem Recommendation Dietitian Recommendations/Changes Hospice referral noted; consult RD as needed. Weight / BMI Weight Weight: 81 lb 2.082 oz Body Mass Index (BMI) 15.9 ABG / Lab / Microbiology Data 12/16/23 05:16 12/16/23 05:16 Microbiology: Microbiology 12/08/23 16:17 Blood Culture (Wb) - Left Hand Blood Culture - Final No growth in 5 days. 12/08/23 16:00 Blood Culture (Wb) - Right Hand Bacteria Detection (PCR) - Final Coag Negative Staph 12/08/23 16:00 Blood Culture (Wb) - Right Hand Blood Culture - Final Coag Negative Staph 12/08/23 16:30 Urine, Catheterized Urine Culture - Final Proteus mirabilis Enterococcus faecalis 12/08/23 23:07 Mucosa - Nasopharyngeal Respiratory Panel (PCR) - Final 12/08/23 16:30 Urine, Random Legionella Antigen - Final 12/08/23 16:30 Urine, Random Streptococcus pneumoniae Antigen (M - Final 12/08/23 16:37 Mucosa - Nasopharyngeal SARS-CoV-2, Influenza & RSV (PCR) - Final Meaningful Use Info Meaningful Use Diagnoses (Choose all that apply): None applicable Discharge Plan Admission Admit Date/Time: 12/08/23 19:32 Primary Reason for Your Visit: Electrolyte disturbances, Metabolic acidosis, KURT, UTI, HCAP Attending Provider: Trudy White Primary Care Provider: Fuentes Vergara Consulting Providers: Peg Peterson; Narinder Hoyos; Morgan Dowell; Tammy Tucker; Brionna Navarro; Mica Hayes NP; Steven Downey Discharge Orders/Prescriptions Prescriptions: No Action isosorbide mononitrate 60 mg tablet extended release 24 hr 60 mg PO DAILY nitroglycerin 0.4 mg tablet, sublingual 0.4 mg sublingual Q5M PRN (Reason: Chest Pain) memantine 10 mg tablet 10 mg PO BID Patient Comments: TAKE 1 TABLET BY MOUTH TWICE DAILY atorvastatin 10 mg tablet 10 mg PO QHS cholecalciferol (vitamin D3) 50 mcg (2,000 unit) Capsule 50 mcg PO DAILY amlodipine 10 mg Tablet 10 mg PO DAILY Qty: 0 0RF venlafaxine [Effexor XR] 75 mg Capsule,Extended Release 24hr 75 mg PO DAILY hydralazine 50 mg Tablet 50 mg PO TID divalproex 125 mg tablet,delayed release (DR/EC) 125 mg PO TID melatonin 3 mg tablet 3 mg PO QHS [id number]-[id number]-calcium-mins 1 tab PO DAILY potassium chloride [Klor-Con M20] 20 mEq Tablet,Er Particles/Crystals 20 meq PO BIDCM Qty: 0 0RF menthol-zinc oxide [Calmoseptine] 0.44-20.6 % Ointment 1 applic topical TID Qty: 0 0RF Protocol: *Topical Application Instructions APPLICATION INSTRUCTIONS: Apply to affected areas bisacodyl 10 mg suppository 10 mg ID DAILY PRN (Reason: constipation) Rx Instructions: ADMINISTER ONCE DAILY AT HS IF NO BM 8 HOURS AFTER MOM ADMINISTRATION acetaminophen [Acetaminophen Extra Strength] 500 mg tablet 1,000 mg PO Q8H PRN (Reason: fever or pain) mineral oil [Fleet Mineral Oil] Enema 118 ml ID DAILY PRN (Reason: constipation) Rx Instructions: ADMINISTER ONCE DAILY IF NO BM 8 HOURS AFTER RECIEVING SUPPOSITORY. IF NO BM WITHIN 1 HOUR AFTER RECIEVING ENEMA NOTIFY MD. magnesium oxide 400 mg magnesium capsule 400 mg PO DAILY magnesium hydroxide [Milk of Magnesia] 400 mg/5 mL suspension 30 ml PO DAILY PRN (Reason: constipation) Rx Instructions: ADMINISTER PER BOWEL PROTOCOL ONCE DAILY IF NO BM IN 3 CONSECUTIVE DAYS lorazepam 0.5 mg tablet 0.5 mg buccal Q4H Rx Instructions: administer 1 tab (0.5mg) buccal or rectally Q4H scheduled for restlessness and anxiety lorazepam 0.5 mg tablet 0.5 mg buccal Q2H PRN (Reason: restlessness or anxiety) Rx Instructions: administer 1 tab (0.5mg) buccal or rectally Q2H as needed for restlessness or anxiety hyoscyamine sulfate [Levsin] 0.125 mg tablet 0.125 mg PO Q4H PRN (Reason: terminal secretions ) Rx Instructions: give one tab (0.125mg) orally Q4H PRN for terminal secretions morphine concentrate 100 mg/5 mL (20 mg/mL) solution 5 mg PO Q4H PRN (Reason: pain or dyspnea) Rx Instructions: give 0.25ml (5mg) orally Q4H PRN for pain/SOB, or if unable to give orally, give 0.25ml rectally via Amira catheter, Q1H PRN pain or dyspnea morphine concentrate 100 mg/5 mL (20 mg/mL) solution 5 mg PO Q4H sennosides-docusate sodium [Senna with Docusate Sodium] 8.6-50 mg tablet 1 tab-cap PO DAILY PRN (Reason: constipation) Referrals / Follow Up: Fuentes Vergara MD [Primary Care Provider] - Disposition Disposition (needs filled in before D/C Order can be placed): Hospice in Medical Facility Charges/Coding Visit Charges Inpatient E&M: 18857 Disch Hosp >30min
[2023-12-17 14:10] VITALS: BP 142/54; PULSE 56; RESP 18; TEMP 36.7; O2SAT 97
--- NOTE | 2023-12-17 14:37 | NURSING ---
1437 Report given to pillar worker, [facility]
== END 2023-12-17 14:13 | disposition hospice, inpatient (51) | DRG 177 ==
LOC: ED 18:30 → PCU 19:41
PROVIDERS: Family Medicine; Nurse Practitioner Adult Health; Admitting Provider Hospitalist; Emergency Provider Emergency Medicine; PCP Family Medicine; Visit Provider Family Medicine
DX: J15.69 Pneumonia due to other Gram-negative bacteria (principal); E43 Unspecified severe protein-calorie malnutrition; E87.0 Hyperosmolality and hypernatremia; E87.20 Acidosis, unspecified; N17.9 Acute kidney failure, unspecified; F03.C3 Unspecified dementia, severe, with mood disturbance; N39.0 Urinary tract infection, site not specified; Z68.1 Body mass index [BMI] 19.9 or less, adult; E86.0 Dehydration; I10 Essential (primary) hypertension; D64.9 Anemia, unspecified; I25.10 Atherosclerotic heart disease of native coronary artery without angina pectoris; E78.5 Hyperlipidemia, unspecified; E87.5 Hyperkalemia; Z95.5 Presence of coronary angioplasty implant and graft; B96.4 Proteus (mirabilis) (morganii) as the cause of diseases classified elsewhere; B95.2 Enterococcus as the cause of diseases classified elsewhere; R62.7 Adult failure to thrive; R77.8 Other specified abnormalities of plasma proteins; Y95 Nosocomial condition; Z66 Do not resuscitate; Z79.899 Other long term (current) drug therapy; Z87.891 Personal history of nicotine dependence
CPT/HCPCS: 36415; 71045; 80048; 80069; 80076; 80164; 80202; 81001; 82140; 83605; 83690; 83735; 84100; 84484; 85025; 85027; 85610; 85730; 87040; 87077; 87086; 87088; 87149; 87186; 87449; 87631; 87633; 92610; 93005; 97802; 99284; J7030; J7050; A4216; J3490